=== PATIENT | male | born 1960 | race Caucasian/White ===

== ENCOUNTER → 2017-04-19 | Outpatient (CLI) | payer MEDICARE, MEDICAID ==
[~2017-04-19] MED LIST: CATHETER FLUSH 10 ML SYR IV PRN; HYDR-3062 PO; IOHEXOL 350 MG/ML 150 ML (OMNIPAQUE 350) VIAL IV ONE; LEVO500T78 PO; MTF500T PO; NIAC750T PO; NS 100 ML (IVPB) BAG IV ONE; arthritis med PO
[2017-04-19 10:54] LABS: ABG BASE EXCESS -1.2 MMOL/L (-2.5-2.5); ABG OXYGEN SATURATION 97 % (94-100); ABG PCO2 40 MMHG (35-45); ABG PH 7.38 (7.37-7.43); ABG PO2 75 MMHG (79-93); ABG TCO2 24.5 MMOL/L (21.0-31.0)
[2017-04-19 10:54] LABS: BASOPHILS % (AUTO) 0 % (0-10); EOSINOPHILS # (AUTO) 0.1 10^3/uL (0.0-0.3); EOSINOPHILS % (AUTO) 1 % (0-10); HEMATOCRIT 32 % (40-54); HEMOGLOBIN 12.3 G/DL (13.3-17.7); LYMPHOCYTES # (AUTO) 2.6 X 10^3 (1.0-4.0); LYMPHOCYTES % (AUTO) 30 % (12-44); MEAN CORPUSCULAR HEMOGLOBIN 30 PG (25-34); MEAN CORPUSCULAR HGB CONC 38 G/DL (32-36); MEAN CORPUSCULAR VOLUME 79 FL (80-99); MEAN PLATELET VOLUME 7.6 FL (7.4-10.4); MONOCYTES # (AUTO) 0.8 X 10^3 (0.0-1.0); MONOCYTES % (AUTO) 10 % (0-12); NEUTROPHILS % (AUTO) 59 % (42-75); PLATELET COUNT 233 10^3/uL (130-400); RED BLOOD COUNT 4.08 10^6/uL (4.35-5.85); RED CELL DISTRIBUTION WIDTH 14.6 % (10.0-14.5); WHITE BLOOD COUNT 8.6 10^3/uL (4.3-11.0)
[2017-04-19 10:57] LABS: ALLENS TEST YES-POS; INSPIRED O2 RA; PATIENT TEMP 97.7; VENTILATOR NO
[2017-04-19 11:15] LABS: BUN/CREATININE RATIO 17; CREATININE SERUM 0.66 MG/DL (0.60-1.30); GFR ESTIMATED > 60
[2017-04-19 11:29] LABS: ANISOCYTOSIS SLIGHT; BAND NEUTROPHILS 1 %; BASOPHILS % (MANUAL) 0 %; ELLIPT/OVALOCYTES SLIGHT; EOSINOPHILS % (MANUAL) 2 %; LYMPHOCYTES % (MANUAL) 27 %; MONOCYTES % (MANUAL) 6 %; MYELOCYTES % 2 %; NEUTROPHILS % (MANUAL) 62 %
--- NOTE | 2017-04-19 12:07 | Diagnostic Imaging Report ---
PROCEDURE: CT angiography of the chest with contrast. TECHNIQUE: Multiple contiguous axial images were obtained through the chest after uneventful bolus administration of intravenous contrast. Reconstructed CTA MIP acquisitions were also performed. DATE: April 19, 2017. COMPARISON: None. INDICATION: 56-year-old male, shortness of breath with mild exertion for 6 months. FINDINGS: There is no identified pulmonary nodule or mass. There is no focal airspace consolidation. There is no pneumothorax. There is no pleural effusion. The central airways are patent. There is no identified pulmonary embolus. The main pulmonary artery is normal in caliber. The heart is not enlarged. There is no pericardial effusion. There is a right paratracheal lymph node on axial image 25 which measures 6 mm in diameter. There are subcentimeter short axis paraesophageal lymph nodes such as on axial image 96 measuring up to 6 mm in short axis as the largest b2b outside sales representative lymph node. There is no identified abnormally enlarged hilar or axillary lymph node. There is no CT apparent abnormal wall thickening of the esophagus. There is an exophytic low-attenuation left renal lesion on axial image 162 measuring 2.0 cm in size with internal attenuation of one Hounsfield unit consistent with a benign cyst. There is a stone in the left renal pelvis on axial image 181 which measures 9.9 mm in size. There is no left hydronephrosis. The liver appears diffusely decreased in attenuation suggesting diffuse fatty infiltration of the liver. There is no identified acute bony abnormality. IMPRESSION: CT CHEST. 1. No identified acute cardiopulmonary abnormality. 2. Diffuse fatty infiltration of the liver. 3. 9.9 mm nonobstructing stone in the left renal pelvis. 4. Exophytic benign left renal cyst. Dictated by: Dictated on workstation # [id number]
== END ==
LOC: RAD 10:25
PROVIDERS: ATTEND Nurse Practitioner Family
DX: R06.00 Dyspnea, unspecified (principal); K76.0 Fatty (change of) liver, not elsewhere classified; N20.0 Calculus of kidney; R60.9 Edema, unspecified; G47.30 Sleep apnea, unspecified; B19.20 Unspecified viral hepatitis C without hepatic coma
CPT/HCPCS: 36415; 71275; 82565; 82805; 83880; 84520; 85007; 85027

== ENCOUNTER → 2017-05-02 | Outpatient (CLI) | payer MEDICARE, MEDICAID ==
[~2017-05-02] MED LIST changes: -CATHETER FLUSH 10 ML SYR IV PRN; -IOHEXOL 350 MG/ML 150 ML (OMNIPAQUE 350) VIAL IV ONE; -NS 100 ML (IVPB) BAG IV ONE
== END ==
LOC: CARD 10:33
PROVIDERS: ATTEND Nurse Practitioner Family
DX: R06.00 Dyspnea, unspecified (principal); R53.83 Other fatigue; B19.20 Unspecified viral hepatitis C without hepatic coma
CPT/HCPCS: 93306

== ENCOUNTER → 2017-05-02 | Outpatient (CLI) | payer MEDICARE, MEDICAID | LOC: RT 08:28 | PROVIDERS: ATTEND Nurse Practitioner Family | DX: R06.00 Dyspnea, unspecified (principal); R53.83 Other fatigue; B19.20 Unspecified viral hepatitis C without hepatic coma ==

== ENCOUNTER 2018-04-29 15:02 | Outpatient (CLI) | payer MEDICARE, MEDICAID ==
[~2018-04-29] VITALS: Ht 175.3 cm; Wt 128.6 kg
[~2018-04-29 15:02] MED LIST changes: -ESOM40CA52 PO; -EZET10TA27 PO; -GABA-488 PO; -HYDR-3870 PO; -METF-399 PO; -METO10TA3 PO; -METO50TA15 PO; -NABU750T PO; -NIAC10002 PO; -NITR-65 PO; -SIMV80TA5 PO; -TAMS0.4C98 PO; -TRAM50TA2 PO
[2018-04-29] MEDS ORDERED: METO50TA15 PO (15:28)
[2018-04-29] MEDS ORDERED: GABA-488 PO (15:28)
[2018-04-29] MEDS ORDERED: NABU750T PO (15:28)
[2018-04-29] MEDS ORDERED: TRAM50TA2 PO (15:28)
[2018-04-29] MEDS ORDERED: METF-399 PO (15:28)
[2018-04-29] MEDS ORDERED: SIMV80TA5 PO (15:28)
[2018-04-29] MEDS ORDERED: ESOM40CA52 PO (15:28)
[2018-04-29] MEDS ORDERED: EZET10TA27 PO (15:28)
[2018-04-29] MEDS ORDERED: NIAC10002 PO (15:28)
[2018-04-29] MEDS ORDERED: METO10TA3 PO (15:28)
[2018-04-30] MEDS ORDERED: NITR-65 PO (08:49)
[2018-04-30] MEDS ORDERED: HYDR-3870 PO (08:49)
[2018-04-30] MEDS ORDERED: TAMS0.4C98 PO (08:49)
== END 2018-04-29 16:11 | disposition home or self-care (01) ==
LOC: PREOP 15:02
PROVIDERS: ATTEND Urology
DX: Z01.818 Encounter for other preprocedural examination (principal)
CPT/HCPCS: 87081

== ENCOUNTER → 2018-04-29 | Outpatient (CLI) | payer MEDICARE, MEDICAID ==
[~2018-04-29] MED LIST changes: +ESOM40CA52 PO; +EZET10TA27 PO; +GABA-488 PO; +HYDR-3870 PO; +METF-399 PO; +METO10TA3 PO; +METO50TA15 PO; +NABU750T PO; +NIAC10002 PO; +NITR-65 PO; +SIMV80TA5 PO; +TAMS0.4C98 PO; +TRAM50TA2 PO
--- NOTE | 2018-04-29 15:56 | Diagnostic Imaging Report ---
INDICATION: Left-sided flank pain. Left ureteral stone. Time of exam 1:58 p.m. COMPARISON: Correlation is made with prior study from 03/24/2014. FINDINGS: There is a vague calcific density projected between the left transverse processes of L3 and L4. This may represent a ureteral calculus. Rounded calcific densities in the pelvis likely represent phleboliths. No definite renal calculi are seen. The bowel gas pattern is unremarkable. IMPRESSION: Calcific density between the left third and fourth transverse processes suspicious for a ureteral calculus. CT urinary tract study could be performed for further evaluation, if clinically indicated. Dictated by: Dictated on workstation # [id number]
== END ==
LOC: RAD 13:21
PROVIDERS: ATTEND Urology
DX: N20.1 Calculus of ureter (principal)
CPT/HCPCS: 74018

== ENCOUNTER 2018-04-30 06:20 | Day surgery (SDC) | payer MEDICARE, MEDICAID ==
[~2018-04-30] VITALS: Ht 175.3 cm; Wt 123.9 kg
[~2018-04-30 06:20] MED LIST changes: +ESOM40CA52 PO; +EZET10TA27 PO; +GABA-488 PO; +METF-399 PO; +METO10TA3 PO; +METO50TA15 PO; +NABU750T PO; +NIAC10002 PO; +SIMV80TA5 PO; +TRAM50TA2 PO
[2018-04-30] MEDS ORDERED: cefTRIAXone FOR IV USE 1,000 MG in NS (IVPB) 50 ML IV ONE (06:30)
[2018-04-30 06:35] VITALS: BP 137/89
[2018-04-30] MEDS ORDERED: MIDAZOLAM 2 MG/2 ML (VERSED) VIAL ONE (06:47)
[2018-04-30] MEDS ORDERED: SEVOFLURANE (ULTANE) 15 ML INHAL SOLN ONE ×2 (06:47→07:58)
[2018-04-30] MEDS ORDERED: fentaNYL INJECTION 100 MCG/2 ML AMP ONE (06:47)
[2018-04-30] MEDS ORDERED: ONDANSETRON 4 MG/2 ML (SDV) Z0FRAN ONE (06:47)
[2018-04-30] MEDS ORDERED: LIDOCAINE PF 2% 5 ML (XYLOCAINE) VIAL ONE (06:47)
[2018-04-30] MEDS ORDERED: proPOfol 200 MG/20 ML (DIPRIVAN) VIAL IV ONE (06:47)
--- NOTE | 2018-04-30 06:56 | Progress Note-Pre Operative ---
Pre-Operative Progress Note H&P Reviewed The H&P was reviewed, patient examined and no changes noted. Date Seen by Provider: Apr 30, 2018 Time Seen by Provider: 06:56 Date H&P Reviewed: Apr 30, 2018 Time H&P Reviewed: 06:56 Pre-Operative Diagnosis: LT PROXIMAL URETERAL STONE JONATHAN CONLEY MD Apr 30, 2018 06:56
[2018-04-30] MEDS ORDERED: LACTATED RINGERS 1,000 ML IV PRN (07:01)
[2018-04-30] MEDS ORDERED: FAMOTIDINE 20MG/2ML IV (PEPCID) IV ONE (07:15)
[2018-04-30] MEDS ORDERED: FUROSEMIDE 40 MG/4 ML INJ (LASIX) ONE (07:25)
[2018-04-30] MEDS ORDERED: KETOROLAC 30 MG/ML VIAL ONE (07:25)
--- NOTE | 2018-04-30 07:35 | Discharge Inst-Urology ---
Discharge Inst-Urology Discharge Medications New, Converted, or Re-newed RX: RX on Chart Patient Instructions/Follow Up Plan Please make appointment to been seen in office Saturday 05/13, [place] prior to it. KUB on way home Post ESWL instructions Increase oral fluids for 48 hours and then as needed. Diet and Activity as tolerated. If questions or concerns contact your physician Or seek help at emergency department. JONATHAN CONLEY MD Apr 30, 2018 07:35
--- NOTE | 2018-04-30 07:37 | Progress Note-Post Operative ---
Post-Operative Progess Note Surgeon (s)/Adult Basic Education Teacher (s) Surgeon JONATHAN CONLEY MD Adult Basic Education Teacher: NONE Pre-Operative Diagnosis LT PROXIMAL URETERAL STONE Post-Operative Diagnosis SAME Procedure & Operative Findings Date of Procedure 04/30/18 Procedure Performed/Findings LT ESWL Anesthesia Type GENERAL Estimated Blood Loss Estimated blood loss (mL): NONE Specimens/Packing Specimens Removed NONE Packing: NONE JONATHAN CONLEY MD Apr 30, 2018 07:37
--- OUTSIDE RECORDS SUMMARY | 2018-04-30 08:00 | XMS REPORT | Continuity of Care Document ---
Author Author [facility] Organization [facility] Address Unknown Phone Unavailable Allergies Active Description Code Type Severity Reaction Onset Reported/Identified Relationship to Patient Clinical Status Yes No Known Drug Allergies [id number] Drug Allergy Unknown N/A 04/29/2018 Medications There is no data. Problems Date Dx Coded Attending Type Code Diagnosis Diagnosed By 03/10/2014 YAEL BOB, JONATHAN [place] Ot 592.1 CALCULUS OF URETER 03/10/2014 YAEL BOB, JONATHAN [place] Ot V58.69 OT MED,LT,CURRENT USE 04/06/2014 JONATHAN CONLEY MD Ot 592.9 04/15/2014 Ot 592.1 06/10/2014 JONATHAN CONLEY MD Ot 592.9 06/10/2014 Ot 592.1 06/10/2014 YAEL BOB, JONATHAN [place] Ot 592.9 06/10/2014 YAEL BOB, JONATHAN [place] Ot 592.9 11/04/2014 Ot 592.1 04/19/2017 YAEL BOB, JONATHAN [place] Ot 592.9 URINARY CALCULUS NOS 04/19/2017 Ot 592.1 CALCULUS OF URETER 04/19/2017 RAYMUNDO PELLETIER MEAT LUGGER Ot R06.00 DYSPNEA, UNSPECIFIED 05/03/2017 RAYMUNDO PELLETIER MEAT LUGGER Ot B19.20 UNSPECIFIED VIRAL HEPATITIS C WITHOUT HE 05/03/2017 RAYMUNDO PELLETIER MEAT LUGGER Ot R06.00 DYSPNEA, UNSPECIFIED 05/03/2017 RAYMUNDO PELLETIER MEAT LUGGER Ot R53.83 OTHER FATIGUE 05/18/2017 RAYMUNDO PELLETIER MEAT LUGGER Ot B19.20 UNSPECIFIED VIRAL HEPATITIS C WITHOUT HE 05/18/2017 RAYMUNDO PELLETIER ME[employer] LUGGER Ot G47.30 SLEEP APNEA, UNSPECIFIED 05/18/2017 RAYMUNDO PELLETIER MEAT LUGGER Ot K76.0 FATTY (CHANGE OF) LIVER, NOT ELSEWHERE C 05/18/2017 GEOVANY PELLETIERINE [place] MEAT LUGGER Ot N20.0 CALCULUS OF KIDNEY 05/18/2017 PRABHU, RAYMUNDO E MEAT LUGGER Ot R06.00 DYSPNEA, UNSPECIFIED 05/18/2017 PRABHU, RAYMUNDO E MEAT LUGGER Ot R60.9 EDEMA, UNSPECIFIED 05/23/2017 PRABHU, RAYMUNDO E MEAT LUGGER Ot B19.20 UNSPECIFIED VIRAL HEPATITIS C WITHOUT HE 05/23/2017 PRABHU, RAYMUNDO E MEAT LUGGER Ot G47.30 SLEEP APNEA, UNSPECIFIED 05/23/2017 PRABHU, RAYMUNDO E MEAT LUGGER Ot K76.0 FATTY (CHANGE OF) LIVER, NOT ELSEWHERE C 05/23/2017 PRABHU, RAYMUNDO E MEAT LUGGER Ot N20.0 CALCULUS OF KIDNEY 05/23/2017 PRABHU, RAYMUNDO E MEAT LUGGER Ot R06.00 DYSPNEA, UNSPECIFIED 05/23/2017 PRABHU, RAYMUNDO E MEAT LUGGER Ot R60.9 EDEMA, UNSPECIFIED 05/28/2017 PRABHU, RAYMUNDO E MEAT LUGGER Ot B19.20 UNSPECIFIED VIRAL HEPATITIS C WITHOUT HE 05/28/2017 PRABHU, RAYMUNDO E MEAT LUGGER Ot R06.00 DYSPNEA, UNSPECIFIED 05/28/2017 PRABHU RAYMUNDO E MEAT LUGGER Ot R53.83 OTHER FATIGUE 04/29/2018 YAEL BOB, JONATHAN A Ot 592.9 URINARY CALCULUS NOS 04/29/2018 Ot 592.1 CALCULUS OF URETER 04/29/2018 GEOVANY PELLETIERINE E MEAT LUGGER Ot B19.20 UNSPECIFIED VIRAL HEPATITIS C WITHOUT HE 04/29/2018 GEOVANY PELLETIERINE E MEAT LUGGER Ot G47.30 SLEEP APNEA, UNSPECIFIED 04/29/2018 PRABHU RAYMUNDO E MEAT LUGGER Ot K76.0 FATTY (CHANGE OF) LIVER, NOT ELSEWHERE C 04/29/2018 PRABHU, RAYMUNDO E MEAT LUGGER Ot N20.0 CALCULUS OF KIDNEY 04/29/2018 PRABHU RAYMUNDO E MEAT LUGGER Ot R06.00 DYSPNEA, UNSPECIFIED 04/29/2018 PRABHU RAYMUNDO E MEAT LUGGER Ot R60.9 EDEMA, UNSPECIFIED 04/29/2018 PRABHU, RAYMUNDO E MEAT LUGGER Ot B19.20 UNSPECIFIED VIRAL HEPATITIS C WITHOUT HE 04/29/2018 PRABHU, RAYMUNDO E MEAT LUGGER Ot R06.00 DYSPNEA, UNSPECIFIED 04/29/2018 PRABHUGEOVANY CONRADINE E MEAT LUGGER Ot R53.83 OTHER FATIGUE 04/29/2018 PRABHU, RAYMUNDO E MEAT LUGGER Ot B19.20 UNSPECIFIED VIRAL HEPATITIS C WITHOUT HE 04/29/2018 PRABHUGEOVANY CONRADINE E MEAT LUGGER Ot R06.00 DYSPNEA, UNSPECIFIED 04/29/2018 PRABHU, RAYMUNDO E MEAT LUGGER Ot R53.83 OTHER FATIGUE 04/29/2018 YAEL BOB, JONATHAN [place] Ot 592.9 URINARY CALCULUS NOS 04/29/2018 Ot 592.1 CALCULUS OF URETER 04/29/2018 GEOVANY PELLETIERINE E MEAT LUGGER Ot B19.20 UNSPECIFIED VIRAL HEPATITIS C WITHOUT HE 04/29/2018 PRABHU RAYMUNDO E MEAT LUGGER Ot G47.30 SLEEP APNEA, UNSPECIFIED 04/29/2018 GEOVANY PELLETIERINE E MEAT LUGGER Ot K76.0 FATTY (CHANGE OF) LIVER, NOT ELSEWHERE C 04/29/2018 GEOVANY PELLETIERINE E MEAT LUGGER Ot N20.0 CALCULUS OF KIDNEY 04/29/2018 PRABHU RAYMUNDO E MEAT LUGGER Ot R06.00 DYSPNEA, UNSPECIFIED 04/29/2018 PRABHU, RAYMUNDO E MEAT LUGGER Ot R60.9 EDEMA, UNSPECIFIED 04/29/2018 PRABHU, RAYMUNDO E MEAT LUGGER Ot B19.20 UNSPECIFIED VIRAL HEPATITIS C WITHOUT HE 04/29/2018 PRABHUGEOVANY CONRADINE E MEAT LUGGER Ot R06.00 DYSPNEA, UNSPECIFIED 04/29/2018 PRABHU RAYMUNDO E MEAT LUGGER Ot R53.83 OTHER FATIGUE 04/29/2018 PRABHU RAYMUNDO E MEAT LUGGER Ot B19.20 UNSPECIFIED VIRAL HEPATITIS C WITHOUT HE 04/29/2018 GEOVANY PELLETIERINE E MEAT LUGGER Ot R06.00 DYSPNEA, UNSPECIFIED 04/29/2018 PRABHU RAYMUNDO E MEAT LUGGER Ot R53.83 OTHER FATIGUE Procedures There is no data. Results Test Result Range Capillary blood glucose measurement by glucometer (mass/volume) - 04/30/18 07: 08 Capillary blood glucose measurement by glucometer (mass/volume) 123 mg/dL 70-110 Encounters ACCT No. Visit Date/Time Discharge Status Pt. Type Provider Facility Loc./Unit Complaint [id number] 04/29/2018 15:02:00 04/29/2018 16:11:00 DIS Outpatient JONATHAN CONLEY MD [facility] PREOP URETAL STONE [id number] 05/02/2017 10:33:00 05/02/2017 23:59:59 CLS Outpatient RAYMUNDO PELLETIER MEAT LUGGER [facility] CARD DYSPNEA [id number] 05/02/2017 08:28:00 05/02/2017 23:59:59 CLS Outpatient RAYMUNDO PELLETIER E MEAT LUGGER [facility] RT DYSPNEA [id number] 04/19/2017 10:25:00 04/19/2017 23:59:59 CLS Outpatient RAYMUNDO PELLETIER MEAT [employer]GGER [facility] RAD R53.83 R06.00 Z74.09 R60.9 [id number] 03/10/2014 07:22:00 03/10/2014 11:05:00 DIS Outpatient JONATHAN CONLEY MD [facility] RIGHT URETERAL STONE [id number] 03/09/2014 14:52:00 03/09/2014 23:59:59 CLS Outpatient JONATHAN CONLEY MD [facility] RAD STONE [id number] 04/30/2018 06:20:00 ACT Outpatient JONATHAN CONLEY MD [facility] LEFT URETERAL STONE [id number] 04/29/2018 13:21:00 ACT Outpatient JONATHAN CONLEY MD [facility] RAD LT NRETERAL STONE [id number] 03/24/2014 13:33:00 Document Registration [email or web address] 03/24/2014 13:34:34 ACT Document Registration
--- NOTE | 2018-04-30 08:14 | Anesthesia-General Post-Op ---
General Patient Condition Mental Status/LOC: Same as Preop Cardiovascular: Satisfactory Nausea/Vomiting: Absent Respiratory: Satisfactory Pain: Controlled Complications: Absent Post Op Complications Complications None Follow Up Care/Instructions Patient Instructions None needed. Anesthesia/Patient Condition Patient Condition Patient is doing well, no complaints, stable vital signs, no apparent adverse anesthesia problems. No complications reported per nursing. ROSA FOOTE CRNA Apr 30, 2018 08:14
[2018-04-30] MEDS ORDERED: morphine INJ 10 MG/ML 1ML (SYR OR VIAL) IVP ONE (08:15)
[2018-04-30] MEDS ORDERED: ONDANSETRON 4 MG/2 ML (SDV) Z0FRAN IVP PRN (08:15)
[2018-04-30 08:40] VITALS: BP 135/64
[2018-04-30] MEDS ORDERED: HYDR-3870 PO (08:49)
[2018-04-30] MEDS ORDERED: NITR-65 PO (08:49)
[2018-04-30] MEDS ORDERED: TAMS0.4C98 PO (08:49)
[2018-04-30 09:07] VITALS: BP 123/60
[2018-04-30 09:40] VITALS: BP 126/81
--- NOTE | 2018-04-30 09:45 | Diagnostic Imaging Report ---
PATIENT HISTORY: LEFT URETERAL STONE. TECHNIQUE: Frontal views of the abdomen. COMPARISON: 04/29/2018. FINDINGS: There is a persistent approximately 1 cm calcific density in the region of the proximal left ureter at the L4 vertebral level. Phleboliths are noted at the pelvis. No acute osseous abnormality seen. Bowel loops are nondistended, without evidence of obstruction. No large collection of free air is seen. IMPRESSION: Calcification again seen in the region of the proximal left ureter at the L4 vertebral level. Dictated by: Dictated on workstation # [id number]
[2018-04-30 09:47] VITALS: BP 126/81
--- NOTE | 2018-04-30 10:04 | OPERATIVE REPORT ---
DATE OF SERVICE: 04/30/2018 PREOPERATIVE DIAGNOSIS: Left proximal ureteral stone. POSTOPERATIVE DIAGNOSIS: Left proximal ureteral stone. OPERATION PERFORMED: Left ESWL. SURGEON: Favio Conley MD. ANESTHESIA: General. COMPLICATIONS: None. DESCRIPTION OF PROCEDURE: Under satisfactory general anesthesia, the patient in supine position on the ESWL table, the left proximal ureteral stone was localized with some difficulty because of not being very radiopaque and because of the size of the patient, shocks were delivered at kV of 5. A total of 3000 shocks were delivered until we could not visualize the stone at all. The patient received 40 mg of Lasix and 30 mg of Toradol IV at the end of the procedure. He tolerated the procedure and anesthesia well and was sent to the recovery room in stable condition. Job ID: [id number] DocumentID: [id number] Dictated Date: 04/30/2018 07:53:40 Helicopter Utility Aircrewman Date: 04/30/2018 10:03:33 Dictated By: FAVIO CONLEY MD
--- NOTE | 2018-04-30 13:15 | Diagnostic Imaging Report ---
EXAMINATION: Supine abdomen at 9:55 a.m. INDICATION: Post ESWL. FINDINGS: The exam performed earlier today at 7:11 a.m. noted a 1 cm calcific density overlying the left transverse process of L4. That finding is again evident on this study and does not seem to have changed significantly in appearance or position. No other abnormality is identified. In the interval since the previous exam, a moderate amount of gas has developed in the small bowel. This finding is nonspecific. IMPRESSION: The calcific density overlying the left ureter seen previously is again evident and does not appear to have changed significantly in position or appearance. Dictated by: Dictated on workstation # [id number]
== END 2018-04-30 09:47 | disposition home or self-care (01) ==
LOC: SDC 06:20
PROVIDERS: ATTEND Urology
DX: N20.1 Calculus of ureter (principal); E11.9 Type 2 diabetes mellitus without complications; I10 Essential (primary) hypertension; G47.33 Obstructive sleep apnea (adult) (pediatric); K21.9 Gastro-esophageal reflux disease without esophagitis; E66.01 Morbid (severe) obesity due to excess calories; Z68.41 Body mass index [BMI] 40.0-44.9, adult; Z79.84 Long term (current) use of oral hypoglycemic drugs; Z79.899 Other long term (current) drug therapy; Z87.891 Personal history of nicotine dependence
CPT/HCPCS: 74018; 82962

== ENCOUNTER → 2018-05-13 | Outpatient (CLI) | payer MEDICARE, MEDICAID ==
[~2018-05-13] MED LIST changes: +HYDR-3870 PO; +NITR-65 PO; +SIMV80TA21 PO; -SIMV80TA5 PO; +TAMS0.4C98 PO
--- NOTE | 2018-05-13 15:05 | Diagnostic Imaging Report ---
INDICATION: Status post ESWL. Follow up ureteral calculus. COMPARISON: 04/30/2018. FINDINGS: Single supine radiographic view of the abdomen was obtained and again demonstrates extraosseous calcification projecting over the left psoas muscle at approximately the L3-L4 intervertebral disc space. This has not significantly changed when compared to 04/30/2018. Included small bowel loops are nondistended. No new unexpected extraosseous calcifications or radiopaque foreign bodies are seen. IMPRESSION: 1. Extraosseous calcification projecting over the left psoas muscle is stable in position. Dictated by: Dictated on workstation # [id number]
== END ==
LOC: RAD 14:26
PROVIDERS: ATTEND Urology
DX: N20.1 Calculus of ureter (principal); M61.9 Calcification and ossification of muscle, unspecified
CPT/HCPCS: 74018

== ENCOUNTER → 2018-05-27 | Outpatient (CLI) | payer MEDICARE, MEDICAID ==
--- NOTE | 2018-05-27 13:07 | Diagnostic Imaging Report ---
INDICATION: Left ureteral stone, status post lithotripsy. TIME OF EXAMINATION: 12:27 PM. COMPARISON: 05/13/2018. FINDINGS: The calcific density previously noted is again seen projected between the left L3 and L4 transverse processes. Pelvic calcifications appear stable, likely phleboliths. The right abdomen is unremarkable. IMPRESSION: Vague calcific density in the left paramidline abdomen is again noted and similar to the examination from 05/13/2018. Dictated by: Dictated on workstation # [id number]
== END ==
LOC: RAD 12:14
PROVIDERS: ATTEND Urology
DX: N20.1 Calculus of ureter (principal); R19.8 Other specified symptoms and signs involving the digestive system and abdomen
CPT/HCPCS: 74018

== ENCOUNTER 2018-05-28 06:42 | Day surgery (SDC) | payer MEDICARE, MEDICAID ==
[~2018-05-28] VITALS: Ht 175.3 cm; Wt 126.6 kg
--- OUTSIDE RECORDS SUMMARY | 2018-05-28 06:46 | XMS REPORT | Continuity of Care Document ---
Author Author [facility] Organization [facility] Address Unknown Phone Unavailable Allergies Active Description Code Type Severity Reaction Onset Reported/Identified Relationship to Patient Clinical Status Yes No Known Drug Allergies [id number] Drug Allergy Unknown N/A 04/29/2018 Medications There is no data. Problems Date Dx Coded Attending Type Code Diagnosis Diagnosed By 03/10/2014 YAEL BOB, JONATHAN Prescott Ot 592.1 CALCULUS OF URETER 03/10/2014 YAEL BOB, JONATHAN Prescott Ot V58.69 OT MED,LT,CURRENT USE 04/06/2014 JONATHAN CONLEY MD Ot 592.9 04/15/2014 Ot 592.1 06/10/2014 JONATHAN CONLEY MD Ot 592.9 06/10/2014 Ot 592.1 06/10/2014 YAEL BOB, JONATHAN Prescott Ot 592.9 06/10/2014 YALE BOB, JONATHAN Prescott Ot 592.9 11/04/2014 Ot 592.1 04/19/2017 YAEL BOB, JONATHAN Prescott Ot 592.9 URINARY CALCULUS NOS 04/19/2017 Ot 592.1 CALCULUS OF URETER 04/19/2017 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 Ot R06.00 DYSPNEA, UNSPECIFIED 05/03/2017 RAYMUNDO PELLTEIER WIRE STRAIGHTENING MACHINE OPERATOR Ot B19.20 UNSPECIFIED VIRAL HEPATITIS C WITHOUT HE 05/03/2017 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 Ot R06.00 DYSPNEA, UNSPECIFIED 05/03/2017 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 Ot R53.83 OTHER FATIGUE 05/18/2017 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 Ot B19.20 UNSPECIFIED VIRAL HEPATITIS C WITHOUT HE 05/18/2017 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 Ot G47.30 SLEEP APNEA, UNSPECIFIED 05/18/2017 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 Ot K76.0 FATTY (CHANGE OF) LIVER, NOT ELSEWHERE C 05/18/2017 GEOVANY PELLETIERINE [place] WIRE STRAIGHTENING MACHINE OPERATOR Ot N20.0 CALCULUS OF KIDNEY 05/18/2017 PRABHU, RAYMUNDO E WIRE STRAIGHTENING MACHINE OPERATOR Ot R06.00 DYSPNEA, UNSPECIFIED 05/18/2017 PRABHU, RAYMUNDO E WIRE STRAIGHTENING MACHINE OPERATOR Ot R60.9 EDEMA, UNSPECIFIED 05/23/2017 PRABHU, RAYMUNDO E WIRE STRAIGHTENING MACHINE OPERATOR Ot B19.20 UNSPECIFIED VIRAL HEPATITIS C WITHOUT HE 05/23/2017 PRABHU, RAYMUDNO E WIRE STRAIGHTENING MACHINE OPERATOR Ot G47.30 SLEEP APNEA, UNSPECIFIED 05/23/2017 PRABHU, RAYMUNDO E WIRE STRAIGHTENING MACHINE OPERATOR Ot K76.0 FATTY (CHANGE OF) LIVER, NOT ELSEWHERE C 05/23/2017 PRABHU, RAYMUNDO E WIRE STRAIGHTENING MACHINE OPERATOR Ot N20.0 CALCULUS OF KIDNEY 05/23/2017 PRABHU, RAYMUNDO E WIRE STRAIGHTENING MACHINE OPERATOR Ot R06.00 DYSPNEA, UNSPECIFIED 05/23/2017 PRABHU, RAYMUNDO E WIRE STRAIGHTENING MACHINE OPERATOR Ot R60.9 EDEMA, UNSPECIFIED 05/28/2017 PRABHU, RAYMUNDO E WIRE STRAIGHTENING MACHINE OPERATOR Ot B19.20 UNSPECIFIED VIRAL HEPATITIS C WITHOUT HE 05/28/2017 PRABHU, RAYMUNDO E WIRE STRAIGHTENING MACHINE OPERATOR Ot R06.00 DYSPNEA, UNSPECIFIED 05/28/2017 PRABHU RAYMUNDO E WIRE STRAIGHTENING MACHINE OPERATOR Ot R53.83 OTHER FATIGUE 04/29/2018 YAEL BOB, JONATHAN A Ot 592.9 URINARY CALCULUS NOS 04/29/2018 Ot 592.1 CALCULUS OF URETER 04/29/2018 GEOVANY PELLETIERINE E WIRE STRAIGHTENING MACHINE OPERATOR Ot B19.20 UNSPECIFIED VIRAL HEPATITIS C WITHOUT HE 04/29/2018 GEOVANY PELLETIERINE E WIRE STRAIGHTENING MACHINE OPERATOR Ot G47.30 SLEEP APNEA, UNSPECIFIED 04/29/2018 PRABHU RAYMUNDO E WIRE STRAIGHTENING MACHINE OPERATOR Ot K76.0 FATTY (CHANGE OF) LIVER, NOT ELSEWHERE C 04/29/2018 PRABHU, RAYMUNDO E WIRE STRAIGHTENING MACHINE OPERATOR Ot N20.0 CALCULUS OF KIDNEY 04/29/2018 PRABHU RAYMUNDO E WIRE STRAIGHTENING MACHINE OPERATOR Ot R06.00 DYSPNEA, UNSPECIFIED 04/29/2018 PRABHU RAYMUNDO E WIRE STRAIGHTENING MACHINE OPERATOR Ot R60.9 EDEMA, UNSPECIFIED 04/29/2018 PRABHU, RAYMUNDO E WIRE STRAIGHTENING MACHINE OPERATOR Ot B19.20 UNSPECIFIED VIRAL HEPATITIS C WITHOUT HE 04/29/2018 PRABHU, RAYMUNDO E WIRE STRAIGHTENING MACHINE OPERATOR Ot R06.00 DYSPNEA, UNSPECIFIED 04/29/2018 PRABHUGEOVANY CONRADINE E WIRE STRAIGHTENING MACHINE OPERATOR Ot R53.83 OTHER FATIGUE 04/29/2018 PRABHU RAYMUNDO E WIRE STRAIGHTENING MACHINE OPERATOR Ot B19.20 UNSPECIFIED VIRAL HEPATITIS C WITHOUT HE 04/29/2018 GEOVANY PELLETIERINE E WIRE STRAIGHTENING MACHINE OPERATOR Ot R06.00 DYSPNEA, UNSPECIFIED 04/29/2018 GEOVANY PELLETIERINE E WIRE STRAIGHTENING MACHINE OPERATOR Ot R53.83 OTHER FATIGUE 04/29/2018 JONATHAN CONLEY MD Ot 592.9 URINARY CALCULUS NOS 04/29/2018 Ot 592.1 CALCULUS OF URETER 04/29/2018 GEOVANY PELLETIREINE E WIRE STRAIGHTENING MACHINE OPERATOR Ot B19.20 UNSPECIFIED VIRAL HEPATITIS C WITHOUT HE 04/29/2018 GEOVANY PELLETIERINE E WIRE STRAIGHTENING MACHINE OPERATOR Ot G47.30 SLEEP APNEA, UNSPECIFIED 04/29/2018 GEOVANY PELLETIERINE [place] WIRE STRAIGHTENING MACHINE OPERATOR Ot K76.0 FATTY (CHANGE OF) LIVER, NOT ELSEWHERE C 04/29/2018 GEOVANY PELLETIERINE E WIRE STRAIGHTENING MACHINE OPERATOR Ot N20.0 CALCULUS OF KIDNEY 04/29/2018 GEOVANY PELLETIERINE E WIRE STRAIGHTENING MACHINE OPERATOR Ot R06.00 DYSPNEA, UNSPECIFIED 04/29/2018 PRABHU RAYMUNDO E WIRE STRAIGHTENING MACHINE OPERATOR Ot R60.9 EDEMA, UNSPECIFIED 04/29/2018 PRABHU RAYMUNDO E WIRE STRAIGHTENING MACHINE OPERATOR Ot B19.20 UNSPECIFIED VIRAL HEPATITIS C WITHOUT HE 04/29/2018 GEOVANY PELLETIERINE [place] WIRE STRAIGHTENING MACHINE OPERATOR Ot R06.00 DYSPNEA, UNSPECIFIED 04/29/2018 PRABHU RAYUMNDO E WIRE STRAIGHTENING MACHINE OPERATOR Ot R53.83 OTHER FATIGUE 04/29/2018 GEOVANY PELLETIERINE [place] WIRE STRAIGHTENING MACHINE OPERATOR Ot B19.20 UNSPECIFIED VIRAL HEPATITIS C WITHOUT HE 04/29/2018 GEOVANY PELLETIERINE [place] WIRE STRAIGHTENING MACHINE OPERATOR Ot R06.00 DYSPNEA, UNSPECIFIED 04/29/2018 GEOVANY PELLETIERINE [place] WIRE STRAIGHTENING MACHINE OPERATOR Ot R53.83 OTHER FATIGUE 04/30/2018 JONATHAN CONLEY MD Ot E11.9 TYPE 2 DIABETES MELLITUS WITHOUT COMPLIC 04/30/2018 JONATHAN CONLEY MD Ot E66.01 MORBID (SEVERE) OBESITY DUE TO EXCESS CA 04/30/2018 JONATHAN CONLEY MD Ot G47.33 OBSTRUCTIVE SLEEP APNEA (ADULT) (PEDIATR 04/30/2018 JONATHAN CONLEY MD Ot I10 ESSENTIAL (PRIMARY) HYPERTENSION 04/30/2018 JONATHAN CONLEY MD, Ot K21.9 GASTRO-ESOPHAGEAL REFLUX DISEASE WITHOUT 04/30/2018 JONATHAN CONLEY MD, Ot N20.1 CALCULUS OF URETER 04/30/2018 JONATHAN CONLEY MD, Ot Z68.41 BODY MASS INDEX (BMI) 40.0-44.9, ADULT 04/30/2018 JONATHAN CONLEY MD, Ot Z79.84 LABEL TACKER (CURRENT) USE OF ORAL HYPOGLYC 04/30/2018 JONATHAN CONLEY MD, Ot Z79.899 OTHER LABEL TACKER (CURRENT) DRUG THERAPY 04/30/2018 JONATHAN CONLEY MD, Ot Z87.891 PERSONAL HISTORY OF NICOTINE DEPENDENCE 05/02/2018 JONATHAN CONLEY MD, Ot E11.9 TYPE 2 DIABETES MELLITUS WITHOUT COMPLIC 05/02/2018 JONATHAN CONLEY MD, Ot E66.01 MORBID (SEVERE) OBESITY DUE TO EXCESS CA 05/02/2018 JONATHAN CONLEY MD, Ot G47.33 OBSTRUCTIVE SLEEP APNEA (ADULT) (PEDIATR 05/02/2018 JONATHAN CONLEY MD, Ot I10 ESSENTIAL (PRIMARY) HYPERTENSION 05/02/2018 JONATHAN CONLEY MD, Ot K21.9 GASTRO-ESOPHAGEAL REFLUX DISEASE WITHOUT 05/02/2018 JONATHAN CONLEY MD, Ot N20.1 CALCULUS OF URETER 05/02/2018 JONATHAN CONLEY MD, Ot Z68.41 BODY MASS INDEX (BMI) 40.0-44.9, ADULT 05/02/2018 JONATHAN CONLEY MD, Ot Z79.84 FPC (CURRENT) USE OF ORAL HYPOGLYC 05/02/2018 JONATHAN CONLEY MD, Ot Z79.899 OTHER LABEL TACKER (CURRENT) DRUG THERAPY 05/02/2018 JONATHAN CONLEY MD, Ot Z87.891 PERSONAL HISTORY OF NICOTINE DEPENDENCE 05/14/2018 JONATHAN CNOLEY MD, Ot M61.9 CALCIFICATION AND OSSIFICATION OF MUSCLE 05/14/2018 JONATHAN CONLEY MD, Ot N20.1 CALCULUS OF URETER 05/21/2018 JONATHAN CONLEY MD, Ot N20.1 CALCULUS OF URETER Procedures There is no data. Results Test Result Range Methicillin resistant Staphylococcus aureus (MRSA) screening culture - 15:40 Methicillin resistant Staphylococcus aureus (MRSA) screening culture NEG NRG Capillary blood glucose measurement by glucometer (mass/volume) - 04/30/18 07: 08 Capillary blood glucose measurement by glucometer (mass/volume) 123 mg/dL 70-110 Encounters ACCT No. Visit Date/Time Discharge Status Pt. Type Provider Facility Loc./Unit Complaint [id number] 2018 14:26:00 2018 23:59:59 CLS Outpatient JONATHAN CONLEY MD [facility] RAD L RENAL STONE [id number] 04/30/2018 06:20:00 04/30/2018 09:47:00 DIS Outpatient JONATHAN CONLEY MD [facility] SDC LEFT URETERAL STONE [id number] 04/29/2018 13:21:00 04/29/2018 23:59:59 CLS Outpatient JONATHAN CONLEY MD [facility] RAD LT NRETERAL STONE [id number] 04/29/2018 15:02:00 04/29/2018 16:11:00 DIS Outpatient JONATHAN CONLEY MD [facility] PREOP URETAL STONE [id number] 05/02/2017 10:33:00 05/02/2017 23:59:59 CLS Outpatient RAYMUNDO PELLETIER APRN [facility] CARD DYSPNEA [id number] 05/02/2017 08:28:00 05/02/2017 23:59:59 CLS Outpatient 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 [facility] RT DYSPNEA [id number] 04/19/2017 10:25:00 04/19/2017 23:59:59 CLS Outpatient 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 [facility] RAD R53.83 R06.00 Z74.09 R60.9 [id number] 03/10/2014 07:22:00 03/10/2014 11:05:00 DIS Outpatient JONATHAN CONLEY MD [facility] SDC RIGHT URETERAL STONE [id number] 03/09/2014 14:52:00 03/09/2014 23:59:59 CLS Outpatient JONATHAN CONLEY MD [facility] RAD STONE [id number] 05/28/2018 06:42:00 ACT Outpatient JONATHAN CONLEY MD [facility] LEFT URETERAL STONE [id number] 05/27/2018 12:14:00 ACT Outpatient JONATHAN CONLEY MD [facility] RAD STONE RISK [id number] 03/24/2014 13:33:00 Document Registration [id number] 03/24/2014 13:34:34 ACT Document Registration
--- NOTE | 2018-05-28 07:03 | Progress Note-Pre Operative ---
Pre-Operative Progress Note H&P Reviewed The H&P was reviewed, patient examined and no changes noted. Date Seen by Provider: May 28, 2018 Time Seen by Provider: 07:03 Date H&P Reviewed: May 28, 2018 Time H&P Reviewed: 07:03 Pre-Operative Diagnosis: LT PROXIMAL URETERAL STONE JONATHAN CONLEY MD May 28, 2018 07:03
[2018-05-28 07:10] VITALS: BP 132/78
[2018-05-28] MEDS ORDERED: LIDOCAINE PF 2% 5 ML (XYLOCAINE) VIAL ONE (07:24)
[2018-05-28] MEDS ORDERED: proPOfol 200 MG/20 ML (DIPRIVAN) VIAL IV ONE (07:24)
[2018-05-28] MEDS ORDERED: SEVOFLURANE (ULTANE) 15 ML INHAL SOLN ONE ×3 (07:24→08:37)
[2018-05-28] MEDS ORDERED: FUROSEMIDE 40 MG/4 ML INJ (LASIX) ONE (07:24)
[2018-05-28] MEDS ORDERED: DEXAMETHASONE 10 MG/ML (DECADRON) 1 ML VIAL ONE (07:24)
[2018-05-28] MEDS ORDERED: fentaNYL INJECTION 100 MCG/2 ML AMP ONE (07:24)
[2018-05-28] MEDS ORDERED: KETOROLAC 30 MG/ML VIAL ONE (07:24)
[2018-05-28] MEDS ORDERED: MIDAZOLAM 2 MG/2 ML (VERSED) VIAL ONE (07:24)
[2018-05-28] MEDS ORDERED: ONDANSETRON 4 MG/2 ML (SDV) Z0FRAN ONE (07:24)
[2018-05-28] MEDS ORDERED: CATHETER FLUSH 10 ML SYR IV PRN (07:30)
[2018-05-28] MEDS ORDERED: cefTRIAXone FOR IV USE 1,000 MG in WATER (STERILE) FOR INJECTION 10 ML IV ONE (07:30)
--- NOTE | 2018-05-28 08:20 | Discharge Inst-Urology ---
Discharge Inst-Urology Discharge Medications New, Converted, or Re-newed RX: RX on Chart Patient Instructions/Follow Up Plan Please make appointment to been seen in office in 2 weeks. KUB prior to it KUB on way home Post ESWL instructions Increase oral fluids for 48 hours and then as needed. Diet and Activity as tolerated. If questions or concerns contact your physician Or seek help at emergency department. JONATHAN CONLEY MD May 28, 2018 08:20
--- NOTE | 2018-05-28 08:21 | Progress Note-Post Operative ---
Post-Operative Progess Note Surgeon (s)/Chief Librarian Circulation Department (s) Surgeon JONATHAN CONLEY MD Chief Librarian Circulation Department: NONE Pre-Operative Diagnosis LT PROXIMAL URETERAL STONE Post-Operative Diagnosis SAME Procedure & Operative Findings Date of Procedure 05/28/18 Procedure Performed/Findings LT ESWL Anesthesia Type GENERAL Estimated Blood Loss Estimated blood loss (mL): NONE Specimens/Packing Specimens Removed NONE Packing: NONE JONATHAN CONLEY MD May 28, 2018 08:21
--- NOTE | 2018-05-28 08:49 | Diagnostic Imaging Report ---
INDICATION: Left-sided renal stones. TECHNIQUE: Single supine view of the abdomen at 7:16 AM. CORRELATION STUDY: 05/27/2018. FINDINGS: The previously demonstrated calcification between the left L3 and L4 transverse process appears somewhat less well visualized. This may project over the L4 transverse process. Additional calcifications in the pelvis are present. The overlying bowel gas pattern is unremarkable. IMPRESSION: The previously noted vague calcification over the left paraspinal region is less well visualized but may be projecting over the L4 transverse process at followup. Dictated by: Dictated on workstation # [id number]
[2018-05-28] MEDS ORDERED: MEPERIDINE (DEMEROL) INJ 50 MG/ML IVP ONE (09:00)
[2018-05-28] MEDS ORDERED: morphine INJ 10 MG/ML 1ML (SYR OR VIAL) IVP ONE (09:00)
[2018-05-28] MEDS ORDERED: PROMETHAZINE INJ 25 MG/ML (PHENERGAN) AMP IVP ONE (09:00)
[2018-05-28] MEDS ORDERED: ONDANSETRON 4 MG/2 ML (SDV) Z0FRAN IVP PRN (09:00)
[2018-05-28] MEDS ORDERED: HYDROmorphone 2 MG/ML VIAL (DILAUDID) IV ONE (09:00)
[2018-05-28 09:35] VITALS: BP 119/71
[2018-05-28] MEDS ORDERED: HYDR-3870 PO (09:43)
[2018-05-28] MEDS ORDERED: TAMS0.4C98 PO (09:43)
[2018-05-28] MEDS ORDERED: NITR-65 PO (09:43)
[2018-05-28 10:05] VITALS: BP 119/62
[2018-05-28] MEDS ORDERED: LACTATED RINGERS 1,000 ML IV SCH (10:30)
--- NOTE | 2018-05-28 12:01 | OPERATIVE REPORT ---
DATE OF SERVICE: 05/28/2018 PREOPERATIVE DIAGNOSIS: Left proximal ureteral stones. POSTOPERATIVE DIAGNOSIS: Left proximal ureteral stones. OPERATION PERFORMED: Left ESWL. SURGEON: Favio Conley MD. ANESTHESIA: COMPLICATIONS: None. DESCRIPTION OF PROCEDURE: Under satisfactory general anesthesia, the patient in supine position on the ESWL table, the left proximal renal stones were localized. Shocks were delivered at a kV of 5. Total of 2500 shocks were delivered. We could not see any more fragments or stones. The patient received 30 mg of Toradol and 40 mg of Lasix IV at the end of the procedure. He tolerated the procedure and anesthesia well and was sent to the recovery room in a stable condition. Job ID: [id number] DocumentID: [id number] Dictated Date: 05/28/2018 08:36:43 Latexer Date: 05/28/2018 12:01:04 Dictated By: FAVIO CONLEY MD
--- NOTE | 2018-05-28 12:06 | Anesthesia-General Post-Op ---
General Patient Condition Mental Status/LOC: Same as Preop Cardiovascular: Satisfactory Nausea/Vomiting: Absent Respiratory: Satisfactory Pain: Controlled Complications: Absent Post Op Complications Complications None Follow Up Care/Instructions Patient Instructions None needed. Anesthesia/Patient Condition Patient Condition Patient is doing well, no complaints, stable vital signs, no apparent adverse anesthesia problems. No complications reported per nursing. ROSA FOOTE CRNA May 28, 2018 12:06
--- NOTE | 2018-05-28 14:00 | Diagnostic Imaging Report ---
INDICATION: Post operative extracorporal shock wave lithotripsy. TECHNIQUE: Two supine views of the abdomen at 10:01 AM. CORRELATION STUDY: 03/27/2019. FINDINGS: Large amount of overlying bowel gas is present and does obscure detail. A slightly amorphous density interposed between the L3-L4 transverse process is present. This may correspond to the density superimposed over the L4 transverse process on prior imaging. Calcifications in the pelvis, likely phleboliths, appear unchanged. IMPRESSION: Faint, amorphous calcification interposed between the L3 and L4 transverse processes. Dictated on workstation # [id number]
== END 2018-05-28 10:20 | disposition home or self-care (01) ==
LOC: SDC 06:42
PROVIDERS: ATTEND Urology
DX: N20.1 Calculus of ureter (principal); E11.9 Type 2 diabetes mellitus without complications; I10 Essential (primary) hypertension; K21.9 Gastro-esophageal reflux disease without esophagitis; E66.01 Morbid (severe) obesity due to excess calories; Z68.41 Body mass index [BMI] 40.0-44.9, adult; Z79.84 Long term (current) use of oral hypoglycemic drugs; Z79.899 Other long term (current) drug therapy
CPT/HCPCS: 74018; 82962; 87081

== ENCOUNTER → 2018-06-11 | Outpatient (CLI) | payer MEDICARE, MEDICAID ==
--- NOTE | 2018-06-11 15:33 | Diagnostic Imaging Report ---
INDICATION: Nephrolithiasis. COMPARISON: Comparison is made to prior examination of 05/28/2018. FINDINGS: Bowel gas pattern is nonspecific. There is persistent faint calcification between the left L3 and L4 spinous process. There are some calcified phleboliths in the pelvis. IMPRESSION: Persistent faint calcification between the left L3 and L4 spinous processes, possibly within the left ureter. Dictated by: Dictated on workstation # [id number]
== END ==
LOC: RAD 13:11
PROVIDERS: ATTEND Urology
DX: N20.2 Calculus of kidney with calculus of ureter (principal); M51.86 Other intervertebral disc disorders, lumbar region
CPT/HCPCS: 74018

== ENCOUNTER → 2018-06-14 | Outpatient (CLI) | payer MEDICARE, MEDICAID ==
--- NOTE | 2018-06-14 18:21 | Diagnostic Imaging Report ---
INDICATION: Right-sided scrotal pain. TECHNIQUE: Scrotal sonography performed in the routine fashion, including color Doppler. FINDINGS: The right testicle measured 4.1 x 2.1 x 3.0 cm. The left measured 4.3 x 2.3 x 2.9 cm. Both testicles contain color flow. On the right side, there are two cysts within the testicle; one measuring 9 x 7 mm, the other measuring about 1.1 x 0.5 cm, with some internal echoes. There is also epididymal head cyst measuring 1.7 x 1.2 x 0.9 cm. There is a 9 mm cyst in the epididymal tail on the right side. On the left side, there is a cyst in the epididymal head measuring 1.0 x 0.7 cm, with some internal debris. There is an additional 1.0 x 0.8 x 0.9 cm left epididymal head cyst. There is no significant hydrocele. IMPRESSION: There are two cysts in the right testicle, one of which shows some internal echoes which may represent debris or blood. There is color flow to both testicles. There are epididymal cysts on both sides, as above. Dictated by: Dictated on workstation # [id number]
== END ==
LOC: RAD 11:32
PROVIDERS: ATTEND Urology
DX: N44.2 Benign cyst of testis (principal); N50.3 Cyst of epididymis
CPT/HCPCS: 76870

== ENCOUNTER 2018-08-03 04:40 | Emergency (ER) | payer MEDICARE, MEDICAID ==
[~2018-08-03] VITALS: Ht 175.3 cm; Wt 126.1 kg
--- NOTE | 2018-08-03 05:18 | NUR ---
DOCTOR DHALIWAL IN TO SEE THE PATIENT.
--- NOTE | 2018-08-03 05:38 | NUR ---
BLADDER SCANNED THE PATIENT AFTER VOIDING NO URINE RETAINED.
[2018-08-03 05:42] LABS: CLARITY,URINE CLOUDY; COLOR,URINE RED; GLUCOSE, URINE (UA) NEGATIVE (NEGATIVE); PH,URINE 7.5 (5-9); PROTEIN,URINE 1+ (NEGATIVE)
[2018-08-03 05:43] LABS: KETONES,URINE TRACE (NEGATIVE); NITRITE,URINE NEGATIVE (NEGATIVE)
[2018-08-03] MEDS ORDERED: PHENAZOPYRIDINE 100 MG (PYRIDIUM) TABLET PO ONE (05:45)
--- NOTE | 2018-08-03 05:45 | ED GU-Female ---
General Chief Complaint: - Urinary Stated Complaint: PASSING BLOOD IN URINE AFTER PROCEDURE Nursing Triage Note: PT. REPORTED HE HAD A SCOPE DONE YESTERDAY TO REMOVE A KIDNEY STONE AT [facility] AND REPORTED HE CAME TO THE ER BECAUSE OF BLOOD IN HIS URINE. PT. STATED HE THOUGHT HE WOULD HAVE SOME BLOOD AND EARLIER IT WAS JAIMES RED BUT NOW ITS JUST SLIGHTLY RED AND HE WAS JUST CONCERNED. PT. REPORTED HE WAS GIVEN PAIN MEDICATION AND AN ANTIBIOTIC YESTERDAY. Nursing Sepsis Screen: No Definite Risk Source: patient Exam Limitations: no limitations History of Present Illness Date Seen by Provider: Aug 03, 2018 Time Seen by Provider: 05:00 Initial Comments 58-year-old male who presents with hematuria after undergoing cystoscopy for kidney stone removal yesterday at [facility] who presents with blood-tinged urine. Patient also reports suprapubic pain. Denies decrease in urine output or urinary retention. Denies clots in urine. Patient is unsure whether the kidney stone was retrieved or his stent was placed. But states he was instructed to return to [place] on Sunday for follow-up procedure. No fever chills, nausea vomiting or sweats. Patient was prescribed antibiotics and pain medication. Timing/Duration: yesterday Severity/Quality: moderate, other Location: suprapubic, groin, other (right pelvic) Radiation: none Activities at Onset: none Prior Genitourinary Problems: none Modifying Factors: Improves With Analgesics Associated Symptoms: No dysuria, No fever/chills, No lower back pain, No urinary frequency Allergies and Home Medications Allergies Coded Allergies: No Known Drug Allergies (Unverified , 04/29/18) Home Medications Esomeprazole Magnesium 40 Mg Capsule.dr, 40 MG PO DAILY, (Reported) Ezetimibe 10 Mg Tablet, 10 MG PO DAILY, (Reported) Gabapentin 300 Mg Capsule, 300 MG PO DAILY, (Reported) Hydrocodone/Acetaminophen 1 Each Tablet, 1-2 EACH PO Q6H PRN for PAIN-MODERATE Prescribed by: EBER WOODS on 04/30/18 0849 Hydrocodone/Acetaminophen 1 Each Tablet, 1-2 EACH PO Q6H PRN for PAIN-MODERATE Prescribed by: WILY MARR on 05/28/18 0943 Metformin HCl 1,000 Mg Tablet, 1,000 MG PO BID, (Reported) Metoclopramide HCl 10 Mg Tablet, 10 MG PO QID, (Reported) Metoprolol Tartrate 50 Mg Tablet, 50 MG PO BID, (Reported) Nabumetone 750 Mg Tablet, 750 MG PO BID, (Reported) Niacin 1,000 Mg Tablet.er, 1,000 MG PO DAILY, (Reported) Nitrofurantoin Monohyd/M-Cryst 100 Mg Capsule, 1 TAB PO BID Prescribed by: WILY MARR on 05/28/18942 Phenazopyridine HCl 200 Mg Tablet, 1 TAB PO TID Prescribed by: TESSA DHALIWAL on 08/03/18 0548 Simvastatin 80 Mg Tablet, 80 MG PO BID, (Reported) Tamsulosin HCl 0.4 Mg Cap, 0.4 MG PO DAILY Prescribed by: WILY MARR on 05/28/18942 Tramadol HCl 50 Mg Tablet, 50 MG PO BID, (Reported) Patient Home Medication List Home Medication List Reviewed: Yes Review of Systems Review of Systems Constitutional: see HPI EENTM: see HPI Respiratory: see HPI Cardiovascular: see HPI Gastrointestinal: see HPI Genitourinary: see HPI Musculoskeletal: see HPI Skin: see HPI Past Jcsybzp-Rfuvfw-Ksbnps Hx Past Med/Social Hx: Reviewed Nursing Past Med/Soc Hx Patient Social History Former Smoker, Quit: Apr 29, 1982 2nd Hand Smoke Exposure: No Recent Foreign Travel: No Contact w/Someone Who Travel: No Recent Infectious Disease Expo: No Recent Hopitalizations: No Physical Abuse: No Sexual Abuse: No Mistreated: No Fear: No Seasonal Allergies Seasonal Allergies: Yes Past Medical History Surgeries: Yes (HERNIA, HEMORRHOIDECTOMY, ESWL) Respiratory: Yes Sleep Apnea Currently Using CPAP: Yes Cardiac: No High Cholesterol, Hypertension Neurological: No Reproductive Disorders: No Sexually Transmitted Disease: No HIV/AIDS: No Genitourinary: Yes Kidney Stones Gastrointestinal: Yes Colitis, Gastroesophageal Reflux Musculoskeletal: Yes Arthritis, Chronic Back Pain Endocrine: Yes Diabetes, Non-Insulin dep HEENT: Yes (READING GLASSES) Loss of Vision: Bilateral Hearing Impairment: Denies Cancer: No Psychosocial: Yes Depression Integumentary: No Blood Disorders: No Adverse Reaction/Blood Tranf: No (N/A) Physical Exam Vital Signs Vital Signs - First Documented 08/03/18 04:52 Temp 97.1 Pulse 98 Resp 16 B/P (MAP) 128/79 (95) Pulse Ox 97 O2 Delivery Room Air Capillary Refill : Less Than 3 Seconds Height, Weight, BMI Height: 5'9.00" Weight: 278lbs. 2.0oz. 126.601867go; 41.2 BMI Method:Stated General Appearance: WD/WN, no apparent distress HEENT: normal ENT inspection Neck: supple, normal inspection Cardiovascular: no murmur Respiratory: lungs clear Gastrointestinal: non tender, soft, other (obesity compromising exam) Back: normal inspection, no CVA tenderness Focused Exam Sepsis Stage: Ruled Out Progress/Results/Core Measures Suspected Sepsis Recent Fever Within 48 Hours: No Infection Criteria Present: None New/Unexplained Altered Menta: No Sepsis Screen: No Definite Risk SIRS Temperature:97.1 Pulse: 98 Respiratory Rate: 16 Blood Pressure 128 /79 Mean: 95 Results/Orders Lab Results Laboratory Tests Test 08/03/18 05:04 Range/Units Urine Color RED H Urine Clarity CLOUDY Urine pH 7.5 5-9 Urine Specific [place] 1.020 1.016-1.022 Urine Protein 1+ H NEGATIVE Urine Glucose (UA) NEGATIVE NEGATIVE Urine Ketones TRACE H NEGATIVE Urine Nitrite NEGATIVE NEGATIVE Urine Bilirubin 1+ H NEGATIVE Urine Urobilinogen 1.0 NORMAL MG/DL Urine Leukocyte Esterase TRACE H NEGATIVE Urine RBC (Auto) 3+ H NEGATIVE Urine RBC >100 H /HPF Urine WBC 2-5 /HPF Urine Squamous Epithelial Cells 0-2 /HPF Urine Crystals NONE /LPF Urine Bacteria NEGATIVE /HPF Urine Casts NONE /LPF Urine Mucus NONE /LPF Urine Culture Indicated NO My Orders Orders - TESSA DHALIWAL DO Urinalysis (08/03/18 05:01) Phenazopyridine Tablet (Pyridium Tablet) (08/03/18 05:45) Medications Given in ED Current Medications Medications Dose Ordered Sig/Cathie Route Start Time Stop Time Status Last Admin Dose Admin Phenazopyridine HCl 200 mg ONCE ONCE PO 08/03/18 05:45 08/03/18 05:46 DC 08/03/18 05:41 200 MG Vital Signs/I&O 08/03/18 04:52 Temp 97.1 Pulse 98 Resp 16 B/P (MAP) 128/79 (95) Pulse Ox 97 O2 Delivery Room Air Capillary Refill : Less Than 3 Seconds Blood Pressure Mean: 95 Departure Communication (Admissions) No retention present on postvoid bladder scan. Pyridium given for discomfort for pain. Will obtain urinalysis. Patient will be instructed to continue antibiotics, increase fluids and take pain medication as prescribed. He is to follow-up with his urologist Sean on Sunday contact over the weekend if further concerns. Impression Primary Impression: Hematuria Additional Impression: Ureteral calculus, left Disposition: 01 HOME, SELF-CARE Condition: Improved Departure-Patient Inst. Referrals: MARS PETERS DO (PCP/Family) Primary Care Physician Patient Instructions: Blood in the Urine (Hematuria), Adult (DC) Add. Discharge Instructions: You were evaluated in the emergency department for blood in urine. This is most likely caused from your recent bladder procedure and/or retained kidney stone. Please increase fluids, take antibiotics and pain medication as directed follow- up with urologist on Sunday. You may take pyridium needed for additional relief. If you develop fever, uncontrolled pain or unable to past urine, return to the emergency department. All discharge instructions reviewed with patient and/or family. Voiced understanding. Scripts Phenazopyridine HCl (Pyridium) 200 Mg Tablet 1 TAB PO TID, #6 TAB Prov: TESSA DHALIWAL DO 08/03/18 TESSA DHALIWAL DO Aug 03, 2018 05:45
[2018-08-03] MEDS ORDERED: PHEN-640 PO (05:48)
[2018-08-03 05:51] LABS: BACTERIA,URINE NEGATIVE /HPF; BILIRUBIN,URINE 1+ (NEGATIVE); LEUKOCYTE ESTERASE ,URINE TRACE (NEGATIVE); RBC,URINE >100 /HPF; SQUAMOUS EPITHELIAL CELL,UR 0-2 /HPF
[2018-08-03 05:54] VITALS: BP 128/79
== END 2018-08-03 05:56 | disposition home or self-care (01) ==
LOC: EDUNIT# 04:40 → ER FS 04:42
DX: N20.1 Calculus of ureter (principal); G47.30 Sleep apnea, unspecified; E78.00 Pure hypercholesterolemia, unspecified; I10 Essential (primary) hypertension; K21.9 Gastro-esophageal reflux disease without esophagitis; E11.9 Type 2 diabetes mellitus without complications; F32.9 Major depressive disorder, single episode, unspecified; Z87.19 Personal history of other diseases of the digestive system; Z87.442 Personal history of urinary calculi; Z79.84 Long term (current) use of oral hypoglycemic drugs; Z87.891 Personal history of nicotine dependence; Z90.89 Acquired absence of other organs
CPT/HCPCS: 81000; 99283

== ENCOUNTER 2018-08-08 22:03 | Emergency (ER) | payer MEDICARE, MEDICAID ==
[~2018-08-08] VITALS: Ht 175.3 cm; Wt 121.6 kg
[~2018-08-08 22:03] MED LIST changes: +PHEN-640 PO
--- OUTSIDE RECORDS SUMMARY | 2018-08-08 22:15 | XMS REPORT | Continuity of Care Document ---
Author Organization Unknown Address Unknown Allergies Active Description Code Type Severity Reaction Onset Reported/Identified Relationship to Patient Clinical Status Yes No Known Drug Allergies [id number] Drug Allergy Unknown N/A 08/03/2018 Medications There is no data. Problems Date Dx Coded Attending Type Code Diagnosis Diagnosed By 03/10/2014 JONATHAN CONLEY MD Ot 592.1 CALCULUS OF URETER 03/10/2014 JONATHAN CONLEY MD Ot V58.69 OTH MED,LT,CURRENT USE 04/06/2014 JONATHAN CONLEY MD Ot 592.9 04/15/2014 Ot 592.1 06/10/2014 JONATHAN CONLEY MD Ot 592.9 06/10/2014 Ot 592.1 06/10/2014 JONATHAN CONLEY MD Ot 592.9 06/10/2014 YAEL BOB, JONATHAN [place] Ot 592.9 11/04/2014 Ot 592.1 04/19/2017 YAEL BOB, JONATHAN [place] Ot 592.9 URINARY CALCULUS NOS 04/19/2017 Ot 592.1 CALCULUS OF URETER 04/19/2017 RAYMUNDO PELLETIER CHEMICAL LABORATORY TESTER Ot R06.00 DYSPNEA, UNSPECIFIED 05/03/2017 RAYMUNDO PELLETIER CHEMICAL LABORATORY TESTER Ot B19.20 UNSPECIFIED VIRAL HEPATITIS C WITHOUT HE 05/03/2017 RAYMUNDO PELLETIER CHEMICAL LABORATORY TESTER Ot R06.00 DYSPNEA, UNSPECIFIED 05/03/2017 RAYMUNDO PELLETIER CHEMICAL LABORATORY TESTER Ot R53.83 OTHER FATIGUE 05/18/2017 RAYMUNDO PELLETIER CHEMICAL LABORATORY TESTER Ot B19.20 UNSPECIFIED VIRAL HEPATITIS C WITHOUT HE 05/18/2017 RAYMUNDO PELLETIER CHEMICAL LABORATORY TESTER Ot G47.30 SLEEP APNEA, UNSPECIFIED 05/18/2017 RAYMUNDO PELLETIER CHEMICAL LABORATORY TESTER Ot K76.0 FATTY (CHANGE OF) LIVER, NOT ELSEWHERE C 05/18/2017 PRABHU, RAYMUNDO E CHEMICAL LABORATORY TESTER Ot N20.0 CALCULUS OF KIDNEY 05/18/2017 PRABHU, RAYMUNDO E CHEMICAL LABORATORY TESTER Ot R06.00 DYSPNEA, UNSPECIFIED 05/18/2017 PRABHU, RAYMUNDO E CHEMICAL LABORATORY TESTER Ot R60.9 EDEMA, UNSPECIFIED 05/23/2017 PRABHU, RAYMUNDO E CHEMICAL LABORATORY TESTER Ot B19.20 UNSPECIFIED VIRAL HEPATITIS C WITHOUT HE 05/23/2017 PRABHU, RAYMUNDO E CHEMICAL LABORATORY TESTER Ot G47.30 SLEEP APNEA, UNSPECIFIED 05/23/2017 PRABHU, RAYMUNDO E CHEMICAL LABORATORY TESTER Ot K76.0 FATTY (CHANGE OF) LIVER, NOT ELSEWHERE C 05/23/2017 PRABHU, RAYMUNDO E CHEMICAL LABORATORY TESTER Ot N20.0 CALCULUS OF KIDNEY 05/23/2017 PRABHU, RAYMUNDO E CHEMICAL LABORATORY TESTER Ot R06.00 DYSPNEA, UNSPECIFIED 05/23/2017 PRABHU, RAYMUNDO E CHEMICAL LABORATORY TESTER Ot R60.9 EDEMA, UNSPECIFIED 05/28/2017 PRABHU, RAYMUNDO E CHEMICAL LABORATORY TESTER Ot B19.20 UNSPECIFIED VIRAL HEPATITIS C WITHOUT HE 05/28/2017 PRABHU, RAYMUNDO E CHEMICAL LABORATORY TESTER Ot R06.00 DYSPNEA, UNSPECIFIED 05/28/2017 PRABHU, RAYMUNDO E CHEMICAL LABORATORY TESTER Ot R53.83 OTHER FATIGUE 04/29/2018 YAEL BOB, JONATHAN A Ot 592.9 URINARY CALCULUS NOS 04/29/2018 Ot 592.1 CALCULUS OF URETER 04/29/2018 PRABHU, RAYMUNDO E CHEMICAL LABORATORY TESTER Ot B19.20 UNSPECIFIED VIRAL HEPATITIS C WITHOUT HE 04/29/2018 PRABHU, RAYMUNDO E CHEMICAL LABORATORY TESTER Ot G47.30 SLEEP APNEA, UNSPECIFIED 04/29/2018 PRABHU, RAYMUNDO E CHEMICAL LABORATORY TESTER Ot K76.0 FATTY (CHANGE OF) LIVER, NOT ELSEWHERE C 04/29/2018 PRABHU, RAYMUNDO E CHEMICAL LABORATORY TESTER Ot N20.0 CALCULUS OF KIDNEY 04/29/2018 PRABHU, RAYMUNDO E CHEMICAL LABORATORY TESTER Ot R06.00 DYSPNEA, UNSPECIFIED 04/29/2018 PRABHU, RAYMUNDO E CHEMICAL LABORATORY TESTER Ot R60.9 EDEMA, UNSPECIFIED 04/29/2018 PRABHU, RAYMUNDO E CHEMICAL LABORATORY TESTER Ot B19.20 UNSPECIFIED VIRAL HEPATITIS C WITHOUT HE 04/29/2018 PRABHU, RAYMUNDO E CHEMICAL LABORATORY TESTER Ot R06.00 DYSPNEA, UNSPECIFIED 04/29/2018 PRABHU, RAYMUNDO E CHEMICAL LABORATORY TESTER Ot R53.83 OTHER FATIGUE 04/29/2018 RAYMUNDO PELLETIER CHEMICAL LABORATORY TESTER Ot B19.20 UNSPECIFIED VIRAL HEPATITIS C WITHOUT HE 04/29/2018 RAYMUNDO PELLETIER CHEMICAL LABORATORY TESTER Ot R06.00 DYSPNEA, UNSPECIFIED 04/29/2018 GEOVANY PELLETIERINE [place] CHEMICAL LABORATORY TESTER Ot R53.83 OTHER FATIGUE 04/29/2018 JONATHAN CONLEY MD Ot 592.9 URINARY CALCULUS NOS 04/29/2018 Ot 592.1 CALCULUS OF URETER 04/29/2018 RAYMUNDO PELLETIER CHEMICAL LABORATORY TESTER Ot B19.20 UNSPECIFIED VIRAL HEPATITIS C WITHOUT HE 04/29/2018 RAYMUNDO PELLETIER CHEMICAL LABORATORY TESTER Ot G47.30 SLEEP APNEA, UNSPECIFIED 04/29/2018 RAYMUNDO PELLETIER CHEMICAL LABORATORY TESTER Ot K76.0 FATTY (CHANGE OF) LIVER, NOT ELSEWHERE C 04/29/2018 RAYMUNDO PELLETIER CHEMICAL LABORATORY TESTER Ot N20.0 CALCULUS OF KIDNEY 04/29/2018 RAYMUNDO PELLETIER CHEMICAL LABORATORY TESTER Ot R06.00 DYSPNEA, UNSPECIFIED 04/29/2018 RAYMUNDO PELLETIER CHEMICAL LABORATORY TESTER Ot R60.9 EDEMA, UNSPECIFIED 04/29/2018 PRABHU RAYMUNDO E CHEMICAL LABORATORY TESTER Ot B19.20 UNSPECIFIED VIRAL HEPATITIS C WITHOUT HE 04/29/2018 RAYMUNDO PELLETIER CHEMICAL LABORATORY TESTER Ot R06.00 DYSPNEA, UNSPECIFIED 04/29/2018 GEOVANY PELLETIERINE [place] CHEMICAL LABORATORY TESTER Ot R53.83 OTHER FATIGUE 04/29/2018 RAYMUNDO PELLETIER CHEMICAL LABORATORY TESTER Ot B19.20 UNSPECIFIED VIRAL HEPATITIS C WITHOUT HE 04/29/2018 RAYMUNDO PELLETIER CHEMICAL LABORATORY TESTER Ot R06.00 DYSPNEA, UNSPECIFIED 04/29/2018 RAYMUNDO PELLETIER CHEMICAL LABORATORY TESTER Ot R53.83 OTHER FATIGUE 04/30/2018 JONATHAN CONLEY MD Ot E11.9 TYPE 2 DIABETES MELLITUS WITHOUT COMPLIC 04/30/2018 JONATHAN CONLEY MD Ot E66.01 MORBID (SEVERE) OBESITY DUE TO EXCESS CA 04/30/2018 JONATHAN CONLEY MD Ot G47.33 OBSTRUCTIVE SLEEP APNEA (ADULT) (PEDIATR 04/30/2018 JONATHAN CONLEY MD Ot I10 ESSENTIAL (PRIMARY) HYPERTENSION 04/30/2018 JONATHAN CONLEY MD Ot K21.9 GASTRO-ESOPHAGEAL REFLUX DISEASE WITHOUT 04/30/2018 JONATHAN CONLEY MD, Ot N20.1 CALCULUS OF URETER 04/30/2018 JONATHAN CONLEY MD, Ot Z68.41 BODY MASS INDEX (BMI) 40.0-44.9, ADULT 04/30/2018 JONATHAN CONLEY MD, Ot Z79.84 TUBE COREMAKER (CURRENT) USE OF ORAL HYPOGLYC 04/30/2018 JONATHAN CONLEY MD, Ot Z79.899 OTHER TUBE COREMAKER (CURRENT) DRUG THERAPY 04/30/2018 JONATHAN CONLEY MD, [...] ADULT 05/02/2018 JONATHAN CONLEY MD, Ot Z79.84 TUBE COREMAKER (CURRENT) USE OF ORAL HYPOGLYC 05/02/2018 JONATHAN CONLEY MD, Ot Z79.899 OTHER HALF-WAY (CURRENT) DRUG THERAPY 05/02/2018 JONATHAN CONLEY MD, Ot Z87.891 PERSONAL HISTORY OF NICOTINE DEPENDENCE 05/14/2018 JONATHAN CONLEY MD, Ot M61.9 CALCIFICATION AND OSSIFICATION OF MUSCLE 05/14/2018 JONATHAN CONLEY MD, Ot N20.1 CALCULUS OF URETER 05/21/2018 JONATHAN CONLEY MD, Ot N20.1 CALCULUS OF URETER 05/28/2018 JONATHAN CONLEY MD, Ot E11.9 TYPE 2 DIABETES MELLITUS WITHOUT COMPLIC 05/28/2018 JONATHAN CONLEY MD, Ot E66.01 MORBID (SEVERE) OBESITY DUE TO EXCESS CA 05/28/2018 JONATHAN CONLEY MD Ot I10 ESSENTIAL (PRIMARY) HYPERTENSION 05/28/2018 JONATHAN CONLEY MD, Ot K21.9 GASTRO-ESOPHAGEAL REFLUX DISEASE WITHOUT 05/28/2018 JONATHAN CONLEY MD, Ot N20.1 CALCULUS OF URETER 05/28/2018 JONATHAN CONLEY MD, Ot Z68.41 BODY MASS INDEX (BMI) 40.0-44.9, ADULT 05/28/2018 JONATHAN CONLEY MD, Ot Z79.84 HALF-WAY (CURRENT) USE OF ORAL HYPOGLYC 05/28/2018 JONATHAN CONLEY MD, Ot Z79.899 OTHER TUBE COREMAKER (CURRENT) DRUG THERAPY 05/29/2018 JONATHAN CONLEY MD, Ot E11.9 TYPE 2 DIABETES MELLITUS WITHOUT COMPLIC 05/29/2018 JONATHAN CONLEY MD Ot E66.01 MORBID (SEVERE) OBESITY DUE TO EXCESS CA 05/29/2018 JONATHAN CONLEY MD Ot I10 ESSENTIAL (PRIMARY) HYPERTENSION 05/29/2018 JONATHAN CONLEY MD, Ot K21.9 GASTRO-ESOPHAGEAL REFLUX DISEASE WITHOUT 05/29/2018 JONATHAN CONLEY MD, Ot N20.1 CALCULUS OF URETER 05/29/2018 JONATHAN CONLEY MD, Ot Z68.41 BODY MASS INDEX (BMI) 40.0-44.9, ADULT 05/29/2018 JONATHAN CONLEY MD Ot Z79.84 TUBE COREMAKER (CURRENT) USE OF ORAL HYPOGLYC 05/29/2018 JONATHAN CONLEY MD, Ot Z79.899 OTHER TUBE COREMAKER (CURRENT) DRUG THERAPY 05/30/2018 JONATHAN CONLEY MD, Ot N20.1 CALCULUS OF URETER 05/30/2018 JONATHAN CONLEY MD Ot R19.8 OTH SYMPTOMS AND SIGNS INVOLVING THE DGS 05/30/2018 JONATHAN CONLEY MD, Ot Z87.442 PERSONAL HISTORY OF URINARY CALCULI 05/30/2018 JONATHAN CONLEY MD, Ot N20.1 CALCULUS OF URETER 05/30/2018 JONATHAN CONLEY MD, Ot R19.8 OTH SYMPTOMS AND SIGNS INVOLVING THE DGS 05/30/2018 JONATHAN CONLEY MD, Ot Z87.442 PERSONAL HISTORY OF URINARY CALCULI 06/05/2018 JONATHAN CONLEY MD, Ot M61.9 CALCIFICATION AND OSSIFICATION OF MUSCLE 06/05/2018 JONATHAN CONLEY MD, Ot N20.1 CALCULUS OF URETER 06/12/2018 JONATHAN CONLEY MD, Ot M51.86 OTHER INTERVERTEBRAL DISC DISORDERS, LUM 06/12/2018 JONATHAN CONLEY MD, Ot N20.2 CALCULUS OF KIDNEY WITH CALCULUS OF URET 06/17/2018 JONATHAN CONLEY MD, Ot N44.2 BENIGN CYST OF TESTIS 06/17/2018 JONATHAN CONLEY MD, Ot N50.3 CYST OF EPIDIDYMIS 06/18/2018 JONATHAN CONLEY MD, Ot N20.1 CALCULUS OF URETER 06/18/2018 JONATHAN CONLEY MD, Ot R19.8 OTH SYMPTOMS AND SIGNS INVOLVING THE DGS 06/18/2018 JONATHAN CONLEY MD, Ot Z87.442 PERSONAL HISTORY OF URINARY CALCULI 07/05/2018 JONATHAN CONLEY MD, Ot N44.2 BENIGN CYST OF TESTIS 07/05/2018 JONATHAN CONLEY MD, Ot N50.3 CYST OF EPIDIDYMIS 07/08/2018 JONATHAN CONLEY MD, Ot M51.86 OTHER INTERVERTEBRAL DISC DISORDERS, LUM 07/08/2018 JONATHAN CONLEY MD, Ot N20.2 CALCULUS OF KIDNEY WITH CALCULUS OF URET 08/06/2018 TESSA DHALIWAL DO Ot E11.9 TYPE 2 DIABETES MELLITUS WITHOUT COMPLIC 08/06/2018 TESSA DHALIWAL DO Ot E78.00 PURE HYPERCHOLESTEROLEMIA, UNSPECIFIED 08/06/2018 TESSA DHALIWAL DO, Ot F32.9 MAJOR DEPRESSIVE DISORDER, SINGLE EPISOD 08/06/2018 TESSA DHALIWAL DO, Ot G47.30 SLEEP APNEA, UNSPECIFIED 08/06/2018 TESSA DHALIWAL DO, Ot I10 ESSENTIAL (PRIMARY) HYPERTENSION 08/06/2018 TESSA DHALIWAL DO, Ot K21.9 GASTRO-ESOPHAGEAL REFLUX DISEASE WITHOUT 08/06/2018 TESSA DHALIWAL DO Ot N20.1 CALCULUS OF URETER 08/06/2018 TESSA DHALIWAL DO, Ot R31.9 HEMATURIA, UNSPECIFIED 08/06/2018 TESSA DHALIWAL DO, Ot Z79.84 HALF-WAY (CURRENT) USE OF ORAL HYPOGLYC 08/06/2018 TESSA DHALIWAL DO Ot Z87.19 PERSONAL HISTORY OF OTHER DISEASES OF TH 08/06/2018 TESSA DHALIWAL DO, Ot Z87.442 PERSONAL HISTORY OF URINARY CALCULI 08/06/2018 TESSA DHALIWAL DO Ot Z87.891 PERSONAL HISTORY OF NICOTINE DEPENDENCE 08/06/2018 TESSA DHALIWAL DO Ot Z90.89 ACQUIRED ABSENCE OF OTHER ORGANS Procedures There is no data. Results Test Result Range Methicillin resistant Staphylococcus aureus (MRSA) screening culture - 15:40 Methicillin resistant Staphylococcus aureus (MRSA) screening culture NEG NRG Capillary blood glucose measurement by glucometer (mass/volume) - 04/30/18 07: 08 Capillary blood glucose measurement by glucometer (mass/volume) 123 mg/dL 70-110 Methicillin resistant Staphylococcus aureus (MRSA) screening culture - 07:00 Methicillin resistant Staphylococcus aureus (MRSA) screening culture NEG NRG Capillary blood glucose measurement by glucometer (mass/volume) - 05/28/18 07: 51 Capillary blood glucose measurement by glucometer (mass/volume) 110 mg/dL 70-110 Complete urinalysis with reflex to culture - 08/03/18 05:04 Urine color determination RED NRG Urine clarity determination CLOUDY NRG Urine pH measurement by test strip 7.5 5-9 Specific gravity of urine by test strip 1.020 1.016- 1.022 Urine protein assay by test strip, semi-quantitative 1+ NEGATIVE Urine glucose detection by automated test strip NEGATIVE NEGATIVE Erythrocytes detection in urine sediment by light microscopy 3+ NEGATIVE Urine ketones detection by automated test strip TRACE NEGATIVE Urine nitrite detection by test strip NEGATIVE NEGATIVE Urine total bilirubin detection by test strip 1+ NEGATIVE Urine urobilinogen measurement by automated test strip (mass/volume) 1.0 mg/dL NORMAL Urine leukocyte esterase detection by dipstick TRACE NEGATIVE Automated urine sediment erythrocyte count by microscopy (number/high power field) > [HPF] NRG Automated urine sediment leukocyte count by microscopy (number/high power field ) [HPF] NRG Bacteria detection in urine sediment by light microscopy NEGATIVE NRG Squamous epithelial cells detection in urine sediment by light microscopy 0-2 NRG Crystals detection in urine sediment by light microscopy NONE NRG Casts detection in urine sediment by light microscopy NONE NRG Mucus detection in urine sediment by light microscopy NONE NRG Complete urinalysis with reflex to culture NO NRG Encounters ACCT No. Visit Date/Time Discharge Status Pt. Type Provider Facility Loc./Unit Complaint [id number] 08/03/2018 04:42:00 08/03/2018 05:56:00 DIS Outpatient TESSA DHALIWAL DO Via [facility] ER FS PASSING BLOOD IN URINE AFTER PROCEDURE [id number] 06/14/2018 11:32:00 06/14/2018 23:59:59 CLS Outpatient JONATHAN CONLEY MD [facility] RAD RT ORCHIALGIA [id number] 06/11/2018 13:11:00 06/11/2018 23:59:59 CLS Outpatient JONATHAN CONLEY MD [facility] RAD URETERAL STONE [id number] 05/28/2018 06:42:00 05/28/2018 10:20:00 DIS Outpatient JONATHAN CONLEY MD [facility] SDC LEFT URETERAL STONE [id number] 05/27/2018 12:14:00 05/27/2018 23:59:59 CLS Outpatient JONATHAN CONLEY MD [facility] RAD STONE RISK [id number] 2018 14:26:00 2018 23:59:59 CLS Outpatient JONATHAN CONLEY MD [facility] RAD L RENAL STONE [id number] 04/30/2018 06:20:00 04/30/2018 09:47:00 DIS Outpatient JONATHAN CONLEY MD [facility] SDC LEFT URETERAL STONE [id number] 04/29/2018 13:21:00 04/29/2018 23:59:59 CLS Outpatient JONATHAN CONLEY MD [facility] RAD LT NRETERAL STONE [id number] 04/29/2018 15:02:00 04/29/2018 16:11:00 DIS Outpatient JONATHAN CONLEY MD [facility] PREOP URETAL STONE [id number] 05/02/2017 10:33:00 05/02/2017 23:59:59 CLS Outpatient RAYMUNDO PELLETIER APRN [facility] CARD DYSPNEA [id number] 05/02/2017 08:28:00 05/02/2017 23:59:59 CLS Outpatient RAYMUNDO PELLETIER CHEMICAL LABORATORY TESTER [facility] RT DYSPNEA [id number] 04/19/2017 10:25:00 04/19/2017 23:59:59 CLS Outpatient RAYMUNDO PELLETIER CHEMICAL LABORATORY TESTER [facility] RAD R53.83 R06.00 Z74.09 R60.9 [id number] 03/10/2014 07:22:00 03/10/2014 11:05:00 DIS Outpatient JONATHAN CONLEY MD [facility] SDC RIGHT URETERAL STONE [id number] 03/09/2014 14:52:00 03/09/2014 23:59:59 CLS Outpatient JONATHAN CONLEY MD [facility] RAD STONE [id number] 08/08/2018 22:04:00 ACT Emergency RYANN LYN DO [facility] ER FS GI TUBE ISSUES [id number] 03/24/2014 13:33:00 Document Registration
--- NOTE | 2018-08-08 22:48 | ED GU-Male ---
General Chief Complaint: Catheter/Drain/Tube Problems Stated Complaint: GI TUBE ISSUES Source: patient Exam Limitations: no limitations History of Present Illness Date Seen by Provider: Aug 08, 2018 Time Seen by Provider: 10:40 Initial Comments This is a 58 y/o m with complicated urinary history. History of recurrent kidney stones, S/p L nephrostomy placed on Sunday, was hospitalized for a few days 2/2 bloody output and on IV ABX. Reports appropriate output from Left nephrostomy. Feels that catheter tubing/stop cock are not well padded and they are digging into his side when he is trying to sleep. Requesting padding/ dressing adjustment. Also notes that he is suppose to be on an ABX for a few more days but does not have enough at home. Unsure what this ABX is. Denies any allergies. No fever. Some intermittent flank pain that has been unchanged since prior to nephrostomy placement. Taking home Tramadol and hydrocodone with relief. C/o "muscle pain" from the stopcock poking him. No fever, no nausea, no vomiting. Allergies and Home Medications Allergies Coded Allergies: No Known Drug Allergies (Unverified , 08/03/18) Home Medications Esomeprazole Magnesium 40 Mg Capsule.dr, 40 MG PO DAILY, (Reported) Ezetimibe 10 Mg Tablet, 10 MG PO DAILY, (Reported) Gabapentin 300 Mg Capsule, 300 MG PO DAILY, (Reported) Hydrocodone/Acetaminophen 1 Each Tablet, 1-2 EACH PO Q6H PRN for PAIN-MODERATE Prescribed by: EBER WOODS on 04/30/18 0849 Hydrocodone/Acetaminophen 1 Each Tablet, 1-2 EACH PO Q6H PRN for PAIN-MODERATE Prescribed by: WILY MARR on 05/28/18 0943 Metformin HCl 1,000 Mg Tablet, 1,000 MG PO BID, (Reported) Metoclopramide HCl 10 Mg Tablet, 10 MG PO QID, (Reported) Metoprolol Tartrate 50 Mg Tablet, 50 MG PO BID, (Reported) Nabumetone 750 Mg Tablet, 750 MG PO BID, (Reported) Niacin 1,000 Mg Tablet.er, 1,000 MG PO DAILY, (Reported) Nitrofurantoin Monohyd/M-Cryst 100 Mg Capsule, 1 TAB PO BID Prescribed by: WILY MARR on 05/28/18 0943 Phenazopyridine HCl 200 Mg Tablet, 1 TAB PO TID Prescribed by: TESSA DHALIWAL on 08/03/18 0548 Simvastatin 80 Mg Tablet, 80 MG PO BID, (Reported) Tamsulosin HCl 0.4 Mg Cap, 0.4 MG PO DAILY Prescribed by: WILY MARR on 05/28/18 0943 Tramadol HCl 50 Mg Tablet, 50 MG PO BID, (Reported) Patient Home Medication List Home Medication List Reviewed: Yes Review of Systems Review of Systems Constitutional: No chills, No diaphoresis, No fever, No weakness Respiratory: No cough, No dyspnea on exertion, No orthopnea, No stridor Cardiovascular: No chest pain, No edema, No palpitations Gastrointestinal: No abdominal pain, No diarrhea, No nausea, No vomiting Genitourinary: burning; denies discharge; frequency, flank pain, pain Musculoskeletal: back pain; No joint pain; muscle pain; No muscle stiffness Skin: No change in color, No pruritus, No rash Psychiatric/Neurological: Denies Headache All Other Systemes Reviewed Negative Unless Noted: Yes (Negative excepted noted.) Past Mdmjmua-Psyafq-Wprsza Hx Patient Social History Alcohol Use: Occasionally Uses Recreational Drug Use: Yes Smoking Status: Former Smoker Former Smoker, Quit: Apr 29, 1982 2nd Hand Smoke Exposure: No Recent Foreign Travel: No Contact w/Someone Who Travel: No Recent Hopitalizations: No Seasonal Allergies Seasonal Allergies: Yes Past Medical History Surgeries: Yes (HERNIA, HEMORRHOIDECTOMY, ESWL) Respiratory: Yes Sleep Apnea Currently Using CPAP: Yes Cardiac: No High Cholesterol, Hypertension Neurological: No Reproductive Disorders: No Sexually Transmitted Disease: No HIV/AIDS: No Genitourinary: Yes Kidney Stones Gastrointestinal: Yes Colitis, Gastroesophageal Reflux Musculoskeletal: Yes Arthritis, Chronic Back Pain Endocrine: Yes Diabetes, Non-Insulin dep HEENT: Yes ([place] GL[place]ES) Loss of Vision: Bilateral Hearing Impairment: Denies Cancer: No Psychosocial: Yes Depression Integumentary: No Blood Disorders: No Adverse Reaction/Blood Tranf: No (N/A) Physical Exam Vital Signs Capillary Refill : Height, Weight, BMI Height: 5'9.00" Weight: 278lbs. 2.0oz. 126.730197rg; 41.2 BMI Method:Stated General Appearance: no apparent distress, obese HEENT: PERRL/EOMI Neck: full range of motion, other (trachea midline. No stridor ) Cardiovascular: regular rate, rhythm, no edema Respiratory: chest non-tender, normal breath sounds, no respiratory distress, no accessory muscle use Gastrointestinal: non tender, soft, no organomegaly, other (Exam limited by body habitus ) Back: no CVA tenderness, other (Nephrostomy tubing/catheter to Left flank, dressing dry/intact, some mild skin irritation from taping. Poor padding under stopcock. Good, midly dark output in nephrostomy bag ) Extremities: normal range of motion, no pedal edema Neurologic/Psychiatric: alert, normal mood/affect, oriented x 3 Skin: normal color, warm/dry; No rash Progress/Results/Core Measures Suspected Sepsis SIRS Temperature: Pulse: Respiratory Rate: Blood Pressure / Mean: Results/Orders My Orders Orders - RYANN LYN DO Ketorolac Injection (Toradol Injection) (08/08/18 22:45) Vital Signs/I&O Capillary Refill : Progress Note : Time: 22:51 Progress Note Pt non-toxic appearing. Well appearing. Here requesting improved dressing of Left nephrostomy tube 2/2 uncomfortable stopcock. RN did this. Will also place on ABX as pt is concerned that he is running out to soon. He is not sure what ABX he is on. Given nephrostomy tube it would not be helpful to check a urine. His nephrostomy output is mildly dark but clear appearing. No fever, no nausea, no vomiting, no increased pain or systemic symptoms consistent with infection. Will give a 5 days course of Cipro. Pt advised to call his Urologist who is in [place] tomorrow. ER return precautions given. Pt verbalized understanding. All questions answered. Pt has appropriate narcotic medication at home. Departure Impression Primary Impression: Acute left flank pain Additional Impressions: Nephrostomy tube displaced Back pain Disposition: HOME, SELF-CARE Condition: Improved Departure-Patient Inst. Decision time for Depature: 22:57 Referrals: MARS PETERS DO (PCP/Family) Primary Care Physician Patient Instructions: Contusion (DC), Villagomez Catheter, Male Add. Discharge Instructions: Take the antibiotics as prescribed after completing your current prescription. Call your Urologist tomorrow for further concerns. All discharge instructions reviewed with patient and/or family. Voiced understanding. Scripts Ciprofloxacin HCl (Ciprofloxacin HCl) 500 Mg Tablet 500 MG PO BID, #10 TAB Prov: RYANN LYN DO 08/08/18 RYANN LYN DO Aug 08, 2018 22:48
[2018-08-08] MEDS: KETOROLAC 30 MG/ML VIAL IM ONE (22:51)
[2018-08-08] MEDS ORDERED: CIPR500T4 PO (22:56)
[2018-08-08 23:17] VITALS: BP 127/75
== END 2018-08-08 23:18 | disposition home or self-care (01) ==
LOC: EDUNIT# 22:03 → ER FS 22:04
DX: T83.022A Displacement of nephrostomy catheter, initial encounter (principal); R10.9 Unspecified abdominal pain; M54.9 Dorsalgia, unspecified; G47.30 Sleep apnea, unspecified; E78.00 Pure hypercholesterolemia, unspecified; I10 Essential (primary) hypertension; K21.9 Gastro-esophageal reflux disease without esophagitis; E11.9 Type 2 diabetes mellitus without complications; F32.9 Major depressive disorder, single episode, unspecified; Z87.19 Personal history of other diseases of the digestive system; Z87.442 Personal history of urinary calculi; Z93.6 Other artificial openings of urinary tract status; Z79.84 Long term (current) use of oral hypoglycemic drugs; Z87.891 Personal history of nicotine dependence; Z98.890 Other specified postprocedural states
CPT/HCPCS: 99284

== ENCOUNTER 2018-08-11 22:24 | Emergency (ER) | payer MEDICARE, MEDICAID ==
[~2018-08-11] VITALS: Ht 175.3 cm; Wt 121.6 kg
[~2018-08-11 22:24] MED LIST changes: +CIPR500T4 PO
--- NOTE | 2018-08-11 22:52 | ED GU-Male ---
General Chief Complaint: Catheter/Drain/Tube Problems Stated Complaint: CATHETER ISSUES Source: patient Exam Limitations: no limitations History of Present Illness Date Seen by Provider: Aug 11, 2018 Time Seen by Provider: 22:50 Initial Comments 58-year-old male who presents to the emergency room with complaints of dried blood around his urostomy drainage site on his left side. He reports that he has an appointment this week with his urologist to attempt to get his kidney stone removed which has caused the urostomy. He reports that the urostomy is draining urine appropriately. He denies pain at the urostomy insertion site. He denies fevers. There is a minimal amount of dried blood around the dressing over his urostomy. It is not currently bleeding on arrival to the emergency room. Allergies and Home Medications Allergies Coded Allergies: No Known Drug Allergies (Unverified , 08/11/18) Home Medications Ciprofloxacin HCl 500 Mg Tablet, 500 MG PO BID Prescribed by: RYANN LYN on 08/08/182255 Esomeprazole Magnesium 40 Mg Capsule.dr, 40 MG PO DAILY, (Reported) Ezetimibe 10 Mg Tablet, 10 MG PO DAILY, (Reported) Gabapentin 300 Mg Capsule, 300 MG PO DAILY, (Reported) Hydrocodone/Acetaminophen 1 Each Tablet, 1-2 EACH PO Q6H PRN for PAIN-MODERATE Prescribed by: EBER WOODS on 04/30/18 0849 Hydrocodone/Acetaminophen 1 Each Tablet, 1-2 EACH PO Q6H PRN for PAIN-MODERATE Prescribed by: WILY MARR on 05/28/18 09 Metformin HCl 1,000 Mg Tablet, 1,000 MG PO BID, (Reported) Metoclopramide HCl 10 Mg Tablet, 10 MG PO QID, (Reported) Metoprolol Tartrate 50 Mg Tablet, 50 MG PO BID, (Reported) Nabumetone 750 Mg Tablet, 750 MG PO BID, (Reported) Niacin 1,000 Mg Tablet.er, 1,000 MG PO DAILY, (Reported) Nitrofurantoin Monohyd/M-Cryst 100 Mg Capsule, 1 TAB PO BID Prescribed by: WILY MARR on 05/28/18 0943 Phenazopyridine HCl 200 Mg Tablet, 1 TAB PO TID Prescribed by: TESSA DHALIWAL on 08/03/18 0548 Simvastatin 80 Mg Tablet, 80 MG PO BID, (Reported) Tamsulosin HCl 0.4 Mg Cap, 0.4 MG PO DAILY Prescribed by: WILY MARR on 05/28/18 0943 Tramadol HCl 50 Mg Tablet, 50 MG PO BID, (Reported) Past Rxsuawj-Umwvjb-Wpthxk Hx Patient Social History Former Smoker, Quit: Apr 29, 1982 2nd Hand Smoke Exposure: No Recent Foreign Travel: No Contact w/Someone Who Travel: No Recent Hopitalizations: No Seasonal Allergies Seasonal Allergies: Yes Past Medical History Surgeries: Yes (HERNIA, HEMORRHOIDECTOMY, ESWL) Respiratory: Yes Sleep Apnea Currently Using CPAP: Yes Cardiac: No High Cholesterol, Hypertension Neurological: No Reproductive Disorders: No Sexually Transmitted Disease: No HIV/AIDS: No Genitourinary: Yes (UROSTOMY PLACED July,) Kidney Stones Gastrointestinal: Yes Colitis, Gastroesophageal Reflux Musculoskeletal: Yes Arthritis, Chronic Back Pain Endocrine: Yes Diabetes, Non-Insulin dep HEENT: Yes (READING GLASSES) Loss of Vision: Bilateral Hearing Impairment: Denies Cancer: No Psychosocial: Yes Depression Integumentary: No Blood Disorders: No Adverse Reaction/Blood Tranf: No (N/A) Physical Exam Vital Signs Capillary Refill : Height, Weight, BMI Height: 5'9.00" Weight: 268lbs. 2.0oz. 121.147368ys; 41.2 BMI Method:Stated Progress/Results/Core Measures Suspected Sepsis SIRS Temperature: Pulse: Respiratory Rate: Blood Pressure / Mean: Results/Orders Vital Signs/I&O Capillary Refill : Departure Impression Primary Impression: resolved bleeding of urostomy site Disposition: 01 HOME, SELF-CARE Condition: Stable/Unchanged Departure-Patient Inst. Decision time for Depature: 22:51 Referrals: MARS PETERS DO (PCP/Family) Primary Care Physician Patient Instructions: How to Care for Your Urostomy or Continent Diversion Add. Discharge Instructions: Keep your appointment as scheduled with urologist. Follow-up with your primary care provider within 1 week for recheck. Return back to the emergency room for worsening symptoms or concerns as needed. All discharge instructions reviewed with patient and/or family. Voiced understanding. ZINA HENAO Aug 11, 2018 22:52
[2018-08-11 23:12] VITALS: BP 122/57
== END 2018-08-11 23:12 | disposition home or self-care (01) ==
LOC: EDUNIT# 22:24 → ER 22:25
DX: K94.01 Colostomy hemorrhage (principal); G47.30 Sleep apnea, unspecified; E78.00 Pure hypercholesterolemia, unspecified; I10 Essential (primary) hypertension; K21.9 Gastro-esophageal reflux disease without esophagitis; E11.9 Type 2 diabetes mellitus without complications; F32.9 Major depressive disorder, single episode, unspecified; Z87.19 Personal history of other diseases of the digestive system; Z87.442 Personal history of urinary calculi; Z79.84 Long term (current) use of oral hypoglycemic drugs; Z87.891 Personal history of nicotine dependence; Z98.890 Other specified postprocedural states; Z90.89 Acquired absence of other organs
CPT/HCPCS: 99281

== ENCOUNTER 2018-08-16 17:01 | Emergency (ER) | payer MEDICARE, MEDICAID ==
[~2018-08-16] VITALS: Ht 175.3 cm; Wt 122.5 kg
--- NOTE | 2018-08-16 17:36 | ED GU-Male ---
General Chief Complaint: - Urinary Stated Complaint: PAIN History of Present Illness Date Seen by Provider: August 16, 2018 Time Seen by Provider: 17:15 Initial Comments 58-year-old male presents because he is having "spasms in his left flank. Patient was seen 2 weeks ago and had a nephrostomy tube placed at [facility]. He comes in today because he has been having some "spasm-type pain in his flank. He wants to have it evaluated to make sure it is not out of place. Patient had placed for sounds like a hydronephrosis from a kidney stone. Does not have any nausea, vomiting, fevers or chills. Patient told staff taking and that his pain medicine is not working and he wanted something else. However he did not mention anything to me. Allergies and Home Medications Allergies Coded Allergies: No Known Drug Allergies (Unverified , 08/11/18) Home Medications Ciprofloxacin HCl 500 Mg Tablet, 500 MG PO BID Prescribed by: RYANN LYN on 08/08/18 9489 Esomeprazole Magnesium 40 Mg Capsule.dr, 40 MG PO DAILY, (Reported) Ezetimibe 10 Mg Tablet, 10 MG PO DAILY, (Reported) Gabapentin 300 Mg Capsule, 300 MG PO DAILY, (Reported) Hydrocodone/Acetaminophen 1 Each Tablet, 1-2 EACH PO Q6H PRN for PAIN-MODERATE Prescribed by: EBER WOODS on 04/30/18 0849 Hydrocodone/Acetaminophen 1 Each Tablet, 1-2 EACH PO Q6H PRN for PAIN-MODERATE Prescribed by: WILY MARR on 05/28/18 0943 Metformin HCl 1,000 Mg Tablet, 1,000 MG PO BID, (Reported) Metoclopramide HCl 10 Mg Tablet, 10 MG PO QID, (Reported) Metoprolol Tartrate 50 Mg Tablet, 50 MG PO BID, (Reported) Nabumetone 750 Mg Tablet, 750 MG PO BID, (Reported) Niacin 1,000 Mg Tablet.er, 1,000 MG PO DAILY, (Reported) Nitrofurantoin Monohyd/M-Cryst 100 Mg Capsule, 1 TAB PO BID Prescribed by: WILY MARR on 05/28/18 0943 Phenazopyridine HCl 200 Mg Tablet, 1 TAB PO TID Prescribed by: TESSA DHALIWAL on 08/03/18 0548 Simvastatin 80 Mg Tablet, 80 MG PO BID, (Reported) Tamsulosin HCl 0.4 Mg Cap, 0.4 MG PO DAILY Prescribed by: WILY MARR on 05/28/18 0943 Tramadol HCl 50 Mg Tablet, 50 MG PO BID, (Reported) Patient Home Medication List Home Medication List Reviewed: Yes Review of Systems Review of Systems Constitutional: No chills, No diaphoresis, No dizziness, No fever Respiratory: no symptoms reported Cardiovascular: no symptoms reported Gastrointestinal: No abdominal pain Genitourinary: see HPI Musculoskeletal: see HPI Skin: no symptoms reported Psychiatric/Neurological: No Symptoms Reported Past Kurykva-Zynufi-Vvvrxt Hx Past Med/Social Hx: Reviewed Nursing Past Med/Soc Hx Patient Social History Alcohol Use: Denies Use Recreational Drug Use: No Smoking Status: Never a Smoker Former Smoker, Quit: Apr 29, 1982 2nd Hand Smoke Exposure: No Recent Foreign Travel: No Contact w/Someone Who Travel: No Recent Infectious Disease Expo: No Recent Hopitalizations: No Physical Abuse: No Sexual Abuse: No Mistreated: No Fear: No Seasonal Allergies Seasonal Allergies: Yes Past Medical History Surgeries: Yes (HERNIA, HEMORRHOIDECTOMY, ESWL) Respiratory: Yes Sleep Apnea Currently Using CPAP: Yes Cardiac: No High Cholesterol, Hypertension Neurological: No Reproductive Disorders: No Sexually Transmitted Disease: No HIV/AIDS: No Genitourinary: Yes (UROSTOMY PLACED July,) Kidney Stones Gastrointestinal: Yes Colitis, Gastroesophageal Reflux Musculoskeletal: Yes Arthritis, Chronic Back Pain Endocrine: Yes Diabetes, Non-Insulin dep HEENT: Yes (READING GLASSES) Loss of Vision: Bilateral Hearing Impairment: Denies Cancer: No Psychosocial: Yes Depression Integumentary: No Blood Disorders: No Adverse Reaction/Blood Tranf: No (N/A) Physical Exam Vital Signs Vital Signs - First Documented 08/16/18 17:18 Temp 98.9 Pulse 100 Resp 22 B/P (MAP) 172/68 (102) O2 Delivery Room Air Capillary Refill : Less Than 3 Seconds Height, Weight, BMI Height: 5'9.00" Weight: 270lbs. 2.0oz. 122.454703td; 41.2 BMI Method:Stated General Appearance: WD/WN, no apparent distress HEENT: PERRL/EOMI Neck: supple Cardiovascular: normal peripheral pulses, regular rate, rhythm Respiratory: chest non-tender, lungs clear, normal breath sounds Gastrointestinal: non tender, soft Back: other (left sided nephrostomy tube, looks well placed. ) Extremities: normal range of motion Neurologic/Psychiatric: alert, normal mood/affect, oriented x 3 Progress/Results/Core Measures Suspected Sepsis Recent Fever Within 48 Hours: No Infection Criteria Present: None New/Unexplained Altered Menta: No Sepsis Screen: No Definite Risk SIRS Temperature:98.9 Pulse: 100 Respiratory Rate: 22 Laboratory Tests 08/16/18 17:35: White Blood Count 9.0 Blood Pressure 172 /68 Mean: 102 Laboratory Tests 08/16/18 17:35: Creatinine 0.81, Platelet Count 257, Total Bilirubin 0.3 Results/Orders Lab Results Laboratory Tests Test 08/16/18 17:35 Range/Units White Blood Count 9.0 4.3-11.0 10^3/uL Red Blood Count 3.64 L 4.35-5.85 10^6/uL Hemoglobin 10.8 L 13.3-17.7 G/DL Hematocrit 33 L 40-54 % Mean Corpuscular Volume 91 80-99 FL Mean Corpuscular Hemoglobin 30 25-34 PG Mean Corpuscular Hemoglobin Concent 33 32-36 G/DL Red Cell Distribution Width 13.9 10.0-14.5 % Platelet Count 257 130-400 10^3/uL Mean Platelet Volume 8.6 7.4-10.4 FL Neutrophils (%) (Auto) 75 42-75 % Lymphocytes (%) (Auto) 14 12-44 % Monocytes (%) (Auto) 10 0-12 % Eosinophils (%) (Auto) 1 0-10 % Basophils (%) (Auto) 0 0-10 % Neutrophils # (Auto) 6.7 1.8-7.8 X 10^3 Lymphocytes # (Auto) 1.2 1.0-4.0 X 10^3 Monocytes # (Auto) 0.9 0.0-1.0 X 10^3 Eosinophils # (Auto) 0.1 0.0-0.3 10^3/uL Basophils # (Auto) 0.0 0.0-0.1 10^3/uL Urine Color YELLOW Urine Clarity CLOUDY Urine pH 6.0 5-9 Urine Specific [place] 1.025 H 1.016-1.022 Urine Protein 2+ H NEGATIVE Urine Glucose (UA) NEGATIVE NEGATIVE Urine Ketones TRACE H NEGATIVE Urine Nitrite POSITIVE H NEGATIVE Urine Bilirubin NEGATIVE NEGATIVE Urine Urobilinogen 0.2 NORMAL MG/DL Urine Leukocyte Esterase 2+ H NEGATIVE Urine RBC (Auto) 2+ H NEGATIVE Urine RBC 2-5 H /HPF Urine WBC 50-100 H /HPF Urine Squamous Epithelial Cells 0-2 /HPF Urine Crystals NONE /LPF Urine Bacteria MODERATE H /HPF Urine Casts NONE /LPF Urine Mucus NONE /LPF Urine Culture Indicated YES Sodium Level 137 135-145 MMOL/L Potassium Level 4.0 3.6-5.0 MMOL/L Chloride Level 98 98-107 MMOL/L Carbon Dioxide Level 25 21-32 MMOL/L Anion Gap 14 5-14 MMOL/L Blood Urea Nitrogen 13 7-18 MG/DL Creatinine 0.81 0.60-1.30 MG/DL Estimat Glomerular Filtration Rate > 60 BUN/Creatinine Ratio 16 Glucose Level 118 H 70-105 MG/DL Calcium Level 9.3 8.5-10.1 MG/DL Corrected Calcium 9.5 8.5-10.1 MG/DL Total Bilirubin 0.3 0.1-1.0 MG/DL Aspartate Amino Transf (AST/SGOT) 19 5-34 U/L Alanine Aminotransferase (ALT/SGPT) 21 0-55 U/L Alkaline Phosphatase 97 40-136 U/L Total Protein 7.6 6.4-8.2 GM/DL Albumin 3.7 3.2-4.5 GM/DL My Orders Orders - PALM,ANTHONY L DO Cbc With Automated Diff (08/16/18 17:19) Comprehensive Metabolic Panel (08/16/18 17:19) Ua Culture If Indicated (08/16/18 17:19) Ct Abdomen/Pelvis W (08/16/18 17:19) Iohexol Injection (Omnipaque 350 Mg/Ml 1 (08/16/18 17:45) Received Contrast (Hold Metformin- Contr (08/16/18 17:45) Sodium Chloride Flush (Catheter Flush Sy (08/16/18 17:45) Ns (Ivpb) (Sodium Chloride 0.9% Ivpb Bag (08/16/18 17:45) Urine Culture (08/16/18 17:35) Medications Given in ED Current Medications Medications Dose Ordered Sig/Cathie Route Start Time Stop Time Status Last Admin Dose Admin Iohexol 150 ml ONCE ONCE IV 08/16/18 17:45 08/16/18 17:46 DC 08/16/18 18:26 125 ML Sodium Chloride 10 ml NEEDED PRN IV 08/16/18 17:45 08/16/18 18:26 10 ML Sodium Chloride 100 ml ONCE ONCE IV 08/16/18 17:45 08/16/18 17:46 DC 08/16/18 18:26 100 ML Vital Signs/I&O 08/16/18 17:18 Temp 98.9 Pulse 100 Resp 22 B/P (MAP) 172/68 (102) O2 Delivery Room Air Capillary Refill : Less Than 3 Seconds Blood Pressure Mean: 102 Progress Note : Progress Note I reviewed labs and imaging with patient. Patient has a by prescription that he hasn't filled them [facility]. I discussed with him the need to fill at to treat his urinary tract infection. Patient has an appointment on Sunday at [facility] to work with his nephrostomy tube. Discussed he needs to keep that appointment for further management since he has a very large kidney stone. Patient will be discharged home in stable condition. Departure Impression Primary Impression: Calculus of proximal left ureter Additional Impression: Nephrostomy status Disposition: HOME, SELF-CARE Condition: Stable Departure-Patient Inst. Referrals: MARS PETERS DO (PCP/Family) Primary Care Physician Patient Instructions: Renal Colic (DC) Add. Discharge Instructions: Keep appointment with Zara Estrada urology on Sunday. You may add 600-800 mg ibuprofen every 8 hours as needed to pain. Take already prescribed pain medication. All discharge instructions reviewed with patient and/or family. Voiced understanding. ANTHONY PALM DO August 16, 2018 17:36
[2018-08-16 17:43] LABS: BASOPHILS % (AUTO) 0 % (0-10); EOSINOPHILS # (AUTO) 0.1 10^3/uL (0.0-0.3); EOSINOPHILS % (AUTO) 1 % (0-10); HEMATOCRIT 33 % (40-54); HEMOGLOBIN 10.8 G/DL (13.3-17.7); LYMPHOCYTES # (AUTO) 1.2 X 10^3 (1.0-4.0); LYMPHOCYTES % (AUTO) 14 % (12-44); MEAN CORPUSCULAR HEMOGLOBIN 30 PG (25-34); MEAN CORPUSCULAR HGB CONC 33 G/DL (32-36); MEAN CORPUSCULAR VOLUME 91 FL (80-99); MEAN PLATELET VOLUME 8.6 FL (7.4-10.4); MONOCYTES # (AUTO) 0.9 X 10^3 (0.0-1.0); MONOCYTES % (AUTO) 10 % (0-12); NEUTROPHILS # (AUTO) 6.7 X 10^3 (1.8-7.8); NEUTROPHILS % (AUTO) 75 % (42-75); PLATELET COUNT 257 10^3/uL (130-400); RED CELL DISTRIBUTION WIDTH 13.9 % (10.0-14.5)
[2018-08-16] MEDS ORDERED: CATHETER FLUSH 10 ML SYR IV PRN (17:45)
[2018-08-16] MEDS ORDERED: HOLD METFORMIN - RECEIVED CONTRAST 20 ML VIAL IV SCH (17:45)
[2018-08-16] MEDS ORDERED: IOHEXOL 350 MG/ML 150 ML (OMNIPAQUE 350) VIAL IV ONE (17:45)
[2018-08-16] MEDS ORDERED: NS 100 ML (IVPB) BAG IV ONE (17:45)
[2018-08-16 18:08] LABS: SODIUM 137 MMOL/L (135-145)
[2018-08-16 18:09] LABS: ALANINE AMINOTRANSFERASE 21 U/L (0-55); ALBUMIN 3.7 GM/DL (3.2-4.5); ALKALINE PHOSPHATASE 97 U/L (40-136); BILIRUBIN,TOTAL 0.3 MG/DL (0.1-1.0); BUN/CREATININE RATIO 16; CALCIUM 9.3 MG/DL (8.5-10.1); CARBON DIOXIDE 25 MMOL/L (21-32); CHLORIDE 98 MMOL/L (98-107); CREATININE SERUM 0.81 MG/DL (0.60-1.30); GFR ESTIMATED > 60; GLUCOSE 118 MG/DL (70-105); TOTAL PROTEIN 7.6 GM/DL (6.4-8.2)
[2018-08-16 18:13] LABS: CLARITY,URINE CLOUDY; COLOR,URINE YELLOW
[2018-08-16 18:14] LABS: BILIRUBIN,URINE NEGATIVE (NEGATIVE); GLUCOSE, URINE (UA) NEGATIVE (NEGATIVE); KETONES,URINE TRACE (NEGATIVE); LEUKOCYTE ESTERASE ,URINE 2+ (NEGATIVE); NITRITE,URINE POSITIVE (NEGATIVE); PROTEIN,URINE 2+ (NEGATIVE); UROBILINOGEN,URINE 0.2 MG/DL (NORMAL)
[2018-08-16 18:15] LABS: BACTERIA,URINE MODERATE /HPF; SQUAMOUS EPITHELIAL CELL,UR 0-2 /HPF; WBC,URINE 50-100 /HPF
--- NOTE | 2018-08-16 18:51 | Diagnostic Imaging Report ---
PROCEDURE: CT abdomen and pelvis with contrast. TECHNIQUE: Multiple contiguous axial images were obtained through the abdomen and pelvis after administration of intravenous contrast. Auto Exposure Controls were utilized during the CT exam to meet ALARA standards for radiation dose reduction. INDICATION: Left lower quadrant abdominal pain, history of kidney stones COMPARISON: None FINDINGS: The lung bases are clear. There is slight fatty infiltration throughout the liver. The gallbladder, spleen, pancreas, adrenal glands, and right kidney are unremarkable. There is a well-positioned nephrostomy catheter in the left kidney. There is a nonobstructive stone in the proximal left ureter measuring approximately 9 mm. Otherwise, bilateral course and caliber of both ureters is normal. The urinary bladder is decompressed. There is slight prostate enlargement. The course and caliber of the aorta and IVC is unremarkable. There is no free air or free fluid. There are few diverticuli of the sigmoid colon without diverticulitis. The appendix is normal. The small bowel normal. There is no hernia. Osseous structures are age-appropriate. IMPRESSION: 1. A 9 mm proximal left ureteral stone. There is a nephrostomy catheter in the left kidney. No hydronephrosis or hydroureter is present. 2. Fatty infiltration of the liver. 3. Diverticulosis of the sigmoid colon without diverticulitis. 4. Slight prostate enlargement. Dictated by: Dictated on workstation # [id number]
[2018-08-16 19:07] VITALS: BP 146/62
== END 2018-08-16 19:16 | disposition home or self-care (01) ==
LOC: EDUNIT# 17:01 → ER FS 17:02
DX: N20.1 Calculus of ureter (principal); E78.00 Pure hypercholesterolemia, unspecified; I10 Essential (primary) hypertension; E11.9 Type 2 diabetes mellitus without complications; F32.9 Major depressive disorder, single episode, unspecified; K21.9 Gastro-esophageal reflux disease without esophagitis; Z93.6 Other artificial openings of urinary tract status; Z87.19 Personal history of other diseases of the digestive system; Z79.84 Long term (current) use of oral hypoglycemic drugs; Z87.891 Personal history of nicotine dependence; Z98.890 Other specified postprocedural states; Z90.89 Acquired absence of other organs
CPT/HCPCS: 36415; 74177; 80053; 81000; 85025; 87077; 87088; 87186

== ENCOUNTER 2018-08-21 20:40 | Inpatient (IN) | payer MEDICARE, MEDICAID ==
[~2018-08-21] VITALS: Ht 175.3 cm; Wt 135.4 kg
--- NOTE | 2018-08-21 20:58 | ED General ---
General Source of Information: Patient, EMS History of Present Illness Date Seen by Provider: August 21, 2018 Time Seen by Provider: 20:40 Initial Comments 58-year-old male presenting with complaints of heart racing and shortness of breath. He had just gotten home from having stent placement and kidney stone broken up down in [place]. He states that he was getting to feeling worse this evening. He called EMS and they arrived and felt that he was in SVT and had given him adenosine 6 mg followed by 12 mg. This it slowed his heart rate down and he was just sinus tachycardia when he arrived in the emergency department. He also had hypotension. He states he was having some leg cramps. He was having diffuse abdominal pain. He denied having any fever or chills. He is complaining of general malaise. He felt weak overall. Allergies and Home Medications Allergies Coded Allergies: No Known Drug Allergies (Unverified , 08/21/18) Home Medications Ciprofloxacin HCl 500 Mg Tablet, 500 MG PO BID Prescribed by: RYANN LYN on 08/08/18 9493 Esomeprazole Magnesium 40 Mg Capsule.dr, 40 MG PO DAILY, (Reported) Ezetimibe 10 Mg Tablet, 10 MG PO DAILY, (Reported) Gabapentin 300 Mg Capsule, 300 MG PO DAILY, (Reported) Hydrocodone/Acetaminophen 1 Each Tablet, 1-2 EACH PO Q6H PRN for PAIN-MODERATE Prescribed by: EBER WOODS on 04/30/18 0849 Hydrocodone/Acetaminophen 1 Each Tablet, 1-2 EACH PO Q6H PRN for PAIN-MODERATE Prescribed by: WILY MARR on 05/28/18 0943 Metformin HCl 1,000 Mg Tablet, 1,000 MG PO BID, (Reported) Metoclopramide HCl 10 Mg Tablet, 10 MG PO QID, (Reported) Metoprolol Tartrate 50 Mg Tablet, 50 MG PO BID, (Reported) Nabumetone 750 Mg Tablet, 750 MG PO BID, (Reported) Niacin 1,000 Mg Tablet.er, 1,000 MG PO DAILY, (Reported) Nitrofurantoin Monohyd/M-Cryst 100 Mg Capsule, 1 TAB PO BID Prescribed by: WILY MARR on 05/28/18 0943 Phenazopyridine HCl 200 Mg Tablet, 1 TAB PO TID Prescribed by: TESSA DHALIWAL on 08/03/18 0548 Simvastatin 80 Mg Tablet, 80 MG PO BID, (Reported) Tamsulosin HCl 0.4 Mg Cap, 0.4 MG PO DAILY Prescribed by: WILY MARR on 05/28/18 0943 Tramadol HCl 50 Mg Tablet, 50 MG PO BID, (Reported) Patient Home Medication List Home Medication List Reviewed: Yes Review of Systems Review of Systems Constitutional: No chills, No fever; malaise, weakness (generalized) EENTM: no symptoms reported Respiratory: No cough; dyspnea on exertion; No hemoptysis; short of breath; No stridor Cardiovascular: edema, palpitations Gastrointestinal: abdominal pain (diffuse); No nausea, No vomiting Genitourinary: see HPI, dysuria, hematuria Musculoskeletal: muscle cramps (in legs and feet) Skin: no symptoms reported Psychiatric/Neurological: Anxiety Past Tlrnhhl-Pqogzb-Wafuxo Hx Past Med/Social Hx: Reviewed Nursing Past Med/Soc Hx Patient Social History Former Smoker, Quit: Apr 29, 1982 2nd Hand Smoke Exposure: No Recent Foreign Travel: No Contact w/Someone Who Travel: No Recent Hopitalizations: No Seasonal Allergies Seasonal Allergies: Yes Past Medical History Surgeries: Yes (HERNIA, HEMORRHOIDECTOMY, ESWL) Respiratory: Yes Sleep Apnea Currently Using CPAP: Yes Cardiac: No High Cholesterol, Hypertension Neurological: No Reproductive Disorders: No Sexually Transmitted Disease: No HIV/AIDS: No Genitourinary: Yes (UROSTOMY PLACED July,) Kidney Stones Gastrointestinal: Yes Colitis, Gastroesophageal Reflux Musculoskeletal: Yes Arthritis, Chronic Back Pain Endocrine: Yes Diabetes, Non-Insulin dep HEENT: Yes (READING GLASSES) Loss of Vision: Bilateral Hearing Impairment: Denies Cancer: No Psychosocial: Yes Depression Integumentary: No Blood Disorders: No Adverse Reaction/Blood Tranf: No (N/A) Physical Exam Vital Signs Vital Signs - First Documented 08/21/18 20:40 Temp 98.1 Pulse 140 Resp 52 B/P (MAP) 77/46 (56) Pulse Ox 94 O2 Delivery Nasal Cannula O2 Flow Rate 4.00 FiO2 90 Capillary Refill : Height, Weight, BMI Height: 5'9.00" Weight: 270lbs. 2.0oz. 122.265264gt; 41.2 BMI Method:Stated General Appearance: WD/WN, Moderate Distress, Obese HEENT: PERRL/EOMI, Pharynx Normal Neck: Normal Inspection, Supple Respiratory: Chest Non Tender, Accessory Muscle Use, Decreased Breath Sounds Cardiovascular: No JVD, No Murmur, Normal Peripheral Pulses, Tachycardia ( distant heart sounds) Gastrointestinal: No Pulsatile Mass, Soft, Abnormal Bowel Sounds (decreased), Distended; No Guarding, No Rebound; Tenderness (diffuse tenderness) Rectal: Deferred Extremity: Normal Range of Motion, No Calf Tenderness Neurologic/Psychiatric: Alert, Oriented x3, No Motor/Sensory 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, 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 Norm as Tested Skin: Warm/Dry, Pallor Focused Exam Sepsis Stage: Septic Shock Possible Source: Other (genitourinary with recent stent placement or pulmonary with shortness of breath and cough) Lactate Level 08/21/18 23:16: Lactic Acid Level 5.33*H Time of Focused Exam: 22:30 Respiratory: Chest Non Tender, Accessory Muscle Use, Decreased Breath Sounds, Rales, Rhonci Cardiovascular: Normal Peripheral Pulses, Tachycardia Capillary Refill: Less Than 3 Seconds Peripheral Pulses: 2+ Carotid (R), 2+ Carotid (L), 2+ Femoral (R), 2+ Femoral ( L), 2+ Radial Pulses (R), 2+ Radial Pulses (L) Skin: normal color, warm/dry Lactic Acid Level Within 3hrs of presentation: Admin fluids, Admin 30ml/kg IBW due to BMI>30, Admin ABX, Blood cultures prior to ABX's, Focus exam, Lactate level, Other ( started Levophed and continued with IVF resuscitation) Progress/Results/Core Measures Suspected Sepsis Recent Fever Within 48 Hours: No Infection Criteria Present: Suspected New Infection New/Unexplained Altered Menta: No Within 3hrs of presentation: Admin fluids, Admin 30ml/kg IBW due to BMI>30, Admin ABX, Blood cultures prior to ABX's, Lactate level Sepsis Diagnosis: (1) Bilateral pneumonia Qualifiers: Qualified Codes: J18.1 - Lobar pneumonia, unspecified organism (2) Sepsis Qualifiers: Qualified Codes: A41.9 - Sepsis, unspecified organism (3) Retained ureteral stent (4) Urinary tract infection Qualifiers: Qualified Codes: N30.01 - Acute cystitis with hematuria SIRS Temperature: Pulse: Respiratory Rate: Laboratory Tests 08/21/18 20:42: White Blood Count 15.0H Blood Pressure / Mean: 08/21/18 23:16: Lactic Acid Level 5.33*H Laboratory Tests 08/21/18 20:42: Creatinine 1.72H, INR Comment 1.3, Platelet Count 218, Total Bilirubin 1.4H Results/Orders Lab Results Laboratory Tests Test 08/21/18 20:42 08/21/18 23:16 08/21/18 23:58 Range/Units White Blood Count 15.0 H 4.3-11.0 10^3/uL Red Blood Count 3.58 L 4.35-5.85 10^6/uL Hemoglobin 10.6 L 13.3-17.7 G/DL Hematocrit 33 L 40-54 % Mean Corpuscular Volume 93 80-99 FL Mean Corpuscular Hemoglobin 30 25-34 PG Mean Corpuscular Hemoglobin Concent 32 32-36 G/DL Red Cell Distribution Width 14.5 10.0-14.5 % Platelet Count 218 130-400 10^3/uL Mean Platelet Volume 9.0 7.4-10.4 FL Neutrophils (%) (Auto) 96 H 42-75 % Lymphocytes (%) (Auto) 3 L 12-44 % Monocytes (%) (Auto) 1 0-12 % Eosinophils (%) (Auto) 0 0-10 % Basophils (%) (Auto) 0 0-10 % Neutrophils # (Auto) 14.2 H 1.8-7.8 X 10^3 Lymphocytes # (Auto) 0.4 L 1.0-4.0 X 10^3 Monocytes # (Auto) 0.1 0.0-1.0 X 10^3 Eosinophils # (Auto) 0.0 0.0-0.3 10^3/uL Basophils # (Auto) 0.0 0.0-0.1 10^3/uL Neutrophils % (Manual) 49 % Lymphocytes % (Manual) 3 % Monocytes % (Manual) 0 % Eosinophils % (Manual) 0 % Basophils % (Manual) 0 % Metamyelocytes % 5 % Myelocytes % 2 % Band Neutrophils 41 % Nucleated Red Blood Cells 1 Prothrombin Time 16.3 H 12.2-14.7 SEC INR Comment 1.3 0.8-1.4 Activated Partial Thromboplast Time 32 24-35 SEC Sodium Level 143 135-145 MMOL/L Potassium Level 3.4 L 3.6-5.0 MMOL/L Chloride Level 105 98-107 MMOL/L Carbon Dioxide Level 11 L 21-32 MMOL/L Anion Gap 27 H 5-14 MMOL/L Blood Urea Nitrogen 22 H 7-18 MG/DL Creatinine 1.72 H 0.60-1.30 MG/DL Estimat Glomerular Filtration Rate 41 BUN/Creatinine Ratio 13 Glucose Level 144 H 70-105 MG/DL Calcium Level 8.5 8.5-10.1 MG/DL Corrected Calcium 9.1 8.5-10.1 MG/DL Magnesium Level 1.5 L 1.8-2.4 MG/DL Total Bilirubin 1.4 H 0.1-1.0 MG/DL Aspartate Amino Transf (AST/SGOT) 173 H 5-34 U/L Alanine Aminotransferase (ALT/SGPT) 76 H 0-55 U/L Alkaline Phosphatase 258 H 40-136 U/L Troponin T 67 H <=15 NG/L Pro-B-Type Natriuretic Peptide 867.0 H <75.0 PG/ML Total Protein 6.3 L 6.4-8.2 GM/DL Albumin 3.2 3.2-4.5 GM/DL Lactic Acid Level 5.33 *H 0.50-2.00 MMOL/L Urine Color RED H Urine Clarity CLOUDY Urine pH 6.5 5-9 Urine Specific [place] 1.015 L 1.016-1.022 Urine Protein 3+ H NEGATIVE Urine Glucose (UA) NEGATIVE NEGATIVE Urine Ketones TRACE H NEGATIVE Urine Nitrite POSITIVE H NEGATIVE Urine Bilirubin NEGATIVE NEGATIVE Urine Urobilinogen 2.0 NORMAL MG/DL Urine Leukocyte Esterase 2+ H NEGATIVE Urine RBC (Auto) 3+ H NEGATIVE Urine RBC TNTC H /HPF Urine WBC NONE /HPF Urine Crystals NONE /LPF Urine Bacteria NEGATIVE /HPF Urine Casts NONE /LPF Urine Mucus NEGATIVE /LPF Urine Culture Indicated YES My Orders Orders - MITESH BATISTA MD Cbc With Automated Diff (08/21/18 20:51) Magnesium (08/21/18 20:51) Chest 1 View Ap/Pa Only (08/21/18 20:51) Ekg Tracing (08/21/18 20:51) Comprehensive Metabolic Panel (08/21/18 20:51) Protime With Inr (08/21/18 20:51) Partial Thromboplastin Time (08/21/18 20:51) O2 (08/21/18 20:51) Monitor-Rhythm Ecg Trace Only (08/21/18 20:51) Ed Iv/Invasive Line Start (08/21/18 20:51) Troponin T (08/21/18 20:51) Probnp Fs (08/21/18 20:51) Ns Iv 1000 Ml (Sodium Chloride 0.9%) (08/21/18 21:00) Ct Chest/Abdomen/Pelvis W (08/21/18 20:59) Norepinephrine (Levophed) (08/21/18 21:15) Iohexol Injection (Omnipaque 350 Mg/Ml 1 (08/21/18 21:15) Received Contrast (Hold Metformin- Contr (08/21/18 21:15) Ns (Ivpb) (Sodium Chloride 0.9% Ivpb Bag (08/21/18 21:15) Ns Iv 1000 Ml (Sodium Chloride 0.9%) (08/21/18 21:13) Norepinephrine (Levophed) (08/21/18 21:13) Ns (Ivpb) (Sodium Chloride 0.9%) (08/21/18 21:14) Norepinephrine (Levophed) (08/21/18 21:18) D5w Iv Solution ([place]) (Dextrose 5% Agata (08/21/18 21:19) Manual Differential (08/21/18 20:42) Blood Culture (08/21/18 22:41) Lactic Acid Analyzer (08/21/18 22:41) Ns Iv 1000 Ml (Sodium Chloride 0.9%) (08/22/18 00:15) Cefepime Injection (Maxipime Injection) (08/22/18 00:15) Ua Culture If Indicated (08/22/18 01:00) Urine Culture (08/21/18 23:58) Medications Given in ED Current Medications Medications Dose Ordered Sig/Cathie Route Start Time Stop Time Status Last Admin Dose Admin Iohexol 100 ml ONCE ONCE IV 08/21/18 21:15 08/21/18 21:16 DC 08/21/18 21:19 100 ML Sodium Chloride 100 ml ONCE ONCE IV 08/21/18 21:15 08/21/18 21:16 DC 08/21/18 21:19 100 ML Sodium Chloride 250 ml @ ud STK-MED ONCE .ROUTE 08/21/18 21:14 08/21/18 21:18 DC 08/21/18 21:30 46.66 MLS/HR Vital Signs/I&O 08/21/18 08/21/18 08/21/18 08/22/18 20:40 20:40 20:40 00:41 Temp 98.1 99.1 Pulse 140 130 Resp 52 50 B/P (MAP) 77/46 (56) 84/39 (54) Pulse Ox 94 90 96 O2 Delivery Nasal Cannula Nasal Cannula Nasal Cannula Nasal Cannula O2 Flow Rate 4.00 4.00 4.00 4.00 FiO2 90 08/22/18 08/22/18 08/22/18 08/22/18 02:10 02:15 02:30 02:45 Temp 100.6 Pulse 129 130 133 134 Resp 41 52 43 B/P (MAP) 95/58 (70) 99/58 (72) 97/60 (72) Pulse Ox 91 O2 Delivery Nasal Cannula Nasal Cannula Nasal Cannula O2 Flow Rate 6.00 6.00 6.00 08/22/18 08/22/18 08/22/18 03:00 03:00 03:12 Pulse 130 134 Resp 40 32 B/P (MAP) 102/57 (72) Pulse Ox 93 O2 Delivery Nasal Cannula NIV Bilevel O2 Flow Rate 40.00 6.00 50.00 08/22/18 00:00 Intake Total 2600 ml Balance 2600 ml Capillary Refill : Progress Note #1: Time: 20:45 Progress Note Obtain initial low his electrocardiogram as well as give IV fluid bolus. With him having tender abdomen and hypertension tachycardia will resuscitated with IV fluids but concern for possible acute surgical abdomen with his recent stenting and procedure for lithotripsy. We'll obtain a stat CT scan of his chest abdomen pelvis to evaluate for potential sources of his hypotension with tachycardia as well as evaluate his abdomen with the lithotripsy and stenting. This would save him from getting multiple doses of IV contrast and evaluate both his chest and abdomen/pelvis. Progress Note #2: Time: 21:15 Progress Note His blood pressure was still continuing to run hypotensive despite IV fluids. Will and on norepinephrine to help with this pressure while continuing IV fluid resuscitation. Awaiting lab work and CT scan results. Progress Note #3: Time: 22:00 Progress Note Patient reports that he is feeling better and his blood pressure was improving. His heart rate was starting to come down. Labs are showing elevated white blood cell count 15,000. His chemistry was coming back showing elevated BNP and troponin T. Progress Note #4: Time: 22:30 Progress Note Repeat evaluation of the patient demonstrates that his lung exam still has decreased breath sounds and rhonchi and rales. He has improved circulation of blood pressure. His labs did demonstrate elevated liver enzymes and renal function. His CT scan is showing that he has bilateral lower lung pneumonia. He has enlarged bladder. Stent is in place on the left side in the ureter. Progress Note #5: Time: 23:11 Progress Note Discussed with Dr. Dimas from the hospitalist service at [facility] and he accepted the patient for the ICU. We will treat the patient for sepsis presuming that that's was causing his hypertension and tachycardia. We will continue with IV fluid resuscitation as well as the norepinephrine for pressure support. Will start broad-spectrum IV antibiotics to help cover him for healthcare acquired pneumonia as well as possible urinary source of infection since he had recent stenting and urologic procedure for the kidney stone. Progress Note #6: Time: 00:00 Progress Note Lab called and stated that his lactic acid is 5.33. We will continue with antibiotics, fluids, pressure support as he has been getting. Patient is going to ICU at [facility] ECG Initial ECG Impression Date: August 21, 2018 Initial ECG Impression Time: 20:47 Initial ECG Rate: 143 Initial ECG Rhythm: S.Tach Initial ECG Comparisson: No Previous ECG Available Comment Sinus tachycardia with a heart rate of 143 bpm. PA interval 123 ms. Low voltage tracing. His QT interval is 320 ms with a QT corrected interval 494 ms. He has no ST elevation. There is no prior tracing immediately available for comparison. Diagnostic Imaging Diagonstic Imaging: CT Plain Films/CT/US/NM/MRI: chest, abdomen, pelvis Comments Bilateral lung base pneumonia, cannot exclude aspiration. Left ureteral stent in place with distal end in the bladder. Here in the left kidney which is likely related to the stent placement. There is moderate left perinephric stranding. Report was read at 05/06/11 and initial results transmitted at 3337. Radiologist was Dr Erick Flores MD Reviewed: Reviewed by Me Critical Care Note Critical Care Total Time (minutes) 100 Progress 100 minutes of critical care time was spent in direct care of the patient. This times excluding separately billable procedures. Time was spent in obtaining history from the patient as well as his medical chart, reviewing the electronic medical record, ordering tests and reviewing results, ordering interventions and reviewing response, counseling patient on results, discussion with consultants, documentation in the chart. Departure Communication (Admissions) Time/Spoke to Admitting Phy: 23:[address] Dimas and will obtain cultures and lactic acid before starting antibiotics to cover for pneumonia as well as urinary source since he had urinary stent placement today at [facility]. Impression Primary Impression: Bilateral pneumonia Qualified Codes: J18.1 - Lobar pneumonia, unspecified organism Additional Impressions: Urinary tract infection Qualified Codes: N30.01 - Acute cystitis with hematuria Retained ureteral stent Hypotension Qualified Codes: I95.9 - Hypotension, unspecified Dehydration Disposition: ADMITTED INPATIENT Condition: Critical Admissions Decision to Admit Reason: Admit from ER (General) Decision to Admit/Date: August 21, 2018 Time/Decision to Admit Time: 23:11 Departure-Patient Inst. Referrals: MARS PETERS DO (PCP/Family) Primary Care Physician MITESH BATISTA MD August 21, 2018 20:58
[2018-08-21] MEDS ORDERED: NS IV 1000 ML 1,000 ML IV STA (21:13)
[2018-08-21] MEDS ORDERED: NOREPINEPHRINE 4 MG/4 ML (LEVOPHED) AMP IV ONE ×2 (21:13→21:18)
[2018-08-21] MEDS ORDERED: NS (IVPB) 250 ML ONE (21:14)
[2018-08-21] MEDS ORDERED: HOLD METFORMIN - RECEIVED CONTRAST 20 ML VIAL IV SCH (21:15)
[2018-08-21] MEDS ORDERED: IOHEXOL 350 MG/ML 100 ML (OMNIPAQUE 350) VIAL IV ONE (21:15)
[2018-08-21] MEDS ORDERED: NS 100 ML (IVPB) BAG IV ONE (21:15)
[2018-08-21] MEDS ORDERED: D5W IV SOLUTION (EXCEL) 250 ML IV ONE (21:19)
[2018-08-21 21:25] LABS: INR 1.3 (0.8-1.4); PROTHROMBIN TIME PATIENT 16.3 SEC (12.2-14.7)
[2018-08-21 21:26] LABS: POTASSIUM 3.4 MMOL/L (3.6-5.0)
[2018-08-21] MEDS: NS IV 1000 ML 1,000 ML IV SCH ×2 (21:28→21:59)
[2018-08-21 21:29] LABS: CREATININE SERUM 1.72 MG/DL (0.60-1.30)
[2018-08-21] MEDS: NOREPINEPHRINE 4 MG in NS (IVPB) 250 ML IV SCH (21:29)
[2018-08-21 21:30] LABS: ALBUMIN 3.2 GM/DL (3.2-4.5); BILIRUBIN,TOTAL 1.4 MG/DL (0.1-1.0); CALCIUM 8.5 MG/DL (8.5-10.1); MAGNESIUM 1.5 MG/DL (1.8-2.4); TOTAL PROTEIN 6.3 GM/DL (6.4-8.2)
[2018-08-21 21:42] LABS: BASOPHILS % (AUTO) 0 % (0-10); EOSINOPHILS % (AUTO) 0 % (0-10); HEMATOCRIT 33 % (40-54); HEMOGLOBIN 10.6 G/DL (13.3-17.7); LYMPHOCYTES % (AUTO) 3 % (12-44); MEAN CORPUSCULAR HEMOGLOBIN 30 PG (25-34); MEAN CORPUSCULAR HGB CONC 32 G/DL (32-36); MEAN CORPUSCULAR VOLUME 93 FL (80-99); MONOCYTES % (AUTO) 1 % (0-12); PLATELET COUNT 218 10^3/uL (130-400); RED CELL DISTRIBUTION WIDTH 14.5 % (10.0-14.5)
[2018-08-21 21:43] LABS: LYMPHOCYTES # (AUTO) 0.4 X 10^3 (1.0-4.0); MONOCYTES # (AUTO) 0.1 X 10^3 (0.0-1.0); NEUTROPHILS # (AUTO) 14.2 X 10^3 (1.8-7.8); NEUTROPHILS % (AUTO) 96 % (42-75)
[2018-08-21 21:44] LABS: BAND NEUTROPHILS 41 %; BASOPHILS % (MANUAL) 0 %; EOSINOPHILS % (MANUAL) 0 %; LYMPHOCYTES % (MANUAL) 3 %; METAMYELOCYTES % 5 %; MONOCYTES % (MANUAL) 0 %; MYELOCYTES % 2 %; NEUTROPHILS % (MANUAL) 49 %; NUCLEATED RED BLOOD CELLS 1
--- NOTE | 2018-08-21 22:10 | Diagnostic Imaging Report ---
INDICATION: Dyspnea and weakness There is mild cardiomegaly and pulmonary venous congestion. There is also mild airspace disease throughout the lungs with a lower lobe predominance. No pneumothorax is seen. There is no evidence of significant pleural fluid. IMPRESSION: Cardiac enlargement and pulmonary venous congestion likely reflect congestive heart failure with mild bilateral edema. Followup PA and lateral views of the chest would be useful. Dictated by: Dictated on workstation # [id number]
[2018-08-22] VITALS (42 sets, daily range): BP systolic 85–116; BP diastolic 47–81
[2018-08-22] MEDS ORDERED: CEFEPIME INJECTION 1,000 MG in WATER (STERILE) FOR INJECTION 10 ML IV ONE (00:15)
[2018-08-22] MEDS ORDERED: WATER (STERILE) FOR INJECTION 10 ML ONE (00:29)
[2018-08-22] MEDS ORDERED: CEFEPIME 1 GM (MAXIPIME) VIAL ONE (00:29)
[2018-08-22] MEDS: NS IV 1000 ML 1,000 ML IV SCH ×7 (00:38→20:30)
[2018-08-22 01:17] LABS: CLARITY,URINE CLOUDY; COLOR,URINE RED; PH,URINE 6.5 (5-9)
[2018-08-22 01:18] LABS: BILIRUBIN,URINE NEGATIVE (NEGATIVE); GLUCOSE, URINE (UA) NEGATIVE (NEGATIVE); KETONES,URINE TRACE (NEGATIVE); PROTEIN,URINE 3+ (NEGATIVE); RBC,URINE TNTC /HPF
[2018-08-22 01:19] LABS: BACTERIA,URINE NEGATIVE /HPF
[2018-08-22 01:22] LABS: LEUKOCYTE ESTERASE ,URINE 2+ (NEGATIVE)
[2018-08-22 01:24] LABS: NITRITE,URINE POSITIVE (NEGATIVE)
[2018-08-22] MEDS: NOREPINEPHRINE 4 MG in NS (IVPB) 250 ML IV SCH ×4 (02:42→13:12)
[2018-08-22] MEDS ORDERED: SODIUM BICARB 8.4% 50 MEQ/50 ML VIAL ONE (03:06)
[2018-08-22] MEDS ORDERED: SODIUM BICARB 8.4% 50 MEQ/50 ML (ABBOTT) SYR IV ONE ×2 (03:30→04:30)
[2018-08-22] MEDS ORDERED: TOBRAMYCIN IV ONE (04:15)
[2018-08-22] MEDS ORDERED: NS IV 1000 ML 1,000 ML IV SCH (04:15)
[2018-08-22] MEDS ORDERED: NS IV ONE ×2 (04:15)
[2018-08-22 04:19] LABS: BASOPHILS % (AUTO) 0 % (0-10); EOSINOPHILS # (AUTO) 0.1 10^3/uL (0.0-0.3); EOSINOPHILS % (AUTO) 1 % (0-10); HEMATOCRIT 29 % (40-54); HEMOGLOBIN 9.1 G/DL (13.3-17.7); LYMPHOCYTES # (AUTO) 0.4 X 10^3 (1.0-4.0); LYMPHOCYTES % (AUTO) 2 % (12-44); MEAN CORPUSCULAR HEMOGLOBIN 29 PG (25-34); MEAN CORPUSCULAR HGB CONC 32 G/DL (32-36); MEAN CORPUSCULAR VOLUME 92 FL (80-99); MEAN PLATELET VOLUME 8.9 FL (7.4-10.4); MONOCYTES # (AUTO) 0.6 X 10^3 (0.0-1.0); MONOCYTES % (AUTO) 3 % (0-12); NEUTROPHILS # (AUTO) 20.7 X 10^3 (1.8-7.8); NEUTROPHILS % (AUTO) 95 % (42-75); PLATELET COUNT 191 10^3/uL (130-400); WHITE BLOOD COUNT 21.8 10^3/uL (4.3-11.0)
[2018-08-22 04:47] LABS: ALBUMIN 2.8 GM/DL (3.2-4.5); CALCIUM 7.3 MG/DL (8.5-10.1); CREATININE SERUM 1.53 MG/DL (0.60-1.30); MAGNESIUM 1.4 MG/DL (1.8-2.4); PHOSPHORUS 1.7 MG/DL (2.3-4.7); POTASSIUM 3.4 MMOL/L (3.6-5.0); TOTAL PROTEIN 5.2 GM/DL (6.4-8.2)
[2018-08-22 05:25] LABS: ABG BASE EXCESS -3.3 MMOL/L (-2.5-2.5); ABG OXYGEN SATURATION 97 % (94-100); ABG PCO2 33 MMHG (35-45); ABG PH 7.42 (7.37-7.43); ABG PO2 104 MMHG (79-93); ABG TCO2 21.1 MMOL/L (21.0-31.0)
[2018-08-22 05:26] LABS: ALLENS TEST YES-POS; INSPIRED O2 40% BIPAP; VENTILATOR NO
--- NOTE | 2018-08-22 06:10 | Pulmonary Consultation ---
History of Present Illness History of Present Illness Date of Consultation 08/22/18 06:05 Time Seen by Provider: 06:05 Date of Admission History of Present Illness 58yo presented to [facility] ED secondary to worsening SOB and palpitations. He was found to be in SVT and was given Adenosine 6mg followed by 12mg. Pt is now hypotension. Allergies and Home Medications Allergies Coded Allergies: No Known Drug Allergies (Unverified , 08/21/18) Home Medications Ciprofloxacin HCl 500 Mg Tablet, 500 MG PO BID Prescribed by: RYANN LYN on 08/08/18 2256 Esomeprazole Magnesium 40 Mg Capsule.dr, 40 MG PO DAILY, (Reported) Ezetimibe 10 Mg Tablet, 10 MG PO DAILY, (Reported) Gabapentin 300 Mg Capsule, 300 MG PO DAILY, (Reported) Hydrocodone/Acetaminophen 1 Each Tablet, 1-2 EACH PO Q6H PRN for PAIN-MODERATE Prescribed by: EBER WOODS on 04/30/18 0849 Hydrocodone/Acetaminophen 1 Each Tablet, 1-2 EACH PO Q6H PRN for PAIN-MODERATE Prescribed by: WILY MARR on 05/28/18 0943 Metformin HCl 1,000 Mg Tablet, 1,000 MG PO BID, (Reported) Metoclopramide HCl 10 Mg Tablet, 10 MG PO QID, (Reported) Metoprolol Tartrate 50 Mg Tablet, 50 MG PO BID, (Reported) Nabumetone 750 Mg Tablet, 750 MG PO BID, (Reported) Niacin 1,000 Mg Tablet.er, 1,000 MG PO DAILY, (Reported) Nitrofurantoin Monohyd/M-Cryst 100 Mg Capsule, 1 TAB PO BID Prescribed by: WILY MARR on 05/28/18 0943 Phenazopyridine HCl 200 Mg Tablet, 1 TAB PO TID Prescribed by: TESSA DHALIWAL on 08/03/18 0548 Simvastatin 80 Mg Tablet, 80 MG PO BID, (Reported) Tamsulosin HCl 0.4 Mg Cap, 0.4 MG PO DAILY Prescribed by: WILY MARR on 05/28/18 0943 Tramadol HCl 50 Mg Tablet, 50 MG PO BID, (Reported) Past Vmjjvts-Woeskh-Basoxf Hx Past Med/Social Hx: Reviewed Nursing Past Med/Soc Hx Patient Social History Former Smoker, Quit: Apr 29, 1982 2nd Hand Smoke Exposure: No Recent Foreign Travel: No Contact w/Someone Who Travel: No Recent Infectious Disease Expo: No Recent Hopitalizations: No Physical Abuse: No Sexual Abuse: No Mistreated: No Fear: No Seasonal Allergies Seasonal Allergies: Yes Past Medical History Surgeries: Yes (HERNIA, HEMORRHOIDECTOMY, ESWL) Respiratory: Yes Sleep Apnea Currently Using CPAP: Yes Cardiac: No High Cholesterol, Hypertension Neurological: No Reproductive Disorders: No Sexually Transmitted Disease: No HIV/AIDS: No Genitourinary: Yes (UROSTOMY PLACED July,) Kidney Stones Gastrointestinal: Yes Colitis, Gastroesophageal Reflux Musculoskeletal: Yes Arthritis, Chronic Back Pain Endocrine: Yes Diabetes, Non-Insulin dep HEENT: Yes (READING GLASSES) Loss of Vision: Bilateral Hearing Impairment: Denies Cancer: No Psychosocial: Yes Depression Integumentary: No Blood Disorders: No Adverse Reaction/Blood Tranf: No (N/A) Sepsis Event Evaluation Height, Weight, BMI Height: 5'9.00" Weight: 271lbs. 1.0oz. 122.904457sr; 40.0 BMI Method:Actual Exam Exam Vital Signs Date Time Temp Pulse Resp B/P (MAP) Pulse Ox O2 Delivery O2 Flow Rate FiO2 08/22/18 05:00 131 14 100/50 (67) 98 NIV Bilevel 40.00 08/22/18 04:45 133 45 96/56 (69) 99 NIV Bilevel 40.00 08/22/18 04:30 134 45 99/47 (64) 97 NIV Bilevel 40.00 08/22/18 04:15 133 36 99/63 (75) 98 NIV Bilevel 40.00 08/22/18 04:00 130 34 116/52 (73) 99 NIV Bilevel 40.00 08/22/18 03:45 131 40 116/52 (73) 99 NIV Bilevel 40.00 08/22/18 03:30 131 29 100/48 (65) 100 NIV Bilevel 40.00 08/22/18 03:15 130 44 88/54 (65) 98 NIV Bilevel 40.00 08/22/18 03:12 NIV Bilevel 40.00 08/22/18 03:00 134 32 102/57 (72) Nasal Cannula 6.00 08/22/18 03:00 130 40 93 40.00 08/22/18 02:45 134 43 97/60 (72) Nasal Cannula 6.00 08/22/18 02:30 133 52 99/58 (72) Nasal Cannula 6.00 08/22/18 02:15 100.6 130 41 95/58 (70) 91 Nasal Cannula 6.00 08/22/18 02:10 129 08/22/18 00:41 99.1 130 50 84/39 (54) 96 Nasal Cannula 4.00 08/21/18 20:40 98.1 140 52 77/46 (56) 90 Nasal Cannula 4.00 08/21/18 20:40 94 Nasal Cannula 4.00 90 08/21/18 20:40 Nasal Cannula 4.00 I & O 08/22/18 07:00 Intake Total 2610 ml Balance 2610 ml Height & Weight Height: 5'9.00" Weight: 271lbs. 1.0oz. 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 Pt will probably need intubation. He is currently a full code -Check ABG SVT s/p adenosine Sinus tach secondary to sepsis Hypotension -Levophed Nephrolithiasis with recent stent placement - Hematuria UTI -Continue Cefepime and Vanco Hypomag, hypophos, hypokalemia -replace Acute renal failure -IVF Metabolic lactic acidosis -IVF Elevated liver enzymes secondary to sepsis -Monitor Prognosis is guarded at this time JP LEWIS DO August 22, 2018 06:10
[2018-08-22] MEDS: CEFEPIME INJECTION 1,000 MG in WATER (STERILE) FOR INJECTION 10 ML IV SCH ×3 (06:14→16:40)
[2018-08-22] MEDS: MAGNESIUM 1 GM/100 ML IVPB 100 ML IV SCH ×3 (06:15→07:05)
[2018-08-22] MEDS: POTASSIUM CL 10MEQ/50ML IVPB 50 ML IV SCH ×3 (06:15→07:05)
[2018-08-22] MEDS: KCL 20 MEQ TAB (K-DUR) PO SCH (06:17)
[2018-08-22] MEDS ORDERED: POTASSIUM PHOSPHATE INJ 30 MM in NS (IVPB) 250 ML IV ONE (06:30)
[2018-08-22] MEDS ORDERED: PROPOFOL DRIP (ICU) 100 ML IV ONE ×2 (07:07→10:14)
--- NOTE | 2018-08-22 07:08 | Diagnostic Imaging Report ---
PROCEDURE: CT chest, abdomen, and pelvis with contrast. TECHNIQUE: Multiple contiguous axial images were obtained through the chest, abdomen, and pelvis after the administration of intravenous contrast. Auto Exposure Controls were utilized during the CT exam to meet ALARA standards for radiation dose reduction. INDICATION: Left-sided stent placed today. History of stones. Shortness of breath and weakness. CT chest, abdomen and pelvis with contrast 08/21/[address] abdomen and pelvis from 08/16/2018. FINDINGS: CHEST: There is bilateral dependent airspace opacities possibly due to pneumonia more consolidated in the superior segment of the right lower lobe and in the posterior right upper lobe. There is no significant pleural effusion. No pericardial effusions. No adenopathy seen in the chest. Osseous structures within normal limits. ABDOMEN PELVIS: Liver demonstrates diffuse fatty infiltration. No masses appreciated. The spleen unremarkable. The gallbladder normal. Adrenal glands normal. Pancreas is diffusely atrophied. Hypodensities are seen about the left kidney likely some fluid given the recent findings and postoperative changes. A stent is noted in the left ureter. Proximal aspect coiled in the renal pelvis. Distal aspect is noted within the urinary bladder. There is a small amount of air in the renal collecting system. Likely due to recent stent placement, an infectious etiology less likely although not excluded and followup as clinically indicated would be recommended. There is a cystic lesion exophytic in nature on the left fairly simple in appearance. Mild hydronephrosis is noted. The right kidney unremarkable for acute abnormalities. No significant ascites is seen. No obstructive process noted. Diverticulosis is seen without evidence for decubitus. IMPRESSION: 1. Left ureteral stent in place with mild hydronephrosis noted. Left perinephric fat stranding is likely due to the recent procedure. Air in the renal collecting system most likely due to recent procedure as well however please see above discussion and recommendations. Other incidental findings throughout the abdomen, pelvis and chest as noted above. Mild pneumonia not excluded especially within the right lung as discussed above. Pertinent findings agree with the preliminary report. Dictated by: Dictated on workstation # [id number]
--- NOTE | 2018-08-22 07:10 | NUR ---
Dr. Montoya at bedside at this time to perform central line placement and possible intubation. RT and RNs: Flor, Ida and Kimmy also at bedside at this time to assist in intubation and line placement. Pt verbalizes understanding at this time of intubation procedure and line placement procedure. 0715 Pt given 2mg Versed IV push at this time to begin preparations for intubation. 0720 Once prepared pt was given 2mg Versed, 50mcg Fentantyl, Propofol gtt initiated and Succinylcholine given. 0737 Patient intubated at this time by Dr. Montoya. VSS. 0754 Pt given 4mg Versed and 50mcg Fentantyl given at this time while propofol gtt continues to infuse to sedate pt further for central line placement. 0811 Right triple lumen central line successfully inserted into right internal jugular at this time. VSS. Pt continues with sedation at this time. Will continue to closely monitor and prepare for Bronchoscopy at a later time this shift.
[2018-08-22] MEDS ORDERED: NS (IVPB) 250 ML ONE (07:42)
[2018-08-22] MEDS ORDERED: NOREPINEPHRINE 4 MG/4 ML (LEVOPHED) AMP IV ONE (07:43)
[2018-08-22 08:38] LABS: BASOPHILS % (AUTO) 0 % (0-10); EOSINOPHILS # (AUTO) 0.1 10^3/uL (0.0-0.3); EOSINOPHILS % (AUTO) 1 % (0-10); HEMATOCRIT 27 % (40-54); HEMOGLOBIN 8.4 G/DL (13.3-17.7); LYMPHOCYTES # (AUTO) 0.6 X 10^3 (1.0-4.0); LYMPHOCYTES % (AUTO) 2 % (12-44); MEAN CORPUSCULAR HGB CONC 32 G/DL (32-36); MEAN CORPUSCULAR VOLUME 93 FL (80-99); MEAN PLATELET VOLUME 8.2 FL (7.4-10.4); MONOCYTES % (AUTO) 4 % (0-12); NEUTROPHILS # (AUTO) 22.8 X 10^3 (1.8-7.8); NEUTROPHILS % (AUTO) 93 % (42-75); PLATELET COUNT 177 10^3/uL (130-400); RED CELL DISTRIBUTION WIDTH 15.2 % (10.0-14.5); WHITE BLOOD COUNT 24.5 10^3/uL (4.3-11.0)
[2018-08-22 08:46] LABS: MEAN CORPUSCULAR HEMOGLOBIN 29 PG (25-34)
[2018-08-22] MEDS: VANCOMYCIN INJECTION 2,000 MG in NS IV 500 ML 500 ML IV SCH ×2 (08:48→16:42)
--- NOTE | 2018-08-22 08:54 | Diagnostic Imaging Report ---
INDICATION: Endotracheal tube placement. Time of exam: 8:36 AM Correlation is made with prior study one day earlier. An endotracheal tube has been placed, has the tip in good position above the hunter. Right IJ line has tip overlying the SVC. There is mild central congestion but no overt failure. There is subsegmental atelectasis noted right base. There is no effusion or pneumothorax. IMPRESSION: Satisfactory endotracheal tube placement. Dictated by: Dictated on workstation # [id number]
[2018-08-22 08:58] LABS: ALBUMIN 2.6 GM/DL (3.2-4.5); BILIRUBIN,TOTAL 1.1 MG/DL (0.1-1.0); CALCIUM 6.8 MG/DL (8.5-10.1); CREATININE SERUM 1.42 MG/DL (0.60-1.30); POTASSIUM 3.5 MMOL/L (3.6-5.0); TOTAL PROTEIN 4.8 GM/DL (6.4-8.2)
[2018-08-22 09:11] LABS: ANISOCYTOSIS SLIGHT; BAND NEUTROPHILS 29 %; EOSINOPHILS % (MANUAL) 0 %; LYMPHOCYTES % (MANUAL) 2 %; METAMYELOCYTES % 2 %; MONOCYTES % (MANUAL) 0 %; MYELOCYTES % 2 %; NEUTROPHILS % (MANUAL) 65 %
[2018-08-22] MEDS: fentaNYL INJECTION 1,250 MCG in NS (IVPB) 250 ML IV SCH ×2 (09:13→23:14)
--- NOTE | 2018-08-22 09:18 | Pulmonary Procedures ---
Pulmonary Procedures Date of Procedure Date of Service: August 22, 2018 Lumen: triple (US guided) Central Line Procedure: betadine prep, sterile drapes applied, sterile dressing applied Position: internal jugular (R) Anesthesia: Lidocaine Volume Anesthetic (ccs): 5 Complications: none Post Position: sutured, good blood return, position confirmed w/ CXR JP LEWIS DO August 22, 2018 09:18
[2018-08-22] MEDS: HYDROCORTISONE 100 MG/2 ML (Solu-CORTEF) VIAL IV SCH ×2 (09:19→12:34)
--- NOTE | 2018-08-22 09:19 | Pulmonary Procedures ---
Pulmonary Procedures Date of Procedure Date of Service: August 22, 2018 Reason for Intubation: Acute respiratory distress Time of Intubation: 09:19 Intubation Method: orotracheal Tube Size: 8 Medications: Fentanyl, Propofol, Succinylcholine, Versed Positive End Tide CO2: Yes Breath Sounds after Intubation: bilateral-equal Intubation Complications: no complications Post Intubation Xray: Yes JP LEWIS DO August 22, 2018 09:19
[2018-08-22 09:29] LABS: ABG BASE EXCESS -5.4 MMOL/L (-2.5-2.5); ABG OXYGEN SATURATION 83 % (94-100); ABG PCO2 42 MMHG (35-45); ABG PO2 60 MMHG (79-93); ABG TCO2 20.7 MMOL/L (21.0-31.0)
[2018-08-22 09:33] LABS: ALLENS TEST POSITIVE; INSPIRED O2 60%; PATIENT TEMP 102.3; VENTILATOR YES
--- NOTE | 2018-08-22 09:58 | Consultation-Cardiology ---
HPI-Cardiology Cardiology Consultation: Date of Consultation 08/22/18 Date of Admission Attending Physician Dejon Dimas MD Admitting Physician Nikolas Blanc DO Consulting Physician Emely SALDIVAR MD HPI: Time Seen by a Provider: 09:00 Chief Complaint: Respiratory distress, SVT, sepsis This is a 58-year-old gentleman who was transferred to ICU from [facility] for severe septic shock due to likely bilateral pneumonia, however urinary source cannot be ruled out. Patient was already intubated/ventilated when I saw him this morning therefore history is based on record review and discussion with the nurses. The patient had surgery for kidney stone and ureter stent yesterday at [facility] in [place]. He presented to [place] [facility] with palpitations, shortness of breath and abdominal discomfort. CT chest showed bilateral pneumonia, patent stent, left hydronephrosis. No comment on pulmonary embolism. Significant leukocytosis, lactic acidosis, suggesting severe sepsis with hypotension, septic shock. Started on non-epinephrine, IV fluids, broad-spectrum antibiotics. Was transferred to our hospital. This morning was intubated/ventilated by Dr. Montoya due to severe respiratory distress. Also significant bleeding from the Villagomez catheter is noted. Echocardiogram at the bedside. Review of Systems-Cardiology Review of Systems Constitutional: As described under HPI; No As described under HPI, No no symptoms reported, No chills, No fever, No lightheadedness Eyes: As described under HPI; No no symptoms reported, No blindness, No blurred vision, No contact lenses, No drainage, No decreased acuity, No foreign body sensation, No pain, No vision change Ears/Nose/Throat: No As described under HPI, No no symptoms reported, No chronic hearing loss, No epistaxis, No ear discharge, No ear pain, No loose teeth, No mouth pain, No mouth swelling, No nasal drainage, No nose pain, No recent hearing loss, No throat pain, No throat swelling, No ulcerations, No other Respiratory: No no symptoms reported; As described under HPI; No As described under HPI, No cough; orthopnea; No shortness of breath, No SOB with excertion Cardiovascular: No no symptoms reported; As described under HPI; No As described under HPI, No chest pain, No edema, No irregular heart rate, No lightheadedness; palpitations Gastrointestinal: No no symptoms reported, No As described under HPI, No abdomen distended; abdominal pain; No blood streaked bowels, No constipation, No diarrhea, No nausea, No vomiting, No stool coloration changes Genitourinary: No As described under HPI, No burning, No dysuria, No discharge , No frequency, No flank pain, No hematuria, No urgency Skin: No rash, No skin related problems, No ulcerations Psychiatric/Neurological: No anxiety, No depression, No seizure, No focal weakness, No syncope Hematologic: No bleeding abnormalities [id number] Hx Patient Social History 2nd Hand Smoke Exposure: No Recent Foreign Travel: No Recent Infectious Disease Expo: No Hospitalization with Isolation: Denies Past Medical History PMH As described under Assessment. Allergies and Home Medications Allergies Coded Allergies: No Known Drug Allergies (Unverified , 08/21/18) Home Medications Ciprofloxacin HCl 500 Mg Tablet, 500 MG PO BID Prescribed by: RYANN LYN on 08/08/18 2256 Esomeprazole Magnesium 40 Mg Capsule.dr, 40 MG PO DAILY, (Reported) Ezetimibe 10 Mg Tablet, 10 MG PO DAILY, (Reported) Gabapentin 300 Mg Capsule, 300 MG PO DAILY, (Reported) Hydrocodone/Acetaminophen 1 Each Tablet, 1-2 EACH PO Q6H PRN for PAIN-MODERATE Prescribed by: EBER WOODS on 04/30/18 0849 Hydrocodone/Acetaminophen 1 Each Tablet, 1-2 EACH PO Q6H PRN for PAIN-MODERATE Prescribed by: WILY MARR on 05/28/18 0943 Metformin HCl 1,000 Mg Tablet, 1,000 MG PO BID, (Reported) Metoclopramide HCl 10 Mg Tablet, 10 MG PO QID, (Reported) Metoprolol Tartrate 50 Mg Tablet, 50 MG PO BID, (Reported) Nabumetone 750 Mg Tablet, 750 MG PO BID, (Reported) Niacin 1,000 Mg Tablet.er, 1,000 MG PO DAILY, (Reported) Nitrofurantoin Monohyd/M-Cryst 100 Mg Capsule, 1 TAB PO BID Prescribed by: WILY MARR on 05/28/18 0943 Phenazopyridine HCl 200 Mg Tablet, 1 TAB PO TID Prescribed by: TESSA DHALIWAL on 08/03/18 0548 Simvastatin 80 Mg Tablet, 80 MG PO BID, (Reported) Tamsulosin HCl 0.4 Mg Cap, 0.4 MG PO DAILY Prescribed by: WILY MARR on 05/28/18 0943 Tramadol HCl 50 Mg Tablet, 50 MG PO BID, (Reported) Patient Home Medication List Home Medication List Reviewed: Yes Physical Exam-Cardiology Physical Exam Vital Signs/I&O 08/22/18 08/22/18 08/22/18 08/22/18 00:41 02:00 02:10 02:15 Temp 99.1 100.6 Pulse 130 129 130 Resp 50 41 B/P (MAP) 84/39 (54) 95/58 (70) Pulse Ox 96 92 91 O2 Delivery Nasal Cannula NIV Bilevel Nasal Cannula O2 Flow Rate 4.00 40.00 6.00 FiO2 90 08/22/18 08/22/18 08/22/18 08/22/18 02:30 02:45 03:00 03:00 Pulse 133 134 130 134 Resp 52 43 40 32 B/P (MAP) 99/58 (72) 97/60 (72) 102/57 (72) Pulse Ox 93 O2 Delivery Nasal Cannula Nasal Cannula Nasal Cannula O2 Flow Rate 6.00 6.00 40.00 6.00 08/22/18 08/22/18 08/22/18 08/22/18 03:12 03:15 03:30 03:45 Pulse 130 131 131 Resp 44 29 40 B/P (MAP) 88/54 (65) 100/48 (65) 116/52 (73) Pulse Ox 98 100 99 O2 Delivery NIV Bilevel NIV Bilevel NIV Bilevel NIV Bilevel O2 Flow Rate 40.00 40.00 40.00 40.00 08/22/18 08/22/18 08/22/18 08/22/18 04:00 04:00 04:00 04:15 Temp 101.0 Pulse 130 133 Resp 34 36 B/P (MAP) 116/52 (73) 99/63 (75) Pulse Ox 99 98 O2 Delivery NIV Bilevel NIV Bilevel NIV Bilevel O2 Flow Rate 40.00 40.00 FiO2 40 08/22/18 08/22/18 08/22/18 08/22/18 04:30 04:45 05:00 05:15 Pulse 134 133 131 134 Resp 45 45 14 12 B/P (MAP) 99/47 (64) 96/56 (69) 100/50 (67) 100/70 (80) Pulse Ox 97 99 98 97 O2 Delivery NIV Bilevel NIV Bilevel NIV Bilevel NIV Bilevel O2 Flow Rate 40.00 40.00 40.00 40.00 08/22/18 08/22/18 08/22/18 08/22/18 05:30 05:45 06:00 06:15 Pulse 131 131 130 128 Resp 46 48 43 51 B/P (MAP) 96/55 (69) 95/59 (71) 92/52 (65) 85/58 (67) Pulse Ox 98 98 98 99 O2 Delivery NIV Bilevel NIV Bilevel NIV Bilevel NIV Bilevel O2 Flow Rate 40.00 40.00 40.00 40.00 08/22/18 08/22/18 08/22/18 08/22/18 06:30 06:45 07:00 07:00 Pulse 131 134 129 129 Resp 50 60 50 B/P (MAP) 94/61 (72) 99/58 (72) 94/53 (67) Pulse Ox 98 92 93 O2 Delivery NIV Bilevel NIV Bilevel NIV Bilevel O2 Flow Rate 40.00 40.00 40.00 08/22/18 08/22/18 08/22/18 08/22/18 07:53 08:00 08:49 09:00 Pulse 124 125 Resp 32 31 51 B/P (MAP) 85/52 (63) 86/59 99/65 (76) Pulse Ox 98 98 97 O2 Delivery Mechanical Ventilator Mechanical Ventilator O2 Flow Rate 60.00 60.00 FiO2 100 08/22/18 00:00 Intake Total 2600 ml Balance 2600 ml Capillary Refill : Less Than 3 Seconds Constitutional: appears stated age; No apparent distress; well-developed, well- nourished, other (Intubated/ventilated) HEENT: PERRL; No normal ENT inspection, No TMs normal, No pharynx normal, No scleral icterus (R), No scleral icterus (L), No pale conjunctivae (R), No pale conjunctivae (L), No photophobia, No TM abnormal (R), No TM abnormal (L), No pharyngeal erythema, No tonsillar exudate, No other, No discharge, No EOMI, No hearing is well preserved, No hard of hearing, No oral hygience is good, No ulceration, No xanthelasmas are seen Neck: No carotid bruit; carotid pulses are 2 + bilaterally Respiratory: No accessory muscle use, No respiratory distress, No chest tender , No chest expansion is symmetric; chest is bilaterally symmetric; No lungs clear to percussion; lungs clear to auscultation; No crackles, No rhonchi, No rales, No stridor, No wheezing, No pleural rub; other (And intubated/ventilated) Cardiovascular: regular rate-rhythm, tachycardia, S1 and S2 Gastrointestinal: No tender, No soft, No round; distended; No pulsatile mass, No organomegaly, No guarding, No rebound, No tenderness, No hernia, No mass, No audible bowel sounds, No abnormal bowel sounds, No abdominal bruits, No spleenomegaly, No other Rectal: deferred Extremities: No normal range of motion, No non-tender, No normal inspection, No pedal edema, No calf tenderness, No normal capillary refill, No pelvis stable , No calf tenderness, No inflammation, No pedal edema, No slow capillary refill , No swelling, No other, No abrasion, No clubbing, No cyanosis, No ecchymosis, No laceration, No no lower extremity edema bilateral, No significant edema, No tenderness, No wound Neurologic/Psychiatric: other ( intubated/ventilated) Skin: cool Data Review Labs Laboratory Tests 08/21/18 20:42: White Blood Count 15.0H, Red Blood Count 3.58L, Hemoglobin 10.6L, Hematocrit 33L , Mean Corpuscular Volume 93, Mean Corpuscular Hemoglobin 30, Mean Corpuscular Hemoglobin Concent 32, Red Cell Distribution Width 14.5, Platelet Count 218, Mean Platelet Volume 9.0, Neutrophils (%) (Auto) 96H, Lymphocytes (%) (Auto) 3L , Monocytes (%) (Auto) 1, Eosinophils (%) (Auto) 0, Basophils (%) (Auto) 0, Neutrophils # (Auto) 14.2H, Lymphocytes # (Auto) 0.4L, Monocytes # (Auto) 0.1, Eosinophils # (Auto) 0.0, Basophils # (Auto) 0.0, Neutrophils % (Manual) 49, Lymphocytes % (Manual) 3, Monocytes % (Manual) 0, Eosinophils % (Manual) 0, Basophils % (Manual) 0, Metamyelocytes % 5, Myelocytes % 2, Band Neutrophils 41 , Nucleated Red Blood Cells 1, Prothrombin Time 16.3H, INR Comment 1.3, Activated Partial Thromboplast Time 32, Sodium Level 143, Potassium Level 3.4L, Chloride Level 105, Carbon Dioxide Level 11L, Anion Gap 27H, Blood Urea Nitrogen 22H, Creatinine 1.72H, Estimat Glomerular Filtration Rate 41, BUN/ Creatinine Ratio 13, Glucose Level 144H, Calcium Level 8.5, Corrected Calcium 9.1, Magnesium Level 1.5L, Total Bilirubin 1.4H, Aspartate Amino Transf (AST/ SGOT) 173H, Alanine Aminotransferase (ALT/SGPT) 76H, Alkaline Phosphatase 258H, Troponin T 67H, Pro-B-Type Natriuretic Peptide 867.0H, Total Protein 6.3L, Albumin 3.2 08/21/18 23:16: Lactic Acid Level 5.33*H 08/21/18 23:58: Urine Color REDH, Urine Clarity CLOUDY, Urine pH 6.5, Urine Specific Derwood 1.015L, Urine Protein 3+H, Urine Glucose (UA) NEGATIVE, Urine Ketones TRACEH, Urine Nitrite POSITIVEH, Urine Bilirubin NEGATIVE, Urine Urobilinogen 2.0, Urine Leukocyte Esterase 2+H, Urine RBC (Auto) 3+H, Urine RBC TNTCH, Urine WBC NONE, Urine Crystals NONE, Urine Bacteria NEGATIVE, Urine Casts NONE, Urine Mucus NEGATIVE, Urine Culture Indicated YES 08/22/18 03:50: White Blood Count 21.8H, Red Blood Count 3.09L, Hemoglobin 9.1L, Hematocrit 29L , Mean Corpuscular Volume 92, Mean Corpuscular Hemoglobin 29, Mean Corpuscular Hemoglobin Concent 32, Red Cell Distribution Width 15.0H, Platelet Count 191, Mean Platelet Volume 8.9, Neutrophils (%) (Auto) 95H, Lymphocytes (%) (Auto) 2L , Monocytes (%) (Auto) 3, Eosinophils (%) (Auto) 1, Basophils (%) (Auto) 0, Neutrophils # (Auto) 20.7H, Lymphocytes # (Auto) 0.4L, Monocytes # (Auto) 0.6, Eosinophils # (Auto) 0.1, Basophils # (Auto) 0.0, Sodium Level 144, Potassium Level 3.4L, Chloride Level 112H, Carbon Dioxide Level 19L, Anion Gap 13, Blood Urea Nitrogen 22H, Creatinine 1.53H, Estimat Glomerular Filtration Rate 47, BUN/ Creatinine Ratio 14, Glucose Level 109H, Calcium Level 7.3L, Corrected Calcium 8.3L, Magnesium Level 1.4L, Total Bilirubin 1.0, Aspartate Amino Transf (AST/ SGOT) 129H, Alanine Aminotransferase (ALT/SGPT) 64H, Alkaline Phosphatase 151H, Total Protein 5.2L, Albumin 2.8L, Phosphorus Level 1.7L, Troponin I 0.176H 08/22/18 05:15: Blood Gas Puncture Site R RAD, Blood Gas Patient Temperature 101.0, Arterial Blood pH 7.42, Arterial Blood Partial Pressure CO2 33L, Arterial Blood Partial Pressure O2 104H, Arterial Blood HCO3 20L, Arterial Blood Total CO2 21.1, Arterial Blood Oxygen Saturation 97, Arterial Blood Base Excess -3.3L, Tony Test YES-POS, Blood Gas Ventilator Setting NO, Blood Gas Inspired Oxygen 40% BIPAP, Lactic Acid Level 2.36*H 08/22/18 08:29: Lactic Acid Level 1.86, White Blood Count 24.5H, Red Blood Count 2.85L, Hemoglobin 8.4L, Hematocrit 27L, Mean Corpuscular Volume 93, Mean Corpuscular Hemoglobin 29, Mean Corpuscular Hemoglobin Concent 32, Red Cell Distribution Width 15.2H, Platelet Count 177, Mean Platelet Volume 8.2, Neutrophils (%) (Auto ) 93H, Lymphocytes (%) (Auto) 2L, Monocytes (%) (Auto) 4, Eosinophils (%) (Auto ) 1, Basophils (%) (Auto) 0, Neutrophils # (Auto) 22.8H, Lymphocytes # (Auto) 0.6L, Monocytes # (Auto) 1.0, Eosinophils # (Auto) 0.1, Basophils # (Auto) 0.0, Neutrophils % (Manual) 65, Lymphocytes % (Manual) 2, Monocytes % (Manual) 0, Eosinophils % (Manual) 0, Metamyelocytes % 2, Myelocytes % 2, Band Neutrophils 29, Anisocytosis SLIGHT, Sodium Level 142, Potassium Level 3.5L, Chloride Level 116H, Carbon Dioxide Level 20L, Anion Gap 6, Blood Urea Nitrogen 25H, Creatinine 1.42H, Estimat Glomerular Filtration Rate 52, BUN/Creatinine Ratio 18 , Glucose Level 143H, Calcium Level 6.8L, Corrected Calcium 7.9L, Total Bilirubin 1.1H, Aspartate Amino Transf (AST/SGOT) 111H, Alanine Aminotransferase (ALT/SGPT) 60H, Alkaline Phosphatase 133, Total Protein 4.8L, Albumin 2.6L 08/22/18 09:15: Blood Gas Puncture Site RIGHT RADIAL, Blood Gas Patient Temperature 102.3, Arterial Blood pH 7.30*L, Arterial Blood Partial Pressure CO2 42, Arterial Blood Partial Pressure O2 60L, Arterial Blood HCO3 20L, Arterial Blood Total CO2 20.7L, Arterial Blood Oxygen Saturation 83L, Arterial Blood Base Excess - 5.4L, Tony Test POSITIVE, Blood Gas Ventilator Setting YES, Blood Gas Inspired Oxygen 60% ECG Impression ECG Initial ECG Rhythm: S.Tach A/P-Cardiology Assessment/Admission Diagnosis Severe septic shock, likely due to bilateral pneumonia, UTI, Urinary bleeding, Recent kidney stone, left ureter stent, Possible SVT, no strips available, Elevated proBNP, Elevated troponin, Acute kidney injury, Lactic acidosis, Diabetes, Plan Severe septic shock, likely due to bilateral pneumonia, on non-epinephrine, IV fluids, broad-spectrum antibiotics. Systolic blood pressure 88 mmHg on noninvasive measurement. UTI, on broad spectrum antibiotics. UTI is not confirmed. Urinary bleeding, status post treatment for kidney stone and left ureter stent yesterday at [facility] in [place]. Recent kidney stone, left ureter stent, Possible SVT, no strips available, there is a mention in the record that the patient was in SVT and adenosine was given which converted to sinus tachycardia. Unfortunately no strips are available for review, therefore I cannot comment on what was seen by the EMS. All available EKGs show sinus tachycardia. Which is very likely due to severe systemic illness. Elevated proBNP, likely due to bilateral pneumonia and severe sepsis. Bedside echocardiogram, preliminary review by myself shows likely preserved LV function however due to patient is intubated/ventilated, we do not have good pictures. Contrast echocardiogram is recommended. However I did notice D-shaped septum suggesting pressure/volume overload of the RV. Elevated troponin, borderline elevated. Could be secondary to systemic illness. No clear wall motion abnormality noted on echocardiogram. Official review pending. Acute kidney injury, IV fluids being given. Lactic acidosis, likely due to severe sepsis. Diabetes, Critically ill patient, prognosis is guarded. Over 30 minutes were spent taking care of the patient and reviewing all the records etc. Thank you for your consultation. Please call me if you have any questions. Jordana Saldivar MD, FACP, FACC, FSCAI, FHRS, CCDS Interventional Cardiology Cardiac Electrophysiology Vascular Medicine and Endovascular Interventions Clinical Quality Measures DVT/VTE Risk/Contraindication: Risk Factor Score Per Nursin RFS Level Per Nursing on Admit: 4+=Very High Emely SALDIVAR MD August 22, 2018 09:58
[2018-08-22] MEDS ORDERED: fentaNYL INJECTION 100 MCG/2 ML AMP INJ ONE (10:49)
[2018-08-22] MEDS ORDERED: MIDAZOLAM 5 MG/5 ML (VERSED) VIAL IJ ONE (10:49)
[2018-08-22] MEDS ORDERED: SUCCINYLCHOLINE INJ 100 MG/5 ML SYR INJ ONE (10:49)
[2018-08-22] MEDS ORDERED: RANI150T11 PO (11:03)
[2018-08-22] MEDS ORDERED: HYDR-3820 PO (11:03)
[2018-08-22] MEDS ORDERED: METO-370 PO (11:03)
[2018-08-22] MEDS ORDERED: GABA-490 PO (11:03)
[2018-08-22] MEDS ORDERED: HYOS-20 PO (11:03)
[2018-08-22] MEDS ORDERED: TOPI50TA13 PO (11:03)
[2018-08-22] MEDS ORDERED: NIAC100045 PO (11:03)
[2018-08-22] MEDS ORDERED: DICY10CA12 PO (11:15)
[2018-08-22] MEDS ORDERED: MULT1TAB69 PO (11:15)
[2018-08-22] MEDS ORDERED: OMG1KC PO (11:15)
--- NOTE | 2018-08-22 11:21 | NUR ---
UNABLE TO SPEAK WITH THE PATIENT AT THIS TIME. HAD A LIST FAXED OVER FROM DR. PETERS'S OFFICE. I WENT OVER THAT LIST WELL THE EXT MED HX AND UPDATED THE MED REC WITH WHAT HAS BEEN FILLED RECENTLY. IN ADDITION TO THE LIST FROM DR. PETERS'S OFFICE THE PATIENT HAS RECENTLY FILLED NIACIN AND ZETIA, I ADDED THEM TO THE MED REC AT THIS TIME. LISTED ON THE LIST WAS AXIRON TRANSDERM SOLUTION HOWEVER I DO NOT SEE WHERE THAT HAS BEEN FILLED RECENTLY AND IT WAS LAST DOCUMENTED ON THAT LIS IN [facility]. I DID NOT INCLUDE IT ON THE MED REC AT THIS TIME. ALSO LISTED WAS FLOMAX 0.4MG BID HOWEVER IT WAS LAST FILLED #30 FOR 30 DAYS 07-08-18.
[2018-08-22] MEDS ORDERED: FERR-84 PO (11:30)
[2018-08-22] MEDS ORDERED: TAMS0.4C98 PO (11:30)
[2018-08-22] MEDS ORDERED: HALOPERIDOL 5 MG/ML (HALDOL) AMP IV PRN (11:45)
[2018-08-22] MEDS ORDERED: PROPOFOL DRIP (ICU) 100 ML IV SCH ×2 (11:45)
[2018-08-22] MEDS ORDERED: DEXMEDETOMIDINE INJECTION 1,000 MCG in NS (IVPB) 250 ML IV PRN (11:45)
[2018-08-22] MEDS: PANTOPRAZOLE 40 MG (PROTONIX) VIAL IV SCH (12:34)
[2018-08-22] MEDS: PROPOFOL DRIP (ICU) 100 ML IV SCH ×3 (12:35→21:22)
--- NOTE | 2018-08-22 13:50 | History & Physical-Hospitalist ---
History of Present Illness HPI/Chief Complaint The patient was transferred last evening from the the [facility] emergency room after he presented with complaints of malaise and generalized weakness. He had been to [place] earlier in the day for lithotripsy of a large ( 11 mm) ureteral stone and subsequent placement of a ureteral stent. He told the staff at [facility] that he began to feel ill on his way from [place] to [place]. He apparently went into his home and rested for a bit and felt no better and ultimately called the ambulance and was brought to the emergency room. He indeed appeared to be acutely ill. Workup showed a temperature at max of 103.6. Troponin was 0.433. Creatinine 1.42. Lactic acid was 1.86. The white blood count was initially 15,000 and subsequently ellen to 21,800 and then 24,500. Chest x-ray was consistent with Congestive heart failure. UA showed significant hematuria. The emergency room physician from [place] called me with these findings. He was particularly interested in the possibility of pneumonia. However given his urinary tract manipulation I believe that the number 1 thought would be sepsis secondary to urinary tract. The patient was admitted to the ICU for broad-spectrum antibiotics. He was seen early this morning by Dr. Montoya and he thought him to be in impending respiratory failure and intubated him and placed him on the ventilator. He is unable to give any useful history. Date Seen 08/22/18 Attending Physician Fela Barnett MD PCP Nikolas Blanc DO Referring Physician Date of Admission August 22, 2018 at 00:05 Home Medications & Allergies Home Medications Reviewed patient Home Medication Reconciliation performed by pharmacy medication reconciliations senior pharmacy technician and/or nursing. Patients Allergies have been reviewed. Allergies Allergies Coded Allergies No Known Drug Allergies (Unverified08/21/18) Past Sppnqit-Axnhov-Btuhbp Hx Past Med/Social Hx: Reviewed Nursing Past Med/Soc Hx Patient Social History Former Smoker, Quit: Apr 29, 1982 2nd Hand Smoke Exposure: No Recent Foreign Travel: No Contact w/other who traveled: No Recent Hopitalizations: No Recent Infectious Disease Expo: No Seasonal Allergies Seasonal Allergies: Yes Past Medical History Currently Using CPAP: Yes Cardiac: High Cholesterol, Hypertension Reproductive: No Sexually Transmitted Disease: No HIV/AIDS: No Genitourinary: Kidney Stones Gastrointestinal: Colitis, Gastroesophageal Reflux Musculoskeletal: Arthritis, Chronic Back Pain Endocrine: Diabetes, Non-Insulin dep Loss of Vision: Bilateral Hearing Impairment: Denies Psychosocial: Depression History of Blood Disorders: No Adverse Reaction to Blood Magana: No (N/A) Review of Systems ROS-Unable to Obtain: intubated and sedated. Constitutional: see HPI Physical Exam Physical Exam Vital Signs Vital Signs - First Documented 08/21/18 20:40 Temp 98.1 Pulse 140 Resp 52 B/P (MAP) 77/46 (56) Pulse Ox 94 O2 Delivery Nasal Cannula O2 Flow Rate 4.00 FiO2 90 Capillary Refill : Less Than 3 Seconds Height, Weight, BMI Height: 5'9.00" Weight: 273lbs. 0.0oz. 123.985373ys; 40.0 BMI Method:Actual General Appearance: Other Eyes: Bilateral Eye Normal Inspection HEENT: Normal ENT Inspection Neck: Normal Inspection Respiratory: Other (crackles are noted in the bases. The patient is quite obese and is barrel chested.) Cardiovascular: Regular Rate, Rhythm Gastrointestinal: Other Results Results/Procedures Labs Laboratory Tests 08/21/18 20:42 08/22/18 03:50 08/22/18 08:29 Patient resulted labs reviewed. Assessment/Plan Admission Diagnosis Sepsis. 2.most likely source urinary tract. 3.recent large ureteral stone post lithotripsy and placement of stent. 4.morbid obesity. 5.apparent congestive heart failure. Reason for Inpatient Admission: Sepsis and multiple comorbidities Clinical Quality Measures DVT/VTE Risk/Contraindication: Risk Factor Score Per Nursin RFS Level Per Nursing on Admit: 4+=Very High FELA BARNETT MD August 22, 2018 13:50
[2018-08-22 15:59] LABS: ABG OXYGEN SATURATION 97 % (94-100); ABG PCO2 37 MMHG (35-45); ABG PO2 102 MMHG (79-93); ABG TCO2 19.6 MMOL/L (21.0-31.0)
[2018-08-22 16:04] LABS: ABG PH 7.33 (7.37-7.43); ALLENS TEST POSITIVE
[2018-08-22 16:05] LABS: INSPIRED O2 30%; PATIENT TEMP 101.1; VENTILATOR YES
--- NOTE | 2018-08-22 16:40 | Diagnostic Imaging Report ---
PROCEDURE: US Venous Lower Ext Sebastian. INDICATION: Pneumonia. TECHNIQUE: Grayscale with color-flow and Doppler waveform evaluation of the bilateral lower extremity deep venous systems. CORRELATION STUDY: None FINDINGS: Color and grayscale sonographic images demonstrate no intraluminal defect within the visualized portion of the common femoral, superficial femoral and/or popliteal veins to suggest thrombus formation. These vessels demonstrate normal response to compression and augmentation. No soft tissue fluid collection. IMPRESSION: 1. Negative for deep venous thrombosis of either leg. Dictated by: Dictated on workstation # [id number]
--- NOTE | 2018-08-22 18:35 | NUR ---
Dr. Nichols notified at this time of pt's continuing elevation of troponin. Discussed with Dr. Nichols possibility of NSTEMI, however, pt is currently not stable enough for antiplatelet or antithrombotic therapy due to uretal stent and current hematuria. Hgb continue to trend down at this time. Will continue to closely monitor pt at this time. Dr. Montoya also notified of pt's condition and elevated troponin. No new orders given at this time.
--- NOTE | 2018-08-22 19:08 | CONSULTATION REPORT ---
DATE OF SERVICE: 08/22/2018 ATTENDING PHYSICIAN: Dr. Montoya. SUMMARY: After reviewing the patient's record at the office in the hospital, this is a 58-year-old man known to me with previous history of left proximal ureteral stone who failed 2 ESWL. He was referred to [facility] urologist. Apparently, according to the family, they were unable to break up the stone somehow, so they put a stent in him to bring him back for repeat flexible ureteral lithotripsy. He is being admitted by Dr. Montoya with sepsis a combination of pneumonia and UTI as well as dehydration. He was intubated and most information was obtained by the nursing staff and the chart at the office. He had a CT scan that revealed the stent to be in good place. It was nothing mentioned about the stones or fragments, I could not see them either. IMPRESSION: 1. Sepsis combination of pneumonia and urinary tract infection. 2. Left proximal ureteral stone post-ESWL and ureteral lithotripsy and stenting. RECOMMENDATIONS: Since the stent is in good position and there is only minimal hydro and no major obstruction at this point, no urological intervention. I proceed with treatment of sepsis and pneumonia and then later on reschedule him to see the urologist in [place]. Thank you for letting me to participate in the care of this patient. We will follow with you. Job ID: [id number] DocumentID: [id number] Dictated Date: 08/22/2018 10:57:39 Industrial Roofer Date: 08/22/2018 19:08:23 Dictated By: JONATHAN CONLEY MD
--- NOTE | 2018-08-22 20:35 | NUR ---
This RN notified EICU of patient's temperature of 102.5. Orders received for 650mg acetaminophen liquid og as needed for fever.
[2018-08-22] MEDS: APAP 325 MG/10.15 ML LIQ (TYLENOL) UDC GT PRN (21:52)
[2018-08-23] VITALS (34 sets, daily range): BP systolic 64–126; BP diastolic 57–86
[2018-08-23] MEDS: PROPOFOL DRIP (ICU) 100 ML IV SCH ×8 (00:40→22:55)
--- NOTE | 2018-08-23 00:55 | NUR ---
Patient's temperature continues to increase after tylenol use, ice packs to groin and neck as well as decreasing temperature in the room and turning a fan on. EICU notified and orders received.
[2018-08-23] MEDS: APAP 325 MG/10.15 ML LIQ (TYLENOL) UDC GT PRN (01:05)
[2018-08-23] MEDS: NOREPINEPHRINE 4 MG in NS (IVPB) 250 ML IV SCH ×6 (01:10→22:17)
[2018-08-23] MEDS: CEFEPIME INJECTION 1,000 MG in WATER (STERILE) FOR INJECTION 10 ML IV SCH ×5 (01:10→23:12)
[2018-08-23] MEDS: NS IV 1000 ML 1,000 ML IV SCH ×3 (02:30→19:51)
[2018-08-23 03:33] LABS: ABG BASE EXCESS -6.4 MMOL/L (-2.5-2.5); ABG OXYGEN SATURATION 62 % (94-100); ABG PCO2 46 MMHG (35-45); ABG PO2 43 MMHG (79-93); ABG TCO2 20.8 MMOL/L (21.0-31.0); ALLENS TEST POSITIVE; BASOPHILS % (AUTO) 0 % (0-10); HEMATOCRIT 28 % (40-54); LYMPHOCYTES # (AUTO) 1.2 X 10^3 (1.0-4.0); LYMPHOCYTES % (AUTO) 4 % (12-44); MEAN CORPUSCULAR HEMOGLOBIN 30 PG (25-34); MEAN CORPUSCULAR HGB CONC 32 G/DL (32-36); MEAN CORPUSCULAR VOLUME 95 FL (80-99); MEAN PLATELET VOLUME 8.9 FL (7.4-10.4); MONOCYTES # (AUTO) 0.9 X 10^3 (0.0-1.0); MONOCYTES % (AUTO) 3 % (0-12); PATIENT TEMP 100.1; PLATELET COUNT 156 10^3/uL (130-400); RED CELL DISTRIBUTION WIDTH 15.9 % (10.0-14.5); VENTILATOR YES; WHITE BLOOD COUNT 29.7 10^3/uL (4.3-11.0)
[2018-08-23 03:34] LABS: ABG PH 7.25 (7.37-7.43)
[2018-08-23 03:35] LABS: EOSINOPHILS % (AUTO) 1 % (0-10); NEUTROPHILS % (AUTO) 93 % (42-75)
[2018-08-23 03:36] LABS: EOSINOPHILS # (AUTO) 0.2 10^3/uL (0.0-0.3); NEUTROPHILS # (AUTO) 27.5 X 10^3 (1.8-7.8)
[2018-08-23 03:51] LABS: CALCIUM 7.1 MG/DL (8.5-10.1); CREATININE SERUM 1.3 MG/DL (0.60-1.30); PHOSPHORUS 4.3 MG/DL (2.3-4.7)
[2018-08-23 04:03] LABS: INSPIRED O2 30%
[2018-08-23] MEDS: POTASSIUM CL 10MEQ/50ML IVPB 50 ML IV SCH (04:03)
[2018-08-23] MEDS: MAGNESIUM 1 GM/100 ML IVPB 100 ML IV SCH (04:04)
[2018-08-23] MEDS: KCL 20 MEQ TAB (K-DUR) PO SCH (04:04)
[2018-08-23] MEDS ORDERED: SODIUM BICARB 8.4% 50 MEQ/50 ML VIAL ONE (04:10)
[2018-08-23] MEDS: VANCOMYCIN INJECTION 2,000 MG in NS IV 500 ML 500 ML IV SCH ×2 (04:23→17:48)
[2018-08-23] MEDS ORDERED: SODIUM BICARB 8.4% 50 MEQ/50 ML (ABBOTT) SYR IV ONE (05:00)
[2018-08-23] MEDS ORDERED: MIDAZOLAM 5 MG/5 ML (VERSED) VIAL ONE (05:33)
[2018-08-23] MEDS ORDERED: fentaNYL INJECTION 100 MCG/2 ML AMP ONE (05:33)
[2018-08-23] MEDS ORDERED: fentaNYL INJECTION 100 MCG/2 ML AMP IVP PRN (06:30)
[2018-08-23] MEDS ORDERED: MIDAZOLAM 5 MG/5 ML (VERSED) VIAL IVP ONE (06:30)
[2018-08-23] MEDS: HYDROCORTISONE 100 MG/2 ML (Solu-CORTEF) VIAL IV SCH ×4 (06:40→22:17)
--- NOTE | 2018-08-23 07:10 | Pulmonary Progress Note ---
Subjective Time Seen by a Provider: 07:16 Subjective/Events-last exam Sedated on vent Sepsis Event Evaluation Height, Weight, BMI Height: 5'9.00" Weight: 282lbs. 0.0oz. 127.080870uk; 40.0 BMI Method:Actual Focused Exam Lactate Level 08/21/18 23:16: Lactic Acid Level 5.33*H 08/22/18 05:15: Lactic Acid Level 2.36*H 08/22/18 08:29: Lactic Acid Level 1.86 Time of Focused Exam: 22:30 Exam Exam Vital Signs Date Time Temp Pulse Resp B/P (MAP) Pulse Ox O2 Delivery O2 Flow Rate FiO2 08/23/18 06:34 105 24 95 30 08/23/18 06:00 107 21 91/57 (68) 92 Mechanical Ventilator 30.00 08/23/18 05:38 24 08/23/18 05:00 106 24 97/63 (74) 96 Mechanical Ventilator 30.00 08/23/18 04:46 98 Mechanical Ventilator 30 08/23/18 04:04 112 24 97 60 08/23/18 04:00 Mechanical Ventilator 60 08/23/18 04:00 73 21 109/70 (83) 99 Mechanical Ventilator 30.00 08/23/18 03:55 106/70 08/23/18 03:00 111 23 106/68 (81) 98 Mechanical Ventilator 30.00 08/23/18 02:51 112 20 96 60 08/23/18 02:00 115 22 95/66 (76) 95 Mechanical Ventilator 30.00 08/23/18 01:35 101.2 08/23/18 01:30 101.2 08/23/18 01:05 103.1 08/23/18 01:00 121 23 99/63 (75) 97 Mechanical Ventilator 30.00 08/23/18 00:51 121 08/23/18 00:45 103.1 08/23/18 00:40 Mechanical Ventilator 60.00 08/23/18 00:17 121 24 96 60 08/23/18 00:00 102.9 08/23/18 00:00 121 23 101/62 (75) 97 Mechanical Ventilator 30.00 08/23/18 00:00 Mechanical Ventilator 60 08/22/18 23:00 123 24 104/64 (77) 94 Mechanical Ventilator 30.00 08/22/18 22:53 122 23 95 60 08/22/18 22:00 123 24 94/63 (73) 95 Mechanical Ventilator 30.00 08/22/18 22:00 102.4 08/22/18 21:52 102.4 08/22/18 21:22 99/60 08/22/18 21:00 124 25 95/63 (74) 95 Mechanical Ventilator 30.00 08/22/18 20:55 124 25 96 60 08/22/18 20:27 102.6 08/22/18 20:00 Mechanical Ventilator 60 08/22/18 20:00 101.4 123 24 87/61 (70) 96 Mechanical Ventilator 30.00 08/22/18 19:00 122 24 95/59 (71) 94 Mechanical Ventilator 30.00 08/22/18 19:00 122 08/22/18 18:40 118 26 96 60 08/22/18 18:00 120 24 89/60 (70) 96 Mechanical Ventilator 60.00 08/22/18 17:00 118 25 85/55 (65) 95 Mechanical Ventilator 60.00 08/22/18 16:43 93/49 08/22/18 16:04 100.2 08/22/18 16:00 Mechanical Ventilator 30 08/22/18 16:00 120 26 90/55 (67) 95 Mechanical Ventilator 60.00 08/22/18 15:00 116 27 94/60 (71) 99 Mechanical Ventilator 60.00 08/22/18 14:26 115 28 99 60 08/22/18 14:00 120 24 90/65 (73) 99 Mechanical Ventilator 60.00 08/22/18 13:00 120 31 92/57 (69) 99 Mechanical Ventilator 60.00 08/22/18 12:48 120 08/22/18 12:35 92/62 08/22/18 12:00 120 30 91/59 (70) 99 Mechanical Ventilator 60.00 08/22/18 12:00 Mechanical Ventilator 60 08/22/18 11:39 121 30 99 60 08/22/18 11:35 101.9 08/22/18 11:00 122 31 93/53 (66) 99 Mechanical Ventilator 60.00 08/22/18 10:21 103.6 08/22/18 10:00 124 37 100/52 (68) 99 Mechanical Ventilator 60.00 08/22/18 09:00 51 99/65 (76) 97 Mechanical Ventilator 60.00 08/22/18 08:49 86/59 08/22/18 08:00 103.6 08/22/18 08:00 125 31 85/52 (63) 98 Mechanical Ventilator 60.00 08/22/18 08:00 Mechanical Ventilator 60 08/22/18 07:53 124 32 98 100 I & O 08/23/18 06:59 Intake Total 6950 ml Output Total 2850 ml Balance 4100 ml Height & Weight Height: 5'9.00" Weight: 282lbs. 0.0oz. 127.007321lu; 40.0 BMI Method:Actual General Appearance: Other HEENT: Normal ENT Inspection Neck: Normal Inspection Respiratory: Other (crackles are noted in the bases. The patient is quite obese and is barrel chested.) Cardiovascular: Regular Rate, Rhythm Capillary Refill: Less Than 3 Seconds Peripheral Pulses: 2+ Carotid (R), 2+ Carotid (L), 2+ Femoral (R), 2+ Femoral ( L), 2+ Radial Pulses (R), 2+ Radial Pulses (L) Extremity: Normal Range of Motion, No Calf Tenderness Neurologic/Psychiatric: Alert, Oriented x3, No Motor/Sensory Deficits, smt technician II- XII Norm as Tested Skin: Warm/Dry, Pallor Results Lab Laboratory Tests 08/21/18 20:42 08/22/18 03:50 08/22/18 08:29 08/23/18 03:26 Assessment/Plan Assessment/Plan Severe sepsis with septic shock and Bilateral pneumonia -Severe sepsis protocol -Echo this AM -- last echo 05/03 shows EF of 60-65% -Check troponins -Continue Cefepime and Vanco -Check MRSA swab -Check influenza swab Acute respiratory failure -bronchoscopy secondary to thick bloody sputum at intubation. -Pt sedated on vent -Check ABG SVT s/p adenosine Sinus tach secondary to sepsis Hypotension -Levophed Nephrolithiasis with recent stent placement - Hematuria UTI -Continue Cefepime and Vanco Hypomag, hypophos, hypokalemia -replace Acute renal failure -IVF Metabolic lactic acidosis -IVF Elevated liver enzymes secondary to sepsis -Monitor JP LEWIS DO August 23, 2018 07:10
--- NOTE | 2018-08-23 07:12 | Pulmonary Procedures ---
Pulmonary Procedures Date of Procedure Date of Service: August 23, 2018 Bronch Bronchoscopy with RML bronchoalveolar lavage (BAL), bilateral bronchial washes.. Preop DX acute respiratory failure with thick bloody sputum Postop DX: No signs of active bleeding (no endobronchial mass) Complications: none After informed consent obtained and formal time out pt was sedated using propofol, Fentanyl and Versed. Bronchoscope was advanced through the ET tube . 1% lidocaine was used to anesthetize epiglottis, hunter, and left/right main stem bronchus. An anatomical tour was undertaken down to the segmental bronchi bilaterally. No endobronchial lesions noted. From the RML bronchoalveolar lavage (BAL), bilateral bronchial washes were obtained. Pt tolerated procedure well. No complications noted. Stat CXR is pending. JP LEWIS DO August 23, 2018 07:12
[2018-08-23 07:20] LABS: ABG OXYGEN SATURATION 97 % (94-100); ABG PCO2 35 MMHG (35-45); ABG PH 7.36 (7.37-7.43); ABG PO2 94 MMHG (79-93); ABG TCO2 20.6 MMOL/L (21.0-31.0)
[2018-08-23 07:23] LABS: ALLENS TEST YES-POS; INSPIRED O2 30%; PATIENT TEMP 98.1; VENTILATOR YES
--- NOTE | 2018-08-23 07:49 | Diagnostic Imaging Report ---
EXAM: CHEST 1 VIEW, AP/PA ONLY INDICATION: Dyspnea. Bilateral pneumonia. COMPARISON: Chest radiograph 08/22/2018. FINDINGS: ETT tip at the level of clavicles. NG tip below the [id number]. Right IJ CVC tip near the confluence. Cardiomegaly. Low lung volumes. Bibasilar atelectasis or infiltrate. Probable small left pleural effusion. No pneumothorax. IMPRESSION: 1. Cardiomegaly. This is accentuated by low lung volumes. 2. Bibasilar atelectasis or infiltrate, greatest on the left. 3. Probable small left pleural effusion. Dictated by: Dictated on workstation # [id number]
[2018-08-23] MEDS ORDERED: LIDOCAINE PF 2% 5 ML (XYLOCAINE) VIAL INJ ONE ×2 (07:52→07:54)
[2018-08-23] MEDS ORDERED: LIDOCAINE PF 1% 2 ML AMP IJ ONE ×2 (07:52→07:54)
[2018-08-23] MEDS ORDERED: EPINEPHrine INJECTION 1 MG/ML AMP IJ ONE (07:54)
[2018-08-23] MEDS ORDERED: LIDOCAINE JELLY 2% 6 ML SYRINGE MM ONE (07:54)
[2018-08-23] MEDS: PANTOPRAZOLE 40 MG (PROTONIX) VIAL IV SCH (07:57)
--- NOTE | 2018-08-23 08:11 | Cardiology Progress Note ---
Cardiology SOAP Progress Note Subjective: Still intubated/ventilated. Objective: I&O/Vital Signs 08/22/18 08/22/18 08/22/18 08/22/18 20:55 21:00 21:22 21:52 Temp 102.4 Pulse 124 124 Resp 25 25 B/P (MAP) 95/63 (74) 99/60 Pulse Ox 96 95 O2 Delivery Mechanical Ventilator O2 Flow Rate 30.00 FiO2 60 08/22/18 08/22/18 08/22/18 08/22/18 22:00 22:00 22:53 23:00 Temp 102.4 Pulse 123 122 123 Resp 24 23 24 B/P (MAP) 94/63 (73) 104/64 (77) Pulse Ox 95 95 94 O2 Delivery Mechanical Ventilator Mechanical Ventilator O2 Flow Rate 30.00 30.00 FiO2 60 08/23/18 08/23/18 08/23/18 08/23/18 00:00 00:00 00:00 00:17 Temp 102.9 Pulse 121 121 Resp 23 24 B/P (MAP) 101/62 (75) Pulse Ox 97 96 O2 Delivery Mechanical Ventilator Mechanical Ventilator O2 Flow Rate 30.00 FiO2 60 60 08/23/18 08/23/18 08/23/18 08/23/18 00:40 00:45 00:51 01:00 Temp 103.1 Pulse 121 121 Resp 23 B/P (MAP) 99/63 (75) Pulse Ox 97 O2 Delivery Mechanical Ventilator Mechanical Ventilator O2 Flow Rate 60.00 30.00 08/23/18 08/23/18 08/23/18 08/23/18 01:05 01:30 01:35 02:00 Temp 103.1 101.2 101.2 Pulse 115 Resp 22 B/P (MAP) 95/66 (76) Pulse Ox 95 O2 Delivery Mechanical Ventilator O2 Flow Rate 30.00 08/23/18 08/23/18 08/23/18 08/23/18 02:51 03:00 03:55 04:00 Pulse 112 111 73 Resp 20 23 21 B/P (MAP) 106/68 (81) 106/70 109/70 (83) Pulse Ox 96 98 99 O2 Delivery Mechanical Ventilator Mechanical Ventilator O2 Flow Rate 30.00 30.00 FiO2 60 08/23/18 08/23/18 08/23/18 08/23/18 04:00 04:04 04:46 05:00 Pulse 112 106 Resp 24 24 B/P (MAP) 97/63 (74) Pulse Ox 97 98 96 O2 Delivery Mechanical Ventilator Mechanical Ventilator Mechanical Ventilator O2 Flow Rate 30.00 FiO2 60 60 30 08/23/18 08/23/18 08/23/18 08/23/18 05:38 06:00 06:34 07:00 Pulse 107 105 103 Resp 24 21 24 23 B/P (MAP) 91/57 (68) Pulse Ox 92 95 95 O2 Delivery Mechanical Ventilator Mechanical Ventilator O2 Flow Rate 30.00 30.00 FiO2 30 08/23/18 08/23/18 08/23/18 07:00 07:57 08:00 Pulse 104 102 Resp 24 B/P (MAP) 97/60 95/62 (73) Pulse Ox 97 O2 Delivery Mechanical Ventilator O2 Flow Rate 30.00 08/23/18 00:00 Intake Total 5550 ml Output Total 1350 ml Balance 4200 ml Weight (Pounds): 282 Weight (Ounces): 0.0 Weight (Calculated Kilograms): 127.800187 Constitutional: appears stated age; No apparent distress; well-developed, well- nourished, other (Intubated/ventilated) Respiratory: No accessory muscle use, No respiratory distress, No chest tender , No chest expansion is symmetric; chest is bilaterally symmetric; No lungs clear to percussion; lungs clear to auscultation; No crackles, No rhonchi, No rales, No stridor, No wheezing, No pleural rub; other (And intubated/ventilated) Cardiovascular: regular rate-rhythm, tachycardia, S1 and S2 Gastrointestional: No tender, No soft, No round; distended; No pulsatile mass, No organomegaly, No guarding, No rebound, No tenderness, No hernia, No mass, No audible bowel sounds, No abnormal bowel sounds, No abdominal bruits, No spleenomegaly, No other Extremities: No normal range of motion, No non-tender, No normal inspection, No pedal edema, No calf tenderness, No normal capillary refill, No pelvis stable , No calf tenderness, No inflammation, No pedal edema, No slow capillary refill , No swelling, No other, No abrasion, No clubbing, No cyanosis, No ecchymosis, No laceration, No no lower extremity edema bilateral, No significant edema, No tenderness, No wound Neurologic/Psychiatric: other ( intubated/ventilated) Skin: cool Results/Procedures: Labs Laboratory Tests 08/22/18 09:15: Blood Gas Puncture Site RIGHT RADIAL, Blood Gas Patient Temperature 102.3, Arterial Blood pH 7.30*L, Arterial Blood Partial Pressure CO2 42, Arterial Blood Partial Pressure O2 60L, Arterial Blood HCO3 20L, Arterial Blood Total CO2 20.7L, Arterial Blood Oxygen Saturation 83L, Arterial Blood Base Excess - 5.4L, Tony Test POSITIVE, Blood Gas Ventilator Setting YES, Blood Gas Inspired Oxygen 60% 08/22/18 10:07: D-Dimer >= 20.00H 08/22/18 10:11: Glucometer 119H 08/22/18 15:51: Blood Gas Puncture Site RIGHT RADIAL, Blood Gas Patient Temperature 101.1, Arterial Blood pH 7.33*L, Arterial Blood Partial Pressure CO2 37, Arterial Blood Partial Pressure O2 102H, Arterial Blood HCO3 19L, Arterial Blood Total CO2 19.6L, Arterial Blood Oxygen Saturation 97, Arterial Blood Base Excess -6.0L , Tony Test POSITIVE, Blood Gas Ventilator Setting YES, Blood Gas Inspired Oxygen 30% 08/22/18 18:00: Troponin I 0.952*H 08/23/18 00:48: Glucometer 105 08/23/18 03:26: White Blood Count 29.7H, Red Blood Count 2.99L, Hemoglobin 9.0L, Hematocrit 28L , Mean Corpuscular Volume 95, Mean Corpuscular Hemoglobin 30, Mean Corpuscular Hemoglobin Concent 32, Red Cell Distribution Width 15.9H, Platelet Count 156, Mean Platelet Volume 8.9, Neutrophils (%) (Auto) 93H, Lymphocytes (%) (Auto) 4L , Monocytes (%) (Auto) 3, Eosinophils (%) (Auto) 1, Basophils (%) (Auto) 0, Neutrophils # (Auto) 27.5H, Lymphocytes # (Auto) 1.2, Monocytes # (Auto) 0.9, Eosinophils # (Auto) 0.2, Basophils # (Auto) 0.0, Blood Gas Puncture Site RIGHT RADIAL, Blood Gas Patient Temperature 100.1, Arterial Blood pH 7.25*L, Arterial Blood Partial Pressure CO2 46H, Arterial Blood Partial Pressure O2 43L, Arterial Blood HCO3 19L, Arterial Blood Total CO2 20.8L, Arterial Blood Oxygen Saturation 62L, Arterial Blood Base Excess -6.4L, Tony Test POSITIVE, Blood Gas Ventilator Setting YES, Blood Gas Inspired Oxygen 30%, Sodium Level 148H, Potassium Level 4.0, Chloride Level 120H, Carbon Dioxide Level 16L, Anion Gap 12 , Blood Urea Nitrogen 28H, Creatinine 1.30, Estimat Glomerular Filtration Rate 57, BUN/Creatinine Ratio 22, Glucose Level 139H, Calcium Level 7.1L, Phosphorus Level 4.3, Magnesium Level 2.0, Triglycerides Level 373H 08/23/18 07:12: Blood Gas Puncture Site RT RAD, Blood Gas Patient Temperature 98.1, Arterial Blood pH 7.36L, Arterial Blood Partial Pressure CO2 35, Arterial Blood Partial Pressure O2 94H, Arterial Blood HCO3 20L, Arterial Blood Total CO2 20.6L, Arterial Blood Oxygen Saturation 97, Arterial Blood Base Excess -5.0L, Tony Test YES-POS, Blood Gas Ventilator Setting YES, Blood Gas Inspired Oxygen 30% Microbiology 08/21/18 Blood Culture - Preliminary, Resulted Gram Negative Miguel A/P: Assessment/Dx: Severe septic shock, likely due to bilateral pneumonia, UTI, Urinary bleeding, Recent kidney stone, left ureter stent, Possible SVT, no strips available, Elevated proBNP, Elevated troponin, Acute kidney injury, Lactic acidosis, Diabetes, Plan: Severe septic shock, likely due to bilateral pneumonia, off levophed, BP better , IV fluids, broad-spectrum antibiotics. UTI, on broad spectrum antibiotics. UTI is not confirmed. Urinary bleeding, status post treatment for kidney stone and left ureter stent yesterday at [facility] in [place]. Recent kidney stone, left ureter stent, Possible SVT, no strips available, there is a mention in the record that the patient was in SVT and adenosine was given which converted to sinus tachycardia. Unfortunately no strips are available for review, therefore I cannot comment on what was seen by the EMS. All available EKGs show sinus tachycardia. Which is very likely due to severe systemic illness. Elevated proBNP, likely due to bilateral pneumonia and severe sepsis. Bedside echocardiogram, preliminary review by myself shows likely preserved LV function however due to patient is intubated/ventilated, we do not have good pictures. Contrast echocardiogram is recommended. However I did notice D-shaped septum suggesting pressure/volume overload of the RV. Elevated troponin, NSTEMI. Could be secondary to systemic illness (type II myocardial infarction) ; however NSTEMI due to plaque rupture cannot be ruled out, however we cannot give antiplatelet and antithrombin agents due to significant urological bleeding and dropping Hb from 10 -> 9.1 -> 8.4. No clear wall motion abnormality noted on echocardiogram. Normal LV function on Echo done 08/23/2018. Acute kidney injury, IV fluids being given. Lactic acidosis, likely due to severe sepsis. Diabetes, Critically ill patient, prognosis is guarded. Thank you for your consultation. Please call me if you have any questions. Jordana Nichols MD, FACP, FACC, FSCAI, FHRS, CCDS Interventional Cardiology Cardiac Electrophysiology Vascular Medicine and Endovascular Interventions Focused Exam Lactate Level 08/21/18 23:16: Lactic Acid Level 5.33*H 08/22/18 05:15: Lactic Acid Level 2.36*H 08/22/18 08:29: Lactic Acid Level 1.86 Time of Focused Exam: 22:30 Emely NICHOLS MD August 23, 2018 08:11
[2018-08-23] MEDS: fentaNYL INJECTION 1,250 MCG in NS (IVPB) 250 ML IV SCH ×2 (10:20→22:58)
--- NOTE | 2018-08-23 13:03 | Progress Note-Hospitalist ---
Progress Note Progress Notes/Assess & Plan Date Seen 08/23/18 Time Seen by Provider: 12:59 Assessment & Plan The patient remains sedated and on the ventilator. He had a procedure for therapeutic bronchoscopy by Dr. Montoya. His laboratory is improving. The pH is now 7.35, PCO2 35, PO2 94. He is growing a gram-negative tanisha from the blood most likely Escherichia coli. Sensitivities are not yet available but Escherichia coli is normally sensitive to Rocephin in this institution. His white blood count began at 15 on admission ellen to 21.8 yesterday and at 24.5 today. The patient is deeply sedated. Lungs show scattered rhonchi. CV is regular. Blood pressure is low but with a mean arterial pressure in the low 80s. The abdomen is obese and nontender. Extremities show no pedal edema. Impression: Severe sepsis. Most likely of urinary tract origin as the patient was instrumented hours before his onset of symptoms. Plan: Continue present measures. Focused Exam Lactate Level 08/21/18 23:16: Lactic Acid Level 5.33*H 08/22/18 05:15: Lactic Acid Level 2.36*H 08/22/18 08:29: Lactic Acid Level 1.86 Time of Focused Exam: 22:30 FELA BARNETT MD August 23, 2018 13:03
[2018-08-23] MEDS ORDERED: TROUGH ORDER-PHARMACY XX NR (15:30)
[2018-08-23] MEDS: ENOXAPARIN 40 MG/0.4 ML (LOVENOX) SYR SC SCH (17:48)
[2018-08-24] VITALS (29 sets, daily range): BP systolic 91–135; BP diastolic 51–88
[2018-08-24] MEDS: PROPOFOL DRIP (ICU) 100 ML IV SCH ×2 (01:45→04:44)
[2018-08-24] MEDS: NS IV 1000 ML 1,000 ML IV SCH (01:45)
[2018-08-24] MEDS: VANCOMYCIN INJECTION 2,000 MG in NS IV 500 ML 500 ML IV SCH (03:07)
[2018-08-24 03:15] LABS: BASOPHILS % (AUTO) 0 % (0-10); EOSINOPHILS % (AUTO) 0 % (0-10); HEMATOCRIT 25 % (40-54); HEMOGLOBIN 7.8 G/DL (13.3-17.7); LYMPHOCYTES # (AUTO) 1.3 X 10^3 (1.0-4.0); LYMPHOCYTES % (AUTO) 5 % (12-44); MEAN CORPUSCULAR HEMOGLOBIN 29 PG (25-34); MEAN CORPUSCULAR HGB CONC 31 G/DL (32-36); MEAN CORPUSCULAR VOLUME 95 FL (80-99); MEAN PLATELET VOLUME 9.2 FL (7.4-10.4); MONOCYTES # (AUTO) 0.8 X 10^3 (0.0-1.0); MONOCYTES % (AUTO) 3 % (0-12); NEUTROPHILS % (AUTO) 93 % (42-75); PLATELET COUNT 123 10^3/uL (130-400); RED CELL DISTRIBUTION WIDTH 16.2 % (10.0-14.5); WHITE BLOOD COUNT 29.1 10^3/uL (4.3-11.0)
[2018-08-24 03:30] LABS: ABG BASE EXCESS -4.6 MMOL/L (-2.5-2.5); ABG OXYGEN SATURATION 98 % (94-100); ABG PCO2 34 MMHG (35-45); ABG PH 7.38 (7.37-7.43); ABG PO2 96 MMHG (79-93); ABG TCO2 20.5 MMOL/L (21.0-31.0)
[2018-08-24 03:31] LABS: ALLENS TEST POSITIVE; INSPIRED O2 30% VENT; PATIENT TEMP 99.4; VENTILATOR YES
[2018-08-24 03:33] LABS: BUN/CREATININE RATIO 30; CALCIUM 7.1 MG/DL (8.5-10.1); CARBON DIOXIDE 18 MMOL/L (21-32); CHLORIDE 123 MMOL/L (98-107); CREATININE SERUM 1.01 MG/DL (0.60-1.30); GFR ESTIMATED > 60; GLUCOSE 150 MG/DL (70-105); MAGNESIUM 2.2 MG/DL (1.8-2.4); PHOSPHORUS 2.4 MG/DL (2.3-4.7); POTASSIUM 4.1 MMOL/L (3.6-5.0); SODIUM 150 MMOL/L (135-145)
[2018-08-24] MEDS: NOREPINEPHRINE 4 MG in NS (IVPB) 250 ML IV SCH (04:42)
[2018-08-24] MEDS: KCL 20 MEQ TAB (K-DUR) PO SCH (04:43)
[2018-08-24] MEDS: MAGNESIUM 1 GM/100 ML IVPB 100 ML IV SCH (04:43)
[2018-08-24] MEDS: POTASSIUM CL 10MEQ/50ML IVPB 50 ML IV SCH (04:43)
[2018-08-24] MEDS: HYDROCORTISONE 100 MG/2 ML (Solu-CORTEF) VIAL IV SCH ×3 (05:29→19:51)
[2018-08-24] MEDS: CEFEPIME INJECTION 1,000 MG in WATER (STERILE) FOR INJECTION 10 ML IV SCH (05:29)
[2018-08-24] MEDS: ENOXAPARIN 40 MG/0.4 ML (LOVENOX) SYR SC SCH (06:06)
--- NOTE | 2018-08-24 06:56 | Pulmonary Progress Note ---
Subjective Time Seen by a Provider: 07:04 Subjective/Events-last exam Pt is sedated on vent. Sepsis Event Evaluation Height, Weight, BMI Height: 5'9.00" Weight: 289lbs. 9.0oz. 131.289113qi; 40.0 BMI Method:Actual Focused Exam Lactate Level 08/21/18 23:16: Lactic Acid Level 5.33*H 08/22/18 05:15: Lactic Acid Level 2.36*H 08/22/18 08:29: Lactic Acid Level 1.86 Time of Focused Exam: 22:30 Exam Exam Vital Signs Date Time Temp Pulse Resp B/P (MAP) Pulse Ox O2 Delivery O2 Flow Rate FiO2 08/24/18 06:00 100 23 101/79 (86) 96 Mechanical Ventilator 25.00 08/24/18 05:00 92 24 91/55 (67) 95 Mechanical Ventilator 25.00 08/24/18 04:44 92 24 95 Mechanical Ventilator 25.00 08/24/18 04:00 94 23 95/53 (67) 95 Mechanical Ventilator 25.00 08/24/18 04:00 94 24 95 25 08/24/18 03:50 Mechanical Ventilator 25.00 08/24/18 03:10 96 Mechanical Ventilator 30 08/24/18 03:08 99.4 Mechanical Ventilator 30.00 08/24/18 03:00 93 24 101/60 (74) 96 Mechanical Ventilator 30.00 08/24/18 02:35 93 24 96 30 08/24/18 02:00 98 23 103/61 (75) 96 Mechanical Ventilator 30.00 08/24/18 01:45 Mechanical Ventilator 30.00 08/24/18 01:26 Mechanical Ventilator 30.00 08/24/18 01:00 100 24 104/59 (74) 93 Mechanical Ventilator 21.00 08/24/18 01:00 101 08/24/18 00:10 101 24 98 21 08/24/18 00:00 100 23 103/62 (76) 98 Mechanical Ventilator 21.00 08/23/18 23:10 98.6 Mechanical Ventilator 21.00 08/23/18 23:10 92 Mechanical Ventilator 21 08/23/18 22:55 24 93 Mechanical Ventilator 21.00 08/23/18 22:36 101 24 94 21 08/23/18 22:00 100 24 102/57 (72) 94 Mechanical Ventilator 21.00 08/23/18 21:00 100 24 100/60 (73) 93 Mechanical Ventilator 21.00 08/23/18 20:35 Mechanical Ventilator 21.00 08/23/18 20:32 98 24 94 21 08/23/18 20:00 100 19 126/72 (90) 100 Mechanical Ventilator 21.00 08/23/18 19:45 99.0 100 24 106/61 (76) 95 Mechanical Ventilator 21.00 08/23/18 19:45 93 Mechanical Ventilator 21 08/23/18 19:16 99 24 95 21 08/23/18 19:00 98 08/23/18 19:00 98 23 98/58 (71) 94 Mechanical Ventilator 30.00 08/23/18 18:00 104 19 113/86 (95) 92 Mechanical Ventilator 30.00 08/23/18 17:48 102 08/23/18 17:00 101 24 102/66 (78) 93 Mechanical Ventilator 30.00 08/23/18 16:00 Mechanical Ventilator 30 08/23/18 16:00 100.2 08/23/18 16:00 105 17 82/58 (66) 95 Mechanical Ventilator 30.00 08/23/18 15:45 101 24 95 21 08/23/18 15:00 102 24 111/69 (83) 95 Mechanical Ventilator 30.00 08/23/18 14:00 105 22 120/72 (88) 94 Mechanical Ventilator 30.00 08/23/18 14:00 99.0 08/23/18 13:50 105 26 94 21 08/23/18 13:14 101 08/23/18 13:00 101 23 96/68 (77) 94 Mechanical Ventilator 30.00 08/23/18 12:00 101 24 84/70 (75) 94 Mechanical Ventilator 30.00 08/23/18 12:00 Mechanical Ventilator 30 08/23/18 11:50 99.6 08/23/18 11:00 101 24 97/69 (78) 93 Mechanical Ventilator 30.00 08/23/18 10:37 102/71 08/23/18 10:30 101 24 93 21 08/23/18 10:00 100 23 97/65 (76) 93 Mechanical Ventilator 30.00 08/23/18 09:06 98 24 97 30 08/23/18 09:00 98 23 94/68 (77) 97 Mechanical Ventilator 30.00 08/23/18 08:00 Mechanical Ventilator 30 08/23/18 08:00 99.0 08/23/18 08:00 102 24 95/62 (73) 97 Mechanical Ventilator 30.00 08/23/18 07:57 97/60 08/23/18 07:00 104 08/23/18 07:00 103 23 95 Mechanical Ventilator 30.00 I & O 08/24/18 07:00 Intake Total 3305 ml Output Total 2400 ml Balance 905 ml Height & Weight Height: 5'9.00" Weight: 289lbs. 9.0oz. 131.226407hm; 40.0 BMI Method:Actual General Appearance: Other (pt is sedated on vent. ) HEENT: Normal ENT Inspection Neck: Normal Inspection Respiratory: Other (crackles are noted in the bases. 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 -Add precedex and hold Diprivan Severe sepsis with septic shock and Bilateral pneumonia and UTI - Blood culture shows GNR -Change Cefepime to Zosyn continue Vanco -Severe sepsis protocol -Echo this AM -- last echo 05/03 shows EF of 60-65% -MRSA swab - - influenza swab -Neg Anemia - secondary to hematuria and probable GIB -Check occult stool -D/C Lovenox ppx -protonix increase to BID -Repeat H&H in 4 hours Hypernatremia -Change to LR at 50cc/hr -Give 250cc of free water per NG Q6 -Continue to monitor Sinus tach secondary to sepsis Hypotension- improved -Levophed - is off -Decrease solucortef to Q12 Nephrolithiasis with recent stent placement - Hematuria -Dr. Bonner evaluated pt and no further recommendations UTI Hypomag, hypophos, hypokalemia -replace Acute renal failure -IVF Metabolic lactic acidosis -IVF Elevated liver enzymes secondary to sepsis -Monitor JP LEWIS DO August 24, 2018 06:56
[2018-08-24] MEDS ORDERED: DEXMEDETOMIDINE INJECTION 200 MCG in NS (IVPB) 50 ML IV SCH ×2 (07:00→17:00)
[2018-08-24] MEDS ORDERED: PIPERACILLIN/TAZOBACTAM (BULK) 4.5 GM in NS (IVPB) 100 ML IV NR (07:19)
[2018-08-24] MEDS: LACTATED RINGERS 1,000 ML IV SCH (07:31)
--- NOTE | 2018-08-24 07:54 | Diagnostic Imaging Report ---
EXAM: Portable erect AP chest at 3:46. INDICATION: Dyspnea FINDINGS: The cardiomegaly and the bibasilar atelectasis/infiltrate seen on the prior study of 08/23/2018 are again evident and no different. The upper lungs remain clear. The mediastinum is somewhat prominent but no different than on the prior study. The osseous structures are intact. The supportive tubes and lines seem unchanged in position. IMPRESSION: Stable chest. There has been no adverse change since the prior study. Dictated by: Dictated on workstation # [id number]
[2018-08-24] MEDS: PANTOPRAZOLE 40 MG (PROTONIX) VIAL IV SCH ×2 (08:26→19:51)
[2018-08-24 10:52] LABS: ABG BASE EXCESS -3.8 MMOL/L (-2.5-2.5); ABG OXYGEN SATURATION 97 % (94-100); ABG PCO2 29 MMHG (35-45); ABG PH 7.44 (7.37-7.43); ABG PO2 80 MMHG (79-93); ABG TCO2 20.7 MMOL/L (21.0-31.0)
[2018-08-24 11:01] LABS: ALLENS TEST YES-POS; INSPIRED O2 25%; VENTILATOR YES
--- NOTE | 2018-08-24 11:41 | NUR ---
pt extubated and placed on 10lpm hi flow cannula tolerating well
--- NOTE | 2018-08-24 12:13 | Progress Note-Hospitalist ---
Subjective HPI/CC On Admission Date Seen by Provider: August 24, 2018 Time Seen by Provider: 08:15 The patient was transferred last evening from the the [facility] emergency room after he presented with complaints of malaise and generalized weakness. He had been to [facility] earlier in the day for lithotripsy of a large ( 11 mm) ureteral stone and subsequent placement of a ureteral stent. He told the staff at [facility] that he began to feel ill on his way from [facility] to [facility]. He apparently went into his home and rested for a bit and felt no better and ultimately called the ambulance and was brought to the emergency room. He indeed appeared to be acutely ill. Workup showed a temperature at max of 103.6. Troponin was 0.433. Creatinine 1.42. Lactic acid was 1.86. The white blood count was initially 15,000 and subsequently ellen to 21,800 and then 24,500. Chest x-ray was consistent with Congestive heart failure. UA showed significant hematuria. The emergency room physician from [facility] called me with these findings. He was particularly interested in the possibility of pneumonia. However given his urinary tract manipulation I believe that the number 1 thought would be sepsis secondary to urinary tract. The patient was admitted to the ICU for broad-spectrum antibiotics. He was seen early this morning by Dr. Montoya and he thought him to be in impending respiratory failure and intubated him and placed him on the ventilator. He is unable to give any useful history. Subjective/Events-last exam Patient's eyes were open and he appeared to be doing well on a pressure support trial this morning. He was attempting to communicate by writing but there was only illegible scribbling and noted. He did not appear to be in acute distress and did oriented to verbal cueing. Focused Exam Lactate Level 08/21/18 23:16: Lactic Acid Level 5.33*H 08/22/18 05:15: Lactic Acid Level 2.36*H 08/22/18 08:29: Lactic Acid Level 1.86 Time of Focused Exam: 22:30 Objective Exam Vital Signs Vital Signs Date Time Temp Pulse Resp B/P (MAP) Pulse Ox O2 Delivery O2 Flow Rate FiO2 08/24/18 12:00 87 21 112/68 (83) 99 Mechanical Ventilator 25.00 08/24/18 11:20 98.4 08/24/18 08:53 25 Capillary Refill : Less Than 3 SecondsLess Than 3 Seconds General Appearance: No Apparent Distress, Obese, Other Neck: Normal Inspection Respiratory: No Respiratory Distress, Other (Chest is clear anteriorly a few scattered rhonchi are noted posteriorly with some diminished breath sounds in the bases no wheezing noted) Cardiovascular: Regular Rate, Rhythm, No Murmur Gastrointestinal: Normal Bowel Sounds, Non Tender, Soft, Other Rectal: Deferred Extremity: Normal Range of Motion, No Calf Tenderness Neurologic/Psychiatric: Alert, No Motor/Sensory Deficits Skin: Warm/Dry, Pallor Results/Procedures Lab Laboratory Tests 08/24/18 03:05 Patient resulted labs reviewed. Assessment/Plan Assessment and Plan Assess & Plan/Chief Complaint A/P 1. Escherichia coli septicemia most likely as a result of urinary tract manipulation with recent ureteral stone removal. Patient clinically is responding and doing well on pressure support trial that management per Dr. Montoya. Possible extubation later today or tomorrow. 2. Respiratory failure secondary to number 1 continue Zosyn for now. 3. Mild acute kidney injury secondary to number 1 with dehydration. Free water is been increased continue to monitor.. Considering this and low likelihood for MRSA with Escherichia coli growing from the blood stream will discontinue vancomycin as wrist especially aggravating acute kidney injury are greater than its potential benefit. Critical Care Critically Ill Patient Clinical Quality Measures DVT/VTE Risk/Contraindication: Risk Factor Score Per Nursin RFS Level Per Nursing on Admit: 4+=Very High DANIELE OLSEN MD August 24, 2018 12:13
--- NOTE | 2018-08-24 13:17 | Cardiology Progress Note ---
Cardiology SOAP Progress Note Subjective: Extubated today. Not complaining of any chest pain. Objective: I&O/Vital Signs 08/24/18 08/24/18 08/24/18 08/24/18 01:26 01:45 02:00 02:35 Pulse 98 93 Resp 23 24 B/P (MAP) 103/61 (75) Pulse Ox 96 96 O2 Delivery Mechanical Ventilator Mechanical Ventilator Mechanical Ventilator O2 Flow Rate 30.00 30.00 30.00 FiO2 30 08/24/18 08/24/18 08/24/18 08/24/18 03:00 03:08 03:10 03:50 Temp 99.4 Pulse 93 Resp 24 B/P (MAP) 101/60 (74) Pulse Ox 96 96 O2 Delivery Mechanical Ventilator Mechanical Ventilator Mechanical Ventilator Mechanical Ventilator O2 Flow Rate 30.00 30.00 25.00 FiO2 30 08/24/18 08/24/18 08/24/18 08/24/18 04:00 04:00 04:44 05:00 Pulse 94 94 92 92 Resp 24 23 24 24 B/P (MAP) 95/53 (67) 91/55 (67) Pulse Ox 95 95 95 95 O2 Delivery Mechanical Ventilator Mechanical Ventilator Mechanical Ventilator O2 Flow Rate 25.00 25.00 25.00 FiO2 25 08/24/18 08/24/18 08/24/18 08/24/18 06:00 06:50 07:00 07:00 Pulse 100 96 93 96 Resp 23 24 21 B/P (MAP) 101/79 (86) 104/66 (79) Pulse Ox 96 93 96 O2 Delivery Mechanical Ventilator Mechanical Ventilator O2 Flow Rate 25.00 25.00 FiO2 25 08/24/18 08/24/18 08/24/18 08/24/18 08:00 08:00 08:53 09:00 Temp 97.7 Pulse 94 89 Resp 26 21 B/P (MAP) 97/66 (76) Pulse Ox 95 95 95 O2 Delivery Mechanical Ventilator Mechanical Ventilator Mechanical Ventilator O2 Flow Rate 25.00 25.00 25.00 FiO2 90 25 08/24/18 08/24/18 08/24/18 08/24/18 09:00 10:00 11:00 11:20 Temp 98.4 Pulse 91 87 84 Resp 25 29 25 B/P (MAP) 104/61 (75) 101/65 (77) 109/67 (81) Pulse Ox 95 95 96 O2 Delivery Mechanical Ventilator Mechanical Ventilator Mechanical Ventilator O2 Flow Rate 25.00 25.00 25.00 08/24/18 08/24/18 08/24/18 12:00 12:00 13:00 Pulse 87 89 Resp 21 B/P (MAP) 112/68 (83) Pulse Ox 99 95 O2 Delivery Mechanical Ventilator Nasal Cannula O2 Flow Rate 25.00 08/24/18 00:00 Intake Total 2035 ml Output Total 1050 ml Balance 985 ml Weight (Pounds): 289 Weight (Ounces): 9.0 Weight (Calculated Kilograms): 131.297288 Constitutional: appears stated age, AAO x 3; No apparent distress; well- developed, well-nourished Respiratory: No accessory muscle use, No respiratory distress, No chest tender , No chest expansion is symmetric; chest is bilaterally symmetric; No lungs clear to percussion; lungs clear to auscultation; No crackles, No rhonchi, No rales, No stridor, No wheezing, No pleural rub Cardiovascular: regular rate-rhythm, tachycardia, S1 and S2 Gastrointestional: No tender, No soft, No round; distended; No pulsatile mass, No organomegaly, No guarding, No rebound, No tenderness, No hernia, No mass, No audible bowel sounds, No abnormal bowel sounds, No abdominal bruits, No spleenomegaly, No other Extremities: No normal range of motion, No non-tender, No normal inspection, No pedal edema, No calf tenderness, No normal capillary refill, No pelvis stable , No calf tenderness, No inflammation, No pedal edema, No slow capillary refill , No swelling, No other, No abrasion, No clubbing, No cyanosis, No ecchymosis, No laceration, No no lower extremity edema bilateral, No significant edema, No tenderness, No wound Neurologic/Psychiatric: other ( intubated/ventilated) Skin: cool Results/Procedures: Labs Laboratory Tests 08/23/18 15:51: Vancomycin Level Trough 16.6 08/24/18 03:05: White Blood Count 29.1H, Red Blood Count 2.65L, Hemoglobin 7.8L, Hematocrit 25L , Mean Corpuscular Volume 95, Mean Corpuscular Hemoglobin 29, Mean Corpuscular Hemoglobin Concent 31L, Red Cell Distribution Width 16.2H, Platelet Count 123L, Mean Platelet Volume 9.2, Neutrophils (%) (Auto) 93H, Lymphocytes (%) (Auto) 5L , Monocytes (%) (Auto) 3, Eosinophils (%) (Auto) 0, Basophils (%) (Auto) 0, Neutrophils # (Auto) 27.0H, Lymphocytes # (Auto) 1.3, Monocytes # (Auto) 0.8, Eosinophils # (Auto) 0.0, Basophils # (Auto) 0.0, Sodium Level 150H, Potassium Level 4.1, Chloride Level 123H, Carbon Dioxide Level 18L, Anion Gap 9, Blood Urea Nitrogen 30H, Creatinine 1.01, Estimat Glomerular Filtration Rate > 60, BUN /Creatinine Ratio 30, Glucose Level 150H, Calcium Level 7.1L, Phosphorus Level 2.4, Magnesium Level 2.2, Troponin I 0.394*H 08/24/18 03:25: Blood Gas Puncture Site LEFT RADIAL, Blood Gas Patient Temperature 99.4, Arterial Blood pH 7.38, Arterial Blood Partial Pressure CO2 34L, Arterial Blood Partial Pressure O2 96H, Arterial Blood HCO3 20L, Arterial Blood Total CO2 20.5L , Arterial Blood Oxygen Saturation 98, Arterial Blood Base Excess -4.6L, Tony Test POSITIVE, Blood Gas Ventilator Setting YES, Blood Gas Inspired Oxygen 30% VENT 08/24/18 10:45: Blood Gas Puncture Site RR, Blood Gas Patient Temperature 98.0, Arterial Blood pH 7.44H, Arterial Blood Partial Pressure CO2 29L, Arterial Blood Partial Pressure O2 80, Arterial Blood HCO3 20L, Arterial Blood Total CO2 20.7L, Arterial Blood Oxygen Saturation 97, Arterial Blood Base Excess -3.8L, Tony Test YES-POS, Blood Gas Ventilator Setting YES, Blood Gas Inspired Oxygen 25% Microbiology 08/21/18 Blood Culture - Preliminary, Resulted No growth 08/23/18 Gram Stain - Final, Resulted 08/23/18 Bronchial Culture, Resulted Pending 08/23/18 Fungal Culture 1, Resulted Pending 08/21/18 Urine Culture - Final, Complete NO GROWTH A/P: Assessment/Dx: Severe septic shock, likely due to bilateral pneumonia, UTI, Urinary bleeding, Recent kidney stone, left ureter stent, Possible SVT, no strips available, Elevated proBNP, Elevated troponin, Acute kidney injury, Lactic acidosis, Diabetes, Plan: Severe septic shock, likely due to bilateral pneumonia, off levophed, BP better , IV fluids, broad-spectrum antibiotics. UTI, on broad spectrum antibiotics. UTI is not confirmed. Urinary bleeding, status post treatment for kidney stone and left ureter stent yesterday at [facility] in [place]. Recent kidney stone, left ureter stent, Possible SVT, no strips available, there is a mention in the record that the patient was in SVT and adenosine was given which converted to sinus tachycardia. Unfortunately no strips are available for review, therefore I cannot comment on what was seen by the EMS. All available EKGs show sinus tachycardia. Which is very likely due to severe systemic illness. Elevated proBNP, likely due to bilateral pneumonia and severe sepsis. Bedside echocardiogram, preliminary review by myself shows likely preserved LV function however due to patient is intubated/ventilated, we do not have good pictures. Contrast echocardiogram is recommended. However I did notice D-shaped septum suggesting pressure/volume overload of the RV. Elevated troponin, NSTEMI. Could be secondary to systemic illness (type II myocardial infarction) ; however NSTEMI due to plaque rupture cannot be ruled out, however we cannot give antiplatelet and antithrombin agents due to significant urological bleeding and dropping Hb from 10 -> 9.1 -> 8.4. No clear wall motion abnormality noted on echocardiogram. Normal LV function on Echo done 08/23/2018. Acute kidney injury, IV fluids being given. Lactic acidosis, likely due to severe sepsis. Diabetes, Thank you for your consultation. Please call me if you have any questions. Jordana Nichols MD, FACP, FACC, FSCAI, FHRS, CCDS Interventional Cardiology Cardiac Electrophysiology Vascular Medicine and Endovascular Interventions Focused Exam Lactate Level 08/21/18 23:16: Lactic Acid Level 5.33*H 08/22/18 05:15: Lactic Acid Level 2.36*H 08/22/18 08:29: Lactic Acid Level 1.86 Time of Focused Exam: 22:30 Emely NICHOLS MD August 24, 2018 13:17
[2018-08-24] MEDS: PIPERACILLIN/TAZOBACTAM (BULK) 4.5 GM in NS (IVPB) 100 ML IV SCH ×2 (13:53→22:29)
[2018-08-24] MEDS ORDERED: DEXMEDETOMIDINE INJECTION 1,000 MCG in NS (IVPB) 250 ML IV SCH (17:00)
[2018-08-24] MEDS: ACETAMINOPHEN 325 MG TABLET PO PRN (18:00)
[2018-08-25] VITALS (12 sets, daily range): BP systolic 96–126; BP diastolic 52–84
[2018-08-25] MEDS: fentaNYL INJECTION 1,250 MCG in NS (IVPB) 250 ML IV SCH (02:40)
[2018-08-25] MEDS: LACTATED RINGERS 1,000 ML IV SCH (03:00)
[2018-08-25 03:20] LABS: BASOPHILS % (AUTO) 0 % (0-10); EOSINOPHILS % (AUTO) 0 % (0-10); HEMATOCRIT 25 % (40-54); HEMOGLOBIN 7.9 G/DL (13.3-17.7); LYMPHOCYTES # (AUTO) 1.7 X 10^3 (1.0-4.0); LYMPHOCYTES % (AUTO) 7 % (12-44); MEAN CORPUSCULAR HEMOGLOBIN 30 PG (25-34); MEAN CORPUSCULAR HGB CONC 31 G/DL (32-36); MEAN CORPUSCULAR VOLUME 94 FL (80-99); MEAN PLATELET VOLUME 9.6 FL (7.4-10.4); MONOCYTES # (AUTO) 0.5 X 10^3 (0.0-1.0); MONOCYTES % (AUTO) 2 % (0-12); NEUTROPHILS # (AUTO) 22.9 X 10^3 (1.8-7.8); NEUTROPHILS % (AUTO) 91 % (42-75); PLATELET COUNT 104 10^3/uL (130-400); RED CELL DISTRIBUTION WIDTH 15.8 % (10.0-14.5); WHITE BLOOD COUNT 25.2 10^3/uL (4.3-11.0)
[2018-08-25 03:39] LABS: BUN/CREATININE RATIO 31; CALCIUM 7.8 MG/DL (8.5-10.1); CARBON DIOXIDE 20 MMOL/L (21-32); CHLORIDE 124 MMOL/L (98-107); CREATININE SERUM 0.97 MG/DL (0.60-1.30); GFR ESTIMATED > 60; GLUCOSE 183 MG/DL (70-105); MAGNESIUM 2.5 MG/DL (1.8-2.4); PHOSPHORUS 2.1 MG/DL (2.3-4.7); POTASSIUM 3.6 MMOL/L (3.6-5.0); SODIUM 155 MMOL/L (135-145); TRIGLYCERIDES 175 MG/DL (<150)
[2018-08-25] MEDS ORDERED: 1/2 NS IV SOLUTION 1,000 ML IV SCH (05:00)
--- NOTE | 2018-08-25 05:07 | Pulmonary Progress Note ---
Subjective Time Seen by a Provider: 05:07 Subjective/Events-last exam Pt appears to be doing better. Sepsis Event Evaluation Height, Weight, BMI Height: 5'9.00" Weight: 289lbs. 9.0oz. 131.301305as; 40.0 BMI Method:Actual Focused Exam Lactate Level 08/22/18 05:15: Lactic Acid Level 2.36*H 08/22/18 08:29: Lactic Acid Level 1.86 Time of Focused Exam: 22:30 Exam Exam Vital Signs Date Time Temp Pulse Resp B/P (MAP) Pulse Ox O2 Delivery O2 Flow Rate FiO2 08/25/18 04:00 75 21 101/64 (76) 93 NIV CPAP 21.00 08/25/18 03:00 81 26 122/84 (97) 97 NIV CPAP 21.00 08/25/18 02:00 78 22 104/63 (77) 92 NIV CPAP 21.00 08/25/18 01:00 78 08/25/18 01:00 78 20 106/73 (84) 95 NIV CPAP 21.00 08/25/18 00:00 99.1 08/25/18 00:00 93 Room Air 08/25/18 00:00 81 25 107/62 (77) 93 NIV CPAP 21.00 08/24/18 23:00 76 28 108/68 (81) 92 NIV CPAP 21.00 08/24/18 22:55 NIV CPAP 21.00 08/24/18 22:00 79 20 118/64 (82) 90 NIV Bilevel 21.00 08/24/18 21:00 91 20 117/73 (88) 93 NIV Bilevel 21.00 08/24/18 20:03 NIV Bilevel 21.00 08/24/18 20:00 93 Room Air 08/24/18 20:00 88 19 135/88 (104) 91 Room Air 08/24/18 20:00 99.9 08/24/18 19:48 91 28 95 21.00 08/24/18 19:13 94 Room Air 08/24/18 19:00 92 19 133/70 (91) 90 Room Air 08/24/18 19:00 92 08/24/18 18:30 97.6 08/24/18 18:00 98.4 08/24/18 18:00 92 23 115/65 (82) 95 Room Air 08/24/18 17:00 92 25 125/58 (80) 92 Room Air 08/24/18 16:00 94 Nasal Cannula 08/24/18 16:00 89 14 135/72 (93) 94 Room Air 08/24/18 15:00 88 37 115/73 (87) 91 Room Air 08/24/18 14:00 85 26 107/64 (78) 98 Room Air 08/24/18 13:00 89 08/24/18 13:00 89 24 111/78 (89) 94 Mechanical Ventilator 25.00 08/24/18 12:00 95 Nasal Cannula 08/24/18 12:00 87 21 112/68 (83) 99 Mechanical Ventilator 25.00 08/24/18 11:20 98.4 08/24/18 11:00 84 25 109/67 (81) 96 Mechanical Ventilator 25.00 08/24/18 10:00 87 29 101/65 (77) 95 Mechanical Ventilator 25.00 08/24/18 09:00 91 25 104/61 (75) 95 Mechanical Ventilator 25.00 08/24/18 09:00 97.7 Mechanical Ventilator 25.00 08/24/18 08:53 89 21 95 25 08/24/18 08:00 95 Mechanical Ventilator 25.00 90 08/24/18 08:00 94 26 97/66 (76) 95 Mechanical Ventilator 25.00 08/24/18 07:00 96 08/24/18 07:00 93 21 104/66 (79) 96 Mechanical Ventilator 25.00 08/24/18 06:50 96 24 93 25 08/24/18 06:00 100 23 101/79 (86) 96 Mechanical Ventilator 25.00 I & O 08/25/18 07:00 Intake Total 380 ml Output Total 1750 ml Balance -1370 ml Height & Weight Height: 5'9.00" Weight: 289lbs. 9.0oz. 131.412345sw; 40.0 BMI Method:Actual General Appearance: No Apparent Distress, Obese HEENT: PERRL/EOMI, Pharynx Normal Neck: Normal Inspection Respiratory: No Respiratory Distress, Other (Chest is clear anteriorly a few scattered rhonchi are noted posteriorly with some diminished breath sounds in the bases no wheezing noted) Cardiovascular: Regular Rate, Rhythm, No Murmur Capillary Refill: Less Than 3 Seconds Peripheral Pulses: 2+ Carotid (R), 2+ Carotid (L), 2+ Femoral (R), 2+ Femoral ( L), 2+ Radial Pulses (R), 2+ Radial Pulses (L) Extremity: Normal Range of Motion, No Calf Tenderness Neurologic/Psychiatric: Alert, No Motor/Sensory Deficits Skin: Warm/Dry, Pallor Results Lab Laboratory Tests 08/24/18 03:05 08/25/18 03:15 Assessment/Plan Assessment/Plan Acute respiratory failure -BiPAP PRN and QHS Severe sepsis with septic shock and Bilateral pneumonia and UTI - Blood culture shows GNR -Severe sepsis protocol -Echo this AM -- last echo 05/03 shows EF of 60-65% -MRSA swab - - influenza swab -Neg Anemia - secondary to hematuria and probable GIB -Check occult stool -D/C Lovenox ppx -protonix increase to BID Hypernatremia -Change LR to 1/2 NS -Continue to monitor Sinus tach secondary to sepsis Hypotension- improved -D/C solucortef Nephrolithiasis with recent stent placement - Hematuria -Dr. Bonner evaluated pt and no further recommendations UTI Hypomag, hypophos, hypokalemia -replace Acute renal failure -IVF Metabolic lactic acidosis -IVF Elevated liver enzymes secondary to sepsis -Monitor JP LEWIS DO August 25, 2018 05:07
[2018-08-25] MEDS: PIPERACILLIN/TAZOBACTAM (BULK) 4.5 GM in NS (IVPB) 100 ML IV SCH ×3 (05:13→21:39)
[2018-08-25] MEDS ORDERED: morphine INJ 4 MG/ML 1 ML (VIAL/SYRINGE) IVP PRN (05:15)
[2018-08-25] MEDS: inSUlin ASPART (NovoLOG) 1 UNIT/0.01 ML (CHARGE PER UNIT) SC SCH ×4 (07:57→21:29)
--- NOTE | 2018-08-25 08:10 | NUR ---
PT ARRIVED TO ROOM 413. REPORT RECEIVED FROM EMILIE AT THIS TIME.
--- NOTE | 2018-08-25 08:23 | Diagnostic Imaging Report ---
Indication: Dyspnea. Comparison: 08/24/2018. Discussion: Single portable upright view of the chest was obtained. Interval extubation. Interval removal of the enteric tube. Right IJ line is stable. Stable cardiomegaly. Nonspecific infiltrates have slightly decreased. Elevated right hemidiaphragm is again noted. No pleural fluid or pneumothorax. Impression: 1. Interval extubation. 2. Stable cardiomegaly with decreasing infiltrates. Dictated by: Dictated on workstation # [id number]
[2018-08-25] MEDS: PANTOPRAZOLE 40 MG (PROTONIX) VIAL IV SCH ×2 (08:54→21:39)
--- NOTE | 2018-08-25 12:12 | Progress Note-Hospitalist ---
Subjective HPI/CC On Admission Date Seen by Provider: August 25, 2018 Time Seen by Provider: 12:06 The patient was transferred last evening from the the [facility] emergency room after he presented with complaints of malaise and generalized weakness. He had been to [place] earlier in the day for lithotripsy of a large ( 11 mm) ureteral stone and subsequent placement of a ureteral stent. He told the staff at [place] that he began to feel ill on his way from [place] to [place]. He apparently went into his home and rested for a bit and felt no better and ultimately called the ambulance and was brought to the emergency room. He indeed appeared to be acutely ill. Workup showed a temperature at max of 103.6. Troponin was 0.433. Creatinine 1.42. Lactic acid was 1.86. The white blood count was initially 15,000 and subsequently ellen to 21,800 and then 24,500. Chest x-ray was consistent with Congestive heart failure. UA showed significant hematuria. The emergency room physician from [place] called me with these findings. He was particularly interested in the possibility of pneumonia. However given his urinary tract manipulation I believe that the number 1 thought would be sepsis secondary to urinary tract. The patient was admitted to the ICU for broad-spectrum antibiotics. He was seen early this morning by Dr. Montoya and he thought him to be in impending respiratory failure and intubated him and placed him on the ventilator. He is unable to give any useful history. Subjective/Events-last exam Patient awake and alert reporting buttock discomfort better when the patient is on's side. He's been pulling on this catheter pleading to have it removed. He' s asking for juice reporting that water makes him belch. Nurse reported a small amount of emesis without evidence for blood. The patient was able to drink about 8 ounces of water for me without difficulty and without associated pain or emesis. There was no coughing or choking noted. Focused Exam Time of Focused Exam: 22:30 Objective Exam Vital Signs Vital Signs Date Time Temp Pulse Resp B/P (MAP) Pulse Ox O2 Delivery O2 Flow Rate FiO2 08/25/18 09:00 Room Air 08/25/18 08:00 97.2 78 20 114/66 (82) 94 08/25/18 07:38 2.00 08/24/18 08:53 25 Capillary Refill : Less Than 3 SecondsLess Than 3 Seconds General Appearance: No Apparent Distress, Obese HEENT: PERRL/EOMI, Pharynx Normal Neck: Normal Inspection Respiratory: No Respiratory Distress, Other (Chest is clear anteriorly a few scattered rhonchi are noted posteriorly with some diminished breath sounds in the bases no wheezing noted) Cardiovascular: Regular Rate, Rhythm, No Murmur Gastrointestinal: Normal Bowel Sounds, Non Tender, Soft, Other Rectal: Deferred Extremity: Normal Range of Motion, No Calf Tenderness Neurologic/Psychiatric: Alert, No Motor/Sensory Deficits, Other (Oriented 2) Skin: Warm/Dry, Pallor Results/Procedures Lab Laboratory Tests 08/25/18 03:15 Patient resulted labs reviewed. Assessment/Plan Assessment and Plan Assess & Plan/Chief Complaint A/P 1. Escherichia coli septicemia most likely as a result of urinary tract manipulation with recent ureteral stone removal. Patient clinically is responding and doing well on pressure support trial that management per Dr. Montoya. Possible extubation later today or tomorrow. 2. Respiratory failure secondary to number 1 continue Zosyn for now. 3. Mild acute kidney injury secondary to number 1 with dehydration. Patient's sodium levels up to 155 despite some by mouth fluid intake and half normal saline at 100/hr. Will switch to quarter normal saline at 250 an hour for 3 L then decreased to 150 an hour. Patient was encouraged to increase water intake and was advised to avoid juice. Baseline diabetes with blood sugar elevation precludes the use of D5W. 4. Patient vehemently complaining about Villagomez catheter with risk of self trauma will DC considering that it was only placed as the patient had recent stent placement for left ureteral stone. Per Dr. Bonner's note there is no evidence for hydronephrosis or obstruction. The patient was warned that he is unable to void with bladder distention catheter would have to be reinserted. Critical Care Critically Ill Patient Clinical Quality Measures DVT/VTE Risk/Contraindication: Risk Factor Score Per Nursin RFS Level Per Nursing on Admit: 4+=Very High DANIELE OLSEN MD August 25, 2018 12:12
[2018-08-25] MEDS: ACETAMINOPHEN 325 MG TABLET PO PRN ×2 (12:37→18:42)
[2018-08-25] MEDS: STERILE IV SCH ×3 (12:58→21:38)
[2018-08-25] MEDS: WATER FOR INJECTION IV SCH ×3 (12:58→21:38)
[2018-08-25] MEDS: SODIUM CHLORIDE IV SCH ×3 (12:58→21:38)
--- NOTE | 2018-08-25 17:18 | NUR ---
DR. OLSEN NOTIFIED RE DECREASE IN BP. NO OTHER CHANGES NOTED. NO NEW ORDERS.
--- NOTE | 2018-08-25 18:10 | Cardiology Progress Note ---
Cardiology SOAP Progress Note Subjective: No cardiac complaints. Objective: I&O/Vital Signs 08/25/18 08/25/18 08/25/18 08/25/18 07:00 07:38 08:00 09:00 Temp 97.2 Pulse 60 78 Resp 20 B/P (MAP) 114/66 (82) Pulse Ox 95 94 O2 Delivery Nasal Cannula Room Air Room Air O2 Flow Rate 2.00 08/25/18 08/25/18 08/25/18 12:00 15:40 17:00 Temp 97.4 97.2 Pulse 80 84 68 Resp 20 24 B/P (MAP) 126/69 (88) 96/56 (69) 97/52 (67) Pulse Ox 97 95 O2 Delivery Room Air NIV CPAP 08/25/18 00:00 Intake Total 380 ml Output Total 1200 ml Balance -820 ml Weight (Pounds): 291 Weight (Ounces): 5.0 Weight (Calculated Kilograms): 132.834124 Constitutional: appears stated age, AAO x 3; No apparent distress; well- developed, well-nourished Respiratory: No accessory muscle use, No respiratory distress, No chest tender , No chest expansion is symmetric; chest is bilaterally symmetric; No lungs clear to percussion; lungs clear to auscultation; No crackles, No rhonchi, No rales, No stridor, No wheezing, No pleural rub Cardiovascular: regular rate-rhythm, tachycardia, S1 and S2 Gastrointestional: No tender, No soft, No round; distended; No pulsatile mass, No organomegaly, No guarding, No rebound, No tenderness, No hernia, No mass, No audible bowel sounds, No abnormal bowel sounds, No abdominal bruits, No spleenomegaly, No other Extremities: No normal range of motion, No non-tender, No normal inspection, No pedal edema, No calf tenderness, No normal capillary refill, No pelvis stable , No calf tenderness, No inflammation, No pedal edema, No slow capillary refill , No swelling, No other, No abrasion, No clubbing, No cyanosis, No ecchymosis, No laceration, No no lower extremity edema bilateral, No significant edema, No tenderness, No wound Neurologic/Psychiatric: other ( intubated/ventilated) Skin: cool Results/Procedures: Labs Laboratory Tests 08/24/18 23:29: Glucometer 165H 08/25/18 03:15: White Blood Count 25.2H, Red Blood Count 2.67L, Hemoglobin 7.9L, Hematocrit 25L , Mean Corpuscular Volume 94, Mean Corpuscular Hemoglobin 30, Mean Corpuscular Hemoglobin Concent 31L, Red Cell Distribution Width 15.8H, Platelet Count 104L, Mean Platelet Volume 9.6, Neutrophils (%) (Auto) 91H, Lymphocytes (%) (Auto) 7L , Monocytes (%) (Auto) 2, Eosinophils (%) (Auto) 0, Basophils (%) (Auto) 0, Neutrophils # (Auto) 22.9H, Lymphocytes # (Auto) 1.7, Monocytes # (Auto) 0.5, Eosinophils # (Auto) 0.0, Basophils # (Auto) 0.0, Sodium Level 155H, Potassium Level 3.6, Chloride Level 124H, Carbon Dioxide Level 20L, Anion Gap 11, Blood Urea Nitrogen 30H, Creatinine 0.97, Estimat Glomerular Filtration Rate > 60, BUN /Creatinine Ratio 31, Glucose Level 183H, Calcium Level 7.8L, Phosphorus Level 2.1L, Magnesium Level 2.5H, Triglycerides Level 175H 08/25/18 10:30: Glucometer 161H 08/25/18 15:45: Glucometer 110 Microbiology 08/21/18 Blood Culture - Preliminary, Resulted No growth 08/23/18 Mycobacterial Culture - Preliminary, Resulted See Comments 08/21/18 Urine Culture - Final, Complete NO GROWTH A/P: Assessment/Dx: Severe septic shock, likely due to bilateral pneumonia, UTI, Urinary bleeding, Recent kidney stone, left ureter stent, Possible SVT, no strips available, Elevated proBNP, Elevated troponin, Acute kidney injury, Lactic acidosis, Diabetes, Plan: Severe septic shock, likely due to bilateral pneumonia, resolved. UTI, on broad spectrum antibiotics. UTI is not confirmed. Urinary bleeding, status post treatment for kidney stone and left ureter stent yesterday at [facility] in [place]. Significant resolution. Recent kidney stone, left ureter stent, Possible SVT, no strips available, there is a mention in the record that the patient was in SVT and adenosine was given which converted to sinus tachycardia. Unfortunately no strips are available for review, therefore I cannot comment on what was seen by the EMS. All available EKGs show sinus tachycardia. Which is very likely due to severe systemic illness. Elevated proBNP, likely due to bilateral pneumonia and severe sepsis. Bedside echocardiogram revealed normal LV function on 08/23/2018. Elevated troponin, NSTEMI. Could be secondary to systemic illness (type II myocardial infarction) ; however NSTEMI due to plaque rupture cannot be ruled out, however we cannot give antiplatelet and antithrombin agents due to significant urological bleeding and dropping Hb from 10 -> 9.1 -> 8.4. No clear wall motion abnormality noted on echocardiogram. Normal LV function on Echo done 08/23/2018. Might require noninvasive nuclear stress testing versus coronary angiography for coronary evaluation. Acute kidney injury, IV fluids being given. Lactic acidosis, likely due to severe sepsis. Resolved. Diabetes, Thank you for your consultation. Please call me if you have any questions. Jordana Nichols MD, FACP, FACC, FSCAI, FHRS, CCDS Interventional Cardiology Cardiac Electrophysiology Vascular Medicine and Endovascular Interventions Focused Exam Time of Focused Exam: 22:30 Emely NICHOLS MD August 25, 2018 18:10
[2018-08-25] MEDS: ONDANSETRON 4 MG/2 ML (SDV) Z0FRAN IV PRN (18:42)
--- NOTE | 2018-08-25 22:46 | NUR ---
Pt has voided <100 mL urine since brenner catheter removed around 1700. Pt not complaining of discomfort or the urge to urinate. Pt bladder scanned; [address] Lutz notified. Orders received to reinsert brenner catheter at this time.
[2018-08-26] VITALS (7 sets, daily range): BP systolic 91–138; BP diastolic 48–80
[2018-08-26] MEDS: ACETAMINOPHEN 325 MG TABLET PO PRN ×2 (01:37→20:38)
[2018-08-26] MEDS: SODIUM CHLORIDE IV SCH ×3 (01:44→16:56)
[2018-08-26] MEDS: WATER FOR INJECTION IV SCH ×3 (01:44→16:56)
[2018-08-26] MEDS: STERILE IV SCH ×3 (01:44→16:56)
[2018-08-26 03:52] LABS: BASOPHILS % (AUTO) 0 % (0-10); EOSINOPHILS % (AUTO) 0 % (0-10); HEMATOCRIT 23 % (40-54); HEMOGLOBIN 7.2 G/DL (13.3-17.7); LYMPHOCYTES # (AUTO) 1.6 X 10^3 (1.0-4.0); LYMPHOCYTES % (AUTO) 14 % (12-44); MEAN CORPUSCULAR HEMOGLOBIN 30 PG (25-34); MEAN CORPUSCULAR HGB CONC 32 G/DL (32-36); MEAN CORPUSCULAR VOLUME 93 FL (80-99); MEAN PLATELET VOLUME 9.7 FL (7.4-10.4); MONOCYTES # (AUTO) 0.6 X 10^3 (0.0-1.0); MONOCYTES % (AUTO) 6 % (0-12); NEUTROPHILS # (AUTO) 9.3 X 10^3 (1.8-7.8); NEUTROPHILS % (AUTO) 81 % (42-75); PLATELET COUNT 109 10^3/uL (130-400); RED CELL DISTRIBUTION WIDTH 15.5 % (10.0-14.5); WHITE BLOOD COUNT 11.6 10^3/uL (4.3-11.0)
[2018-08-26 04:07] LABS: BUN/CREATININE RATIO 31; CALCIUM 7.6 MG/DL (8.5-10.1); CARBON DIOXIDE 18 MMOL/L (21-32); CHLORIDE 115 MMOL/L (98-107); CREATININE SERUM 0.78 MG/DL (0.60-1.30); GFR ESTIMATED > 60; GLUCOSE 101 MG/DL (70-105); MAGNESIUM 1.9 MG/DL (1.8-2.4); POTASSIUM 3.5 MMOL/L (3.6-5.0); SODIUM 144 MMOL/L (135-145)
[2018-08-26] MEDS: inSUlin ASPART (NovoLOG) 1 UNIT/0.01 ML (CHARGE PER UNIT) SC SCH ×4 (05:22→20:39)
[2018-08-26] MEDS: PIPERACILLIN/TAZOBACTAM (BULK) 4.5 GM in NS (IVPB) 100 ML IV SCH (05:33)
--- NOTE | 2018-08-26 08:13 | Diagnostic Imaging Report ---
Indication: Pneumonia. Compared: 08/25. Enlargement of the heart and vascular congestion appeared unchanged. No focal alveolar consolidation. Right IJ stable, no pneumothorax. Impression: Unchanged cardiomegaly and vascular congestion. Dictated by: Dictated on workstation # [id number]
[2018-08-26] MEDS: PANTOPRAZOLE 40 MG (PROTONIX) VIAL IV SCH ×2 (08:49→20:32)
--- NOTE | 2018-08-26 11:14 | Physical Therapy Evaluation ---
PT Evaluation-General Medical Diagnosis Admission Date August 22, 2018 at 00:05 Medical Diagnosis: sepsis/pneumonia Onset Date: August 26, 2018 Therapy Diagnosis Therapy Diagnosis: weakness; abn gait Height/Weight Height (Feet): 5 Height (Inches): 9.00 Weight (Pounds): 307 Weight (Ounces): 4.6 Precautions Precautions/Isolations: Fall Prevention, Standard Precautions Referral Physician: Wing Reason for Referral: Evaluation/Treatment Medical History Pertinent Medical History: Arthritis, DM, GERD, HTN Additional Medical History high cholesterol, depression; recent large uretal stone post lithotripsy Current History Admitted with B pneumonia and sepsis. UTI Reviewed History: Yes Social History Home: Single Level Current Living Status: Alone Prior/Core FIM Prior Level of Function Therapy Code Descriptions/Definitions Functional [place] Measure: 0=Not Assessed/NA 4=Minimal Assistance 1=Total Assistance 5=Supervision or Setup 2=Maximal Assistance 6=Modified [place] 3=Moderate Assistance 7=Complete [place] Therapy Quality Codes: 6 Independent with activity with or without an assistive device 5 Patient requires set up or clean up by helper. Patient completes activity by themselves 4 Supervision or touching assist (CGA). [place] provide cues , steadying assist 3 The helper provides less than half the effort to complete the activity 2 The helper provides more than half the effort to complete the activity 1 Dependent. The helper does all the effort to complete an activity 7 Patient refused to complete or attempt activity 9 The patient did not perform the activity before the current illness or injury 88 Not attempted due to Medical conditions or safety concerns Functional Abilities and Goals: Independent: Patient completed the activities by him/herself, with or without an assistive device, with no assistance from a helper. Needed Some Help: Patient needed partial assistance from another person to complete activities. Dependent: A helper completed the activities for the patient. Unknown: Not Applicable: Bed Mobility: 7 Transfers (B,C,W/C) (FIM): 7 Gait: 7 Indoor Mobility (Ambulation): Independent Stairs: Independent Pt still drives; lives alone; able to care for himself PT Evaluation-Current Subjective Pt requesting to get on the commode. Objective Patient Orientation: Person, Place, Time, Situation Problem Solving: Fair (sligthly impulsive) Attachments: Oxygen, Villagomez Catheter, IV ROM/Strength ROM Lower Extremities WFL Strength Lower Extremities grossly 4/5 Integumentary/Posture Integumentary refer to nursing notes. Bowel Incontinence: No Bladder Incontinence: Villagomez Cath Posture slightly rounded shoulders and forward head. Neuromuscular (Tone, Coordination, Reflexes) WFL Sensory Vision: Functional Hearing: Functional Hand Dominance: Right Sensation Right Lower Extremit: Intact Sensation Left Lower Extremity: Intact Transfers Therapy Code Descriptions/Definitions Functional [place] Measure: 0=Not Assessed/NA 4=Minimal Assistance 1=Total Assistance 5=Supervision or Setup 2=Maximal Assistance 6=Modified [place] 3=Moderate Assistance 7=Complete [place] Transfers (B, C, W/C) (FIM): 2 Supine to/from Sit: 2 Sit to/from Stand: 4 bed t/f WC(FIM only if WC use): 4 Sit to stand with CGA with skilled cues for hand placement and safety awareness ; SPT bed to chair with FWW with close CGA. Pt on commode post treatment. Balance Sitting Static: Good Sitting Dynamic: Good Standing Static: Fair Standing Dynamic: Fair Assessment/Needs Post recent dx of pneumonia requiring intubation. Pt presents with gross functional weakness that impairs bed mobility and transfers; gait not assessed this visit. HE will benefit from skilled PT to address functional strength to progress transfers and gait to allow him to return home as before. Rehab Potential: Good PT Fpc Goals Fpc Goals PT Fpc Goals Time Frame: September 02, 2018 Transfers (B,C,W/C) (FIM): 7 Gait (FIM): 6 Gait distance (FIM): 3=150 ft Gait Assistive Device: FWW PT Plan Problem List Problem List: Activity Tolerance, Functional Strength, Safety, Balance, Gait, Transfer, Bed Mobility Treatment/Plan Treatment Plan: Continue Plan of Care Treatment Plan: Bed Mobility, Education, Functional Activity Jane, Functional Strength, Gait, Safety, Therapeutic Exercise, Transfers Treatment Duration: September 02, 2018 Frequency: 6 times per week Estimated Hrs Per Day: .5 hour per day Patient and/or Family Agrees t: Yes Safety Risks/Education Patient Education: Transfer Techniques, Safety Issues Teaching Recipient: Patient Teaching Methods: Discussion Response to Teaching: Reinforcement Needed Time/GCodes Time In: 1055 Time Out: 1110 Total Billed Treatment Time: 15 Total Billed Treatment visit EVM LAURA BRIGGS PT August 26, 2018 11:14
--- NOTE | 2018-08-26 12:45 | Occupational Therapy Eval ---
OT Evaluation-General/PLF Medical Diagnosis Admission Date August 22, 2018 at 00:05 Medical Diagnosis: sepsis/pneumonia Onset Date: August 26, 2018 Therapy Diagnosis Therapy Diagnosis: impaired ADLS and mobility Height/Weight Height (Feet): 5 Height (Inches): 9.00 Weight (Pounds): 307 Weight (Ounces): 4.6 Precautions Precautions/Isolations: Fall Prevention, Standard Precautions Safety Interventions: Bed Exit Alarm Referral Physician: Wing Referral Reason: Activity Tolerance, Self Care, Evaluation/Treatment, Strengthening/ROM Medical History Pertinent Medical History: Arthritis, DM, GERD, HTN Current History per h&P: 08/22/18: "The patient was transferred last evening from the the [facility] emergency room after he presented with complaints of malaise and generalized weakness. He had been to [place] earlier in the day for lithotripsy of a large (11 mm) ureteral stone and subsequent placement of a ureteral stent. He told the staff at [place] that he began to feel ill on his way from [place] to [place]. He apparently went into his home and rested for a bit and felt no better and ultimately called the ambulance and was brought to the emergency room. He indeed appeared to be acutely ill. Workup showed a temperature at max of 103.6. Troponin was 0.433. Creatinine 1.42. Lactic acid was 1.86. The white blood count was initially 15,000 and subsequently ellen to 21,800 and then 24,500. Chest x-ray was consistent with Congestive heart failure. UA showed significant hematuria. The emergency room physician from [place] called me with these findings. He was particularly interested in the possibility of pneumonia. However given his urinary tract manipulation I believe that the number 1 thought would be sepsis secondary to urinary tract. The patient was admitted to the ICU for broad-spectrum antibiotics. He was seen early this morning by Dr. Montoya and he thought him to be in impending respiratory failure and intubated him and placed him on the ventilator. He is unable to give any useful history." Reviewed History: Yes Social History Home: Single Level Current Living Status: Alone ADL-Prior Level of Function Therapy Code Descriptions/Definitions Functional [place] Measure: 0=Not Assessed/NA 4=Minimal Assistance 1=Total Assistance 5=Supervision or Setup 2=Maximal Assistance 6=Modified [place] 3=Moderate Assistance 7=Complete [place] Therapy Quality Codes: 6 Independent with activity with or without an assistive device 5 Patient requires set up or clean up by helper. Patient completes activity by themselves 4 Supervision or touching assist (CGA). [place] provide cues , steadying assist 3 The helper provides less than half the effort to complete the activity 2 The helper provides more than half the effort to complete the activity 1 Dependent. The helper does all the effort to complete an activity 7 Patient refused to complete or attempt activity 9 The patient did not perform the activity before the current illness or injury 88 Not attempted due to Medical conditions or safety concerns Functional Abilities and Goals: Independent: Patient completed the activities by him/herself, with or without an assistive device, with no assistance from a helper. Needed Some Help: Patient needed partial assistance from another person to complete activities. Dependent: A helper completed the activities for the patient. Unknown: Not Applicable: Self Care: Independent Functional Cognition: Independent DME/Equipment: Tub/Shower Drive Self: Yes OT Current Status Subjective pt laying in bed upon OT arrival in no apparent distress. pt complains of no pain. pt agreed to OT evaluation session. Mental Status/Objective Patient Orientation: Normal For Age Attachments: Villagomez Catheter, IV, Oxygen Current Glasses/Contacts: Yes Hearing Aids: No Dentures/Partials: No Hand Dominance: Right Upper Extremity ROM WFL Upper Extremity Coordination WFL Upper Extremity Sensation WFL Upper Extremity Strength WFL ADL-Treatment Therapy Code Descriptions/Definitions Functional [place] Measure: 0=Not Assessed/NA 4=Minimal Assistance 1=Total Assistance 5=Supervision or Setup 2=Maximal Assistance 6=Modified [place] 3=Moderate Assistance 7=Complete [place] Therapy Quality Codes: 6 Independent with activity with or without an assistive device 5 Patient requires set up or clean up by helper. Patient completes activity by themselves 4 Supervision or touching assist (CGA). [place] provide cues , steadying assist 3 The helper provides less than half the effort to complete the activity 2 The helper provides more than half the effort to complete the activity 1 Dependent. The helper does all the effort to complete an activity 7 Patient refused to complete or attempt activity 9 The patient did not perform the activity before the current illness or injury 88 Not attempted due to Medical conditions or safety concerns pt currently dependent for UB/ LB dressing, and toileting. pt required MAX A X2 person to perform supine to sit. pt unable to perform sit to stand even with assist from 2 person. Education OT Patient Education: Energy conservation, Transfer techniques Teaching Recipient: Patient Teaching Methods: Demonstration, Discussion Response to Teaching: Verbalize Understanding, Reinforcement Needed OT Short Term Goals Short Term Goals Grooming(FIM): 4 Bathing(FIM): 3 Upper Body Dressing(FIM): 4 Lower Body Dressing(FIM): 4 Toileting(FIM): 4 Transfers (B,C,W/C) (FIM): 3 Toilet/Commode Transfer(FIM): 3 1=Demonstrate adherence to instructed precautions during ADL tasks. 2=Patient will verbalize/demonstrate understanding of assistive devices/ modifications for ADL. 3=Patient will improve strength/tolerance for activity to enable patient to perform ADL's. OT Fancy Needleworker Goals Fancy Needleworker Goals Grooming(FIM): 6 Bathing(FIM): 6 Lower Body Dressing(FIM): 6 Toileting(FIM): 6 Transfers (B,C,W/C) (FIM): 6 Toilet/Commode Transfer(FIM): 6 1=Demonstrate adherence to instructed precautions during ADL tasks. 2=Patient will verbalize/demonstrate understanding of assistive devices/ modifications for ADL. 3=Patient will improve strength/tolerance for activity to enable patient to perform ADL's. OT Education/Plan Problem List/Assessment Assessment: Decreased Activ Tolerance, Decreased Safety Aware, Decreased UE Strength, Dependent Transfers, Impaired Bed Mobility, Impaired Cognition, Impaired Coordination, Impaired Funct Balance, Impaired I ADL's, Impaired Self- Care Skills pt present with functional limitations affecting areas of ADLs and functional transfers. pt would benefit from OT services to increase independence with ADL/ functional transfers. pt is NOT safe to return home at this time. OT will follow for d/c planning. recommend SNF at this time with potential to progress to inpt rehab. Discharge Recommendations Plan/Recommendations: Continue POC Therapy D/C Recommendations: 24 hr Supervision, Halfway (TCU/NH) Patient/Family Goals "to do more for myself" Treatment Plan/Plan of Care Treatment,Training & Education: Yes Patient would benefit from OT for education, treatment and training to promote independence in ADL's, mobility, safety and/or upper extremity function for ADL' s. Plan of Care: ADL Retraining, Caregiver Training, Functional Mobility, Group Exercise/Act as Ind, UE Funct Exercise/Act Treatment Duration: September 09, 2018 Frequency: 4 times per week (-5) Estimated Hrs Per Day: .25 hour per day (-0.5) Agreement: Yes Rehab Potential: Fair Time/GCodes Start Time: 11:40 Stop Time: 12:00 Billed Treatment Time EVM 20 minutes SERVANDO THOMAS OT August 26, 2018 12:45
[2018-08-26] MEDS ORDERED: cefTRIAXone FOR IV USE 1,000 MG in WATER (STERILE) FOR INJECTION 10 ML IV SCH (13:00)
--- NOTE | 2018-08-26 13:12 | Progress Note-Hospitalist ---
Progress Note Progress Notes/Assess & Plan Date Seen 08/26/18 Time Seen by Provider: 13:02 Assessment & Plan The patient reports he feels very weak. He still requires CPAP. He inquires as to why he feels so weak and was assured that the severity of his illness and the relapse phase certainly explain this. Accordingly we will have him evaluated by PT and OT. Physical exam: He is alert and oriented. He speaks in partial sentences. Lungs are clear to auscultation. CV is regular. Impression: Large ureteral stone (11 mm). 2.hydroureter and hydronephrosis secondary to number 1. 3.Escherichia coli septicemia post second intervention and instrumentation. 4.generalized weakness Plan: Switch antibiotics from Zosyn to Rocephin. 2.PT and OT eval. 3.consider rehabilitation. Focused Exam Time of Focused Exam: 22:30 FELA BARNETT MD August 26, 2018 13:12
[2018-08-26] MEDS: ONDANSETRON 4 MG/2 ML (SDV) Z0FRAN IV PRN (14:54)
--- NOTE | 2018-08-26 15:01 | Pulmonary Progress Note ---
Subjective Time Seen by a Provider: 06:00 (late note for 08/25 today is 08/26) Subjective/Events-last exam PT is doing better. Sepsis Event Evaluation Height, Weight, BMI Height: 5'9.00" Weight: 307lbs. 4.6oz. 139.864295gb; 40.0 BMI Method:Actual Focused Exam Time of Focused Exam: 22:30 Exam Exam Vital Signs Date Time Temp Pulse Resp B/P (MAP) Pulse Ox O2 Delivery O2 Flow Rate FiO2 08/26/18 12:00 98.2 68 22 138/80 (99) 95 NIV CPAP 08/26/18 09:00 Room Air 08/26/18 08:23 97.3 68 24 130/63 (85) 94 Room Air 08/26/18 04:56 99.0 66 24 107/53 (71) 96 NIV CPAP 08/26/18 00:15 112/54 (73) 08/26/18 00:00 98.6 72 24 91/48 (62) 95 NIV CPAP 08/25/18 21:00 Room Air 08/25/18 20:49 NIV CPAP 08/25/18 20:00 96.5 81 24 119/59 (79) 95 NIV CPAP 08/25/18 17:00 68 97/52 (67) 08/25/18 15:40 97.2 84 24 96/56 (69) 95 NIV CPAP I & O 08/26/18 07:00 Intake Total 3825.4 ml Output Total 2150 ml Balance 1675.4 ml Height & Weight Height: 5'9.00" Weight: 307lbs. 4.6oz. 139.906520dr; 40.0 BMI Method:Actual General Appearance: No Apparent Distress, Obese HEENT: PERRL/EOMI, Pharynx Normal Neck: Normal Inspection Respiratory: No Respiratory Distress, Other (Chest is clear anteriorly a few scattered rhonchi are noted posteriorly with some diminished breath sounds in the bases no wheezing noted) Cardiovascular: Regular Rate, Rhythm, No Murmur Capillary Refill: Less Than 3 Seconds Peripheral Pulses: 2+ Carotid (R), 2+ Carotid (L), 2+ Femoral (R), 2+ Femoral ( L), 2+ Radial Pulses (R), 2+ Radial Pulses (L) Extremity: Normal Range of Motion, No Calf Tenderness Neurologic/Psychiatric: Alert, No Motor/Sensory Deficits Skin: Warm/Dry, Pallor Results Lab Laboratory Tests 08/25/18 03:15 08/26/18 03:40 Assessment/Plan Assessment/Plan Acute respiratory failure -BiPAP PRN and QHS Severe sepsis with septic shock and Bilateral pneumonia and UTI - Blood culture shows GNR -Currently on Rocephin -Severe sepsis protocol -Echo this AM -- last echo 05/03 shows EF of 60-65% - influenza swab -Neg Nephrolithiasis with recent stent placement - Hematuria -Dr. Bnoner evaluated pt and no further recommendations UTI Acute renal failure -IVF Metabolic lactic acidosis -IVF Elevated liver enzymes secondary to sepsis -Monitor JP LEWIS DO August 26, 2018 15:01
--- NOTE | 2018-08-26 15:10 | Pulmonary Progress Note ---
Subjective Time Seen by a Provider: 15:09 Subjective/Events-last exam Complains of weakness and SOB. Sepsis Event Evaluation Height, Weight, BMI Height: 5'9.00" Weight: 307lbs. 4.6oz. 139.415176vn; 40.0 BMI Method:Actual Focused Exam Time of Focused Exam: 22:30 Exam Exam Vital Signs Date Time Temp Pulse Resp B/P (MAP) Pulse Ox O2 Delivery O2 Flow Rate FiO2 08/26/18 12:00 98.2 68 22 138/80 (99) 95 NIV CPAP 08/26/18 09:00 Room Air 08/26/18 08:23 97.3 68 24 130/63 (85) 94 Room Air 08/26/18 04:56 99.0 66 24 107/53 (71) 96 NIV CPAP 08/26/18 00:15 112/54 (73) 08/26/18 00:00 98.6 72 24 91/48 (62) 95 NIV CPAP 08/25/18 21:00 Room Air 08/25/18 20:49 NIV CPAP 08/25/18 20:00 96.5 81 24 119/59 (79) 95 NIV CPAP 08/25/18 17:00 68 97/52 (67) 08/25/18 15:40 97.2 84 24 96/56 (69) 95 NIV CPAP I & O 08/26/18 07:00 Intake Total 3825.4 ml Output Total 2150 ml Balance 1675.4 ml Height & Weight Height: 5'9.00" Weight: 307lbs. 4.6oz. 139.568844re; 40.0 BMI Method:Actual General Appearance: No Apparent Distress, Obese HEENT: PERRL/EOMI, Pharynx Normal Neck: Normal Inspection Respiratory: No Respiratory Distress, Other (Chest is clear anteriorly a few scattered rhonchi are noted posteriorly with some diminished breath sounds in the bases no wheezing noted) Cardiovascular: Regular Rate, Rhythm, No Murmur Capillary Refill: Less Than 3 Seconds Peripheral Pulses: 2+ Carotid (R), 2+ Carotid (L), 2+ Femoral (R), 2+ Femoral ( L), 2+ Radial Pulses (R), 2+ Radial Pulses (L) Extremity: Normal Range of Motion, No Calf Tenderness Neurologic/Psychiatric: Alert, No Motor/Sensory Deficits Skin: Warm/Dry, Pallor Results Lab Laboratory Tests 5/12/19 03:15 08/26/18 03:40 Assessment/Plan Assessment/Plan Acute respiratory failure -BiPAP PRN and QHS Severe sepsis with septic shock and Bilateral pneumonia and UTI - Blood culture shows GNR -Currently on Rocephin -Severe sepsis protocol -Echo this AM -- last echo 05/03 shows EF of 60-65% - influenza swab -Neg Nephrolithiasis with recent stent placement - Hematuria -Dr. Bonner evaluated pt and no further recommendations UTI Acute renal failure -IVF Metabolic lactic acidosis -IVF Elevated liver enzymes secondary to sepsis -Monitor JP LEWIS DO August 26, 2018 15:10
[2018-08-26] MEDS ORDERED: KCL 20 MEQ TAB (K-DUR) PO NR (15:15)
[2018-08-26] MEDS ORDERED: FUROSEMIDE 40 MG/4 ML INJ (LASIX) IVP NR (15:15)
--- NOTE | 2018-08-26 17:07 | Cardiology Progress Note ---
Cardiology SOAP Progress Note Subjective: Mild chest pain. Improved shortness of breath. Objective: I&O/Vital Signs 08/26/18 08/26/18 08/26/18 08/26/18 08:23 09:00 12:00 16:00 Temp 97.3 98.2 98.3 Pulse 68 68 71 Resp 24 22 22 B/P (MAP) 130/63 (85) 138/80 (99) 112/53 (72) Pulse Ox 94 95 97 O2 Delivery Room Air Room Air NIV CPAP Room Air 08/26/18 00:00 Intake Total 3775.4 ml Output Total 1100 ml Balance 2675.4 ml Weight (Pounds): 307 Weight (Ounces): 4.6 Weight (Calculated Kilograms): 139.812935 Constitutional: appears stated age, AAO x 3; No apparent distress; well- developed, well-nourished Respiratory: No accessory muscle use, No respiratory distress, No chest tender , No chest expansion is symmetric; chest is bilaterally symmetric; No lungs clear to percussion; lungs clear to auscultation; No crackles, No rhonchi, No rales, No stridor, No wheezing, No pleural rub Cardiovascular: regular rate-rhythm, tachycardia, S1 and S2 Gastrointestional: No tender, No soft, No round; distended; No pulsatile mass, No organomegaly, No guarding, No rebound, No tenderness, No hernia, No mass, No audible bowel sounds, No abnormal bowel sounds, No abdominal bruits, No spleenomegaly, No other Extremities: No normal range of motion, No non-tender, No normal inspection, No pedal edema, No calf tenderness, No normal capillary refill, No pelvis stable , No calf tenderness, No inflammation, No pedal edema, No slow capillary refill , No swelling, No other, No abrasion, No clubbing, No cyanosis, No ecchymosis, No laceration, No no lower extremity edema bilateral, No significant edema, No tenderness, No wound Neurologic/Psychiatric: other ( intubated/ventilated) Skin: cool Results/Procedures: Labs Laboratory Tests 08/25/18 20:54: Glucometer 100 08/26/18 03:40: White Blood Count 11.6H, Red Blood Count 2.42L, Hemoglobin 7.2L, Hematocrit 23L , Mean Corpuscular Volume 93, Mean Corpuscular Hemoglobin 30, Mean Corpuscular Hemoglobin Concent 32, Red Cell Distribution Width 15.5H, Platelet Count 109L, Mean Platelet Volume 9.7, Neutrophils (%) (Auto) 81H, Lymphocytes (%) (Auto) 14 , Monocytes (%) (Auto) 6, Eosinophils (%) (Auto) 0, Basophils (%) (Auto) 0, Neutrophils # (Auto) 9.3H, Lymphocytes # (Auto) 1.6, Monocytes # (Auto) 0.6, Eosinophils # (Auto) 0.0, Basophils # (Auto) 0.0, Sodium Level 144, Potassium Level 3.5L, Chloride Level 115H, Carbon Dioxide Level 18L, Anion Gap 11, Blood Urea Nitrogen 24H, Creatinine 0.78, Estimat Glomerular Filtration Rate > 60, BUN /Creatinine Ratio 31, Glucose Level 101, Calcium Level 7.6L, Phosphorus Level 3.0, Magnesium Level 1.9, B-Type Natriuretic Peptide 370.6H 08/26/18 05:21: Glucometer 107 08/26/18 12:12: Glucometer 170H 08/26/18 15:22: Glucometer 92 Microbiology 08/21/18 Blood Culture - Preliminary, Resulted No growth 08/23/18 Mycobacterial Culture - Preliminary, Resulted See Comments 08/21/18 Urine Culture - Final, Complete NO GROWTH A/P: Assessment/Dx: Severe septic shock, likely due to bilateral pneumonia, UTI, Urinary bleeding, Recent kidney stone, left ureter stent, Possible SVT, no strips available, Elevated proBNP, Elevated troponin, Acute kidney injury, Lactic acidosis, Diabetes, Plan: Severe septic shock, likely due to bilateral pneumonia, resolved. UTI, on broad spectrum antibiotics. UTI is not confirmed. Urinary bleeding, status post treatment for kidney stone and left ureter stent yesterday at [facility] in [place]. Significant resolution. Recent kidney stone, left ureter stent, Possible SVT, no strips available, there is a mention in the record that the patient was in SVT and adenosine was given which converted to sinus tachycardia. Unfortunately no strips are available for review, therefore I cannot comment on what was seen by the EMS. All available EKGs show sinus tachycardia. Which is very likely due to severe systemic illness. Elevated proBNP, likely due to bilateral pneumonia and severe sepsis. Bedside echocardiogram revealed normal LV function on 08/23/2018. Elevated troponin, NSTEMI. Could be secondary to systemic illness (type II myocardial infarction) ; however NSTEMI due to plaque rupture cannot be ruled out, however we cannot give antiplatelet and antithrombin agents due to significant urological bleeding and dropping Hb from 10 -> 9.1 -> 8.4. No clear wall motion abnormality noted on echocardiogram. Normal LV function on Echo done 08/23/2018. I discussed with Dr. Montoya and then with the patient and recommended likely coronary angiography on 08/29/2018. Acute kidney injury, IV fluids being given. Lactic acidosis, likely due to severe sepsis. Resolved. Diabetes, Thank you for your consultation. Please call me if you have any questions. Jordana Nichols MD, FACP, FACC, FSCAI, FHRS, CCDS Interventional Cardiology Cardiac Electrophysiology Vascular Medicine and Endovascular Interventions Focused Exam Time of Focused Exam: 22:30 Emely NICHOLS MD August 26, 2018 5:07 pm
--- NOTE | 2018-08-26 19:04 | Progress Note-Urology ---
Progress Note-Urology Progress Notes/Assess & Plan Progress/Assessment & Plan DOING MUCH BETTER THAN LAST TIME I SAW HIM. MY OFFICE TO GET REPORTS FROM UROLOGIST IN [place] Final Diagnosis SEPSIS AND UROLITHIASES JONATHAN CONLEY MD August 26, 2018 19:04
--- NOTE | 2018-08-26 19:15 | Wound Care Assessment ---
Wound Care Assessment Date Seen by Provider: August 26, 2018 Time Seen by Provider: 18:00 Chief Complaint Bilateral buttock ulcers. HPI The patient is a 58 year old male admitted 4 days previously with sepsis related to urinary tract infection, who was noted to have bilateral superficial buttock ulcers. He relates an episode, prior to his admission here, of collapsing at home getting out of his car, and sliding down on the frame of his car. The wounds have the appearance of a shear injury, with a stuttering kind of pattern consistent with the above injury history. The pattern and lack of concentric severity of the injury make it unlikely that these are primarily pressure in their etiology. They are being treated with bordered foam dressing and off-loading. This is continued. Hypertension, obesity. Review of Systems Pulmonary: No Dyspnea Cardiovascular: No: Chest Pain Exam Vital Signs Date Time Temp Pulse Resp B/P (MAP) Pulse Ox O2 Delivery O2 Flow Rate FiO2 08/26/18 16:00 98.3 71 22 112/53 (72) 97 Room Air 08/25/18 07:38 2.00 08/24/18 08:53 25 Capillary Refill : Less Than 3 SecondsLess Than 3 Seconds General Appearance: no apparent distress HEENT: normal ENT inspection Neck: other (Central line R neck.) Skin: other (R buttock -- 7.7 x 7.2 x 0.2 cm, base denuded epidermis; L buttock -- 7.8 x 6.0 x 0.2 cm, base denuded epidermis. Surrounding purpura.) Results Laboratory Tests 08/25/18 20:54: Glucometer 100 08/26/18 03:40: White Blood Count 11.6H, Red Blood Count 2.42L, Hemoglobin 7.2L, Hematocrit 23L , Mean Corpuscular Volume 93, Mean Corpuscular Hemoglobin 30, Mean Corpuscular Hemoglobin Concent 32, Red Cell Distribution Width 15.5H, Platelet Count 109L, Mean Platelet Volume 9.7, Neutrophils (%) (Auto) 81H, Lymphocytes (%) (Auto) 14 , Monocytes (%) (Auto) 6, Eosinophils (%) (Auto) 0, Basophils (%) (Auto) 0, Neutrophils # (Auto) 9.3H, Lymphocytes # (Auto) 1.6, Monocytes # (Auto) 0.6, Eosinophils # (Auto) 0.0, Basophils # (Auto) 0.0, Sodium Level 144, Potassium Level 3.5L, Chloride Level 115H, Carbon Dioxide Level 18L, Anion Gap 11, Blood Urea Nitrogen 24H, Creatinine 0.78, Estimat Glomerular Filtration Rate > 60, BUN /Creatinine Ratio 31, Glucose Level 101, Calcium Level 7.6L, Phosphorus Level 3.0, Magnesium Level 1.9, B-Type Natriuretic Peptide 370.6H 08/26/18 05:21: Glucometer 107 08/26/18 12:12: Glucometer 170H 08/26/18 15:22: Glucometer 92 Microbiology 08/21/18 Blood Culture - Preliminary, Resulted No growth 08/23/18 Mycobacterial Culture - Preliminary, Resulted See Comments 08/21/18 Urine Culture - Final, Complete NO GROWTH Assessment/Plan/Dx 1. Bilateral superficial buttock ulcer, traumatic, due to shear injury prior to admission. 2. Morbid obesity, debility. Plan: Continue bordered foam dressing. BENIGNO COONEY MD August 26, 2018 19:15
[2018-08-27] VITALS: BP 109/58
[2018-08-27 04:09] VITALS: BP 119/57
[2018-08-27] MEDS: inSUlin ASPART (NovoLOG) 1 UNIT/0.01 ML (CHARGE PER UNIT) SC SCH (05:35)
--- NOTE | 2018-08-27 06:14 | Pulmonary Progress Note ---
Sepsis Event Evaluation Height, Weight, BMI Height: 5'9.00" Weight: 307lbs. 4.6oz. 139.171048ae; 40.0 BMI Method:Actual Focused Exam Time of Focused Exam: 22:30 Exam Exam Vital Signs Date Time Temp Pulse Resp B/P (MAP) Pulse Ox O2 Delivery O2 Flow Rate FiO2 08/27/18 04:09 97.8 72 20 119/57 (77) 92 Room Air 08/27/18 00:00 97.6 66 20 109/58 (75) 93 Room Air 08/26/18 21:25 Room Air 08/26/18 19:57 98.5 67 22 121/65 (83) 95 Room Air 08/26/18 16:00 98.3 71 22 112/53 (72) 97 Room Air 08/26/18 12:00 98.2 68 22 138/80 (99) 95 NIV CPAP 08/26/18 09:00 Room Air 08/26/18 08:23 97.3 68 24 130/63 (85) 94 Room Air I & O 08/27/18 07:00 Intake Total 1518 ml Output Total 6750 ml Balance -5232 ml Height & Weight Height: 5'9.00" Weight: 307lbs. 4.6oz. 139.014214be; 40.0 BMI Method:Actual General Appearance: No Apparent Distress, Obese HEENT: PERRL/EOMI, Pharynx Normal Neck: Normal Inspection Respiratory: No Respiratory Distress, Other (Chest is clear anteriorly a few scattered rhonchi are noted posteriorly with some diminished breath sounds in the bases no wheezing noted) Cardiovascular: Regular Rate, Rhythm, No Murmur Capillary Refill: Less Than 3 Seconds Peripheral Pulses: 2+ Carotid (R), 2+ Carotid (L), 2+ Femoral (R), 2+ Femoral ( L), 2+ Radial Pulses (R), 2+ Radial Pulses (L) Extremity: Normal Range of Motion, No Calf Tenderness Neurologic/Psychiatric: Alert, No Motor/Sensory Deficits Skin: Warm/Dry, Pallor Results Lab Laboratory Tests 08/26/18 03:40 Assessment/Plan Assessment/Plan Acute respiratory failure -BiPAP PRN and QHS Severe sepsis with septic shock and Bilateral pneumonia and UTI - Blood culture shows GNR -Currently on Rocephin -Echo this AM -- last echo 05/03 shows EF of 60-65% - influenza swab -Neg Anemia -recheck labs Nephrolithiasis with recent stent placement - Hematuria -Dr. Bonner evaluated pt and no further recommendations UTI Acute renal failure -IVF Metabolic lactic acidosis -IVF Elevated liver enzymes secondary to sepsis -Monitor JP LEWIS DO August 27, 2018 06:14
[2018-08-27 07:08] LABS: HEMOGLOBIN 7.5 G/DL (13.3-17.7); MEAN PLATELET VOLUME 10.3 FL (7.4-10.4); WHITE BLOOD COUNT 8.1 10^3/uL (4.3-11.0)
[2018-08-27 07:18] LABS: BUN/CREATININE RATIO 24; CARBON DIOXIDE 22 MMOL/L (21-32); CHLORIDE 111 MMOL/L (98-107); CREATININE SERUM 0.71 MG/DL (0.60-1.30); GFR ESTIMATED > 60; GLUCOSE 105 MG/DL (70-105); MAGNESIUM 1.6 MG/DL (1.8-2.4); PHOSPHORUS 3.4 MG/DL (2.3-4.7); POTASSIUM 3.6 MMOL/L (3.6-5.0); SODIUM 142 MMOL/L (135-145)
[2018-08-27 08:00] VITALS: BP 151/85
[2018-08-27] MEDS: PANTOPRAZOLE 40 MG (PROTONIX) VIAL IV SCH (08:06)
[2018-08-27] MEDS ORDERED: CEFDINIR 300 MG (OMNICEF) CAP PO SCH (09:50)
--- NOTE | 2018-08-27 10:18 | Progress Note-Hospitalist ---
Progress Note Progress Notes/Assess & Plan Date Seen 08/27/18 Time Seen by Provider: 10:12 Assessment & Plan The patient has continued to improve. He has been accepted for transfer to inpatient rehabilitation facility. It is planned that today his IV antibiotics will be stopped and he will finish his course with cefdinir. He also, at least partly as a function of his pressors and fluid resuscitation, got a fair bit of peripheral edema as noted in his feet. His intake to output was -5700 yesterday. Electrolytes remain satisfactory. Physical exam: He is alert and oriented. Lungs are clear to auscultation. CV is regular without murmur. There remains about 2+ pedal edema. Impression: Severe sepsis with Escherichia coli from blood in urine. 2.hypertension secondary to number 1. 3.large ureteral stone with ESWL and stenting. 4.diabetes who me Plan: Transfer to F Focused Exam Time of Focused Exam: 22:30 FELA BARNETT MD August 27, 2018 10:18
[2018-08-27] MEDS ORDERED: FUROSEMIDE 40 MG/4 ML INJ (LASIX) IVP NR (10:25)
--- NOTE | 2018-08-27 10:27 | Physical Therapy Daily Note ---
PT Daily Note-Current Subjective Pt agreeable to PT session after some encouragement. Reports he is having a lot of pain Pain Numeric Pain Scale: 8 Comment: nsg aware, in B feet, neuropathy pain Appearance Upon arrival, pt sitting up in recliner awake and alert. Wound care team and nursing present during part of treatment session Pt requesting, and assisted, to [facility] for BM At end of session, pt sitting up in recliner with LE's elevated, call light, phone and bedside table within reach Mental Status Patient Orientation: Person, Place, Eyes Open Attachments: Saline Lock, Villagomez Catheter Transfers Therapy Code Descriptions/Definitions Functional [place] Measure: 0=Not Assessed/NA 4=Minimal Assistance 1=Total Assistance 5=Supervision or Setup 2=Maximal Assistance 6=Modified [place] 3=Moderate Assistance 7=Complete [place] Therapy Quality Codes: 6 Independent with activity with or without an assistive device 5 Patient requires set up or clean up by helper. Patient completes activity by themselves 4 Supervision or touching assist (CGA). [place] provide cues , steadying assist 3 The helper provides less than half the effort to complete the activity 2 The helper provides more than half the effort to complete the activity 1 Dependent. The helper does all the effort to complete an activity 7 Patient refused to complete or attempt activity 9 The patient did not perform the activity before the current illness or injury 88 Not attempted due to Medical conditions or safety concerns Transfers (B, C, W/C) (FIM): 4 Sit to/from Stand: 4 CGA, instruction required for safe and proper hand placement, although does not follow instruction every time. Pt can control descent into chair without reach back with hands when pt does not follow instruction Weight Bearing Right Lower Extremity: Right Full Weight Bearing Left Lower Extremity: Left Full Weight Bearing Gait Training Gait (FIM): 1 Distance (FIM): 1=up to 49 ft Distance: 7 x2 Gait Level of Assist: 4 (CGA) Gait Persons Needed: 1 Gait Assistive Device: FWW slow, guarded, shuffling Exercises Seated Therapy Exercises: Ankle pumps, Sit to stand, Long arc quads, Hip flexion, Hip abd/add Seated Reps: 15 (difficulty keeping pt on task) Standing Reps: 3 (5 minute stance each with and occasionally without UE support ) Treatments transfer, gait, activity tolerance, safety, functional mobility, strength, balance Assessment Current Status: Fair Progress (5 minute stance each with) difficulty keeping pt on task PT Short Term Goals Short Term Goals Transfers (B,C,W/C) (FIM): 3 PT Air Traffic Coordinator Goals Air Traffic Coordinator Goals PT Air Traffic Coordinator Goals Time Frame: September 02, 2018 Transfers (B,C,W/C) (FIM): 7 Gait (FIM): 6 Gait distance (FIM): 3=150 ft Gait Assistive Device: FWW PT Plan Treatment/Plan Treatment Plan: Continue Plan of Care Treatment Plan: Bed Mobility, Education, Functional Activity Jane, Functional Strength, Gait, Safety, Therapeutic Exercise, Transfers Treatment Duration: September 02, 2018 Frequency: 6 times per week Estimated Hrs Per Day: .5 hour per day Patient and/or Family Agrees t: Yes Safety Risks/Education Patient Education: Gait Training, Transfer Techniques, Safety Issues Teaching Recipient: Patient Teaching Methods: Demonstration, Discussion Response to Teaching: Verbalize Understanding, Reinforcement Needed Time/GCodes Time In: 838 Time Out: 902 Total Billed Treatment Time: 24 Total Billed Treatment 1 visit, FA x 1 unit, EX x 1 unit TASIA PATEL PTA August 27, 2018 10:27
--- NOTE | 2018-08-27 10:28 | Discharge Summary-Hospitalist ---
Diagnosis/Chief Complaint Date of Admission August 22, 2018 at 00:05 Date of Discharge Discharge Date: August 27, 2018 Admission Diagnosis Sepsis. 2.most likely source urinary tract. 3.recent large ureteral stone post lithotripsy and placement of stent. 4.morbid obesity. 5.apparent congestive heart failure. Discharge Diagnosis 1.septic shock. 2.11 mm ureteral stone with obstruction. 3.lithotripsy and stenting. 4.Escherichia coli urinary tract infection and septicemia secondary to instrumenting for number 3. 5.congestive heart failure in part secondary to shock and fluid resuscitation. 6.diabetes mellitus (1) Bilateral pneumonia Status: Acute (2) Sepsis (3) Retained ureteral stent Status: Acute (4) Urinary tract infection Status: Acute Discharge Summary Discharge Physical Exam Allergies: Coded Allergies: No Known Drug Allergies (Unverified , 08/21/18) Vitals & I&Os Vital Signs Date Time Temp Pulse Resp B/P (MAP) Pulse Ox O2 Delivery O2 Flow Rate FiO2 08/27/18 08:00 Room Air 08/27/18 08:00 99.0 74 20 151/85 (107) 96 08/25/18 07:38 2.00 08/24/18 08:53 25 General Appearance: No Apparent Distress Hospital Course Was the Problem List Reviewed?: Yes The patient was transferred from the [facility] emergency room on 08/22. Earlier that day he had been at [facility] in [place] for a second phase relative to his previously diagnosed 11 mm proximal ureteral stone. He apparently received a second phase lithotripsy and a replacement of his ureteral stent. As obtained from the [place] ER physician report, he began to feel ill on his way home from [place]. He then apparently went to bed for a few hours and did not feel better. He then came to the emergency room. He had a white blood count of 29,700, an anion gap of 27, a lactic acid of 5.33 and a mean arterial pressure hovering in the 65-70 range with a tachycardia. The ER doctor there thought he might have a bibasilar pneumonia in addition to the high likelihood of urinary tract infection by virtue of his immediate prior instrumenting. He was given the fluid resuscitation which was up modest benefit and then placed on levaphed. He required oxygen to support his SaO2. He was on noninvasive ventilatory support from admission here on 5/8 until the morning of 08/22 when he was intubated and placed on the mechanical ventilator. This was in place until the morning of 08/24 when he was extubated. Radiology's interpretation of the chest x-ray was not compatible with bibasilar pneumonia. The urine and blood grew Escherichia coli. After sensitivities were available he was changed to Rocephin and has continued to improve. At this time he is deemed ready for rehabilitation and has been transferred to the inpatient rehabilitation facility. Labs (last 24 hrs) Laboratory Tests 08/26/18 12:12: Glucometer 170H 08/26/18 15:22: Glucometer 92 08/26/18 20:23: Glucometer 166H 08/27/18 05:08: Glucometer 119H 08/27/18 05:27: White Blood Count 8.1, Red Blood Count 2.60L, Hemoglobin 7.5L, Hematocrit 24L, Mean Corpuscular Volume 93, Mean Corpuscular Hemoglobin 29, Mean Corpuscular Hemoglobin Concent 31L, Red Cell Distribution Width 15.0H, Platelet Count 134, Mean Platelet Volume 10.3, Sodium Level 142, Potassium Level 3.6, Chloride Level 111H, Carbon Dioxide Level 22, Anion Gap 9, Blood Urea Nitrogen 17, Creatinine 0.71, Estimat Glomerular Filtration Rate > 60, BUN/Creatinine Ratio 24, Glucose Level 105, Calcium Level 8.0L, Phosphorus Level 3.4, Magnesium Level 1.6L, Triglycerides Level 214H Microbiology 08/21/18 Blood Culture - Preliminary, Resulted No growth 08/23/18 Mycobacterial Culture - Preliminary, Resulted See Comments 08/21/18 Urine Culture - Final, Complete NO GROWTH Patient resulted labs reviewed. Pending Labs Laboratory Tests 08/27/18 05:08: Glucometer 119 08/27/18 05:27: White Blood Count 8.1, Red Blood Count 2.60, Hemoglobin 7.5, Hematocrit 24, Mean Corpuscular Volume 93, Mean Corpuscular Hemoglobin 29, Mean Corpuscular Hemoglobin Concent 31, Red Cell Distribution Width 15.0, Platelet Count 134, Mean Platelet Volume 10.3, Sodium Level 142, Potassium Level 3.6, Chloride Level 111, Carbon Dioxide Level 22, Anion Gap 9, Blood Urea Nitrogen 17, Creatinine 0.71, Estimat Glomerular Filtration Rate > 60, BUN/Creatinine Ratio 24, Glucose Level 105, Calcium Level 8.0, Phosphorus Level 3.4, Magnesium Level 1.6, Triglycerides Level 214 Discussion & Recommendations Discharge Planning: >30 minutes discharge planning Discharge Home Medications: Active Scripts Active Reported Iron (Ferrous Sulfate) 325 Mg Tablet 325 Mg PO DAILY Flomax (Tamsulosin HCl) 0.4 Mg Cap 0.4 Mg PO 1730 LAST FILLED #30 07-08-18 Dicyclomine HCl 10 Mg Capsule 20 Mg PO BID TAKES 2 (10MG) CAPSULES Fish Oil 1,000 mg Capsule ([place] 3 Polyunsat Fatty Acids) 1,000 Mg Cap 1,000 Mg PO DAILY Multivitamins (Multivitamin) 1 Each Tablet 1 Tab PO DAILY Hydrocodon-Acetaminophn 10-325 (Hydrocodone/Acetaminophen) 1 Each Tablet 1 Tab PO BID Topiramate 50 Mg Tablet 50 Mg PO HS Metoprolol Succinate 50 Mg Tab.er.24h 50 Mg PO BID LAST FILLED #60 07-11-18 Niacin ER (Niacin) 1,000 Mg Tab.er.24h 1,000 Mg PO DAILY Ranitidine HCl 150 Mg Tablet 150 Mg PO BID Gabapentin 400 Mg Capsule 400 Mg PO TID Hyoscyamine Sulfate 0.125 Mg Tablet 0.125 Mg PO Q4H PRN Esomeprazole Magnesium 40 Mg Capsule.dr 40 Mg PO DAILY Ezetimibe 10 Mg Tablet 10 Mg PO DAILY Simvastatin 80 Mg Tablet 80 Mg PO HS Metformin HCl 1,000 Mg Tablet 1,000 Mg PO BID Tramadol HCl 50 Mg Tablet 50 Mg PO BID PRN Nabumetone 750 Mg Tablet 750 Mg PO BID Instructions to patient/family Please see electronic discharge instructions given to patient. Clinical Quality Measures DVT/VTE Risk/Contraindication: Risk Factor Score Per Nursin RFS Level Per Nursing on Admit: 4+=Very High Problem Qualifiers (1) Bilateral pneumonia: Pneumonia type: due to unspecified organism Lung location: lower lobe of lung Qualified Codes: J18.1 - Lobar pneumonia, unspecified organism (2) Sepsis: Sepsis type: sepsis due to unspecified organism Qualified Codes: A41.9 - Sepsis, unspecified organism (3) Urinary tract infection: Urinary tract infection type: acute cystitis Hematuria presence: with hematuria Qualified Codes: N30.01 - Acute cystitis with hematuria FELA BARNETT MD August 27, 2018 10:28
--- NOTE | 2018-08-27 11:08 | Cardiology Progress Note ---
Cardiology SOAP Progress Note Subjective: No chest pain. Objective: I&O/Vital Signs 08/27/18 08/27/18 08/27/18 08/27/18 00:00 04:09 08:00 08:00 Temp 97.6 97.8 99.0 Pulse 66 72 74 Resp 20 20 20 B/P (MAP) 109/58 (75) 119/57 (77) 151/85 (107) Pulse Ox 93 92 96 O2 Delivery Room Air Room Air Room Air Room Air 08/26/18 23:59 Intake Total 1048 ml Output Total 5800 ml Balance -4752 ml Weight (Pounds): 298 Weight (Ounces): 8.0 Weight (Calculated Kilograms): 135.548311 Constitutional: appears stated age, AAO x 3; No apparent distress; well- developed, well-nourished Respiratory: No accessory muscle use, No respiratory distress, No chest tender , No chest expansion is symmetric; chest is bilaterally symmetric; No lungs clear to percussion; lungs clear to auscultation; No crackles, No rhonchi, No rales, No stridor, No wheezing, No pleural rub Cardiovascular: regular rate-rhythm, tachycardia, S1 and S2 Gastrointestional: No tender, No soft, No round; distended; No pulsatile mass, No organomegaly, No guarding, No rebound, No tenderness, No hernia, No mass, No audible bowel sounds, No abnormal bowel sounds, No abdominal bruits, No spleenomegaly, No other Extremities: No normal range of motion, No non-tender, No normal inspection, No pedal edema, No calf tenderness, No normal capillary refill, No pelvis stable , No calf tenderness, No inflammation, No pedal edema, No slow capillary refill , No swelling, No other, No abrasion, No clubbing, No cyanosis, No ecchymosis, No laceration, No no lower extremity edema bilateral, No significant edema, No tenderness, No wound Neurologic/Psychiatric: other ( intubated/ventilated) Skin: cool Results/Procedures: Labs Laboratory Tests 08/26/18 12:12: Glucometer 170H 08/26/18 15:22: Glucometer 92 08/26/18 20:23: Glucometer 166H 08/27/18 05:08: Glucometer 119H 08/27/18 05:27: White Blood Count 8.1, Red Blood Count 2.60L, Hemoglobin 7.5L, Hematocrit 24L, Mean Corpuscular Volume 93, Mean Corpuscular Hemoglobin 29, Mean Corpuscular Hemoglobin Concent 31L, Red Cell Distribution Width 15.0H, Platelet Count 134, Mean Platelet Volume 10.3, Sodium Level 142, Potassium Level 3.6, Chloride Level 111H, Carbon Dioxide Level 22, Anion Gap 9, Blood Urea Nitrogen 17, Creatinine 0.71, Estimat Glomerular Filtration Rate > 60, BUN/Creatinine Ratio 24, Glucose Level 105, Calcium Level 8.0L, Phosphorus Level 3.4, Magnesium Level 1.6L, Triglycerides Level 214H Microbiology 08/21/18 Blood Culture - Preliminary, Resulted No growth 08/23/18 Mycobacterial Culture - Preliminary, Resulted See Comments 08/21/18 Urine Culture - Final, Complete NO GROWTH A/P: Assessment/Dx: Severe septic shock, likely due to bilateral pneumonia, UTI, Urinary bleeding, Recent kidney stone, left ureter stent, Possible SVT, no strips available, Elevated proBNP, Elevated troponin, Acute kidney injury, Lactic acidosis, Diabetes, Plan: Severe septic shock, likely due to bilateral pneumonia, resolved. UTI, on broad spectrum antibiotics. UTI is not confirmed. Urinary bleeding, status post treatment for kidney stone and left ureter stent yesterday at [facility] in [place]. Significant resolution. Recent kidney stone, left ureter stent, Possible SVT, no strips available, there is a mention in the record that the patient was in SVT and adenosine was given which converted to sinus tachycardia. Unfortunately no strips are available for review, therefore I cannot comment on what was seen by the EMS. All available EKGs show sinus tachycardia. Which is very likely due to severe systemic illness. Elevated proBNP, likely due to bilateral pneumonia and severe sepsis. Bedside echocardiogram revealed normal LV function on 08/23/2018. Elevated troponin, NSTEMI. Could be secondary to systemic illness (type II myocardial infarction) ; however NSTEMI due to plaque rupture cannot be ruled out, however we cannot give antiplatelet and antithrombin agents due to significant urological bleeding and dropping Hb from 10 -> 9.1 -> 8.4. No clear wall motion abnormality noted on echocardiogram. Normal LV function on Echo done 08/23/2018. I discussed with Dr. Montoya and then with the patient and recommended likely coronary angiography or nuclear stress test on 2018. Acute kidney injury, IV fluids being given. Lactic acidosis, likely due to severe sepsis. Resolved. Diabetes, Thank you for your consultation. Please call me if you have any questions. Jordana Nichols MD, FACP, FACC, FSCAI, FHRS, CCDS Interventional Cardiology Cardiac Electrophysiology Vascular Medicine and Endovascular Interventions Focused Exam Time of Focused Exam: 22:30 Emely NICHOLS MD August 27, 2018 11:08
[2018-08-27] MEDS ORDERED: REGADENOSON 0.4 MG/5 ML SYR (LEXISCAN) IV ONE ×2 (11:15→13:20)
--- NOTE | 2018-08-27 15:39 | Cardiology Stress Test Report ---
Stress Test Report Type of NM Stress Test: Test Type: LEXISCAN 0.4MG/5ML Date of Procedure/Referring: Date of Procedure: August 27, 2018 PCP Dejon Dimas MD Admitting Physician Nikolas Blanc DO Indications: Acute respiratory failure, positive cardiac enzymes Baseline Heart Rate: 61 Baseline Blood Pressure: Blood Pressure Systolic: 151 Blood Pressure Diastolic: 85 Baseline EKG: Baseline EKG: sinus rhythm Summary & Conclusion: Summary: The patient was brought to the stress lab after informed consent was taken. Stress test was performed according to the Lexiscan protocol. 0.4 mg of IV Lexiscan was given. Low-grade exercise was performed. Baseline EKG showed sinus rhythm at 61 BPM. Initial blood pressure was 139/71 mmHg. Maximum heart rate was 84 bpm and blood pressure 135/70 mmHg. Patient did not have any chest pain, arrhythmias or ST segment changes during the stress test. 10.39 mCi of Myoview were given for rest imaging and 30.6 mCi of Myoview given for stress imaging. Transient ischemic dilatation score 1.21, EF percent. Normal wall motion. Severe apical reversible defect. Conclusion: Pharmacological stress test was negative for ischemia. Normal LV function with no wall motion abnormalities. Likely apical ischemia - coronary angiography is recommended. Emely SALDIVAR MD August 27, 2018 15:39
== END 2018-08-27 11:10 | DRG 698 ==
LOC: EDUNIT# 20:40 → ER FS 20:41 → ICU 08-22 00:05 → 4TH 08-25 07:50
PROVIDERS: ADMIT Internal Medicine; ATTEND Internal Medicine
PROC: 0BH17EZ Insertion of Endotracheal Airway into Trachea, Via Natural or Artificial Opening (ICD-10-PCS; principal; 2018-08-22)
PROC: 5A1945Z Respiratory Ventilation, 24-96 Consecutive Hours (ICD-10-PCS; 2018-08-22)
PROC: 0B9D8ZX Drainage of Right Middle Lung Lobe, Via Natural or Artificial Opening Endoscopic, Diagnostic (ICD-10-PCS; 2018-08-23)
PROC: 0B958ZX Drainage of Right Middle Lobe Bronchus, Via Natural or Artificial Opening Endoscopic, Diagnostic (ICD-10-PCS; 2018-08-23)
DX: T83.592A Infection and inflammatory reaction due to indwelling ureteral stent, initial encounter (principal); A41.51 Sepsis due to Escherichia coli [E. coli]; R65.21 Severe sepsis with septic shock; N30.01 Acute cystitis with hematuria; J18.1 Lobar pneumonia, unspecified organism; J96.00 Acute respiratory failure, unspecified whether with hypoxia or hypercapnia; I47.1 Supraventricular tachycardia; N13.30 Unspecified hydronephrosis; E87.2 Acidosis; N17.9 Acute kidney failure, unspecified; E87.0 Hyperosmolality and hypernatremia; Z68.41 Body mass index [BMI] 40.0-44.9, adult; I50.9 Heart failure, unspecified; E86.0 Dehydration; E66.01 Morbid (severe) obesity due to excess calories; G47.30 Sleep apnea, unspecified; I11.0 Hypertensive heart disease with heart failure; K52.9 Noninfective gastroenteritis and colitis, unspecified; K21.9 Gastro-esophageal reflux disease without esophagitis; E11.9 Type 2 diabetes mellitus without complications; M19.91 Primary osteoarthritis, unspecified site; F32.9 Major depressive disorder, single episode, unspecified; D64.9 Anemia, unspecified; E87.6 Hypokalemia; E83.42 Hypomagnesemia; E83.39 Other disorders of phosphorus metabolism; Z79.84 Long term (current) use of oral hypoglycemic drugs; Z87.442 Personal history of urinary calculi; Y73.2 Prosthetic and other implants, materials and accessory gastroenterology and urology devices associated with adverse incidents; Z87.891 Personal history of nicotine dependence
CPT/HCPCS: 36415; 36600; 51702; 71045; 71260; 74177; 80048; 80053; 80202; 81000; 82805; 82962; 83605; 83735; 83880; 84100; 84478; 84484; 85007; 85025; 85027; 85379; 85610; 85730; 87015; 87040; 87070; 87077; 87081; 87088; 87101; 87106; 87116; 87186; 87205; 87206; 88112; 88305; 88312; 93005; 93041; 93306; 93970; 94002; 94003; 94640; 94660; 94799; 96374; 96375

== ENCOUNTER 2018-08-27 09:53 | Inpatient (IN) | payer MEDICARE, MEDICAID ==
[~2018-08-27] VITALS: Ht 175.3 cm; Wt 139.3 kg
[~2018-08-27 09:53] MED LIST changes: -EZET10TA27 PO; +EZET10TA49 PO; -FURO-125 PO; -HEParin (CATH LAB) 0 ML IV ONE; -HEParin 1000 UNIT/ML (10ML VIAL) FOR BOLUS ONE; -LIDOCAINE 1% INJ 20 ML 20 ML VIAL ONE; -LORA10TA7 PO; -METF-397 PO; -MIDAZOLAM 5 MG/5 ML (VERSED) VIAL ONE; -NITRO DRIP 25000 MCG/D5W 250 ML IV ONE; -NS IV 1000 ML 0 ML ONE; -NS IV 1000 ML 1,000 ML IV SCH; -PATIENT MAY USE OWN MEDS, ALL PO SCH; -POLY17PO31 PO; -POTA10TA6 PO; -REGADENOSON 0.4 MG/5 ML SYR (LEXISCAN) IV ONE; -VERAPAMIL 5 MG/2 ML (CALAN) VIAL IV ONE; -fentaNYL INJECTION 100 MCG/2 ML AMP ONE
[2018-08-27] MEDS ORDERED: MELATONIN 3 MG TABLET PO PRN (10:15)
[2018-08-27] MEDS ORDERED: LOPERAMIDE 2 MG (IMODIUM) CAP PO PRN (10:15)
[2018-08-27] MEDS ORDERED: diphenhydrAMINE 25 MG TAB (BENADRYL) PO PRN (10:15)
[2018-08-27] MEDS ORDERED: ALPRAZolam 0.25 MG (XANAX) TAB PO PRN (10:15)
[2018-08-27] MEDS ORDERED: ACETAMINOPHEN 500 MG TAB (TYLENOL) PO PRN (10:15)
[2018-08-27] MEDS ORDERED: ONDANSETRON 4 MG/2 ML (SDV) Z0FRAN IVP PRN (10:15)
[2018-08-27] MEDS ORDERED: CALCIUM CARBONATE 500 MG (TUMS) TAB.CHEW PO PRN (10:15)
[2018-08-27] MEDS ORDERED: DOCUSATE SODIUM 100 MG (COLACE) CAP PO PRN (10:15)
--- NOTE | 2018-08-27 10:28 | PM&R H&P / Post Admit Assess ---
History of Present Illness HPI/Chief Complaint Chief Complaint: Critical illness myopathy HPI: This is a 61yoWM clinic Pt of Dr. Blanc who presented to the [place] emergency room due to generalized weakness. He had been in [place] early in the day for lithotripsy of a large 11 mm ureteral stone and placement of a stent and he told the staff at [place] that he began feeling ill on his way from [place] to [place]. He was found to have a fever of 103.6, elevated Troponin of 0.433 and acute renal failure creatinine of 1.42, lactic acid of 1.86 and white count at max was 24,500. Chest X-ray was inconsistent, maybe some pulmonary congestion but he underwent intubation for respiratory failure and Dr. Montoya was managing that. He remained intubated for 2.5 days and overall is just having significant weakness and will need intensive therapy to return back home where he lives alone to resume his independent living as he had before. He has had significant edema, Lasix will be given today. He has had significant urinary output and is currently on Rocephin shifting to Omnicef BID due to blood cultures septicemia with E. Coli and will likely discontinue catheter tomorrow. We will also likely remove the right internal jugular central line. Bowels are moving periodically and he doesn't report any significant pain. He is compliant with CPAP machine on a nightly basis. Prior level of function was independent without assistive devices. Source: patient, RN/MD, old records Exam Limitations: no limitations Date Seen 08/27/18 Time Seen by a Provider: 11:00 Attending Physician Miranda Lynn DO PCP Nikolas Blanc DO Referring Physician Date of Admission Home Medications & Allergies Home Medications Reviewed patient Home Medication Reconciliation performed by pharmacy medication reconciliations ground control approach technician and/or nursing. Patients Allergies have been reviewed. 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) Smoking Status: Never a Smoker Former Smoker, Quit: Apr 29, 1982 2nd Hand Smoke Exposure: No Recent Hopitalizations: No Seasonal Allergies Seasonal Allergies: Yes Past Medical History Respiratory: COPD, Sleep Apnea Currently Using CPAP: Yes Cardiac: High Cholesterol, Hypertension Reproductive: No Sexually Transmitted Disease: No HIV/AIDS: No Genitourinary: Bladder Infection, Kidney Stones Gastrointestinal: Colitis, Gastroesophageal Reflux Musculoskeletal: Arthritis, Chronic Back Pain Endocrine: Diabetes, Non-Insulin dep Loss of Vision: Bilateral Hearing Impairment: Denies Psychosocial: Depression History of Blood Disorders: No Adverse Reaction to Blood Magana: No (N/A) Review of Systems Constitutional: see HPI, dizziness, fever, malaise, weakness EENTM: no symptoms reported Respiratory: no symptoms reported Cardiovascular: no symptoms reported Gastrointestinal: no symptoms reported Genitourinary: decreased output, other Musculoskeletal: no symptoms reported Skin: no symptoms reported Psychiatric/Neurological: No Symptoms Reported All Other Systems Reviewed Negative Unless Noted: Yes Physical Exam Exam Vital Signs Vital Signs Date Time Temp Pulse Resp B/P (MAP) Pulse Ox O2 Delivery O2 Flow Rate FiO2 08/27/18 18:00 99.0 60 18 120/66 (84) 96 NIV CPAP Capillary Refill : General Appearance: No Apparent Distress, WD/WN, Chronically ill HEENT: PERRL/EOMI, Normal ENT Inspection, Pharynx Normal, Moist Mucous Membranes Neck: Full Range of Motion, Normal Inspection, Non Tender, Supple Respiratory: Chest Non Tender, Lungs Clear, Normal Breath Sounds, No Accessory Muscle Use, No Respiratory Distress, Decreased Breath Sounds Cardiovascular: Regular Rate, Rhythm, No Gallop, No JVD, No Murmur Gastrointestinal: Normal Bowel Sounds, No Organomegaly, No Pulsatile Mass, Non Tender, Soft Back: Normal Inspection, No CVA Tenderness, No Vertebral Tenderness Extremity: Normal Capillary Refill, Normal Inspection, Normal Range of Motion, Non Tender, No Calf Tenderness, Pedal Edema Neurologic/Psychiatric: Alert, Oriented x3, No Motor/Sensory Deficits ( generalized weakness of legs and arms 4/5), Normal Mood/Affect Skin: Normal Color, Warm/Dry Lymphatic: No Adenopathy Results Results/Procedures Labs Patient resulted labs reviewed. Assessment/Plan Assessment and Plan Assess & Plan/Chief Complaint Assessment: s/p VDRF s/p sepsis UTI Ureteral stent in place s/p lithotripsy Urinary retention Hematuria Elevated troponin Elevated BNP Obesity TAMIA on biPAP Edema Plan: Lasix Dr Nichols appreciated Dr Bonner appreciated DC cath soon Check iron (1) Myopathy (2) TAMIA on CPAP (3) Diabetes mellitus (4) Chronic GERD (5) Anemia (6) Elevated troponin (7) Elevated brain natriuretic peptide (BNP) level (8) Ventilator dependence (9) Sepsis (10) Calculus of proximal left ureter (11) Urinary tract infection (12) Retained ureteral stent (13) Hematuria (14) Back pain Post Admission Physician Asses Date seen by provider: August 27, 2018 Time seen by provider: 11:00 Admisison Dx: (1) Myopathy The preadmission screen agrees with the post admission assessment that the patient is a good candidate for inpatient rehabilitation. The patient will have a comprehensive program of inpatient rehabilitation with a goal of maximizing level of functional independence prior to discharge home. The patient will have PT/OT ninety minutes per day, each discipline, five days a week for gait, strengthening, conditioning, balance, ADLs, any patient/ family/caregiver training as necessary. Speech therapy to do cognitive assessment and treat as indicated. Rehabilitation nursing to assist with bowel, bladder, skin, wound care, medication administration, pain management. Farm Consultant to assist with discharge planning, community reentry. SCD's for DVT prophylaxis. He appears to be well motivated to participate in three hours of therapy a day. He should be able to tolerate three hours of therapy a day from a medical standpoint. He should benefit from the three hours of therapy a day. He has a reasonable discharge plan, reasonable discharge rehabilitation goals and a supportive family. He has various comorbidities that need to be closely monitored with medications and treatments adjusted on a daily basis as needed. These include: Barriers to discharge for this patient who had been independent prior to this are for him to be modified independent to supervision for ADLs and mobility skills prior to discharge home, so as to lessen the burden of the caregivers. Risks for this patient include: 1. Fall 2. Fracture 3. DVT 4. Pulmonary embolism 5. Wound infection 6. Skin breakdown 7. Contractures 8. Poorly controlled pain 9. Urinary retention 10. UTI 11. Respiratory infection 12. Aspiration Estimated Length of Stay: 10 days Prognosis: Rehab prognosis appears good for goal of discharge home modified independent to supervision for ADLs and mobility skills. MIRANDA LYNN DO August 27, 2018 10:28
--- NOTE | 2018-08-27 11:14 | NUR ---
Admitted to room 229, with an admitting diagnosis of debility , on 08-27-18 from 4th floor via , accompanied by therapy.DARSHAN ROY introduced to surroundings, call light, bed controls, phone, TV, temperature control, lights, meal times, smoking policy, visitor policy, side rail policy, bathrooms and showers. Patient Rights given to patient in the handbook.DARSHAN ROY verbalizes understanding that [facility] is not responsible for the loss or damage to any personal effects or valuables that are kept in the patients posession during their hospitalization. The following Patient Care Plans were discussed with the : Discharge Planning, ,, alteration in skin integrity and . DARSHAN ROY verbalizes understanding of Interdisciplinary Patient Education. Patient and/or family were informed about the Rapid Response Team and its purpose. Patient received Patient Rights Booklet, which includes Privacy Act Statement and Data Collection Information Summary.
[2018-08-27 11:20] VITALS: BP 150/85
--- NOTE | 2018-08-27 12:33 | NUR ---
Pt left floor via w/c for stress test.
--- NOTE | 2018-08-27 12:44 | Progress Note-Urology ---
Progress Note-Urology Progress Notes/Assess & Plan Progress/Assessment & Plan MY OFFICE IS IN THE PROCESS OF GETTING RECORDS FROM UROLOGIST AT [facility] Final Diagnosis SEPSIS AND UROLITHIASES JONATHAN CONLEY MD August 27, 2018 12:44
[2018-08-27] MEDS ORDERED: ONDANSETRON 4 MG/2 ML (SDV) Z0FRAN IV PRN (13:15)
[2018-08-27] MEDS ORDERED: REGADENOSON 0.4 MG/5 ML SYR (LEXISCAN) IV ONE (13:15)
[2018-08-27] MEDS ORDERED: APAP 325 MG/10.15 ML LIQ (TYLENOL) UDC GT PRN (13:15)
[2018-08-27] MEDS ORDERED: morphine INJ 4 MG/ML 1 ML (VIAL/SYRINGE) IVP PRN (13:15)
[2018-08-27] MEDS ORDERED: HALOPERIDOL 5 MG/ML (HALDOL) AMP IV PRN (13:15)
[2018-08-27] MEDS ORDERED: ACETAMINOPHEN 325 MG TABLET PO PRN (13:15)
--- NOTE | 2018-08-27 13:15 | Occupational Therapy Eval ---
OT Evaluation-General/PLF Medical Diagnosis Admission Date August 27, 2018 at 11:10 Medical Diagnosis: sepsis/pneumonia Onset Date: August 22, 2018 Therapy Diagnosis Therapy Diagnosis: impaired ADLs and mobiltiy Height/Weight Height (Feet): 5 Height (Inches): 9.00 Weight (Pounds): 307 Weight (Ounces): 0.0 Precautions Precautions/Isolations: Standard Precautions Weight Bear Status Weight Bearing Restriction: Weight Bearing/Tolerated Referral Referral Reason: Activity Tolerance, Self Care, Evaluation/Treatment, Strengthening/ROM Medical History Pertinent Medical History: Arthritis, DM, GERD, HTN Additional Medical History High Cholesterol, Hypertension, Kidney Stones, Colitis, Gastroesophageal Reflux , Arthritis, Chronic Back Pain, Diabetes, Non-Insulin dep, Depression Reviewed History: Yes Social History Home: Single Level Current Living Status: Alone ADL-Prior Level of Function Therapy Code Descriptions/Definitions Functional [place] Measure: 0=Not Assessed/NA 4=Minimal Assistance 1=Total Assistance 5=Supervision or Setup 2=Maximal Assistance 6=Modified [place] 3=Moderate Assistance 7=Complete [place] Therapy Quality Codes: 6 Independent with activity with or without an assistive device 5 Patient requires set up or clean up by helper. Patient completes activity by themselves 4 Supervision or touching assist (CGA). Roe provide cues , steadying assist 3 The helper provides less than half the effort to complete the activity 2 The helper provides more than half the effort to complete the activity 1 Dependent. The helper does all the effort to complete an activity 7 Patient refused to complete or attempt activity 9 The patient did not perform the activity before the current illness or injury 88 Not attempted due to Medical conditions or safety concerns Functional Abilities and Goals: Independent: Patient completed the activities by him/herself, with or without an assistive device, with no assistance from a helper. Needed Some Help: Patient needed partial assistance from another person to complete activities. Dependent: A helper completed the activities for the patient. 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 pt agreed to OT evaluation/ treatment session. pt reports 2/10 abdominal pain. Mental Status/Objective Patient Orientation: Person Current Glasses/Contacts: Yes Hearing Aids: No Dentures/Partials: No Hand Dominance: Right Upper Extremity ROM WFL Upper Extremity Coordination WFL Upper Extremity Sensation WFL Upper Extremity Strength Sebastian shoulders 4/5 Sebastian elbows 4-/5 ADL-Treatment Eating (FIM): 5 Eating (QC): 4 Grooming (FIM): 4 (CGA while standing at sink for safety/ balance) Oral Hygiene (QC): 4 Bathing (FIM): 3 Bathing Location: L Arm, R Arm, Chest, Abdomen, Perineal Area Shower/Bathe Self (QC): 2 Upper Body Dressing (FIM): 4 Upper Body Dressing (QC): 1 (required TA for all steps of LB dressing for sebastian socks, pants, and underpants. ) Lower Body Dressing (FIM): 1 Lower Body Dressing (QC): 1 On/Off Footwear (QC): 1 Toileting (FIM): 1 (required assist to complete 3/3 toileting tasks) Toileting Hygiene (QC): 1 Transfers (B, C, W/C) (FIM): 4 (MIN A. pt education on proper hand placement/ use of GB pt demo understanding ) Toilet/Commode Transfer (FIM): 4 (MIN A. pt education on proper hand placement / use of GB pt demo understanding ) Toilet Transfer (QC): 4 (MIN A. pt education on proper hand placement/ use of GB pt demo understanding ) Shower Transfer (FIM): 0 (unsafe to perform at this time ) pt education on use of GB for safe functional transfers. pt education on use of supervisor special effects to increase independence with LB dressing. more education will need to be provided to increase independence with use of AE. Other Treatments pt education on role of OT, goals, of OT, and purpose of OT. pt verbalized understanding. Education OT Patient Education: Energy conservation, Modified ADL techniques, Progress toward Goal/Update tx plan, Purpose of tx/functional activities, Rehab process, Safety issues, Transfer techniques, Use of adapted equipment Teaching Recipient: Patient Teaching Methods: Demonstration, Discussion Response to Teaching: Verbalize Understanding, Return Demonstration, Reinforcement Needed OT Short Term Goals Short Term Goals Eating(FIM): 6 Grooming(FIM): 6 Bathing(FIM): 5 Bathing Location: L Arm, R Arm, L Upper Leg, R Upper Leg, L Lower Leg ( including foot), R Lower Leg (including foot), Chest, Abdomen, Buttocks, Perineal Area Upper Body Dressing(FIM): 5 Lower Body Dressing(FIM): 5 Toileting(FIM): 5 Transfers (B,C,W/C) (FIM): 5 Toilet/Commode Transfer(FIM): 5 Tub Transfer(FIM): 5 Shower Transfer(FIM): 5 Additional Short Term Goals: 1-Demonstrate ADL Tasks, 2-Verbalize Understanding , 3-ImproveStrength/Jane 1=Demonstrate adherence to instructed precautions during ADL tasks. 2=Patient will verbalize/demonstrate understanding of assistive devices/ modifications for ADL. 3=Patient will improve strength/tolerance for activity to enable patient to perform ADL's. OT Custodial Goals Custodial Goals Eating (FIM): 6 Eating (QC): 6 Groomin Oral Hygiene (QC): 6 Bathing(FIM): 6 Bathing Location: L Arm, R Arm, L Upper Leg, R Upper Leg, L Lower Leg ( including foot), R Lower Leg (including foot), Chest, Abdomen, Buttocks, Perineal Area Shower/Bathe Self (QC): 6 Upper Body Dressing(FIM): 6 Upper Body Dressing (QC): 6 Lower Body Dressing(FIM): 6 Lower Body Dressing (QC): 6 On/Off Footwear (QC): 6 Toileting(FIM): 6 Toileting Hygiene (QC): 6 Transfers (B,C,W/C) (FIM): 6 Toilet/Commode Transfer(FIM): 6 Toilet/Commode Transfer (QC): 6 Tub Transfer(FIM): 6 Shower Transfer(FIM): 6 1=Demonstrate adherence to instructed precautions during ADL tasks. 2=Patient will verbalize/demonstrate understanding of assistive devices/ modifications for ADL. 3=Patient will improve strength/tolerance for activity to enable patient to perform ADL's. OT Education/Plan Problem List/Assessment Assessment: Decreased Activ Tolerance, Decreased Safety Aware, Decreased UE Strength, Impaired Bed Mobility, Impaired Coordination, Impaired Funct Balance, Impaired I ADL's, Impaired Self-Care Skills pt presents with functional limitation affecting areas of ADLS/ functional transfers. pt would benefit from skilled OT services to address above mention deficits, increase independence with ADLs/ functional transfers, and for safe transition to home. Discharge Recommendations Plan/Recommendations: Continue POC Treatment Plan/Plan of Care Treatment,Training & Education: Yes Patient would benefit from OT for education, treatment and training to promote independence in ADL's, mobility, safety and/or upper extremity function for ADL' s. Plan of Care: ADL Retraining, Caregiver Training, Cognitive Retraining, Concurrent Therapy, Functional Mobility, Group Exercise/Act as Ind, Orthotic Fitting/Training, UE Funct Exercise/Act Treatment Duration: Sep 24, 2018 Frequency: At least 5 of 7 days/Wk (IRF) Estimated Hrs Per Day: 1.5 hours per day (60-90 munites per day) Agreement: Yes Rehab Potential: Fair Time/GCodes Start Time: 11:05 Stop Time: 12:35 Billed Treatment Time EVM 15 minutes ADL 75 minutes, 5 units SERVANDO THOMAS OT August 27, 2018 13:15
--- NOTE | 2018-08-27 14:45 | Physical Therapy Progress Note ---
Therapy Progress Note PT evaluation attempted this afternoon but patient left for a cardiac stress test. Will perform eval tomorrow morning. DAVID BERNARDO PT August 27, 2018 14:45
[2018-08-27] MEDS: inSUlin ASPART (NovoLOG) 1 UNIT/0.01 ML (CHARGE PER UNIT) SC SCH ×2 (15:45→21:20)
--- NOTE | 2018-08-27 16:01 | ST Cognitive Linguistic Eval ---
Speech Evaluation-General Medical Diagnosis sepsis/pneumonia Onset Date: August 22, 2018 Therapy Diagnosis Therapy Diagnosis: Cognitive-communication Precautions Precautions/Isolations: Standard Precautions Referral Referring Physician: Dr. Gorman Medical History Pertinent Medical History: Arthritis, DM, GERD, HTN Reviewed History: Yes Social History Current Living Status: Alone Speech PLF-Current Status Prior Level of Function The patient lived alone and was independent for his daily needs. Subjective The patient was attentive and cooperative with the cognitive evaluation. Language Eval: Auditory Comprehends Simple Yes/No Ques: Functional Indent/Objects Multiple [place]: Functional Ident/Pics in Multiple [place]kins: Functional Follows 1-Step Commands: Functional Follows Complex Directions: Mild Follows General Conversations: Mild Language Eval: Verbal Language Completes Spontaneous Greeting: Functional Produces Auto, Serial Info: Functional Imitates Simple Words/Phrases: Functional Word Finding: Functional Requests Basic Needs: Functional States Basic Personal Info: Functional Expresses Complex Ideas: Mild Objective Cognitive Domain Attention: WNL Memory: Mild Problem Solving: Mild Executive Functions: Mild Visuospatial Skills: WNL Composite Severity Rating: Mild Clock Drawing Severity Rating: [facility] Objective Formal/Standardized Tests [facility] Mental Status Results Patient has deficits in memory and problem solving, scoring a 22/30 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 He was given the SLUMS with scores plaing hime in the [place] range. The patient will receive skilled ST services with focus on safety and independence. Communication/Social Cognition Comprehension: 6 Expression: 6 Social Interaction: 6 Problem Solvin Memory: 5 Speech Patient Assess Expression of Ideas/Wants: Exhibits (3) Understanding Verbal Content: Usually Understands (3) Brief Interview-Mental Status: Yes Repetition of Three Words: Three (3) Temporal Orientation: Month: Accurate within 5 days(2) Temporal Orientation: Day: Correct (1) Recall : Wear to say "Sock": Yes, no cue required (2) Recall : Color: Yes, after cueing (1) Recall : Bed: Yes, no cue required (2) Memory/Recall Ability: Current season, Location of own room, That he or she is in a hsp/hsp unit Speech Short Term Goals Short Term Goals Short Term Goals 1) The patient will be able to follow verbal instructions with her daily tasks at 90% or greater with minimal cues. 2) The patient will recall new information provided with 90% or greater with minimal cues. 3) The patient will complete memory exercises with 90% or greater with minimal cues. Speech Shelter Goals Shelter Goals The patient will improve safety and independence in order to return home. Speech-Plan Patient/Family Goals Patient/Family Goals: The patient plans on returning home alone post rehab. Treatment Plan Speech Therapy Treatment Plan: Continue Plan of Care The patient will receive skilled ST services for cognitive-communication. Treatment Duration: September 06, 2018 Frequency: 5 times per week Estimated Hrs Per Day: .5 hour per day Rehab Potential: Fair Barriers to Learning: Patient has memory deficits Pt/Family Agrees to Plan: Yes Safety Risks/Education Teaching Recipient: Patient Teaching Methods: Discussion Response to Teaching: Verbalize Understanding Education Topics Provided: Safety within his room and utilization of the call light. Time Speech Therapy Time In: 15:00 Speech Therapy Time Out: 15:30 Total Billed Time: 30 Billed Treatment Time 1, ROSALBANDHUYEN Heard August 27, 2018 16:01
[2018-08-27 18:00] VITALS: BP 120/66
[2018-08-27] MEDS: CEFDINIR 300 MG (OMNICEF) CAP PO SCH (21:10)
[2018-08-27] MEDS: POLYETHYLENE GLYCOL 17 GM (MIRALAX) PACK PO SCH (21:10)
[2018-08-27] MEDS: HYDROcodone/APAP 5 MG/325 MG (LORTAB) TAB PO PRN (21:18)
[2018-08-28] MEDS: HYDROcodone/APAP 5 MG/325 MG (LORTAB) TAB PO PRN ×2 (00:49→22:29)
[2018-08-28 05:27] LABS: BASOPHILS % (AUTO) 0 % (0-10); EOSINOPHILS # (AUTO) 0.1 10^3/uL (0.0-0.3); EOSINOPHILS % (AUTO) 1 % (0-10); HEMATOCRIT 25 % (40-54); HEMOGLOBIN 7.8 G/DL (13.3-17.7); LYMPHOCYTES # (AUTO) 1.3 X 10^3 (1.0-4.0); LYMPHOCYTES % (AUTO) 18 % (12-44); MEAN CORPUSCULAR HEMOGLOBIN 29 PG (25-34); MEAN CORPUSCULAR HGB CONC 32 G/DL (32-36); MEAN CORPUSCULAR VOLUME 93 FL (80-99); MEAN PLATELET VOLUME 9.2 FL (7.4-10.4); MONOCYTES # (AUTO) 0.7 X 10^3 (0.0-1.0); MONOCYTES % (AUTO) 9 % (0-12); NEUTROPHILS # (AUTO) 5.5 X 10^3 (1.8-7.8); NEUTROPHILS % (AUTO) 73 % (42-75); PLATELET COUNT 176 10^3/uL (130-400); WHITE BLOOD COUNT 7.5 10^3/uL (4.3-11.0)
[2018-08-28 05:51] LABS: ALANINE AMINOTRANSFERASE 94 U/L (0-55); ALBUMIN 2.8 GM/DL (3.2-4.5); ALKALINE PHOSPHATASE 221 U/L (40-136); BILIRUBIN,TOTAL 0.6 MG/DL (0.1-1.0); BUN/CREATININE RATIO 22; CALCIUM 8.3 MG/DL (8.5-10.1); CARBON DIOXIDE 23 MMOL/L (21-32); CHLORIDE 108 MMOL/L (98-107); CREATININE SERUM 0.68 MG/DL (0.60-1.30); GFR ESTIMATED > 60; GLUCOSE 108 MG/DL (70-105); POTASSIUM 3.3 MMOL/L (3.6-5.0); SODIUM 141 MMOL/L (135-145); TOTAL PROTEIN 5.2 GM/DL (6.4-8.2)
[2018-08-28] MEDS: inSUlin ASPART (NovoLOG) 1 UNIT/0.01 ML (CHARGE PER UNIT) SC SCH ×4 (05:59→20:40)
[2018-08-28 06:07] VITALS: BP 117/66
[2018-08-28] MEDS: PANTOPRAZOLE 40 MG (PROTONIX) TAB PO SCH (06:35)
--- NOTE | 2018-08-28 08:21 | PM&R Progress Note ---
Subjective HPI/CC On Admission Date Seen by Provider: August 28, 2018 Time Seen by Provider: 08:15 Chief Complaint: Critical illness myopathy HPI: This is a 61yoWM clinic Pt of Dr. Blanc who presented to the [place] emergency room due to generalized weakness. He had been in [place] early in the day for lithotripsy of a large 11 mm ureteral stone and placement of a stent and he told the staff at [place] that he began feeling ill on his way from [place] to [place]. He was found to have a fever of 103.6, elevated Troponin of 0.433 and acute renal failure creatinine of 1.42, lactic acid of 1.86 and white count at max was 24,500. Chest X-ray was inconsistent, maybe some pulmonary congestion but he underwent intubation for respiratory failure and Dr. Montoya was managing that. He remained intubated for 2.5 days and overall is just having significant weakness and will need intensive therapy to return back home where he lives alone to resume his independent living as he had before. He has had significant edema, Lasix will be given today. He has had significant urinary output and is currently on Rocephin shifting to Omnicef BID due to blood cultures septicemia with E. Coli and will likely discontinue catheter tomorrow. We will also likely remove the right internal jugular central line. Bowels are moving periodically and he doesn't report any significant pain. He is compliant with CPAP machine on a nightly basis. Prior level of function was independent without assistive devices. Subjective/Events-last exam Participating well with therapy Catheter remains Dr Bonner updated me on the plan No fever noted Omnicef tolerated No pain is reported Patient does have some baseline intellectual deficit and I spoke to Dr Nichols and he will try to speak to some family members too EST abnl so will need cardiac catherization with presumed intervention Review of Systems Genitourinary: Dysuria, Retention Objective Exam Vital Signs Vital Signs Date Time Temp Pulse Resp B/P (MAP) Pulse Ox O2 Delivery O2 Flow Rate FiO2 08/28/18 07:27 94 Room Air 08/28/18 06:07 97.5 79 19 117/66 (83) 08/27/18 20:05 21 Capillary Refill : General Appearance: No Apparent Distress, WD/WN, Chronically ill HEENT: PERRL/EOMI, Normal ENT Inspection, Pharynx Normal, Moist Mucous Membranes Neck: Full Range of Motion, Normal Inspection, Non Tender, Supple Respiratory: Chest Non Tender, Lungs Clear, Normal Breath Sounds, No Accessory Muscle Use, No Respiratory Distress, Decreased Breath Sounds Cardiovascular: Regular Rate, Rhythm, No Gallop, No JVD, No Murmur Gastrointestinal: Normal Bowel Sounds, No Organomegaly, No Pulsatile Mass, Non Tender, Soft Back: Normal Inspection, No CVA Tenderness, No Vertebral Tenderness Extremity: Normal Capillary Refill, Normal Inspection, Normal Range of Motion, Non Tender, No Calf Tenderness, Pedal Edema Neurologic/Psychiatric: Alert, Oriented x3, No Motor/Sensory Deficits ( generalized weakness of legs and arms 4/5), Normal Mood/Affect Skin: Normal Color, Warm/Dry Lymphatic: No Adenopathy Results/Procedures Lab Laboratory Tests 08/28/18 05:15 Patient resulted labs reviewed. FIM Transfers Therapy Code Descriptions/Definitions Functional [place] Measure: 0=Not Assessed/NA 4=Minimal Assistance 1=Total Assistance 5=Supervision or Setup 2=Maximal Assistance 6=Modified [place] 3=Moderate Assistance 7=Complete [place] Therapy Quality Codes: 6 Independent with activity with or without an assistive device 5 Patient requires set up or clean up by helper. Patient completes activity by themselves 4 Supervision or touching assist (CGA). Elton provide cues , steadying assist 3 The helper provides less than half the effort to complete the activity 2 The helper provides more than half the effort to complete the activity 1 Dependent. The helper does all the effort to complete an activity 7 Patient refused to complete or attempt activity 9 The patient did not perform the activity before the current illness or injury 88 Not attempted due to Medical conditions or safety concerns Transfers (B, C, W/C) (FIM): 4 (MIN A. pt education on proper hand placement/ use of GB pt demo understanding ) Mental Status/Objective Comprehension: 6 Expression: 6 Social Interaction: 6 Problem Solvin Memory: 5 ADL-Treatment Feedin Eating (QC): 4 Groomin (CGA while standing at sink for safety/ balance) Oral Hygiene (QC): 4 Bathin Bathing Location: L Arm, R Arm, Chest, Abdomen, Perineal Area Shower/Bathe Self (QC): 2 Upper Extremity Dressin Upper Body Dressing (QC): 1 (required TA for all steps of LB dressing for sabrina socks, pants, and underpants. ) Lower Extremity Dressin Lower Body Dressing (QC): 1 On/Off Footwear (QC): 1 Toiletin (required assist to complete 3/3 toileting tasks) Toileting Hygiene (QC): 1 Toilet/Commode Transfer: 4 (MIN A. pt education on proper hand placement/ use of GB pt demo understanding ) Toilet Transfer (QC): 4 (MIN A. pt education on proper hand placement/ use of GB pt demo understanding ) Shower: 0 (unsafe to perform at this time ) Assessment/Plan Assessment and Plan Assess & Plan/Chief Complaint Assessment: s/p VDRF s/p sepsis UTI Ureteral stent in place s/p lithotripsy Urinary retention Hematuria Elevated troponin Elevated BNP Obesity TAMIA on biPAP Edema Hypokalemia Abnormal EST with elevated troponin during ICU stay in need of cardiac cath Plan: Lasix Dr Nichols appreciated Dr Bonner appreciated DC cath soon per Urology Check iron Complete abx Potassium supplement Needs cardiac cath (1) Myopathy (2) Abnormal stress test (3) Intellectual disability (4) Hypokalemia (5) Diabetes mellitus (6) Anemia (7) Sepsis (8) Ventilator dependence (9) Elevated troponin (10) Elevated brain natriuretic peptide (BNP) level (11) TAMIA on CPAP (12) Calculus of proximal left ureter (13) Chronic GERD (14) Urinary tract infection (15) Retained ureteral stent DALY LYNN DO August 28, 2018 08:21
--- NOTE | 2018-08-28 09:01 | Physical Therapy Evaluation ---
PT Evaluation-General Medical Diagnosis Admission Date August 27, 2018 at 11:10 Medical Diagnosis: sepsis/pneumonia Onset Date: August 22, 2018 Therapy Diagnosis Therapy Diagnosis: impaired mobility, strength, endurance Height/Weight Height (Feet): 5 Height (Inches): 9.00 Weight (Pounds): 307 Weight (Ounces): 0.0 Precautions Precautions/Isolations: Fall Prevention, Suicide Weight Bear Status Right Lower Extremity: Right Full Weight Bearing Left Lower Extremity: Left Full Weight Bearing Referral Physician: Miranda Gorman DO Reason for Referral: Evaluation/Treatment Medical History Pertinent Medical History: Arthritis, DM, GERD, HTN Additional Medical History High Cholesterol, Hypertension, Kidney Stones, Colitis, Gastroesophageal Reflux , Arthritis, Chronic Back Pain, Diabetes, Non-Insulin dep, Depression Reviewed History: Yes Social History Home: Single Level Current Living Status: Alone Entry Into Home: Stairs Without Railing PT Steps Into Home: 1 Prior/Core FIM Prior Level of Function Therapy Code Descriptions/Definitions Functional [place] Measure: 0=Not Assessed/NA 4=Minimal Assistance 1=Total Assistance 5=Supervision or Setup 2=Maximal Assistance 6=Modified [place] 3=Moderate Assistance 7=Complete [place] Therapy Quality Codes: 6 Independent with activity with or without an assistive device 5 Patient requires set up or clean up by helper. Patient completes activity by themselves 4 Supervision or touching assist (CGA). [place] provide cues , steadying assist 3 The helper provides less than half the effort to complete the activity 2 The helper provides more than half the effort to complete the activity 1 Dependent. The helper does all the effort to complete an activity 7 Patient refused to complete or attempt activity 9 The patient did not perform the activity before the current illness or injury 88 Not attempted due to Medical conditions or safety concerns Functional Abilities and Goals: Independent: Patient completed the activities by him/herself, with or without an assistive device, with no assistance from a helper. Needed Some Help: Patient needed partial assistance from another person to complete activities. Dependent: A helper completed the activities for the patient. Unknown: Not Applicable: Bed Mobility: 7 Transfers (B,C,W/C) (FIM): 7 Gait: 7 Stairs: 7 Indoor Mobility (Ambulation): Independent Stairs: Independent PT Evaluation-Current Subjective Patient in recliner pre tx, agrees to PT, states he has 2/10 pain on his bottom. Pt/Family Goals to be independent at home Objective Patient Orientation: Person, Place Attachments: Villagomez Catheter ROM/Strength ROM Lower Extremities slightly limited due to obesity and LE edema Strenght Lower Extremities 4/5 gross bilateral lower extremities Integumentary/Posture Bladder Incontinence: Villagomez Cath Neuromuscular (Tone, Coordination, Reflexes) NT Sensory Vision: Functional Hearing: Functional Hand Dominance: Right Sensation Right Lower Extremit: Impaired Sensation Left Lower Extremity: Impaired Sensation Lower Extremities Patient has decreased light touch sensation in both feet. Transfers Therapy Code Descriptions/Definitions Functional [place] Measure: 0=Not Assessed/NA 4=Minimal Assistance 1=Total Assistance 5=Supervision or Setup 2=Maximal Assistance 6=Modified [place] 3=Moderate Assistance 7=Complete [place] Therapy Quality Codes: 6 Independent with activity with or without an assistive device 5 Patient requires set up or clean up by helper. Patient completes activity by themselves 4 Supervision or touching assist (CGA). [place] provide cues , steadying assist 3 The helper provides less than half the effort to complete the activity 2 The helper provides more than half the effort to complete the activity 1 Dependent. The helper does all the effort to complete an activity 7 Patient refused to complete or attempt activity 9 The patient did not perform the activity before the current illness or injury 88 Not attempted due to Medical conditions or safety concerns Transfers (B, C, W/C) (FIM): 4 Scootin Rollin Roll Left to Right (QC): 4 Supine to/from Sit: 4 Sit to/from Stand: 4 Sit to Lying (QC): 4 Lying to Sitting/Side of Bed(Q: 3 Sit to Stand (QC): 4 Chair/Nbv-ps-Gdtfx Xfer(QC): 4 Car Transfer (QC): 4 Patient performs bed mobility with SBA, supine to sit with min assist, sit to supine with SBA, sit <-> stand with CGA, transfers with CGA, car transfer CGA. Patient needs cues for hand placement and safety. Will often sit or stand without placing hands on armrest. Gait Does the Patient Walk?: Yes Mode of Locomotion: Walk Anticipated Mode of Locomotion: Walk Gait (FIM): 2 Walk 10 feet (QC): 4 Walk 50 ft with 2 Turns(QC): 4 Walking 10ft/uneven surface-QC: 4 Distance: 120', 60'x2 Gait Level of Assist: 4 Gait Persons Needed: 1 Gait Assistive Device: FWW Comments/Gait Description Patient can ambulate 120' with a rolling walker with CGA (including 50' with at least 2 turns of 90 degrees and 10' over an uneven surface). He ambulates very slowly and takes very short steps, wide NADIA. Wheelchair Training Does the Pt Use a Wheelchair?: No Stairs Stairs (FIM): 1 #of Steps: 1 Level of Assist: 4 1 Step (curb) (QC): 4 Assistive Device: Walker Patient can go up and down 1 step using a rolling walker with CGA. Cues for foot placement and safety. Balance Sitting Static: Normal Sitting Dynamic: Normal Standing Static: Good Standing Dynamic: Good Treatment Patient also was toileted for a BM but he could not have one. His gown was changed out of a bigger one to better cover him. Assessment/Needs Patient has impaired mobility, strength, endurance. He ambulates with CGA and needs occasional cues for hand placement and safety. Rehab Potential: Fair PT Short Term Goals Short Term Goals Time Frame: September 04, 2018 Transfers (B,C,W/C) (FIM): 5 Gait (FIM): 5 Gait Distance Comment: 150' Gait Level of Assist: 5 Gait Assistive Device: FWW PT Snf Goals Precision Grinder External Goals PT Precision Grinder External Goals Time Frame: Sep 18, 2018 Transfers (B,C,W/C) (FIM): 6 Sit to Lying (QC): 6 Lying-Sitting on Side/Bed(QC): 6 Sit to Stand (QC): 6 Rollin Roll Left to Right (QC): 6 Chair/Ofn-ov-Qviab Xfer(QC): 6 Car Transfer (QC): 6 Gait (FIM): 6 Distance: 200' Walk 10 feet (QC): 6 Walk 10ft-Uneven Surface(QC): 6 Walk 50ft with 2 Turns (QC): 6 Walk 150 ft (QC): 6 Gait Level of Assist: 6 Gait Assistive Device: FWW Stairs (FIM): 2 # of Steps: 4 1 Step (curb) (QC): 4 4 Steps (QC): 4 Stairs Level Of Assist: 5 PT Plan Problem List Problem List: Activity Tolerance, Functional Strength, Safety, Balance, Gait, Transfer, Bed Mobility, ROM Treatment/Plan Treatment Plan: Continue Plan of Care Treatment Plan: Bed Mobility, Education, Functional Activity Jane, Functional Strength, Group Therapy, Gait, Safety, Therapeutic Exercise, Transfers Treatment Duration: Sep 18, 2018 Frequency: At least 5 of 7 days/Wk (IRF) Estimated Hrs Per Day: 1.5 hours per day Patient and/or Family Agrees t: Yes Safety Risks/Education Patient Education: Gait Training, Transfer Techniques, Steps, Correct Positioning, Safety Issues Teaching Recipient: Patient Teaching Methods: Demonstration, Discussion Response to Teaching: Reinforcement Needed Discharge Recommendations Plan Patient will perform bed mobility and transfer training, balance and endurance training, functional strengthening, stair training, gait training, and education , to improve functional mobility and independence at home. Therapy D/C Recommendations: Home w/ Family Support Time/GCodes Time In: 0800 Time Out: 0900 Total Billed Treatment Time: 60 Total Billed Treatment 1 visit EVM 30' FA 15' GT 15' DAVID BERNARDO PT August 28, 2018 09:01
[2018-08-28] MEDS: CEFDINIR 300 MG (OMNICEF) CAP PO SCH ×2 (09:09→20:04)
[2018-08-28] MEDS: POLYETHYLENE GLYCOL 17 GM (MIRALAX) PACK PO SCH ×2 (09:09→20:04)
[2018-08-28] MEDS: KCL 10 MEQ TAB (MICRO K) PO SCH ×2 (09:18→18:14)
[2018-08-28] MEDS ORDERED: FUROSEMIDE 40 MG/4 ML INJ (LASIX) IVP NR (10:25)
--- NOTE | 2018-08-28 10:47 | NUR ---
HUMAN RESOURCES EXECUTIVE ASSISTANT met with patient to complete initial assessment. Patient was alert and oriented and agreeable to assessment. Patient admitted to ARU from internally with sepsis and bilateral pneumonia. Prior to hospitalization, Patient resided alone in [place], [place]. The home is one level with one step at the entrance without a handrail. 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 Other than a CPAP (provided by [employer]), patient has no other DME. Patient identifies sister, Yazmin of [place] at [phone] as primary contact and brother, Nick of [place] at [phone] as secondary contact. Verified PCP as Dr. Nikolas PETERS and urologist as Dr. Bonner. Patient has [facility] and [employer] [facility] for insurance coverage and utilizes [facility] for local pharmacy needs.. HUMAN RESOURCES EXECUTIVE ASSISTANT reviewed typical rehab length of stay and weekly team conferences with patient, he expressed no concerns. HUMAN RESOURCES EXECUTIVE ASSISTANT will follow for appropriate discharge needs.
--- NOTE | 2018-08-28 11:34 | Individualized Plan of Care ---
Individualized Plan of Care Rehab Nursing IPOC Order Admission Date August 27, 2018 at 11:10 Current Orders Orders Admission Order(Inpt,Obs,Sdc) (08/27/18 10:10) Vital Signs: Per Unit Policy ( 08,16,00 (08/27/18 10:10) Medication Coordinator-Inpt Rehab Con (08/27/18 10:10) Rehab Nursing Orders-Ipoc (08/27/18 10:10) Physical Therapy Rehab Orders (08/27/18 10:10) Occupational Therapy Rehab Ord (08/27/18 10:10) Speech Therapy Rehab Orders (08/27/18 10:10) General/Regular (08/27/18 Lunch) Intake & Output ,14, (08/27/18 10:10) Precautions (Aru) (08/27/18 10:10) Rehab-Intensity Of Therapy (08/27/18 10:10) Code/Resuscitation (08/27/18 10:10) Initiate Admission Nursing Pro .admission (08/27/18 10:10) Acetaminophen Tablet (Tylenol Tablet) (08/27/18 10:15) Alprazolam Tablet (Xanax Tablet) (08/27/18 10:15) Calcium Carbonate Chew Tablet (Antacid C (08/27/18 10:15) Diphenhydramine Tablet (Benadryl Tablet) (08/27/18 10:15) Docusate Sodium Capsule (Colace Capsule) (08/27/18 10:15) Hydrocodone/Apap 5/325 Tablet (Lortab 5 (08/27/18 10:15) Loperamide Capsule (Imodium Capsule) (08/27/18 10:15) Melatonin Tablet (Melatonin Tablet) (08/27/18 10:15) Polyethylene Glycol Powder Pkt (Miralax (08/27/18 21:00) Ondansetron Injection (Zofran Injectio (08/27/18 10:15) Catheter(Uri) To Dependent Keerthi (08/27/18 10:14) Sodium Chloride Flush (Catheter Flush Sy (08/27/18 12:45) Code/Resuscitation (08/27/18 13:03) Accucheck Achs ACHS (08/27/18 13:03) Activity As Ordered (08/27/18 13:03) Catheter(Urinary) Discontinue (08/27/18 13:03) Elevate (08/27/18 13:03) Hob Raised: To ____Degrees (08/27/18 13:03) Heel Protectors Bilateral (08/27/18 13:03) Initiate Admission Nursing Pro .admission (08/27/18 13:03) Rt Ventilator Flowsheet 06 (08/27/18 13:03) Sequential Compression Device 08,20 (08/27/18 13:03) Skin Integrity Checks (08/27/18 13:03) Turn And Reposition Q2HR (08/27/18 13:03) Weight Bearing Status (08/27/18 13:03) Automatic Tray (08/27/18 13:03) Cho 60g/M 0snack (16-2000 Juni) (08/27/18 Dinner) Acetaminophen Tablet/Caplet (Tylenol T (08/27/18 13:15) Acetaminophen Oral Solution (Tylenol Ora (08/27/18 13:15) Furosemide Injection (Lasix Injection) (08/28/18 10:25) Haloperidol Injection (Haldol Injectio (08/27/18 13:15) Ondansetron Injection (Zofran Injectio (08/27/18 13:15) Insulin Aspart (Novolog) (Novolog (Charg (08/27/18 16:00) Morphine Injection (Morphine Injection (08/27/18 13:15) Bipap (Bilevel) Set Up (08/27/18 13:03) Consult Cardiology (08/27/18 13:03) Consult Pulmonology (08/27/18 13:03) Consult Wound Care Physician (08/27/18 13:03) Dietary Consult (08/27/18 13:03) Myocardial Spect Multi (08/27/18 13:03) Occupational Therapy Order (08/27/18 13:03) Oxygen Delivery Set Up (08/27/18 13:03) Pt Evaluate/Treat Request (08/27/18 13:03) Physical Therapy Oder (08/27/18 13:03) Rt Request For Service (08/27/18 13:03) Request Ot Evaluate & Treat (08/27/18 13:03) Regadenoson (Lexiscan (For Diagnostic Im (08/27/18 13:15) Cefdinir Capsule (Omnicef Capsule) (08/27/18 21:00) Pantoprazole Tablet (Protonix Tablet) (08/28/18 07:00) Cbc With Automated Diff (08/28/18 06:00) Comprehensive Metabolic Panel (08/28/18 06:00) Patient Visit (08/27/18 ) Speech Sound Lang Comp (08/27/18 ) Consult Physician (08/27/18 19:33) Consult Physician (08/27/18 19:33) Consult Physician (08/27/18 19:33) Iron Test (Fe) (08/28/18 06:00) Potassium Chloride (Tablet) (Klor Con Ta (08/28/18 08:16) Rehab Nursing Orders: Ongoing Assess. of Cognitive Status, Ongoing Assess. of Function Status, Bladder Management, Bladder Scan, Bladder Training, Bowel Management, Bowel Training, Disease Management & Educaiton, DVT Prophylaxis, Fall Prevention, Fluid/Electrolyte/Nutrition Mgmt, Medication Management & Education, Management of Risks & Complications, Pain Management, Patient/Family Support Intensity of Therapy to be met Patient to be seen: Min.3h per day/5 of 7d PT IPOC Problem List: Activity Tolerance, Functional Strength, Safety, Balance, Gait, Transfer, Bed Mobility, ROM Treatment Plan: Continue Plan of Care Bed Mobility, Education, Functional Activity Jane, Functional Strength, Group Therapy, Gait, Safety, Therapeutic Exercise, Transfers Treatment Duration: Sep 18, 2018 Frequency: At least 5 of 7 days/Wk (IRF) Estimated Hrs Per Day: 1.5 hours per day OT IPOC Problems: Decreased Activ Tolerance, Decreased Safety Aware, Decreased UE Strength, Impaired Bed Mobility, Impaired Coordination, Impaired Funct Balance, Impaired I ADL's, Impaired Self-Care Skills OT Treatment, Training and Edu: Yes OT Problems pt presents with functional limitation affecting areas of ADLS/ functional transfers. pt would benefit from skilled OT services to address above mention deficits, increase independence with ADLs/ functional transfers, and for safe transition to home. Plan of Care: ADL Retraining, Caregiver Training, Cognitive Retraining, Concurrent Therapy, Functional Mobility, Group Exercise/Act as Ind, Orthotic Fitting/Training, UE Funct Exercise/Act Treatment Duration: Sep 24, 2018 Frequency: At least 5 of 7 days/Wk (IRF) Estimated Hrs Per Day: 1.5 hours per day (60-90 munites per day) [facility] Speech Therapy Treatment Plan: Continue Plan of Care Treatment Duration: September 06, 2018 Frequency: 5 times per week Estimated Hrs Per Day: .5 hour per day Medication Coordinator/Case Mgmt Medication Coordinator/Case Managemen: Discharge Planning Dietitian/Health And Nutrition Specialist Dietitian/Health And Nutrition Specialist to monitor nutritional status and make changes and/or recommendations as needed and work with speech pathology on dietary upgrades as the occur. Physician IP Medical Issues being managed closely and that require the 24 hour availability of a physician: Urinary retention and acute UTI and recent sepsis and abnl EST needs cath needs close 24/ monitoring Medical Issues: Bowel/Bladder Function, DVT Prophylaxis, Falls Precautions, Fluid/Electrolyte/Nutrition Balance, Infection Protection, Pain Management Brief Synthesis of Preadmission Screen, Post-Admission Evaluation, and Therapy Evaluations: PT will increase ambulation with assistive device OT will focus on increasing independent ADL's Medical Prognosis: Good Anticipated Length of Stay: 10 days DALY LYNN DO August 28, 2018 11:34
--- NOTE | 2018-08-28 12:18 | Cardiology Progress Note ---
Cardiology SOAP Progress Note Subjective: No further chest pain. Objective: I&O/Vital Signs 08/28/18 08/28/18 06:07 07:27 Temp 97.5 Pulse 79 Resp 19 B/P (MAP) 117/66 (83) Pulse Ox 97 94 O2 Delivery Room Air Room Air 08/28/18 00:00 Intake Total 1100 ml Output Total 6350 ml Balance -5250 ml Weight (Pounds): 307 Weight (Ounces): 0.0 Weight (Calculated Kilograms): 139.681737 Constitutional: AAO x 3 Respiratory: No accessory muscle use, No respiratory distress, No chest tender , No chest expansion is symmetric; chest is bilaterally symmetric; No lungs clear to percussion; lungs clear to auscultation; No crackles, No rhonchi, No rales, No stridor, No wheezing, No pleural rub, No other Cardiovascular: regular rate-rhythm; No irregularly irregular, No extra beats, No parasternal heave is noted, No JVD, No edema, No bradycardia, No tachycardia , No point of maximal impulse, No cardiac thrills are palpable; S1 and S2; No gallop/S3, No gallop/S4, No diastolic murmur, No systolic murmur, No friction rub, No click, No other Gastrointestional: No tender, No soft, No round, No distended, No pulsatile mass, No organomegaly, No guarding, No rebound, No tenderness, No hernia, No mass, No audible bowel sounds, No abnormal bowel sounds, No abdominal bruits, No spleenomegaly, No other Extremities: No normal range of motion, No non-tender, No normal inspection, No pedal edema, No calf tenderness, No normal capillary refill, No pelvis stable , No calf tenderness, No inflammation, No pedal edema, No slow capillary refill , No swelling, No other, No abrasion, No clubbing, No cyanosis, No ecchymosis, No laceration, No no lower extremity edema bilateral, No significant edema, No tenderness, No wound Neurologic/Psychiatric: no motor/sensory deficits, alert, normal mood/affect, oriented x 3 Skin: No normal color, No warm/dry, No cyanosis, No cool, No diaphoresis, No damp, No ecchymosis, No jaundice, No mottled, No pallor, No rash, No tattoos/ piercings, No ulcerations, No rash on exposed areas, No ulcerations on exposed areas, No other Results/Procedures: Labs Laboratory Tests 08/27/18 15:41: Glucometer 92 08/27/18 21:19: Glucometer 87 08/28/18 05:15: White Blood Count 7.5, Red Blood Count 2.66L, Hemoglobin 7.8L, Hematocrit 25L, Mean Corpuscular Volume 93, Mean Corpuscular Hemoglobin 29, Mean Corpuscular Hemoglobin Concent 32, Red Cell Distribution Width 15.0H, Platelet Count 176, Mean Platelet Volume 9.2, Neutrophils (%) (Auto) 73, Lymphocytes (%) (Auto) 18, Monocytes (%) (Auto) 9, Eosinophils (%) (Auto) 1, Basophils (%) (Auto) 0, Neutrophils # (Auto) 5.5, Lymphocytes # (Auto) 1.3, Monocytes # (Auto) 0.7, Eosinophils # (Auto) 0.1, Basophils # (Auto) 0.0, Sodium Level 141, Potassium Level 3.3L, Chloride Level 108H, Carbon Dioxide Level 23, Anion Gap 10, Blood Urea Nitrogen 15, Creatinine 0.68, Estimat Glomerular Filtration Rate > 60, BUN/ Creatinine Ratio 22, Glucose Level 108H, Calcium Level 8.3L, Corrected Calcium 9.3, Total Bilirubin 0.6, Aspartate Amino Transf (AST/SGOT) 60H, Alanine Aminotransferase (ALT/SGPT) 94H, Alkaline Phosphatase 221H, Total Protein 5.2L, Albumin 2.8L A/P: Assessment/Dx: Severe septic shock, likely due to bilateral pneumonia, UTI, Urinary bleeding, Recent kidney stone, left ureter stent, Possible SVT, no strips available, Elevated proBNP, Elevated troponin, Acute kidney injury, Lactic acidosis, Diabetes, Plan: Severe septic shock, likely due to bilateral pneumonia, resolved. UTI, on broad spectrum antibiotics. UTI is not confirmed. Urinary bleeding, status post treatment for kidney stone and left ureter stent yesterday at [facility] in [place]. Significant resolution. Recent kidney stone, left ureter stent, Possible SVT, no strips available, there is a mention in the record that the patient was in SVT and adenosine was given which converted to sinus tachycardia. Unfortunately no strips are available for review, therefore I cannot comment on what was seen by the EMS. All available EKGs show sinus tachycardia. Which is very likely due to severe systemic illness. Elevated proBNP, likely due to bilateral pneumonia and severe sepsis. Bedside echocardiogram revealed normal LV function on 08/23/2018. Elevated troponin, NSTEMI. Could be secondary to systemic illness (type II myocardial infarction) ; however NSTEMI due to plaque rupture cannot be ruled out, however we cannot give antiplatelet and antithrombin agents due to significant urological bleeding and dropping Hb from 10 -> 9.1 -> 8.4. No clear wall motion abnormality noted on echocardiogram. Normal LV function on Echo done 08/23/2018. I discussed with Dr. Montoya and then with the patient. Nuclear stress test done on 08/27/2018 showed evidence of reversible apical ischemia. Coronary angiography is recommended which will be performed tomorrow 08/29/2018. Informed consent was taken from the patient. We'll also talk to the patient's sister about the procedure. Acute kidney injury, IV fluids being given. Lactic acidosis, likely due to severe sepsis. Resolved. Diabetes, Thank you for your consultation. Please call me if you have any questions. Jordana Nichols MD, FACP, FACC, FSCAI, FHRS, CCDS Interventional Cardiology Cardiac Electrophysiology Vascular Medicine and Endovascular Interventions Emely NICHOLS MD August 28, 2018 12:18
--- NOTE | 2018-08-28 12:36 | Speech Therapy Daily Note ---
Speech Daily Progress Note Subjective Date Seen by Provider: August 28, 2018 Time Seen by Provider: 00:30 The patient was resting in his recliner when I entered the room. Objective The patient completed memory exercises related to himself with 80% accuracy given min to mod verbal cues and/or redirections. Assessment Assessment Current Status: Fair Progress Treatment Plan Continue Plan of Care Communication Comprehension: 6 Expression: 6 Social Cognition Social Interaction: 6 Problem Solvin Memory: 5 Speech Short Term Goals Short Term Goals Short Term Goals 1) The patient will be able to follow verbal instructions with her daily tasks at 90% or greater with minimal cues. 2) The patient will recall new information provided with 90% or greater with minimal cues. 3) The patient will complete memory exercises with 90% or greater with minimal cues. Speech Chcf Goals Electronic Health Records Specialist Goals The patient will improve safety and independence in order to return home. Speech-Plan Patient/Family Goals Patient/Family Goals: The patient plans to return home alone post rehab, however at this time he has multiple medical issues which will need to be resolved prior to his return home. Treatment Plan Speech Therapy Treatment Plan: Continue Plan of Care The patient was pleasant and cooperative with therapy today. Treatment Duration: September 06, 2018 Frequency: 5 times per week Estimated Hrs Per Day: .5 hour per day Rehab Potential: Fair Barriers to Learning: The patient has decreased memory for self care. Pt/Family Agrees to Plan: Yes Safety Risks/Education Teaching Recipient: Patient Teaching Methods: Discussion Response to Teaching: Verbalize Understanding Education Topics Provided: Safety within his room, communication of his wants/needs Time Speech Therapy Time In: 09:00 Speech Therapy Time Out: 09:30 Total Billed Time: 30 Billed Treatment Time [address] August 28, 2018 12:36
--- NOTE | 2018-08-28 13:24 | Occupational Ther Daily Note ---
OT Current Status-Daily Note Subjective pt sitting in chair upon OT arrival. pt agreed to skilled OT TX session with focus on increasing independence with ADLS/ functional transfers. pt complains of no pain Mental Status/Objective Patient Orientation: Normal For Age Therapy Code Descriptions/Definitions Functional [place] Measure: 0=Not Assessed/NA 4=Minimal Assistance 1=Total Assistance 5=Supervision or Setup 2=Maximal Assistance 6=Modified [place] 3=Moderate Assistance 7=Complete [place] Attachments: Villagomez Catheter ADL-Treatment Therapy Code Descriptions/Definitions Functional [place] Measure: 0=Not Assessed/NA 4=Minimal Assistance 1=Total Assistance 5=Supervision or Setup 2=Maximal Assistance 6=Modified [place] 3=Moderate Assistance 7=Complete [place] Therapy Quality Codes: 6 Independent with activity with or without an assistive device 5 Patient requires set up or clean up by helper. Patient completes activity by themselves 4 Supervision or touching assist (CGA). [place] provide cues , steadying assist 3 The helper provides less than half the effort to complete the activity 2 The helper provides more than half the effort to complete the activity 1 Dependent. The helper does all the effort to complete an activity 7 Patient refused to complete or attempt activity 9 The patient did not perform the activity before the current illness or injury 88 Not attempted due to Medical conditions or safety concerns Eating (FIM): 7 Eating (QC): 6 Grooming (FIM): 4 (CGA while standing at sink for safety/ balance. noted 1 LOB while standing at sink but able to self correct) Oral Hygiene (QC): 4 Bathing (FIM): 4 (intermitted CGA for safety/ balance while standing.) Bathing Location: L Arm, R Arm, L Upper Leg, R Upper Leg, L Lower Leg ( including foot), R Lower Leg (including foot), Chest, Abdomen, Buttocks, Perineal Area Shower/Bathe Self (QC): 4 Upper Body (FIM): 5 (set up) Upper Body Dressing (QC): 4 Lower Body Dressing (FIM): 4 (CGA while standing for safety/ balance while standing ) Lower Body Dressing (QC): 4 (pt education on use of procurement specialist and sock aid. pt required additional timing to perform LB dressing with equipment ) On/Off Footwear (QC): 4 Toileting (FIM): 4 (CGA while standing for balance/ safety. use of RW to maintain balance. ) Toileting Hygiene (QC): 4 Transfers (B, C, W/C) (FIM): 4 (use of RW ) Toilet/Commode Transfer (FIM): 4 Toilet Transfer (QC): 4 Shower Transfer(FIM): 4 (use of RW and GB for safety. balance. noted pt use of shower chair ) pt education on use of energy conservations techniques within ADLs. pt demo and verbalized understanding. Education OT Patient Education: Energy conservation, Modified ADL techniques, Progress toward Goal/Update tx plan, Purpose of tx/functional activities, Rehab process, Safety issues, Transfer techniques, Use of adapted equipment OT Short Term Goals Short Term Goals Eating(FIM): 6 Grooming(FIM): 6 Bathing(FIM): 5 Bathing Location: L Arm, R Arm, L Upper Leg, R Upper Leg, L Lower Leg ( including foot), R Lower Leg (including foot), Chest, Abdomen, Buttocks, Perineal Area Upper Body Dressing(FIM): 5 Lower Body Dressing(FIM): 5 Toileting(FIM): 5 Transfers (B,C,W/C) (FIM): 5 Toilet/Commode Transfer(FIM): 5 Tub Transfer(FIM): 5 Shower Transfer(FIM): 5 Additional Short Term Goals: 1-Demonstrate ADL Tasks, 2-Verbalize Understanding , 3-ImproveStrength/Jane 1=Demonstrate adherence to instructed precautions during ADL tasks. 2=Patient will verbalize/demonstrate understanding of assistive devices/ modifications for ADL. 3=Patient will improve strength/tolerance for activity to enable patient to perform ADL's. OT Recycling Technician Goals Recycling Technician Goals Eating (FIM): 6 Eating (QC): 6 Groomin Oral Hygiene (QC): 6 Bathing(FIM): 6 Bathing Location: L Arm, R Arm, L Upper Leg, R Upper Leg, L Lower Leg ( including foot), R Lower Leg (including foot), Chest, Abdomen, Buttocks, Perineal Area Shower/Bathe Self (QC): 6 Upper Body Dressing(FIM): 6 Upper Body Dressing (QC): 6 Lower Body Dressing(FIM): 6 Lower Body Dressing (QC): 6 On/Off Footwear (QC): 6 Toileting(FIM): 6 Toileting Hygiene (QC): 6 Transfers (B,C,W/C) (FIM): 6 Toilet/Commode Transfer(FIM): 6 Toilet/Commode Transfer (QC): 6 Tub Transfer(FIM): 6 Shower Transfer(FIM): 6 Additional Goals: 1-Demonstrate ADL Tasks, 2-Verbalize Understanding, 3- ImproveStrength/Jane 1=Demonstrate adherence to instructed precautions during ADL tasks. 2=Patient will verbalize/demonstrate understanding of assistive devices/ modifications for ADL. 3=Patient will improve strength/tolerance for activity to enable patient to perform ADL's. OT Education/Plan Problem List/Assessment Assessment: Decreased Activ Tolerance, Decreased Safety Aware, Impaired Funct Balance, Impaired I ADL's, Impaired Self-Care Skills pt presents with functional limitation affecting areas of ADLS/ functional transfers. pt would benefit from skilled OT services to address above mention deficits, increase independence with ADLs/ functional transfers, and for safe transition to home. Discharge Recommendations Plan/Recommendations: Continue POC Treatment Plan/Plan of Care Treatment,Training & Education: Yes Patient would benefit from OT for education, treatment and training to promote independence in ADL's, mobility, safety and/or upper extremity function for ADL' s. Plan of Care: ADL Retraining, Caregiver Training, Cognitive Retraining, Concurrent Therapy, Functional Mobility, Group Exercise/Act as Ind, Orthotic Fitting/Training, UE Funct Exercise/Act Treatment Duration: Sep 24, 2018 Frequency: At least 5 of 7 days/Wk (IRF) Estimated Hrs Per Day: 1.5 hours per day (60-90 munites per day) Agreement: Yes Rehab Potential: Fair Time/GCodes Start Time: 09:30 Stop Time: 11:00 Billed Treatment Time ADL 90 minutes, 6 units SERVANDO THOMAS OT August 28, 2018 13:24
--- NOTE | 2018-08-28 13:25 | Pulmonary Progress Note ---
Subjective Time Seen by a Provider: 13:41 Subjective/Events-last exam No complications noted. Sepsis Event Evaluation Height, Weight, BMI Height: 5'9.00" Weight: 307lbs. 0.0oz. 139.971006pj; 45.3 BMI Method:Actual Exam Exam Vital Signs Date Time Temp Pulse Resp B/P (MAP) Pulse Ox O2 Delivery O2 Flow Rate FiO2 08/28/18 07:27 94 Room Air 08/28/18 06:07 97.5 79 19 117/66 (83) 97 Room Air 08/27/18 21:00 NIV CPAP 08/27/18 20:05 92 Room Air 21 08/27/18 18:00 99.0 60 18 120/66 (84) 96 NIV CPAP 08/27/18 17:42 Room Air I & O 08/28/18 07:00 Intake Total 1450 ml Output Total 7450 ml Balance -6000 ml Height & Weight Height: 5'9.00" Weight: 307lbs. 0.0oz. 139.137578pm; 45.3 BMI Method:Actual General Appearance: No Apparent Distress, WD/WN, Chronically ill HEENT: PERRL/EOMI, Normal ENT Inspection, Pharynx Normal, Moist Mucous Membranes Neck: Full Range of Motion, Normal Inspection, Non Tender, Supple Respiratory: Chest Non Tender, Lungs Clear, Normal Breath Sounds, No Accessory Muscle Use, No Respiratory Distress, Decreased Breath Sounds Cardiovascular: Regular Rate, Rhythm, No Gallop, No JVD, No Murmur Extremity: Normal Capillary Refill, Normal Inspection, Normal Range of Motion, Non Tender, No Calf Tenderness, Pedal Edema Neurologic/Psychiatric: Alert, Oriented x3, No Motor/Sensory Deficits ( generalized weakness of legs and arms 4/5), Normal Mood/Affect Skin: Normal Color, Warm/Dry Lymphatic: No Adenopathy Results Lab Laboratory Tests 08/28/18 05:15 Assessment/Plan Assessment/Plan Acute respiratory failure - resolved -BiPAP PRN and QHS Severe sepsis with septic shock and Bilateral pneumonia and UTI - Blood culture shows GNR -Rocephin -Echo this AM -- last echo 05/03 shows EF of 60-65% - influenza swab -Neg Anemia Nephrolithiasis with recent stent placement - Hematuria -Dr. Bonner evaluated pt and no further recommendations UTI Acute renal failure -IVF Metabolic lactic acidosis -IVF Elevated liver enzymes secondary to sepsis -Monitor JP LEWIS DO August 28, 2018 13:25
--- NOTE | 2018-08-28 14:28 | Physical Therapy Daily Note ---
PT Daily Note-Current Subjective Patient in recliner pre tx, agrees to PT, has no complaints of pain at rest. Patient would like to have a wheelchair so he can propel himself around the rehab and not have to rely on others to be with him for ambulation. Wheelchair was obtained for him. Appearance Patient in recliner post tx with nurse call, phone, tray, all needs met. Mental Status Patient Orientation: Person, Place Transfers Therapy Code Descriptions/Definitions Functional [place] Measure: 0=Not Assessed/NA 4=Minimal Assistance 1=Total Assistance 5=Supervision or Setup 2=Maximal Assistance 6=Modified [place] 3=Moderate Assistance 7=Complete [place] Therapy Quality Codes: 6 Independent with activity with or without an assistive device 5 Patient requires set up or clean up by helper. Patient completes activity by themselves 4 Supervision or touching assist (CGA). [place] provide cues , steadying assist 3 The helper provides less than half the effort to complete the activity 2 The helper provides more than half the effort to complete the activity 1 Dependent. The helper does all the effort to complete an activity 7 Patient refused to complete or attempt activity 9 The patient did not perform the activity before the current illness or injury 88 Not attempted due to Medical conditions or safety concerns Transfers (B, C, W/C) (FIM): 5 Sit to/from Stand: 5 Bed to/from Chair: 5 Occasional cues for hand placement and safety. Weight Bearing Right Lower Extremity: Right Full Weight Bearing Left Lower Extremity: Left Full Weight Bearing Gait Training Gait (FIM): 5 Distance: 150'x2 Gait Level of Assist: 5 Gait Persons Needed: 1 Gait Assistive Device: FWW Patient ambulates very slowly, short steps. Exercises NuStep Minutes: 15 NuStep Workload: 5 Treatments transfers, ambulation, functional strengthening Assessment Current Status: Fair Progress Improving strength and endurance. Patient ambulates extremely slowly. PT Short Term Goals Short Term Goals Time Frame: September 04, 2018 Transfers (B,C,W/C) (FIM): 5 Gait (FIM): 5 Gait Distance Comment: 150' Gait Level of Assist: 5 Gait Assistive Device: FWW PT Detention Goals Burrer Marker Axle Goals PT Burrer Marker Axle Goals Time Frame: Sep 18, 2018 Transfers (B,C,W/C) (FIM): 6 Sit to Lying (QC): 6 Lying-Sitting on Side/Bed(QC): 6 Sit to Stand (QC): 6 Rollin Roll Left to Right (QC): 6 Chair/Ndy-ud-Jblil Xfer(QC): 6 Car Transfer (QC): 6 Gait (FIM): 6 Distance: 200' Walk 10 feet (QC): 6 Walk 10ft-Uneven Surface(QC): 6 Walk 50ft with 2 Turns (QC): 6 Walk 150 ft (QC): 6 Gait Level of Assist: 6 Gait Assistive Device: FWW Stairs (FIM): 2 # of Steps: 4 1 Step (curb) (QC): 4 4 Steps (QC): 4 Stairs Level Of Assist: 5 PT Plan Problem List Problem List: Activity Tolerance, Functional Strength, Safety, Balance, Gait, Transfer, Bed Mobility Treatment/Plan Treatment Plan: Continue Plan of Care Treatment Plan: Bed Mobility, Education, Functional Activity Jane, Functional Strength, Group Therapy, Gait, Safety, Therapeutic Exercise, Transfers Treatment Duration: Sep 18, 2018 Frequency: At least 5 of 7 days/Wk (IRF) Estimated Hrs Per Day: 1.5 hours per day Patient and/or Family Agrees t: Yes Safety Risks/Education Patient Education: Gait Training, Transfer Techniques, Correct Positioning, Safety Issues Teaching Recipient: Patient Teaching Methods: Demonstration, Discussion Response to Teaching: Reinforcement Needed Time/GCodes Time In: 1300 Time Out: 1340 Total Billed Treatment Time: 40 Total Billed Treatment 1 visit EX 15' GT 25' DAVID BERNARDO PT August 28, 2018 14:28
--- NOTE | 2018-08-28 16:03 | Physical Therapy Daily Note ---
PT Daily Note-Current Subjective Patient in recliner pre tx, agrees to PT, has no complaints of pain Appearance Patient in recliner post tx with nurse call, phone, tray, all needs met. Mental Status Patient Orientation: Person, Place Attachments: Villagomez Catheter Transfers Therapy Code Descriptions/Definitions Functional [place] Measure: 0=Not Assessed/NA 4=Minimal Assistance 1=Total Assistance 5=Supervision or Setup 2=Maximal Assistance 6=Modified [place] 3=Moderate Assistance 7=Complete [place] Therapy Quality Codes: 6 Independent with activity with or without an assistive device 5 Patient requires set up or clean up by helper. Patient completes activity by themselves 4 Supervision or touching assist (CGA). [place] provide cues , steadying assist 3 The helper provides less than half the effort to complete the activity 2 The helper provides more than half the effort to complete the activity 1 Dependent. The helper does all the effort to complete an activity 7 Patient refused to complete or attempt activity 9 The patient did not perform the activity before the current illness or injury 88 Not attempted due to Medical conditions or safety concerns Transfers (B, C, W/C) (FIM): 5 Sit to/from Stand: 5 Appropriate use of hands during sit <-> stand this treatment. Weight Bearing Right Lower Extremity: Right Full Weight Bearing Left Lower Extremity: Left Full Weight Bearing Gait Training Gait (FIM): 5 Distance: 150'x2 Gait Level of Assist: 5 Gait Persons Needed: 2 Gait Assistive Device: FWW Extremely slow ambulation, very short steps. Treatments ambulation Assessment Current Status: Fair Progress improving endurance but patient needs to improve his speed of ambulation PT Short Term Goals Short Term Goals Time Frame: September 04, 2018 Transfers (B,C,W/C) (FIM): 5 Gait (FIM): 5 Gait Distance Comment: 150' Gait Level of Assist: 5 Gait Assistive Device: FWW PT Shelter Goals Shelter Goals PT Shelter Goals Time Frame: Sep 18, 2018 Transfers (B,C,W/C) (FIM): 6 Sit to Lying (QC): 6 Lying-Sitting on Side/Bed(QC): 6 Sit to Stand (QC): 6 Rollin Roll Left to Right (QC): 6 Chair/Duu-df-Fntnq Xfer(QC): 6 Car Transfer (QC): 6 Gait (FIM): 6 Distance: 200' Walk 10 feet (QC): 6 Walk 10ft-Uneven Surface(QC): 6 Walk 50ft with 2 Turns (QC): 6 Walk 150 ft (QC): 6 Gait Level of Assist: 6 Gait Assistive Device: FWW Stairs (FIM): 2 # of Steps: 4 1 Step (curb) (QC): 4 4 Steps (QC): 4 Stairs Level Of Assist: 5 PT Plan Problem List Problem List: Activity Tolerance, Functional Strength, Safety, Balance, Gait, Transfer, Bed Mobility Treatment/Plan Treatment Plan: Continue Plan of Care Treatment Plan: Bed Mobility, Education, Functional Activity Jane, Functional Strength, Group Therapy, Gait, Safety, Therapeutic Exercise, Transfers Treatment Duration: Sep 18, 2018 Frequency: At least 5 of 7 days/Wk (IRF) Estimated Hrs Per Day: 1.5 hours per day Patient and/or Family Agrees t: Yes Safety Risks/Education Patient Education: Gait Training, Transfer Techniques, Correct Positioning, Safety Issues Teaching Recipient: Patient Teaching Methods: Demonstration, Discussion Response to Teaching: Reinforcement Needed Time/GCodes Time In: 1540 Time Out: 1600 Total Billed Treatment Time: 20 Total Billed Treatment 1 visit GT 20' DAVID BERNARDO PT August 28, 2018 16:03
[2018-08-28 17:00] VITALS: BP 150/79
--- NOTE | 2018-08-28 18:14 | NUR ---
Spoke with patient's sister, Yazmin Nettles in [facility] who is a nurse and explained that Dr. Nichols wanted to do a Heart cath tomorrow based on the stress test that was completed yesterday. She agreed with that plan and denies any questions at this time.
[2018-08-29 04:15] VITALS: BP 152/79
[2018-08-29] MEDS: PANTOPRAZOLE 40 MG (PROTONIX) TAB PO SCH (05:11)
[2018-08-29] MEDS: KCL 10 MEQ TAB (MICRO K) PO SCH ×2 (05:11→16:45)
[2018-08-29] MEDS: inSUlin ASPART (NovoLOG) 1 UNIT/0.01 ML (CHARGE PER UNIT) SC SCH ×4 (05:11→20:47)
--- NOTE | 2018-08-29 08:00 | NUR ---
DR. LYNN NOTIFIED OF POTASSIUM AND IRON LEVELS AND SUPPLEMENTS ORDERED. PATIENT'S ONLY COMPLAINT OF PAIN IS BOTTOM WHERE SKIN BREAKDOWN IS. IS NPO FOR HEART CATH TODAY.
[2018-08-29] MEDS ORDERED: HEParin (CATH LAB) 0 ML IV ONE (08:20)
[2018-08-29] MEDS ORDERED: LIDOCAINE 1% INJ 20 ML 20 ML VIAL ONE (08:20)
--- NOTE | 2018-08-29 08:27 | PM&R Progress Note ---
Subjective HPI/CC On Admission Date Seen by Provider: August 29, 2018 Time Seen by Provider: 08:30 Chief Complaint: Critical illness myopathy HPI: This is a 61yoWM clinic Pt of Dr. Blanc who presented to the [facility] emergency room due to generalized weakness. He had been in [place] early in the day for lithotripsy of a large 11 mm ureteral stone and placement of a stent and he told the staff at [facility] that he began feeling ill on his way from [place] to [facility]. He was found to have a fever of 103.6, elevated Troponin of 0.433 and acute renal failure creatinine of 1.42, lactic acid of 1.86 and white count at max was 24,500. Chest X-ray was inconsistent, maybe some pulmonary congestion but he underwent intubation for respiratory failure and Dr. Montoya was managing that. He remained intubated for 2.5 days and overall is just having significant weakness and will need intensive therapy to return back home where he lives alone to resume his independent living as he had before. He has had significant edema, Lasix will be given today. He has had significant urinary output and is currently on Rocephin shifting to Omnicef BID due to blood cultures septicemia with E. Coli and will likely discontinue catheter tomorrow. We will also likely remove the right internal jugular central line. Bowels are moving periodically and he doesn't report any significant pain. He is compliant with CPAP machine on a nightly basis. Prior level of function was independent without assistive devices. Subjective/Events-last exam Participating well with therapy Catheter remains and Dr Bonner in charge of that Dr Bonner updated me on the plan and he has f/u at [facility] and he is concerned about it so will confirm the plan to reassure the patient No fever noted Omnicef tolerated No pain is reported Patient does have some baseline intellectual deficit and I spoke to Dr Nichols and he will try to speak to some family members too Cath this morning Review of Systems General: Fatigue Pulmonary: Dyspnea Objective Exam Vital Signs Vital Signs Date Time Temp Pulse Resp B/P (MAP) Pulse Ox O2 Delivery O2 Flow Rate FiO2 08/29/18 06:15 95 Room Air 08/29/18 04:15 99.0 84 18 152/79 (103) 08/27/18 20:05 21 Capillary Refill : General Appearance: No Apparent Distress, WD/WN, Chronically ill HEENT: PERRL/EOMI, Normal ENT Inspection, Pharynx Normal, Moist Mucous Membranes Neck: Full Range of Motion, Normal Inspection, Non Tender, Supple Respiratory: Chest Non Tender, Lungs Clear, Normal Breath Sounds, No Accessory Muscle Use, No Respiratory Distress, Decreased Breath Sounds Cardiovascular: Regular Rate, Rhythm, No Gallop, No JVD, No Murmur Gastrointestinal: Normal Bowel Sounds, No Organomegaly, No Pulsatile Mass, Non Tender, Soft Back: Normal Inspection, No CVA Tenderness, No Vertebral Tenderness Extremity: Normal Capillary Refill, Normal Inspection, Normal Range of Motion, Non Tender, No Calf Tenderness, Pedal Edema Neurologic/Psychiatric: Alert, Oriented x3, No Motor/Sensory Deficits ( generalized weakness of legs and arms 4/5), Normal Mood/Affect Skin: Normal Color, Warm/Dry Lymphatic: No Adenopathy Results/Procedures Lab Patient resulted labs reviewed. FIM Transfers Therapy Code Descriptions/Definitions Functional [place] Measure: 0=Not Assessed/NA 4=Minimal Assistance 1=Total Assistance 5=Supervision or Setup 2=Maximal Assistance 6=Modified [place] 3=Moderate Assistance 7=Complete [place] Therapy Quality Codes: 6 Independent with activity with or without an assistive device 5 Patient requires set up or clean up by helper. Patient completes activity by themselves 4 Supervision or touching assist (CGA). [place] provide cues , steadying assist 3 The helper provides less than half the effort to complete the activity 2 The helper provides more than half the effort to complete the activity 1 Dependent. The helper does all the effort to complete an activity 7 Patient refused to complete or attempt activity 9 The patient did not perform the activity before the current illness or injury 88 Not attempted due to Medical conditions or safety concerns Transfers (B, C, W/C) (FIM): 5 Scootin Rollin Roll Left to Right (QC): 4 Supine to/from Sit: 4 Sit to/from Stand: 5 Sit to Lying (QC): 4 Sit to Stand (QC): 4 Chair/Dou-dh-Aostc Xfer(QC): 4 Bed to/from Chair: 5 Car Transfer (QC): 4 Gait Training Does the Patient Walk?: Yes Gait (FIM): 5 Distance: 150'x2 Walk 10 feet (QC): 4 Walk 50 ft with 2 Turns(QC): 4 Walking 10ft/uneven surface-QC: 4 Gait Level of Assist: 5 Gait Persons Needed: 2 Gait Assistive Device: FWW Wheelchair Training Does the Pt Use a Wheelchair?: No Stair Training Stairs (FIM): 1 #of Steps: 1 1 Step (curb) (QC): 4 Level of Assist: 4 Mental Status/Objective Comprehension: 6 Expression: 6 Social Interaction: 6 Problem Solvin Memory: 5 ADL-Treatment Feedin Eating (QC): 6 Groomin (CGA while standing at sink for safety/ balance. noted 1 LOB while standing at sink but able to self correct) Oral Hygiene (QC): 4 Bathin (intermitted CGA for safety/ balance while standing.) Bathing Location: L Arm, R Arm, L Upper Leg, R Upper Leg, L Lower Leg ( including foot), R Lower Leg (including foot), Chest, Abdomen, Buttocks, Perineal Area Shower/Bathe Self (QC): 4 Upper Extremity Dressin (set up) Upper Body Dressing (QC): 4 Lower Extremity Dressin (CGA while standing for safety/ balance while standing ) Lower Body Dressing (QC): 4 (pt education on use of food sales clerk and sock aid. pt required additional timing to perform LB dressing with equipment ) On/Off Footwear (QC): 4 Toiletin (CGA while standing for balance/ safety. use of RW to maintain balance. ) Toileting Hygiene (QC): 4 Toilet/Commode Transfer: 4 Toilet Transfer (QC): 4 Shower: 4 (use of RW and GB for safety. balance. noted pt use of shower chair ) Assessment/Plan Assessment and Plan Assess & Plan/Chief Complaint Assessment: s/p VDRF s/p sepsis UTI Ureteral stent in place s/p lithotripsy Urinary retention Hematuria Elevated troponin Elevated BNP Obesity TAMIA on biPAP Edema Hypokalemia Abnormal EST with elevated troponin during ICU stay cath today Plan: Elian Nichols appreciated Dr Bonner appreciated DC cath soon per Urology Check iron Complete abx Potassium supplement Needs cardiac cath today (1) Myopathy (2) Abnormal stress test (3) Intellectual disability (4) Hypokalemia (5) Diabetes mellitus (6) Anemia (7) Sepsis (8) Ventilator dependence (9) Elevated troponin (10) Elevated brain natriuretic peptide (BNP) level (11) TAMIA on CPAP (12) Calculus of proximal left ureter (13) Chronic GERD (14) Urinary tract infection (15) Retained ureteral stent DALY LYNN DO August 29, 2018 08:27
[2018-08-29] MEDS ORDERED: KCL 10 MEQ TAB (MICRO K) PO NR (08:35)
[2018-08-29] MEDS: CEFDINIR 300 MG (OMNICEF) CAP PO SCH ×2 (09:04→20:44)
--- NOTE | 2018-08-29 09:15 | NUR ---
TO [facility] PER BED, ACCOMPANIED BY GABRIELLE ALVARES.
[2018-08-29] MEDS ORDERED: HEParin 1000 UNIT/ML (10ML VIAL) FOR BOLUS ONE (09:21)
[2018-08-29] MEDS ORDERED: VERAPAMIL 5 MG/2 ML (CALAN) VIAL IV ONE (09:21)
[2018-08-29] MEDS ORDERED: NS IV 1000 ML 0 ML ONE (09:23)
--- NOTE | 2018-08-29 09:29 | Speech Therapy Progress Note ---
Therapy Progress Note Speech therapy was initiated, however the patient was taken for a heart cath. Therapy will continue on 08/30/2018. HUYEN JANG August 29, 2018 09:29
[2018-08-29] MEDS: POLYETHYLENE GLYCOL 17 GM (MIRALAX) PACK PO SCH ×2 (09:30→20:44)
--- NOTE | 2018-08-29 09:47 | Occ Therapy Progress Note ---
Therapy Progress Note pt taken for an Coronary angiography. pt on hold for therapy this date secondary to procedure. OT will see pt 08/30/18. SERVANDO THOMAS OT August 29, 2018 09:47
--- NOTE | 2018-08-29 10:06 | Cardiology Progress Note ---
Cardiology SOAP Progress Note Subjective: No cardiac complaints. Objective: I&O/Vital Signs 08/29/18 08/29/18 08/29/18 02:04 04:15 06:15 Temp 99.0 Pulse 84 Resp 18 B/P (MAP) 152/79 (103) Pulse Ox 97 95 O2 Delivery Room Air Room Air Room Air 08/29/18 00:00 Intake Total 1520 ml Output Total 3000 ml Balance -1480 ml Weight (Pounds): 307 Weight (Ounces): 0.0 Weight (Calculated Kilograms): [id number] Constitutional: AAO x 3 Respiratory: No accessory muscle use, No respiratory distress, No chest tender , No chest expansion is symmetric; chest is bilaterally symmetric; No lungs clear to percussion; lungs clear to auscultation; No crackles, No rhonchi, No rales, No stridor, No wheezing, No pleural rub, No other Cardiovascular: regular rate-rhythm; No irregularly irregular, No extra beats, No parasternal heave is noted, No JVD, No edema, No bradycardia, No tachycardia , No point of maximal impulse, No cardiac thrills are palpable; S1 and S2; No gallop/S3, No gallop/S4, No diastolic murmur, No systolic murmur, No friction rub, No click, No other Gastrointestional: No tender, No soft, No round, No distended, No pulsatile mass, No organomegaly, No guarding, No rebound, No tenderness, No hernia, No mass, No audible bowel sounds, No abnormal bowel sounds, No abdominal bruits, No spleenomegaly, No other Extremities: No normal range of motion, No non-tender, No normal inspection, No pedal edema, No calf tenderness, No normal capillary refill, No pelvis stable , No calf tenderness, No inflammation, No pedal edema, No slow capillary refill , No swelling, No other, No abrasion, No clubbing, No cyanosis, No ecchymosis, No laceration, No no lower extremity edema bilateral, No significant edema, No tenderness, No wound Neurologic/Psychiatric: no motor/sensory deficits, alert, normal mood/affect, oriented x 3 Skin: No normal color, No warm/dry, No cyanosis, No cool, No diaphoresis, No damp, No ecchymosis, No jaundice, No mottled, No pallor, No rash, No tattoos/ piercings, No ulcerations, No rash on exposed areas, No ulcerations on exposed areas, No other Results/Procedures: Labs Laboratory Tests 08/28/18 16:23: Glucometer 86 08/28/18 20:34: Glucometer 115H 08/29/18 05:09: Glucometer 101 A/P: Assessment/Dx: Severe septic shock, likely due to bilateral pneumonia, UTI, Urinary bleeding, Recent kidney stone, left ureter stent, Possible SVT, no strips available, Elevated proBNP, Elevated troponin, Acute kidney injury, Lactic acidosis, Diabetes, Plan: Severe septic shock, likely due to bilateral pneumonia, resolved. UTI, on broad spectrum antibiotics. UTI is not confirmed. Urinary bleeding, status post treatment for kidney stone and left ureter stent yesterday at [facility] in [place]. Significant resolution. Recent kidney stone, left ureter stent, Possible SVT, no strips available, there is a mention in the record that the patient was in SVT and adenosine was given which converted to sinus tachycardia. Unfortunately no strips are available for review, therefore I cannot comment on what was seen by the EMS. All available EKGs show sinus tachycardia. Which is very likely due to severe systemic illness. Elevated proBNP, likely due to bilateral pneumonia and severe sepsis. Bedside echocardiogram revealed normal LV function on 08/23/2018. Elevated troponin, NSTEMI. Could be secondary to systemic illness (type II myocardial infarction) ; however NSTEMI due to plaque rupture cannot be ruled out, however we cannot give antiplatelet and antithrombin agents due to significant urological bleeding and dropping Hb from 10 -> 9.1 -> 8.4. No clear wall motion abnormality noted on echocardiogram. Normal LV function on Echo done 08/23/2018. I discussed with Dr. Montoya and then with the patient. Nuclear stress test done on 08/27/2018 showed evidence of reversible apical ischemia. Coronary angiography will be performed today. Acute kidney injury, IV fluids being given. Significant improvement. Lactic acidosis, likely due to severe sepsis. Resolved. Diabetes, Thank you for your consultation. Please call me if you have any questions. Jordana Nichols MD, FACP, FACC, FSCAI, FHRS, CCDS Interventional Cardiology Cardiac Electrophysiology Vascular Medicine and Endovascular Interventions Emely NICHOLS MD August 29, 2018 10:06
--- NOTE | 2018-08-29 11:00 | NUR ---
TONGSMAN attempted to visit patient to review Team Conference Summary. Patient is currently off the unit for a heart cath. TONGSMAN will follow up tomorrow.
--- NOTE | 2018-08-29 13:16 | Physical Therapy Daily Note ---
PT Daily Note-Current Subjective Pt agreeable to PT session although states his toes hurt from his neuropathy as well as his bottom hurting from his sores Pain Numeric Pain Scale: 5-Moderate Pain Comment: toes and bottom Appearance Upon arrival, pt in bed, awake and alert. present during part of session At end of session pt sitting in recliner with call light, phone and bedside table within reach Mental Status Patient Orientation: Person, Place, Eyes Open Attachments: Saline Lock, Villagomez Catheter Transfers Therapy Code Descriptions/Definitions Functional [place] Measure: 0=Not Assessed/NA 4=Minimal Assistance 1=Total Assistance 5=Supervision or Setup 2=Maximal Assistance 6=Modified [place] 3=Moderate Assistance 7=Complete [place] Therapy Quality Codes: 6 Independent with activity with or without an assistive device 5 Patient requires set up or clean up by helper. Patient completes activity by themselves 4 Supervision or touching assist (CGA). [place] provide cues , steadying assist 3 The helper provides less than half the effort to complete the activity 2 The helper provides more than half the effort to complete the activity 1 Dependent. The helper does all the effort to complete an activity 7 Patient refused to complete or attempt activity 9 The patient did not perform the activity before the current illness or injury 88 Not attempted due to Medical conditions or safety concerns Transfers (B, C, W/C) (FIM): 5 Scootin Rollin Supine to/from Sit: 5 (HOB elevated, use of bedrail) Sit to/from Stand: 5 pt requiring min instruction throughout tx session for safe and proper technique and hand placement during sit to and from stand transfers Weight Bearing Right Lower Extremity: Right Full Weight Bearing Left Lower Extremity: Left Full Weight Bearing Gait Training Does the Patient Walk?: Yes Gait (FIM): 5 Distance (FIM): 3=150 ft Distance: 150 x2 Gait Level of Assist: 5 Gait Persons Needed: 1 Gait Assistive Device: FWW very slow gait speed, will increase speed slightly with instruction, decreased step height with shuffling on occasion, pushes walker with left hand turned out Exercises Standing: Heel/toe raises, Marching, Mini squats, Sit to Stand (10 (not consecutively)) Standing Reps: 20 (BUE support on FWW) NuStep Minutes: 15 NuStep Workload: 5 (BUE's and BLE's) Treatments 1 visit, gait, transfers, safety, balance, activity tolerance, functional mobility, strength, bed mobility Assessment Current Status: Good Progress PT Short Term Goals Short Term Goals Time Frame: September 04, 2018 Transfers (B,C,W/C) (FIM): 5 Gait (FIM): 5 Gait Distance Comment: 150' Gait Level of Assist: 5 Gait Assistive Device: FWW PT Circular Gang Saw Operator Goals Correction Goals PT Correction Goals Time Frame: Sep 18, 2018 Transfers (B,C,W/C) (FIM): 6 Sit to Lying (QC): 6 Lying-Sitting on Side/Bed(QC): 6 Sit to Stand (QC): 6 Rollin Roll Left to Right (QC): 6 Chair/Kva-tw-Ssekc Xfer(QC): 6 Car Transfer (QC): 6 Gait (FIM): 6 Distance: 200' Walk 10 feet (QC): 6 Walk 10ft-Uneven Surface(QC): 6 Walk 50ft with 2 Turns (QC): 6 Walk 150 ft (QC): 6 Gait Level of Assist: 6 Gait Assistive Device: FWW Stairs (FIM): 2 # of Steps: 4 1 Step (curb) (QC): 4 4 Steps (QC): 4 Stairs Level Of Assist: 5 PT Plan Treatment/Plan Treatment Plan: Continue Plan of Care Treatment Plan: Bed Mobility, Education, Functional Activity Jane, Functional Strength, Group Therapy, Gait, Safety, Therapeutic Exercise, Transfers Treatment Duration: Sep 18, 2018 Frequency: At least 5 of 7 days/Wk (IRF) Estimated Hrs Per Day: 1.5 hours per day Patient and/or Family Agrees t: Yes Safety Risks/Education Patient Education: Gait Training, Transfer Techniques, Safety Issues Teaching Recipient: Patient Teaching Methods: Demonstration, Discussion Response to Teaching: Verbalize Understanding, Return Demonstration, Reinforcement Needed Time/GCodes Time In: 800 Time Out: 900 Total Billed Treatment Time: 60 Total Billed Treatment 1 visit, EX x 1 unit, FA x 1 unit, GT x 1 unit TASIA PATEL PTA August 29, 2018 13:15
[2018-08-29 14:20] VITALS: BP 106/61
--- NOTE | 2018-08-29 14:20 | NUR ---
RETURNED TO ROOM FROM DAY SURGERY POST HEART CATH RECOVERY. RIGHT WRIST DRESSING D/I. DENIES PAIN. ASSISTED UP TO BATHROOM AND THEN UP TO CHAIR. ORDER OBTAINED FROM DR. SALDIVAR TO STOP IV FLUIDS.
[2018-08-29] MEDS: IRON SUCROSE 200 MG/10 ML (VENOFER) VIAL IV SCH (14:23)
--- NOTE | 2018-08-29 14:39 | Physical Therapy Progress Note ---
Therapy Progress Note PT not performed today. Patient had a cardiac cath. Will see if we can resume tomorrow. DAVID BERNARDO PT August 29, 2018 14:39
[2018-08-29 15:20] VITALS: BP 123/63
--- NOTE | 2018-08-29 15:30 | NUR ---
SOME HEMATURIA NOTED IN [facility]IGUE[facility] TUBING. PATIENT STATES HE HAS NOTICED THIS INTERMITTENTLY THE PAST [address] CONLEY NOTIFIED. HE STATES THIS IS NOT UNUSUAL WITH STENT AND TO PUSH PO FLUIDS.
--- NOTE | 2018-08-29 16:30 | NUR ---
HEART CATH RECOVERY VITALS COMPLETED AND STABLE. MEDICATED WITH LORTAB FOR PAIN IN BOTTOM FROM SKIN BREAKDOWN.
[2018-08-29 16:32] VITALS: BP 128/66
[2018-08-29] MEDS: HYDROcodone/APAP 5 MG/325 MG (LORTAB) TAB PO PRN ×2 (16:46→20:44)
--- NOTE | 2018-08-29 19:00 | NUR ---
UP IN CHAIR ALL AFTERNOON. ADMITS TO BOTTOM BEING SORE, BUT TURNS SELF FROM SIDE TO SIDE IN CHAIR SO THAT IS NOT SITTING ON BOTTOM.
--- NOTE | 2018-08-29 19:00 | NUR ---
LEXISCAN REMOVED FROM EMAR. WAS GIVEN FOR STRESS TEST ON 08-27.
[2018-08-30 05:09] LABS: BASOPHILS % (AUTO) 0 % (0-10); EOSINOPHILS % (AUTO) 1 % (0-10); HEMATOCRIT 26 % (40-54); HEMOGLOBIN 8.2 G/DL (13.3-17.7); LYMPHOCYTES # (AUTO) 0.9 X 10^3 (1.0-4.0); LYMPHOCYTES % (AUTO) 17 % (12-44); MEAN CORPUSCULAR HEMOGLOBIN 29 PG (25-34); MEAN CORPUSCULAR HGB CONC 32 G/DL (32-36); MEAN CORPUSCULAR VOLUME 91 FL (80-99); MONOCYTES # (AUTO) 0.8 X 10^3 (0.0-1.0); MONOCYTES % (AUTO) 14 % (0-12); NEUTROPHILS # (AUTO) 3.9 X 10^3 (1.8-7.8); NEUTROPHILS % (AUTO) 69 % (42-75); PLATELET COUNT 247 10^3/uL (130-400); RED CELL DISTRIBUTION WIDTH 15.7 % (10.0-14.5); WHITE BLOOD COUNT 5.7 10^3/uL (4.3-11.0)
[2018-08-30 05:15] VITALS: BP 117/60
[2018-08-30 05:29] LABS: ALANINE AMINOTRANSFERASE 71 U/L (0-55); ALBUMIN 2.9 GM/DL (3.2-4.5); ALKALINE PHOSPHATASE 203 U/L (40-136); BILIRUBIN,TOTAL 0.6 MG/DL (0.1-1.0); BUN/CREATININE RATIO 15; CALCIUM 8.3 MG/DL (8.5-10.1); CARBON DIOXIDE 22 MMOL/L (21-32); CHLORIDE 106 MMOL/L (98-107); CREATININE SERUM 0.65 MG/DL (0.60-1.30); GFR ESTIMATED > 60; GLUCOSE 114 MG/DL (70-105); POTASSIUM 3.5 MMOL/L (3.6-5.0); SODIUM 137 MMOL/L (135-145); TOTAL PROTEIN 5.5 GM/DL (6.4-8.2)
[2018-08-30] MEDS: inSUlin ASPART (NovoLOG) 1 UNIT/0.01 ML (CHARGE PER UNIT) SC SCH ×4 (05:36→21:30)
[2018-08-30] MEDS: PANTOPRAZOLE 40 MG (PROTONIX) TAB PO SCH (06:02)
[2018-08-30] MEDS: KCL 10 MEQ TAB (MICRO K) PO SCH ×2 (06:02→17:02)
[2018-08-30] MEDS ORDERED: KCL 10 MEQ TAB (MICRO K) PO SCH (07:00)
--- NOTE | 2018-08-30 08:34 | PM&R Progress Note ---
Subjective HPI/CC On Admission Date Seen by Provider: August 30, 2018 Time Seen by Provider: 08:30 Chief Complaint: Critical illness myopathy HPI: This is a 61yoWM clinic Pt of Dr. Blanc who presented to the [facility] emergency room due to generalized weakness. He had been in [place] early in the day for lithotripsy of a large 11 mm ureteral stone and placement of a stent and he told the staff at [facility] that he began feeling ill on his way from [place] to [facility]. He was found to have a fever of 103.6, elevated Troponin of 0.433 and acute renal failure creatinine of 1.42, lactic acid of 1.86 and white count at max was 24,500. Chest X-ray was inconsistent, maybe some pulmonary congestion but he underwent intubation for respiratory failure and Dr. Montoya was managing that. He remained intubated for 2.5 days and overall is just having significant weakness and will need intensive therapy to return back home where he lives alone to resume his independent living as he had before. He has had significant edema, Lasix will be given today. He has had significant urinary output and is currently on Rocephin shifting to Omnicef BID due to blood cultures septicemia with E. Coli and will likely discontinue catheter tomorrow. We will also likely remove the right internal jugular central line. Bowels are moving periodically and he doesn't report any significant pain. He is compliant with CPAP machine on a nightly basis. Prior level of function was independent without assistive devices. Subjective/Events-last exam Participating well with therapy Catheter remains and will DC that since Dr Bonner does not require it and he wants it out and Lasix 20mg IV was given this morning for edema Dr Bonner updated me after reviewing the records from [facility] and it appears the stone has been managed and all that must be done is to remove the stent and that will be done by Dr Bonner next week No fever noted Omnicef tolerated and completing in the net 2 days No pain is reported Patient does have some baseline intellectual deficit but seems to function well at home alone Cardiac cath was normal Review of Systems General: Fatigue Genitourinary: Dysuria, Hematuria, Retention Objective Exam Vital Signs Vital Signs Date Time Temp Pulse Resp B/P (MAP) Pulse Ox O2 Delivery O2 Flow Rate FiO2 08/30/18 09:00 Room Air 08/30/18 05:15 98.5 85 20 117/60 (79) 96 08/27/18 20:05 21 Capillary Refill : General Appearance: No Apparent Distress, WD/WN, Chronically ill HEENT: PERRL/EOMI, Normal ENT Inspection, Pharynx Normal, Moist Mucous Membranes Neck: Full Range of Motion, Normal Inspection, Non Tender, Supple Respiratory: Chest Non Tender, Lungs Clear, Normal Breath Sounds, No Accessory Muscle Use, No Respiratory Distress, Decreased Breath Sounds Cardiovascular: Regular Rate, Rhythm, No Gallop, No JVD, No Murmur Gastrointestinal: Normal Bowel Sounds, No Organomegaly, No Pulsatile Mass, Non Tender, Soft Back: Normal Inspection, No CVA Tenderness, No Vertebral Tenderness Extremity: Normal Capillary Refill, Normal Inspection, Normal Range of Motion, Non Tender, No Calf Tenderness, Pedal Edema Neurologic/Psychiatric: Alert, Oriented x3, No Motor/Sensory Deficits (generalized weakness of legs and arms 4/5), Normal Mood/Affect Skin: Normal Color, Warm/Dry Lymphatic: No Adenopathy Results/Procedures Lab Laboratory Tests 08/30/18 04:56 Patient resulted labs reviewed. FIM Transfers Therapy Code Descriptions/Definitions Functional [place] Measure: 0=Not Assessed/NA 4=Minimal Assistance 1=Total Assistance 5=Supervision or Setup 2=Maximal Assistance 6=Modified [place] 3=Moderate Assistance 7=Complete [place] Therapy Quality Codes: 6 Independent with activity with or without an assistive device 5 Patient requires set up or clean up by helper. Patient completes activity by themselves 4 Supervision or touching assist (CGA). [place] provide cues , steadying assist 3 The helper provides less than half the effort to complete the activity 2 The helper provides more than half the effort to complete the activity 1 Dependent. The helper does all the effort to complete an activity 7 Patient refused to complete or attempt activity 9 The patient did not perform the activity before the current illness or injury 88 Not attempted due to Medical conditions or safety concerns Transfers (B, C, W/C) (FIM): 5 Scootin Rollin Roll Left to Right (QC): 4 Supine to/from Sit: 5 (HOB elevated, use of bedrail) Sit to/from Stand: 5 Sit to Lying (QC): 4 Sit to Stand (QC): 4 Chair/Edf-rk-Wjqax Xfer(QC): 4 Bed to/from Chair: 5 Car Transfer (QC): 4 Gait Training Does the Patient Walk?: Yes Gait (FIM): 5 Distance (FIM): 3=150 ft Distance: 150 x2 Walk 10 feet (QC): 4 Walk 50 ft with 2 Turns(QC): 4 Walking 10ft/uneven surface-QC: 4 Gait Level of Assist: 5 Gait Persons Needed: 1 Gait Assistive Device: FWW Wheelchair Training Does the Pt Use a Wheelchair?: No Stair Training Stairs (FIM): 1 #of Steps: 1 1 Step (curb) (QC): 4 Level of Assist: 4 Mental Status/Objective Comprehension: 6 Expression: 6 Social Interaction: 6 Problem Solvin Memory: 5 ADL-Treatment Feedin Eating (QC): 6 Groomin (CGA while standing at sink for safety/ balance. noted 1 LOB while standing at sink but able to self correct) Oral Hygiene (QC): 4 Bathin (intermitted CGA for safety/ balance while standing.) Bathing Location: L Arm, R Arm, L Upper Leg, R Upper Leg, L Lower Leg (including foot), R Lower Leg (including foot), Chest, Abdomen, Buttocks, Perineal Area Shower/Bathe Self (QC): 4 Upper Extremity Dressin (set up) Upper Body Dressing (QC): 4 Lower Extremity Dressin (CGA while standing for safety/ balance while sta nding ) Lower Body Dressing (QC): 4 (pt education on use of hat presser and sock aid. pt required additional timing to perform LB dressing with equipment ) On/Off Footwear (QC): 4 Toiletin (CGA while standing for balance/ safety. use of RW to maintain balance. ) Toileting Hygiene (QC): 4 Toilet/Commode Transfer: 4 Toilet Transfer (QC): 4 Shower: 4 (use of RW and GB for safety. balance. noted pt use of shower chair ) Assessment/Plan Assessment and Plan Assess & Plan/Chief Complaint Assessment: s/p VDRF s/p sepsis UTI Ureteral stent in place will be removed this upcoming week by Dr Bonner s/p lithotripsy Urinary retention Hematuria Elevated troponin Elevated BNP Obesity TAMIA on biPAP Edema Hypokalemia Abnormal EST with elevated troponin during ICU stay but cardiac cath normal Plan: Lasix IV Dr Nichols appreciated Dr Bonner appreciated and stent will be DC today DC cath today Check iron Complete abx Potassium supplement (1) Myopathy (2) Abnormal stress test (3) Intellectual disability (4) Hypokalemia (5) Diabetes mellitus (6) Anemia (7) Sepsis (8) Ventilator dependence (9) Elevated troponin (10) Elevated brain natriuretic peptide (BNP) level (11) TAMIA on CPAP (12) Calculus of proximal left ureter (13) Chronic GERD (14) Urinary tract infection (15) Retained ureteral stent DALY LYNN DO August 30, 2018 08:34
--- NOTE | 2018-08-30 09:00 | NUR ---
LOWER LEG EDEMA AND WILL RECEIVE ONE TIME DOSE LASIX THIS AM. MILD HEMATURIA CONTINUES. PATIENT ENCOURAGED TO DRINK FLUIDS. PATIENT CONTINUES TO BE VERY CONCERNED ABOUT CAT AT HIS HOUSE NOT BEING LOOKED AFTER AND REQUESTS DIETITIAN FOR BIPAP --HAN, FORWARDER OPERATOR NOTIFIED.
--- NOTE | 2018-08-30 09:09 | Occupational Ther Daily Note ---
OT Current Status-Daily Note Subjective Pt sleeping in bed with CPAP. Woke to name. Pt agrees to therapy. No c/o pain. Mental Status/Objective Patient Orientation: Person, Place, Time, Situation Therapy Code Descriptions/Definitions Functional [place] Measure: 0=Not Assessed/NA 4=Minimal Assistance 1=Total Assistance 5=Supervision or Setup 2=Maximal Assistance 6=Modified [place] 3=Moderate Assistance 7=Complete [place] Attachments: Villagomez Catheter, IV ADL-Treatment Pt agrees to shower. After therapy, pt sitting in recliner with call light/ phone. All needs met in room. Therapy Code Descriptions/Definitions Functional [place] Measure: 0=Not Assessed/NA 4=Minimal Assistance 1=Total Assistance 5=Supervision or Setup 2=Maximal Assistance 6=Modified [place] 3=Moderate Assistance 7=Complete [place] Therapy Quality Codes: 6 Independent with activity with or without an assistive device 5 Patient requires set up or clean up by helper. Patient completes activity by themselves 4 Supervision or touching assist (CGA). [place] provide cues , steadying assist 3 The helper provides less than half the effort to complete the activity 2 The helper provides more than half the effort to complete the activity 1 Dependent. The helper does all the effort to complete an activity 7 Patient refused to complete or attempt activity 9 The patient did not perform the activity before the current illness or injury 88 Not attempted due to Medical conditions or safety concerns Eating (FIM): 7 (Pt able to complete own set up and uses regular utensils to eat.) Eating (QC): 6 Grooming (FIM): 5 (SBA for safety using counter for stabilization.) Oral Hygiene (QC): 4 Bathing (FIM): 5 (SBA in standing. Using grabbars, hand held shower and shower bench pt completes own shower.) Bathing Location: L Arm, R Arm, L Upper Leg, R Upper Leg, L Lower Leg ( including foot), R Lower Leg (including foot), Chest, Abdomen, Buttocks, Perineal Area Shower/Bathe Self (QC): 4 Upper Body (FIM): 5 (After set up, pt completes by self.) Upper Body Dressing (QC): 5 Lower Body Dressing (FIM): 4 (Assist to don/doff pants over R foot due to manipulation of Villagomez cather. Pt able to thread other foot through pants leg. Assist to don ERNIE then pt used sock aid to don socks. SBA when standing to hike pants over hips.) Lower Body Dressing (QC): 3 On/Off Footwear (QC): 5 Toileting (FIM): 5 (Using grabbar and FWW, pt able to complete with SBA for safety.) Toileting Hygiene (QC): 4 Transfers (B, C, W/C) (FIM): 5 (Close SBA and using FWW.) Toilet/Commode Transfer (FIM): 5 (Close SBA using FWW and grabbars.) Toilet Transfer (QC): 3 Shower Transfer(FIM): 4 (Min A and verbal cues to complete using FWW, grabbars and shower bench.) OT Short Term Goals Short Term Goals Eating(FIM): 6 Grooming(FIM): 6 Bathing(FIM): 5 Bathing Location: L Arm, R Arm, L Upper Leg, R Upper Leg, L Lower Leg ( including foot), R Lower Leg (including foot), Chest, Abdomen, Buttocks, Perineal Area Upper Body Dressing(FIM): 5 Lower Body Dressing(FIM): 5 Toileting(FIM): 5 Transfers (B,C,W/C) (FIM): 5 Toilet/Commode Transfer(FIM): 5 Tub Transfer(FIM): 5 Shower Transfer(FIM): 5 Additional Short Term Goals: 1-Demonstrate ADL Tasks, 2-Verbalize Understanding , 3-ImproveStrength/Jane 1=Demonstrate adherence to instructed precautions during ADL tasks. 2=Patient will verbalize/demonstrate understanding of assistive devices/ modifications for ADL. 3=Patient will improve strength/tolerance for activity to enable patient to perform ADL's. OT Computer Numerical Control Grinder Goals Skilled Nursing Goals Eating (FIM): 6 Eating (QC): 6 Groomin Oral Hygiene (QC): 6 Bathing(FIM): 6 Bathing Location: L Arm, R Arm, L Upper Leg, R Upper Leg, L Lower Leg ( including foot), R Lower Leg (including foot), Chest, Abdomen, Buttocks, Perineal Area Shower/Bathe Self (QC): 6 Upper Body Dressing(FIM): 6 Upper Body Dressing (QC): 6 Lower Body Dressing(FIM): 6 Lower Body Dressing (QC): 6 On/Off Footwear (QC): 6 Toileting(FIM): 6 Toileting Hygiene (QC): 6 Transfers (B,C,W/C) (FIM): 6 Toilet/Commode Transfer(FIM): 6 Toilet/Commode Transfer (QC): 6 Tub Transfer(FIM): 6 Shower Transfer(FIM): 6 Additional Goals: 1-Demonstrate ADL Tasks, 2-Verbalize Understanding, 3- ImproveStrength/Jane 1=Demonstrate adherence to instructed precautions during ADL tasks. 2=Patient will verbalize/demonstrate understanding of assistive devices/ modifications for ADL. 3=Patient will improve strength/tolerance for activity to enable patient to perform ADL's. OT Education/Plan Problem List/Assessment Assessment: Decreased Safety Aware, Impaired Funct Balance, Impaired Self-Care Skills pt presents with functional limitation affecting areas of ADLS/ functional transfers. pt would benefit from skilled OT services to address above mention deficits, increase independence with ADLs/ functional transfers, and for safe transition to home. Discharge Recommendations Plan/Recommendations: Continue POC Treatment Plan/Plan of Care Patient would benefit from OT for education, treatment and training to promote independence in ADL's, mobility, safety and/or upper extremity function for ADL' s. Plan of Care: ADL Retraining, Caregiver Training, Cognitive Retraining, Concurrent Therapy, Functional Mobility, Group Exercise/Act as Ind, Orthotic Fitting/Training, UE Funct Exercise/Act Treatment Duration: Sep 24, 2018 Frequency: At least 5 of 7 days/Wk (IRF) Estimated Hrs Per Day: 1.5 hours per day (60-90 munites per day) Agreement: Yes Rehab Potential: Fair Time/GCodes Start Time: 07:00 Stop Time: 08:30 Total Time Billed (hr/min): 90 Billed Treatment Time 1 visit-ADL 6 (90 min) LAURA MENDOZA August 30, 2018 09:09
[2018-08-30] MEDS: POLYETHYLENE GLYCOL 17 GM (MIRALAX) PACK PO SCH ×2 (09:43→21:35)
[2018-08-30] MEDS: CEFDINIR 300 MG (OMNICEF) CAP PO SCH ×2 (09:43→21:34)
[2018-08-30] MEDS ORDERED: FUROSEMIDE 40 MG/4 ML INJ (LASIX) IVP NR (09:45)
--- NOTE | 2018-08-30 10:46 | Physical Therapy Daily Note ---
PT Daily Note-Current Subjective Pt sitting in recliner upon arrival. Pt agrees to PT. Pt reports discomfort in toes & heel from Neuropathy and asked to use tennis for tx. Pain Numeric Pain Scale: 5-Moderate Pain Location: Right, Left Location Body Site: Foot Pain Description: Ache Comment: Pt also reports discomfort in bottom and hips. Mental Status Patient Orientation: Person, Place, Situation Attachments: Villagomez Catheter Transfers Therapy Code Descriptions/Definitions Functional [place] Measure: 0=Not Assessed/NA 4=Minimal Assistance 1=Total Assistance 5=Supervision or Setup 2=Maximal Assistance 6=Modified [place] 3=Moderate Assistance 7=Complete [place] Therapy Quality Codes: 6 Independent with activity with or without an assistive device 5 Patient requires set up or clean up by helper. Patient completes activity by themselves 4 Supervision or touching assist (CGA). [place] provide cues , steadying assist 3 The helper provides less than half the effort to complete the activity 2 The helper provides more than half the effort to complete the activity 1 Dependent. The helper does all the effort to complete an activity 7 Patient refused to complete or attempt activity 9 The patient did not perform the activity before the current illness or injury 88 Not attempted due to Medical conditions or safety concerns Scootin Rollin Supine to/from Sit: 4 Sit to/from Stand: 5 Sit to Lying (QC): 4 Sit to Stand (QC): 5 Pt needs VC to remind for safety of maintaining Villagomez line. Weight Bearing Right Lower Extremity: Right Full Weight Bearing Left Lower Extremity: Left Full Weight Bearing Gait Training Does the Patient Walk?: Yes Gait (FIM): 5 Distance (FIM): 3=150 ft Distance: 250' Walk 10 feet (QC): 5 Walk 50 ft with 2 Turns(QC): 5 Walk 150 ft (QC): 5 Gait Level of Assist: 5 Gait Persons Needed: 1 Gait Assistive Device: FWW Exercises Supine Ex: Ankle pumps, Quad Set, Rolling, Heel Slides, Short Arc Quads, Straight leg raise, Hip abd/add Supine Reps: 15 Standing: Marching, Mini squats Standing Reps: 15 NuStep Minutes: 15 NuStep Workload: 5 Treatments Pt transfers from recliner to standing and ambulates in hallway. Pt completes Supine Ex on mat in Therapy Gym. Pt uses NuStep for 15m at WL 5, takes short RB then completes Standing Ex at //bars. Pt again ambulates in hallway before resting in recliner in room. Pt asks CONFERENCE PLANNER to assist pt with lunch order for later. Pt resting at end of tx with all needs met. Assessment Current Status: Good Progress Pt needs RB occasionally and reports increased discomfort in feet when walking and hips with Supine Ex. PT Short Term Goals Short Term Goals Time Frame: September 04, 2018 Transfers (B,C,W/C) (FIM): 5 Gait (FIM): 5 Gait Distance Comment: 150' Gait Level of Assist: 5 Gait Assistive Device: FWW PT Office Messenger Helper Goals Nursing Home Goals PT Nursing Home Goals Time Frame: Sep 18, 2018 Transfers (B,C,W/C) (FIM): 6 Sit to Lying (QC): 6 Lying-Sitting on Side/Bed(QC): 6 Sit to Stand (QC): 6 Rollin Roll Left to Right (QC): 6 Chair/Dsy-vr-Mjwch Xfer(QC): 6 Car Transfer (QC): 6 Gait (FIM): 6 Distance: 200' Walk 10 feet (QC): 6 Walk 10ft-Uneven Surface(QC): 6 Walk 50ft with 2 Turns (QC): 6 Walk 150 ft (QC): 6 Gait Level of Assist: 6 Gait Assistive Device: FWW Stairs (FIM): 2 # of Steps: 4 1 Step (curb) (QC): 4 4 Steps (QC): 4 Stairs Level Of Assist: 5 PT Plan Problem List Problem List: Activity Tolerance, Functional Strength, Safety, Balance, Gait Treatment/Plan Treatment Plan: Continue Plan of Care Treatment Plan: Bed Mobility, Education, Functional Activity Jane, Functional Strength, Group Therapy, Gait, Safety, Therapeutic Exercise, Transfers Treatment Duration: Sep 18, 2018 Frequency: At least 5 of 7 days/Wk (IRF) Estimated Hrs Per Day: 1.5 hours per day Patient and/or Family Agrees t: Yes Safety Risks/Education Patient Education: Gait Training, Transfer Techniques, Correct Positioning, Safety Issues Teaching Recipient: Patient Teaching Methods: Discussion Response to Teaching: Verbalize Understanding Time/GCodes Time In: 930 Time Out: 1045 Total Billed Treatment Time: 75 Total Billed Treatment 1, GT (20m), EX x2 (30m) & FA x2 (25m) G Codes Necessary: No KEN SABA CONFERENCE PLANNER August 30, 2018 10:46
--- NOTE | 2018-08-30 10:50 | NUR ---
Pastoral care visit.
--- NOTE | 2018-08-30 11:14 | Cardiology Progress Note ---
Cardiology SOAP Progress Note Subjective: No cardiac complaints. Objective: I&O/Vital Signs 08/30/18 05:15 Temp 98.5 Pulse 85 Resp 20 B/P (MAP) 117/60 (79) Pulse Ox 96 O2 Delivery Room Air 08/30/18 00:00 Intake Total 800 ml Output Total 2200 ml Balance -1400 ml Weight (Pounds): 307 Weight (Ounces): 0.0 Weight (Calculated Kilograms): 139.483105 Constitutional: AAO x 3 Respiratory: No accessory muscle use, No respiratory distress, No chest tender, No chest expansion is symmetric; chest is bilaterally symmetric; No lungs clear to percussion; lungs clear to auscultation; No crackles, No rhonchi, No rales, No stridor, No wheezing, No pleural rub, No other Cardiovascular: regular rate-rhythm; No irregularly irregular, No extra beats, No parasternal heave is noted, No JVD, No edema, No bradycardia, No tachycardia, No point of maximal impulse, No cardiac thrills are palpable; S1 and S2; No gallop/S3, No gallop/S4, No diastolic murmur, No systolic murmur, No friction rub, No click, No other Gastrointestional: No tender, No soft, No round, No distended, No pulsatile mass, No organomegaly, No guarding, No rebound, No tenderness, No hernia, No mass, No audible bowel sounds, No abnormal bowel sounds, No abdominal bruits, No spleenomegaly, No other Extremities: No normal range of motion, No non-tender, No normal inspection, No pedal edema, No calf tenderness, No normal capillary refill, No pelvis stable, No calf tenderness, No inflammation, No pedal edema, No slow capillary refill, No swelling, No other, No abrasion, No clubbing, No cyanosis, No ecchymosis, No laceration, No no lower extremity edema bilateral, No significant edema, No tenderness, No wound Neurologic/Psychiatric: no motor/sensory deficits, alert, normal mood/affect, oriented x 3 Skin: No normal color, No warm/dry, No cyanosis, No cool, No diaphoresis, No damp, No ecchymosis, No jaundice, No mottled, No pallor, No rash, No tattoos/piercings, No ulcerations, No rash on exposed areas, No ulcerations on e xposed areas, No other Results/Procedures: Labs Laboratory Tests 08/29/18 14:36: Glucometer 134H 08/29/18 16:31: Glucometer 118H 08/29/18 20:27: Glucometer 114H 08/30/18 04:56: White Blood Count 5.7, Red Blood Count 2.81L, Hemoglobin 8.2L, Hematocrit 26L, Mean Corpuscular Volume 91, Mean Corpuscular Hemoglobin 29, Mean Corpuscular Hemoglobin Concent 32, Red Cell Distribution Width 15.7H, Platelet Count 247, Mean Platelet Volume 9.0, Neutrophils (%) (Auto) 69, Lymphocytes (%) (Auto) 17, Monocytes (%) (Auto) 14H, Eosinophils (%) (Auto) 1, Basophils (%) (Auto) 0, Neutrophils # (Auto) 3.9, Lymphocytes # (Auto) 0.9L, Monocytes # (Auto) 0.8, Eosinophils # (Auto) 0.0, Basophils # (Auto) 0.0, Sodium Level 137, Potassium Level 3.5L, Chloride Level 106, Carbon Dioxide Level 22, Anion Gap 9, Blood Urea Nitrogen 10, Creatinine 0.65, Estimat Glomerular Filtration Rate > 60, BUN/Creatinine Ratio 15, Glucose Level 114H, Calcium Level 8.3L, Corrected Calcium 9.2, Total Bilirubin 0.6, Aspartate Amino Transf (AST/SGOT) 38H, Alanine Aminotransferase (ALT/SGPT) 71H, Alkaline Phosphatase 203H, Total Protein 5.5L, Albumin 2.9L A/P: Assessment/Dx: Severe septic shock, likely due to bilateral pneumonia, UTI, Urinary bleeding, Recent kidney stone, left ureter stent, Possible SVT, no strips available, Elevated proBNP, Elevated troponin, Acute kidney injury, Lactic acidosis, Diabetes, Plan: Severe septic shock, likely due to bilateral pneumonia, resolved. UTI, on broad spectrum antibiotics. UTI is not confirmed. Urinary bleeding, status post treatment for kidney stone and left ureter stent yesterday at [facility] in [place]. Significant resolution. Recent kidney stone, left ureter stent, Possible SVT, no strips available, there is a mention in the record that the patient was in SVT and adenosine was given which converted to sinus tachycardia. Unfortunately no strips are available for review, therefore I cannot comment on what was seen by the EMS. All available EKGs show sinus tachycardia. Which is very likely due to severe systemic illness. Elevated proBNP, likely due to bilateral pneumonia and severe sepsis. Bedside echocardiogram revealed normal LV function on 08/23/2018. Elevated troponin, NSTEMI. Coronary angiography will be performed 08/29/2018 showed patent epicardial coronary arteries. secondary to systemic illness (type II myocardial infarction) Acute kidney injury, IV fluids being given. Significant improvement. Lactic acidosis, likely due to severe sepsis. Resolved. Diabetes, Thank you for your consultation. Please call me if you have any questions. Jordana Nichols MD, FACP, FACC, FSCAI, FHRS, CCDS Interventional Cardiology Cardiac Electrophysiology Vascular Medicine and Endovascular Interventions Emely NICHOLS MD August 30, 2018 11:14
[2018-08-30] MEDS: CATHETER FLUSH 10 ML SYR IV PRN (11:24)
[2018-08-30] MEDS: HYDROcodone/APAP 5 MG/325 MG (LORTAB) TAB PO PRN ×2 (11:33→21:34)
--- NOTE | 2018-08-30 11:45 | NUR ---
SUPERVISOR OF GUIDANCE AND TESTING met with patient to review Team Conference Summary. As patient is progressing well with therapy and performing most activities with SBA, Team has recommended that patient's progress be discussed on Sunday, 09/02 to determine a discharge date. Patient inquires about when his brenner cath will be removed and if Dr. Bonner will intend to remove his ureteral stent vs. the need to return to [facility] for removal. RN states she will contact Dr. Bonner regarding the need for a consult. Patient is agreeable to Team discussing progress on Sunday. Patient does express frustration with his brother, Miguel as he has not heard from him for 24hours and Miguel is to be caring for the patient's cat. Patient has attempted to call Miguel. SUPERVISOR OF GUIDANCE AND TESTING contacted Miguel and he was currently at the patient's house tending to the cat, with plans to mow the lawn and collect clothing for David. SUPERVISOR OF GUIDANCE AND TESTING requested Miguel to contact David. SUPERVISOR OF GUIDANCE AND TESTING will continue to follow.
--- NOTE | 2018-08-30 13:16 | Progress Note-Urology ---
Progress Note-Urology Progress Notes/Assess & Plan Progress/Assessment & Plan FINALLY OBTAINED RECORDS FROM [facility] UROLOGIST 08/02 ATTEMPTED LT URETEROSCOPY, ATTEMPTED STENT, FOLLOWED BY PCN TUBE 08/21 LT URETEROSCOPY WITH STONE LITHOTRIPSY, DC PCN TUBE, AND PLACEMENT OF STENT PLAN DC STENT AT BEDSIDE ON PLAN FULLY SHARED AND EXPLAINED TO PATIENT Final Diagnosis SEPSIS AND LT URETERAL STONE (RESOLVED) JONATHAN CONLEY MD August 30, 2018 13:16
[2018-08-30] MEDS: CHLORASEPTIC LOZENGE MM PRN ×2 (14:54→21:34)
--- NOTE | 2018-08-30 15:00 | NUR ---
COMPLAIN SORE THROAT AND ORDER RECEIVED FOR CHLORASEPTIC LOZENGER.
--- NOTE | 2018-08-30 15:40 | Speech Therapy Daily Note ---
Speech Daily Progress Note Subjective Date Seen by Provider: August 30, 2018 Time Seen by Provider: 00:30 The patient was alert and talkative today. Objective The patient completed problem solving activities related to himself and his daily needs at 80% with minimal cues. Assessment Assessment Current Status: Good Progress Treatment Plan Continue Plan of Care Communication Comprehension: 6 Expression: 6 Social Cognition Social Interaction: 6 Problem Solvin Memory: 5 Speech Short Term Goals Short Term Goals Short Term Goals 1) The patient will be able to follow verbal instructions with her daily tasks at 90% or greater with minimal cues. 2) The patient will recall new information provided with 90% or greater with minimal cues. 3) The patient will complete memory exercises with 90% or greater with minimal cues. Speech Longterm Goals Longterm Goals The patient will improve safety and independence in order to return home. Speech-Plan Patient/Family Goals Patient/Family Goals: The patient plans on returning home with family support post rehab. Treatment Plan Speech Therapy Treatment Plan: Continue Plan of Care The patient is progressing as a result of skilled ST services. Treatment Duration: September 06, 2018 Frequency: 5 times per week Estimated Hrs Per Day: .5 hour per day Rehab Potential: Fair Barriers to Learning: Patient has cognitive deficits Pt/Family Agrees to Plan: Yes Safety Risks/Education Teaching Recipient: Patient Teaching Methods: Discussion Response to Teaching: Verbalize Understanding Education Topics Provided: Safety within his room. Time Speech Therapy Time In: 14:00 Speech Therapy Time Out: 14:30 Total Billed Time: 30 Billed Treatment Time [address]MI[address] August 30, 2018 15:40
[2018-08-30 17:00] VITALS: BP 132/73
--- NOTE | 2018-08-30 17:10 | NUR ---
PATIENT REQUESTED RODRIGUEZ CATHETER TO BE REMOVED. DR. CONLEY STATES "NOT A ISSUE" AND UP TO DR. LYNN. DR. LYNN OKAY'D REMOVAL. HAS HAD 4000 CC URINE OUTPUT TODAY, BUT PATIENT INSISTENT HE WANTS IT OUT EVEN WITH RETENTION PROBLEM. RODRIGUEZ CATHETER REMOVED.
--- NOTE | 2018-08-30 18:00 | NUR ---
FIRST VOIDING SINCE RODRIGUEZ CATHETER REMOVED OF 100 CC.
[2018-08-31 05:56] VITALS: BP 116/68
[2018-08-31] MEDS: inSUlin ASPART (NovoLOG) 1 UNIT/0.01 ML (CHARGE PER UNIT) SC SCH ×4 (06:18→20:34)
[2018-08-31] MEDS: PANTOPRAZOLE 40 MG (PROTONIX) TAB PO SCH (06:36)
[2018-08-31] MEDS: KCL 10 MEQ TAB (MICRO K) PO SCH ×2 (06:37→16:16)
[2018-08-31] MEDS: IRON SUCROSE 200 MG/10 ML (VENOFER) VIAL IV SCH (09:26)
[2018-08-31] MEDS: CEFDINIR 300 MG (OMNICEF) CAP PO SCH ×2 (09:26→20:41)
[2018-08-31] MEDS: POLYETHYLENE GLYCOL 17 GM (MIRALAX) PACK PO SCH ×3 (09:27→20:35)
--- NOTE | 2018-08-31 10:11 | Occupational Ther Daily Note ---
OT Current Status-Daily Note Subjective Pt seen in room, agreeable to OT. No pain mentioned except occasional discomfort on his bottom. Declined requesting pain meds. Appearance Alert, cooperative Mental Status/Objective Therapy Code Descriptions/Definitions Functional [place] Measure: 0=Not Assessed/NA 4=Minimal Assistance 1=Total Assistance 5=Supervision or Setup 2=Maximal Assistance 6=Modified [place] 3=Moderate Assistance 7=Complete [place] ADL-Treatment Therapy Code Descriptions/Definitions Functional [place] Measure: 0=Not Assessed/NA 4=Minimal Assistance 1=Total Assistance 5=Supervision or Setup 2=Maximal Assistance 6=Modified [place] 3=Moderate Assistance 7=Complete [place] Therapy Quality Codes: 6 Independent with activity with or without an assistive device 5 Patient requires set up or clean up by helper. Patient completes activity by themselves 4 Supervision or touching assist (CGA). [place] provide cues , steadying assist 3 The helper provides less than half the effort to complete the activity 2 The helper provides more than half the effort to complete the activity 1 Dependent. The helper does all the effort to complete an activity 7 Patient refused to complete or attempt activity 9 The patient did not perform the activity before the current illness or injury 88 Not attempted due to Medical conditions or safety concerns Other Treatment Pt stood in bathroom to urinate, help to empty urinal. Walked with SBA, FWW slowly to gym and able to get up and down from chair with arms with SBA. Pt required recovery period before starting exercise and about every 2.5 minutes during exercise. Completed 10 minutes bilat UE exercise on arm bike set at 15- 20W resistance, requiring three recovery breaks to complete, with breaks of several minutes until he was not breathing hard. To help strengthen arms for ADLs and also increase activity tolerance. Pt walked back to room with SBA, FWW and left up in recliner, all needs met. Education OT Patient Education: Exercise program, Purpose of tx/functional activities Teaching Recipient: Patient Teaching Methods: Demonstration, Discussion Response to Teaching: Verbalize Understanding, Return Demonstration OT Short Term Goals Short Term Goals Eating(FIM): 6 Grooming(FIM): 6 Bathing(FIM): 5 Bathing Location: L Arm, R Arm, L Upper Leg, R Upper Leg, L Lower Leg (including foot), R Lower Leg (including foot), Chest, Abdomen, Buttocks, Perineal Area Upper Body Dressing(FIM): 5 Lower Body Dressing(FIM): 5 Toileting(FIM): 5 Transfers (B,C,W/C) (FIM): 5 Toilet/Commode Transfer(FIM): 5 Tub Transfer(FIM): 5 Shower Transfer(FIM): 5 Additional Short Term Goals: 1-Demonstrate ADL Tasks, 2-Verbalize Understanding, 3-ImproveStrength/Jane 1=Demonstrate adherence to instructed precautions during ADL tasks. 2=Patient will verbalize/demonstrate understanding of assistive devices/modifications for ADL. 3=Patient will improve strength/tolerance for activity to enable patient to perform ADL's. OT Fpc Goals Administrative Technician Goals Eating (FIM): 6 Eating (QC): 6 Groomin Oral Hygiene (QC): 6 Bathing(FIM): 6 Bathing Location: L Arm, R Arm, L Upper Leg, R Upper Leg, L Lower Leg (including foot), R Lower Leg (including foot), Chest, Abdomen, Buttocks, Perineal Area Shower/Bathe Self (QC): 6 Upper Body Dressing(FIM): 6 Upper Body Dressing (QC): 6 Lower Body Dressing(FIM): 6 Lower Body Dressing (QC): 6 On/Off Footwear (QC): 6 Toileting(FIM): 6 Toileting Hygiene (QC): 6 Transfers (B,C,W/C) (FIM): 6 Toilet/Commode Transfer(FIM): 6 Toilet/Commode Transfer (QC): 6 Tub Transfer(FIM): 6 Shower Transfer(FIM): 6 Additional Goals: 1-Demonstrate ADL Tasks, 2-Verbalize Understanding, 3-Impr oveStrength/Jane 1=Demonstrate adherence to instructed precautions during ADL tasks. 2=Patient will verbalize/demonstrate understanding of assistive devices/modifications for ADL. 3=Patient will improve strength/tolerance for activity to enable patient to perform ADL's. OT Education/Plan Problem List/Assessment pt presents with functional limitation affecting areas of ADLS/ functional transfers. pt would benefit from skilled OT services to address above mention deficits, increase independence with ADLs/ functional transfers, and for safe transition to home. Discharge Recommendations Plan/Recommendations: Continue POC Treatment Plan/Plan of Care Patient would benefit from OT for education, treatment and training to promote independence in ADL's, mobility, safety and/or upper extremity function for ADL's. Plan of Care: ADL Retraining, Caregiver Training, Cognitive Retraining, Concurrent Therapy, Functional Mobility, Group Exercise/Act as Ind, Orthotic Fitting/Training, UE Funct Exercise/Act Treatment Duration: Sep 24, 2018 Frequency: At least 5 of 7 days/Wk (IRF) Estimated Hrs Per Day: 1.5 hours per day (60-90 munites per day) Agreement: Yes Rehab Potential: Fair Time/GCodes Start Time: 09:28 Stop Time: 10:00 Total Time Billed (hr/min): 32 Billed Treatment Time visit, 32 minutes exercise SENTHIL FENTON OT August 31, 2018 10:11
--- NOTE | 2018-08-31 10:38 | PM&R Progress Note ---
Subjective HPI/CC On Admission Date Seen by Provider: August 31, 2018 Time Seen by Provider: 10:45 Chief Complaint: Critical illness myopathy HPI: This is a 61yoWM clinic Pt of Dr. Blanc who presented to the [place] emergency room due to generalized weakness. He had been in [place] early in the day for lithotripsy of a large 11 mm ureteral stone and placement of a stent and he told the staff at [place] that he began feeling ill on his way from [place] to [place]. He was found to have a fever of 103.6, elevated Troponin of 0.433 and acute renal failure creatinine of 1.42, lactic acid of 1.86 and white count at max was 24,500. Chest X-ray was inconsistent, maybe some pulmonar y congestion but he underwent intubation for respiratory failure and Dr. Montoya was managing that. He remained intubated for 2.5 days and overall is just having significant weakness and will need intensive therapy to return back home where he lives alone to resume his independent living as he had before. He has had significant edema, Lasix will be given today. He has had significant urinary output and is currently on Rocephin shifting to Omnicef BID due to blood cultures septicemia with E. Coli and will likely discontinue catheter tomorrow. We will also likely remove the right internal jugular central line. Bowels are moving periodically and he doesn't report any significant pain. He is compliant with CPAP machine on a nightly basis. Prior level of function was independent without assistive devices. Subjective/Events-last exam Participating well with therapy and performing his own exercises in his room Catheter DC so he is happy about that and [address] Bonner will remove stent this next week No fever noted Omnicef tolerated and completing in the net 2 days No pain is reported Patient does have some baseline intellectual deficit but seems to function well at home alone Cardiac cath was normal Conferred with RN Reviewed therapy notes Coccyx pain is being addressed. Review of Systems General: Fatigue Pulmonary: Dyspnea Objective Exam Vital Signs Vital Signs Date Time Temp Pulse Resp B/P (MAP) Pulse Ox O2 Delivery O2 Flow Rate FiO2 08/31/18 05:56 97.8 91 16 116/68 (84) 95 Room Air 08/27/18 20:05 21 Capillary Refill : General Appearance: No Apparent Distress, WD/WN, Chronically ill HEENT: PERRL/EOMI, Normal ENT Inspection, Pharynx Normal, Moist Mucous Membranes Neck: Full Range of Motion, Normal Inspection, Non Tender, Supple Respiratory: Chest Non Tender, Lungs Clear, Normal Breath Sounds, No Accessory Muscle Use, No Respiratory Distress, Decreased Breath Sounds Cardiovascular: Regular Rate, Rhythm, No Gallop, No JVD, No Murmur Gastrointestinal: Normal Bowel Sounds, No Organomegaly, No Pulsatile Mass, Non Tender, Soft Back: Normal Inspection, No CVA Tenderness, No Vertebral Tenderness Extremity: Normal Capillary Refill, Normal Inspection, Normal Range of Motion, Non Tender, No Calf Tenderness, Pedal Edema Neurologic/Psychiatric: Alert, Oriented x3, No Motor/Sensory Deficits (generalized weakness of legs and arms 4/5), Normal Mood/Affect Skin: Normal Color, Warm/Dry Lymphatic: No Adenopathy Results/Procedures Lab Patient resulted labs reviewed. FIM Transfers Therapy Code Descriptions/Definitions Functional [place] Measure: 0=Not Assessed/NA 4=Minimal Assistance 1=Total Assistance 5=Supervision or Setup 2=Maximal Assistance 6=Modified [place] 3=Moderate Assistance 7=Complete [place] Therapy Quality Codes: 6 Independent with activity with or without an assistive device 5 Patient requires set up or clean up by helper. Patient completes activity by themselves 4 Supervision or touching assist (CGA). Independence provide cues , steadying assist 3 The helper provides less than half the effort to complete the activity 2 The helper provides more than half the effort to complete the activity 1 Dependent. The helper does all the effort to complete an activity 7 Patient refused to complete or attempt activity 9 The patient did not perform the activity before the current illness or injury 88 Not attempted due to Medical conditions or safety concerns Transfers (B, C, W/C) (FIM): 5 (Close SBA and using FWW.) Scootin Rollin Roll Left to Right (QC): 4 Supine to/from Sit: 4 Sit to/from Stand: 5 Sit to Lying (QC): 4 Sit to Stand (QC): 5 Chair/Fac-if-Lxgkc Xfer(QC): 4 Bed to/from Chair: 5 Car Transfer (QC): 4 Gait Training Does the Patient Walk?: Yes Gait (FIM): 5 Distance (FIM): 3=150 ft Distance: 250' Walk 10 feet (QC): 5 Walk 50 ft with 2 Turns(QC): 5 Walk 150 ft (QC): 5 Walking 10ft/uneven surface-QC: 4 Gait Level of Assist: 5 Gait Persons Needed: 1 Gait Assistive Device: FWW Wheelchair Training Does the Pt Use a Wheelchair?: No Stair Training Stairs (FIM): 1 #of Steps: 1 1 Step (curb) (QC): 4 Level of Assist: 4 Mental Status/Objective Comprehension: 6 Expression: 6 Social Interaction: 6 Problem Solvin Memory: 5 ADL-Treatment Feedin (Pt able to complete own set up and uses regular utensils to eat.) Eating (QC): 6 Groomin (SBA for safety using counter for stabilization.) Oral Hygiene (QC): 4 Bathin (SBA in standing. Using grabbars, hand held shower and shower bench pt completes own shower.) Bathing Location: L Arm, R Arm, L Upper Leg, R Upper Leg, L Lower Leg (including foot), R Lower Leg (including foot), Chest, Abdomen, Buttocks, Perineal Area Shower/Bathe Self (QC): 4 Upper Extremity Dressin (After set up, pt completes by self.) Upper Body Dressing (QC): 5 Lower Extremity Dressin (Assist to don/doff pants over R foot due to manipulation of Villagomez cather. Pt able to thread other foot through pants leg. Assist to don ERNIE then pt used sock aid to don socks. SBA when standing to hike pants over hips.) Lower Body Dressing (QC): 3 On/Off Footwear (QC): 5 Toiletin (Using grabbar and FWW, pt able to complete with SBA for safety.) Toileting Hygiene (QC): 4 Toilet/Commode Transfer: 5 (Close SBA using FWW and grabbars.) Toilet Transfer (QC): 3 Shower: 4 (Min A and verbal cues to complete using FWW, grabbars and shower bench.) Assessment/Plan Assessment and Plan Assess & Plan/Chief Complaint Assessment: s/p VDRF s/p sepsis UTI Ureteral stent in place will be removed this upcoming week by Dr Bonner s/p lithotripsy Urinary retention Hematuria Elevated troponin Elevated BNP Obesity TAMIA on biPAP Edema Hypokalemia Abnormal EST with elevated troponin during ICU stay but cardiac cath normal Coccyx pain Plan: Lasix IV prn Dr Nichols appreciated Dr Bonner appreciated and stent will be DC this upcoming week DC cath today Checked iron given iron infusions Complete abx Potassium supplement (1) Myopathy (2) Abnormal stress test (3) Intellectual disability (4) Hypokalemia (5) Diabetes mellitus (6) Anemia (7) Sepsis (8) Ventilator dependence (9) Elevated troponin (10) Elevated brain natriuretic peptide (BNP) level (11) TAMIA on CPAP (12) Calculus of proximal left ureter (13) Chronic GERD (14) Urinary tract infection (15) Retained ureteral stent DALY LYNN DO August 31, 2018 10:38
--- NOTE | 2018-08-31 10:54 | Physical Therapy Daily Note ---
PT Daily Note-Current Subjective Pt reports doing pretty good, just wishes his bottom pain and sore would go away. States he continues with bilat heel/feet pain from neuropathy Pain Numeric Pain Scale: 6 Comment: Bilat heels, buttocks Appearance Pt in bathroom upon arrival At end of session, pt in bathroom with call light within reach, OT arrived. Mental Status Patient Orientation: Person, Place, Time, Eyes Open Transfers Therapy Code Descriptions/Definitions Functional [place] Measure: 0=Not Assessed/NA 4=Minimal Assistance 1=Total Assistance 5=Supervision or Setup 2=Maximal Assistance 6=Modified [place] 3=Moderate Assistance 7=Complete [place] Therapy Quality Codes: 6 Independent with activity with or without an assistive device 5 Patient requires set up or clean up by helper. Patient completes activity by themselves 4 Supervision or touching assist (CGA). [place] provide cues , steadying assist 3 The helper provides less than half the effort to complete the activity 2 The helper provides more than half the effort to complete the activity 1 Dependent. The helper does all the effort to complete an activity 7 Patient refused to complete or attempt activity 9 The patient did not perform the activity before the current illness or injury 88 Not attempted due to Medical conditions or safety concerns Transfers (B, C, W/C) (FIM): 5 Sit to/from Stand: 5 Pt performs sit to and from stand transfers with only one UE on sitting surface, inst given for BUE use on surfac, but pt does tend to do his way. Noted pt does have strength and balance to perform transfers in this manner but did have one episode that walker tipped sideways and pt was able to to self correct before losing his balance. Encouragement given to use both hands on sitting surface for safety Weight Bearing Right Lower Extremity: Right Full Weight Bearing Left Lower Extremity: Left Full Weight Bearing Gait Training Does the Patient Walk?: Yes Distance (FIM): 3=150 ft Distance: >500' x2 Gait Level of Assist: 5 Gait Persons Needed: 1 Gait Assistive Device: FWW occasional standing rest breaks, slow speed, decreased step length and height. No LOB. Slight SOA. Sitting rest break required while walking outside on uneven surfaces and down ramp before continuing on to walking up stairs with walker Stair Training Stair Training: Handrails/: 1 handrail, uses walker Stairs (FIM): 4 #of Steps: 4 Stairs: Pattern: Step to Level of Assist: 4 (CGA provided as well as verb instruction for technique in use of walker on steps while using handrail) Treatments transfer, gait, safety, toileting, stairs, ramp, uneven surfaces, functional mobility and activities, activity tolerance, picking up objects from low surfaces, Assessment Current Status: Good Progress PT Short Term Goals Short Term Goals Time Frame: September 04, 2018 Transfers (B,C,W/C) (FIM): 5 Gait (FIM): 5 Gait Distance Comment: 150' Gait Level of Assist: 5 Gait Assistive Device: FWW PT Federal Mediator Goals Federal Mediator Goals PT Federal Mediator Goals Time Frame: Sep 18, 2018 Transfers (B,C,W/C) (FIM): 6 Sit to Lying (QC): 6 Lying-Sitting on Side/Bed(QC): 6 Sit to Stand (QC): 6 Rollin Roll Left to Right (QC): 6 Chair/Lex-if-Ytvrj Xfer(QC): 6 Car Transfer (QC): 6 Gait (FIM): 6 Distance: 200' Walk 10 feet (QC): 6 Walk 10ft-Uneven Surface(QC): 6 Walk 50ft with 2 Turns (QC): 6 Walk 150 ft (QC): 6 Gait Level of Assist: 6 Gait Assistive Device: FWW Stairs (FIM): 2 # of Steps: 4 1 Step (curb) (QC): 4 4 Steps (QC): 4 Stairs Level Of Assist: 5 PT Plan Treatment/Plan Treatment Plan: Continue Plan of Care Treatment Plan: Bed Mobility, Education, Functional Activity Jane, Functional Strength, Group Therapy, Gait, Safety, Therapeutic Exercise, Transfers Treatment Duration: Sep 18, 2018 Frequency: At least 5 of 7 days/Wk (IRF) Estimated Hrs Per Day: 1.5 hours per day Patient and/or Family Agrees t: Yes Safety Risks/Education Patient Education: Gait Training, Transfer Techniques, Steps, Safety Issues Teaching Recipient: Patient Teaching Methods: Demonstration, Discussion Response to Teaching: Verbalize Understanding, Return Demonstration, Davion nforcement Needed Time/GCodes Time In: 855 Time Out: 928 Total Billed Treatment Time: 33 Total Billed Treatment 1 visit, GT x 1 unit, FA x 1 unit TASIA PATEL WHEEL CLEANER August 31, 2018 10:54
[2018-08-31] MEDS: CHLORASEPTIC LOZENGE MM PRN ×2 (11:24→16:12)
--- NOTE | 2018-08-31 12:49 | NUR ---
pt showered w assist of PCT. Allevyn patches came off prior to shower. Noted both cheeks of bottom red, excoriated. Applied Alkare swab around area as skin preventative, Allevyn sacral patches x 2 placed to Lt & Rt buttock. Pt states that he doesn't know how he got these sores.
[2018-08-31 17:04] VITALS: BP 130/71
[2018-09-01] MEDS: CHLORASEPTIC LOZENGE MM PRN ×2 (00:57→08:42)
[2018-09-01 05:34] VITALS: BP 115/62
[2018-09-01] MEDS: inSUlin ASPART (NovoLOG) 1 UNIT/0.01 ML (CHARGE PER UNIT) SC SCH ×4 (06:14→20:50)
[2018-09-01] MEDS: KCL 10 MEQ TAB (MICRO K) PO SCH ×2 (06:14→17:43)
[2018-09-01] MEDS: PANTOPRAZOLE 40 MG (PROTONIX) TAB PO SCH (06:14)
[2018-09-01] MEDS: HYDROcodone/APAP 5 MG/325 MG (LORTAB) TAB PO PRN ×2 (06:19→20:50)
[2018-09-01] MEDS: CEFDINIR 300 MG (OMNICEF) CAP PO SCH (08:41)
[2018-09-01] MEDS: POLYETHYLENE GLYCOL 17 GM (MIRALAX) PACK PO SCH ×2 (08:44→19:27)
--- NOTE | 2018-09-01 10:15 | NUR ---
Bilat heels calloused, dry and flaky upon admission.
--- NOTE | 2018-09-01 10:30 | PM&R Progress Note ---
Subjective HPI/CC On Admission Date Seen by Provider: September 01, 2018 Time Seen by Provider: 10:30 Chief Complaint: Critical illness myopathy HPI: This is a 61yoWM clinic Pt of Dr. Blanc who presented to the [place] emergency room due to generalized weakness. He had been in [place] early in the day for lithotripsy of a large 11 mm ureteral stone and placement of a stent and he told the staff at [place] that he began feeling ill on his way from [place] to [place]. He was found to have a fever of 103.6, elevated Troponin of 0.433 and acute renal failure creatinine of 1.42, lactic acid of 1.86 and white count at max was 24,500. Chest X-ray was inconsistent, maybe some pulmonar y congestion but he underwent intubation for respiratory failure and Dr. Montoya was managing that. He remained intubated for 2.5 days and overall is just having significant weakness and will need intensive therapy to return back home where he lives alone to resume his independent living as he had before. He has had significant edema, Lasix will be given today. He has had significant urinary output and is currently on Rocephin shifting to Omnicef BID due to blood cultures septicemia with E. Coli and will likely discontinue catheter tomorrow. We will also likely remove the right internal jugular central line. Bowels are moving periodically and he doesn't report any significant pain. He is compliant with CPAP machine on a nightly basis. Prior level of function was independent without assistive devices. Subjective/Events-last exam Participating well with therapy and performing his own exercises in his room and walking around the unit Catheter DC sso he is thrilled with that Dr Bonner will remove stent this this week Omnicef tolerated and completed No pain is reported Patient does have some baseline intellectual deficit but seems to function well at home alone. Has h/o CHOLO and ETOHism in the past Cardiac cath was normal performed last week Conferred with RN Reviewed therapy notes Coccyx pain is being addressed and that is shearing of the skin and responding to treatment Heels are treated also so will consult Dr Tirado. Review of Systems General: Fatigue Objective Exam Vital Signs Vital Signs Date Time Temp Pulse Resp B/P (MAP) Pulse Ox O2 Delivery O2 Flow Rate FiO2 09/01/18 05:34 97.4 80 20 115/62 (79) 98 Room Air 08/27/18 20:05 21 Capillary Refill : General Appearance: No Apparent Distress, WD/WN, Chronically ill HEENT: PERRL/EOMI, Normal ENT Inspection, Pharynx Normal, Moist Mucous Membranes Neck: Full Range of Motion, Normal Inspection, Non Tender, Supple Respiratory: Chest Non Tender, Lungs Clear, Normal Breath Sounds, No Accessory Muscle Use, No Respiratory Distress, Decreased Breath Sounds Cardiovascular: Regular Rate, Rhythm, No Gallop, No JVD, No Murmur Gastrointestinal: Normal Bowel Sounds, No Organomegaly, No Pulsatile Mass, Non Tender, Soft Back: Normal Inspection, No CVA Tenderness, No Vertebral Tenderness Extremity: Normal Capillary Refill, Normal Inspection, Normal Range of Motion, Non Tender, No Calf Tenderness, Pedal Edema Neurologic/Psychiatric: Alert, Oriented x3, No Motor/Sensory Deficits (generalized weakness of legs and arms 4/5), Normal Mood/Affect Skin: Normal Color, Warm/Dry Lymphatic: No Adenopathy Results/Procedures Lab Patient resulted labs reviewed. FIM Transfers Therapy Code Descriptions/Definitions Functional [place] Measure: 0=Not Assessed/NA 4=Minimal Assistance 1=Total Assistance 5=Supervision or Setup 2=Maximal Assistance 6=Modified [place] 3=Moderate Assistance 7=Complete [place] Therapy Quality Codes: 6 Independent with activity with or without an assistive device 5 Patient requires set up or clean up by helper. Patient completes activity by themselves 4 Supervision or touching assist (CGA). [place] provide cues , steadying assist 3 The helper provides less than half the effort to complete the activity 2 The helper provides more than half the effort to complete the activity 1 Dependent. The helper does all the effort to complete an activity 7 Patient refused to complete or attempt activity 9 The patient did not perform the activity before the current illness or injury 88 Not attempted due to Medical conditions or safety concerns Transfers (B, C, W/C) (FIM): 5 Scootin Rollin Roll Left to Right (QC): 4 Supine to/from Sit: 4 Sit to/from Stand: 5 Sit to Lying (QC): 4 Sit to Stand (QC): 5 Chair/Dgc-mw-Eknbb Xfer(QC): 4 Bed to/from Chair: 5 Car Transfer (QC): 4 Gait Training Does the Patient Walk?: Yes Gait (FIM): 5 Distance (FIM): 3=150 ft Distance: >500' x2 Walk 10 feet (QC): 5 Walk 50 ft with 2 Turns(QC): 5 Walk 150 ft (QC): 5 Walking 10ft/uneven surface-QC: 4 Gait Level of Assist: 5 Gait Persons Needed: 1 Gait Assistive Device: FWW Wheelchair Training Does the Pt Use a Wheelchair?: No Stair Training Stair Training: Handrails/: 1 handrail, uses walker Stairs (FIM): 4 #of Steps: 4 1 Step (curb) (QC): 4 Stairs: Pattern: Step to Level of Assist: 4 (CGA provided as well as verb instruction for technique in use of walker on steps while using handrail) Mental Status/Objective Comprehension: 6 Expression: 6 Social Interaction: 6 Problem Solvin Memory: 5 ADL-Treatment Feedin (Pt able to complete own set up and uses regular utensils to eat.) Eating (QC): 6 Groomin (SBA for safety using counter for stabilization.) Oral Hygiene (QC): 4 Bathin (SBA in standing. Using grabbars, hand held shower and shower bench pt completes own shower.) Bathing Location: L Arm, R Arm, L Upper Leg, R Upper Leg, L Lower Leg (including foot), R Lower Leg (including foot), Chest, Abdomen, Buttocks, Perineal Area Shower/Bathe Self (QC): 4 Upper Extremity Dressin (After set up, pt completes by self.) Upper Body Dressing (QC): 5 Lower Extremity Dressin (Assist to don/doff pants over R foot due to manipulation of Villagomez cather. Pt able to thread other foot through pants leg. Assist to don ERNIE then pt used sock aid to don socks. SBA when standing to hike pants over hips.) Lower Body Dressing (QC): 3 On/Off Footwear (QC): 5 Toiletin (Using grabbar and FWW, pt able to complete with SBA for safety.) Toileting Hygiene (QC): 4 Toilet/Commode Transfer: 5 (Close SBA using FWW and grabbars.) Toilet Transfer (QC): 3 Shower: 4 (Min A and verbal cues to complete using FWW, grabbars and shower bench.) Assessment/Plan Assessment and Plan Assess & Plan/Chief Complaint Assessment: s/p VDRF s/p sepsis UTI Ureteral stent in place will be removed this upcoming week by Dr Bonner s/p lithotripsy Urinary retention Hematuria Elevated troponin Elevated BNP Obesity TAMIA on biPAP Edema Hypokalemia Abnormal EST with elevated troponin during ICU stay but cardiac cath normal Coccyx pain with shearing of skin Heel pain with early pressure ulcers Plan: Lasix IV prn Dr Nichols appreciated Dr Bonner appreciated and stent will be DC this upcoming week Checked iron given iron infusions Complete abx Potassium supplement Check labs in am (1) Myopathy (2) Abnormal stress test (3) Intellectual disability (4) Hypokalemia (5) Diabetes mellitus (6) Anemia (7) Sepsis (8) Ventilator dependence (9) Elevated troponin (10) Elevated brain natriuretic peptide (BNP) level (11) TAMIA on CPAP (12) Calculus of proximal left ureter (13) Chronic GERD (14) Urinary tract infection (15) Retained ureteral stent DALY LYNN DO September 01, 2018 10:30
[2018-09-01] MEDS ORDERED: LORATADINE (CLARITIN) 10 MG TAB PO ONE (10:45)
[2018-09-01] MEDS: guaiFENesin/DM (ROBITUSSIN DM) 10 ML UDC PO PRN (12:01)
[2018-09-01 16:41] VITALS: BP 112/57
[2018-09-02] MEDS: CHLORASEPTIC LOZENGE MM PRN (03:10)
[2018-09-02] MEDS: guaiFENesin/DM (ROBITUSSIN DM) 10 ML UDC PO PRN (03:10)
[2018-09-02] MEDS: HYDROcodone/APAP 5 MG/325 MG (LORTAB) TAB PO PRN ×2 (05:09→18:58)
[2018-09-02] MEDS: KCL 10 MEQ TAB (MICRO K) PO SCH ×2 (05:09→17:46)
[2018-09-02] MEDS: PANTOPRAZOLE 40 MG (PROTONIX) TAB PO SCH (05:09)
[2018-09-02 05:13] LABS: BASOPHILS % (AUTO) 0 % (0-10); EOSINOPHILS % (AUTO) 1 % (0-10); HEMATOCRIT 28 % (40-54); HEMOGLOBIN 8.8 G/DL (13.3-17.7); LYMPHOCYTES # (AUTO) 1.4 X 10^3 (1.0-4.0); LYMPHOCYTES % (AUTO) 26 % (12-44); MEAN CORPUSCULAR HEMOGLOBIN 29 PG (25-34); MEAN CORPUSCULAR HGB CONC 31 G/DL (32-36); MEAN CORPUSCULAR VOLUME 92 FL (80-99); MEAN PLATELET VOLUME 9.1 FL (7.4-10.4); MONOCYTES # (AUTO) 0.7 X 10^3 (0.0-1.0); MONOCYTES % (AUTO) 14 % (0-12); NEUTROPHILS # (AUTO) 3.2 X 10^3 (1.8-7.8); NEUTROPHILS % (AUTO) 59 % (42-75); PLATELET COUNT 330 10^3/uL (130-400); RED CELL DISTRIBUTION WIDTH 15.9 % (10.0-14.5); WHITE BLOOD COUNT 5.4 10^3/uL (4.3-11.0)
[2018-09-02 05:24] VITALS: BP 124/74
[2018-09-02 05:31] LABS: ALANINE AMINOTRANSFERASE 49 U/L (0-55); ALBUMIN 3.2 GM/DL (3.2-4.5); ALKALINE PHOSPHATASE 177 U/L (40-136); BILIRUBIN,TOTAL 0.5 MG/DL (0.1-1.0); BUN/CREATININE RATIO 14; CALCIUM 8.5 MG/DL (8.5-10.1); CARBON DIOXIDE 20 MMOL/L (21-32); CHLORIDE 105 MMOL/L (98-107); CREATININE SERUM 0.71 MG/DL (0.60-1.30); GFR ESTIMATED > 60; GLUCOSE 110 MG/DL (70-105); POTASSIUM 4.3 MMOL/L (3.6-5.0); SODIUM 136 MMOL/L (135-145); TOTAL PROTEIN 6.1 GM/DL (6.4-8.2)
[2018-09-02] MEDS: inSUlin ASPART (NovoLOG) 1 UNIT/0.01 ML (CHARGE PER UNIT) SC SCH ×4 (06:04→20:12)
--- NOTE | 2018-09-02 08:00 | NUR ---
PATIENT STATES HAS NOT BEEN RESTARTED ON METFORMIN. DR. LYNN OKAYS TO RESTART IT.
--- NOTE | 2018-09-02 08:41 | PM&R Progress Note ---
Subjective HPI/CC On Admission Date Seen by Provider: September 02, 2018 Time Seen by Provider: 08:45 Chief Complaint: Critical illness myopathy HPI: This is a 61yoWM clinic Pt of Dr. Blanc who presented to the [place] emergency room due to generalized weakness. He had been in [place] early in the day for lithotripsy of a large 11 mm ureteral stone and placement of a stent and he told the staff at [place] that he began feeling ill on his way from [place] to [place]. He was found to have a fever of 103.6, elevated Troponin of 0.433 and acute renal failure creatinine of 1.42, lactic acid of 1.86 and white count at max was 24,500. Chest X-ray was inconsistent, maybe some pulmonary congestion but he underwent intubation for respiratory failure and Dr. Montoya was managing that. He remained intubated for 2.5 days and overall is just having significant weakness and will need intensive therapy to return back home where he lives alone to resume his independent living as he had before. He has had significant edema, Lasix will be given today. He has had significant urinary output and is currently on Rocephin shifting to Omnicef BID due to blood cultures septicemia with E. Coli and will likely discontinue catheter tomorrow. We will also likely remove the right internal jugular central line. Bowels are moving periodically and he doesn't report any significant pain. He is compliant with CPAP machine on a nightly basis. Prior level of function was independent without assistive devices. Subjective/Events-last exam Participating well with therapy and up ad rabia Stent removal tomorrow by Dr Kailey Bonner and I discussed the case Omnicef has been completed No pain is reported Patient does have some baseline intellectual deficit but seems to function well at home alone. Has h/o CHOLO and ETOHism in the past Cardiac cath was normal performed last week Conferred with RN Reviewed therapy notes Coccyx pain is being addressed and that is shearing of the skin and responding to treatment Heels are treated also so will consult Dr Tirado. Worried about his cat Hgb 8.8 Venofer 3rd dose today Metformin restarted Review of Systems General: Fatigue Objective Exam Vital Signs Vital Signs Date Time Temp Pulse Resp B/P (MAP) Pulse Ox O2 Delivery O2 Flow Rate FiO2 09/02/18 18:00 98.8 96 20 131/76 (94) 99 Room Air 08/27/18 20:05 21 Capillary Refill : General Appearance: No Apparent Distress, WD/WN, Chronically ill HEENT: PERRL/EOMI, Normal ENT Inspection, Pharynx Normal, Moist Mucous Membranes Neck: Full Range of Motion, Normal Inspection, Non Tender, Supple Respiratory: Chest Non Tender, Lungs Clear, Normal Breath Sounds, No Accessory Muscle Use, No Respiratory Distress, Decreased Breath Sounds Cardiovascular: Regular Rate, Rhythm, No Gallop, No JVD, No Murmur Gastrointestinal: Normal Bowel Sounds, No Organomegaly, No Pulsatile Mass, Non Tender, Soft Back: Normal Inspection, No CVA Tenderness, No Vertebral Tenderness Extremity: Normal Capillary Refill, Normal Inspection, Normal Range of Motion, Non Tender, No Calf Tenderness, Pedal Edema Neurologic/Psychiatric: Alert, Oriented x3, No Motor/Sensory Deficits (generalized weakness of legs and arms 4/5), Normal Mood/Affect Skin: Normal Color, Warm/Dry Lymphatic: No Adenopathy Results/Procedures Lab Laboratory Tests 09/02/18 04:56 Patient resulted labs reviewed. FIM Transfers Therapy Code Descriptions/Definitions Functional [place] Measure: 0=Not Assessed/NA 4=Minimal Assistance 1=Total Assistance 5=Supervision or Setup 2=Maximal Assistance 6=Modified [place] 3=Moderate Assistance 7=Complete [place] Therapy Quality Codes: 6 Independent with activity with or without an assistive device 5 Patient requires set up or clean up by helper. Patient completes activity by themselves 4 Supervision or touching assist (CGA). [place] provide cues , steadying assist 3 The helper provides less than half the effort to complete the activity 2 The helper provides more than half the effort to complete the activity 1 Dependent. The helper does all the effort to complete an activity 7 Patient refused to complete or attempt activity 9 The patient did not perform the activity before the current illness or injury 88 Not attempted due to Medical conditions or safety concerns Transfers (B, C, W/C) (FIM): 5 Scootin Rollin Roll Left to Right (QC): 4 Supine to/from Sit: 4 Sit to/from Stand: 5 Sit to Lying (QC): 4 Sit to Stand (QC): 5 Chair/Bol-cv-Dfvil Xfer(QC): 4 Bed to/from Chair: 5 Car Transfer (QC): 4 Gait Training Does the Patient Walk?: Yes Gait (FIM): 5 Distance (FIM): 3=150 ft Distance: >500' x2 Walk 10 feet (QC): 5 Walk 50 ft with 2 Turns(QC): 5 Walk 150 ft (QC): 5 Walking 10ft/uneven surface-QC: 4 Gait Level of Assist: 5 Gait Persons Needed: 1 Gait Assistive Device: FWW Wheelchair Training Does the Pt Use a Wheelchair?: No Stair Training Stair Training: Handrails/: 1 handrail, uses walker Stairs (FIM): 4 #of Steps: 4 1 Step (curb) (QC): 4 Stairs: Pattern: Step to Level of Assist: 4 (CGA provided as well as verb instruction for technique in use of walker on steps while using handrail) Mental Status/Objective Comprehension: 6 Expression: 6 Social Interaction: 6 Problem Solvin Memory: 5 ADL-Treatment Feedin (Pt able to complete own set up and uses regular utensils to eat.) Eating (QC): 6 Groomin (SBA for safety using counter for stabilization.) Oral Hygiene (QC): 4 Bathin (SBA in standing. Using grabbars, hand held shower and shower bench pt completes own shower.) Bathing Location: L Arm, R Arm, L Upper Leg, R Upper Leg, L Lower Leg (including foot), R Lower Leg (including foot), Chest, Abdomen, Buttocks, Perineal Area Shower/Bathe Self (QC): 4 Upper Extremity Dressin (After set up, pt completes by self.) Upper Body Dressing (QC): 5 Lower Extremity Dressin (Assist to don/doff pants over R foot due to manipulation of Villagomez cather. Pt able to thread other foot through pants leg. Assist to don ERNIE then pt used sock aid to don socks. SBA when standing to hike pants over hips.) Lower Body Dressing (QC): 3 On/Off Footwear (QC): 5 Toiletin (Using grabbar and FWW, pt able to complete with SBA for safety.) Toileting Hygiene (QC): 4 Toilet/Commode Transfer: 5 (Close SBA using FWW and grabbars.) Toilet Transfer (QC): 3 Shower: 4 (Min A and verbal cues to complete using FWW, grabbars and shower bench.) Assessment/Plan Assessment and Plan Assess & Plan/Chief Complaint Assessment: s/p VDRF s/p sepsis UTI Ureteral stent in place will be removed tomorrow by Dr Bonner s/p lithotripsy Urinary retention Hematuria Elevated troponin Elevated BNP Obesity TAMIA on biPAP Edema Hypokalemia Abnormal EST with elevated troponin during ICU stay but cardiac cath normal Coccyx pain with shearing of skin Heel pain with early pressure ulcers Plan: Lasix IV prn Dr Nichols appreciated Dr Bonner appreciated and stent will be DC tomorrow Checked iron given iron infusions Complete abx Potassium supplement Check labs in am (1) Myopathy (2) Abnormal stress test (3) Intellectual disability (4) Hypokalemia (5) Diabetes mellitus (6) Anemia (7) Sepsis (8) Ventilator dependence (9) Elevated troponin (10) Elevated brain natriuretic peptide (BNP) level (11) TAMIA on CPAP (12) Calculus of proximal left ureter (13) Chronic GERD (14) Urinary tract infection (15) Retained ureteral stent DALY LYNN DO September 02, 2018 08:41
--- NOTE | 2018-09-02 09:00 | NUR ---
DR. CONLEY HERE AND PLANS FOR STENT REMOVAL IN AM. PATIENT DENIES ANY DIFFICULTY IN VOIDING SINCE RODRIGUEZ CATHETER DC'D.
[2018-09-02] MEDS: LORATADINE (CLARITIN) 10 MG TAB PO SCH (09:03)
[2018-09-02] MEDS: IRON SUCROSE 200 MG/10 ML (VENOFER) VIAL IV SCH (09:03)
[2018-09-02] MEDS: CATHETER FLUSH 10 ML SYR IV PRN (09:04)
[2018-09-02] MEDS: POLYETHYLENE GLYCOL 17 GM (MIRALAX) PACK PO SCH ×2 (09:13→20:11)
--- NOTE | 2018-09-02 09:20 | Occupational Ther Daily Note ---
OT Current Status-Daily Note Subjective Pt alert, sitting in recliner. Pt agrees to therapy. No c/o pain. Pt has a lot of questions about the FWW, his stint, when he is going home, where he will be going for wound care. Will report to social worker assistant. Mental Status/Objective Patient Orientation: Person, Place, Time, Situation Therapy Code Descriptions/Definitions Functional [place] Measure: 0=Not Assessed/NA 4=Minimal Assistance 1=Total Assistance 5=Supervision or Setup 2=Maximal Assistance 6=Modified [place] 3=Moderate Assistance 7=Complete [place] Attachments: IV (midline) ADL-Treatment Therapy Code Descriptions/Definitions Functional [place] Measure: 0=Not Assessed/NA 4=Minimal Assistance 1=Total Assistance 5=Supervision or Setup 2=Maximal Assistance 6=Modified [place] 3=Moderate Assistance 7=Complete [place] Therapy Quality Codes: 6 Independent with activity with or without an assistive device 5 Patient requires set up or clean up by helper. Patient completes activity by themselves 4 Supervision or touching assist (CGA). [place] provide cues , steadying assist 3 The helper provides less than half the effort to complete the activity 2 The helper provides more than half the effort to complete the activity 1 Dependent. The helper does all the effort to complete an activity 7 Patient refused to complete or attempt activity 9 The patient did not perform the activity before the current illness or injury 88 Not attempted due to Medical conditions or safety concerns Eating (FIM): 7 (Pt completes independently.) Eating (QC): 6 Grooming (FIM): 7 (Using counter to stabilize self pt able to complete by self.) Oral Hygiene (QC): 6 Bathing (FIM): 6 (Using grabbars, hand held shower and shower bench to complete own shower.) Bathing Location: L Arm, R Arm, L Upper Leg, R Upper Leg, L Lower Leg (including foot), R Lower Leg (including foot), Chest, Abdomen, Buttocks, Perineal Area Shower/Bathe Self (QC): 6 Upper Body (FIM): 6 (Using FWW to retrieve clothing pt able to complete dressing.) Upper Body Dressing (QC): 6 (Using FWW to retrieve clothing pt able to complete dressing.) Lower Body Dressing (FIM): 6 (Using FWW to retrieve clothing pt able to complete dressing.) Lower Body Dressing (QC): 6 (Using FWW to retrieve clothing pt able to complete dressing.) On/Off Footwear (QC): 6 Toileting (FIM): 6 (Using wall to lean on, pt urinated in urinal then dumped in toilet. For BM pt uses BSC and grabbars.) Toileting Hygiene (QC): 6 Transfers (B, C, W/C) (FIM): 6 (Using FWW) Toilet/Commode Transfer (FIM): 6 Toilet Transfer (QC): 6 Shower Transfer(FIM): 6 (Using FWW, grabbar and shower bench.) Pt does have tub shower at home and states that his mother has tub chair, though unsure if it is available. After therapy, pt sitting in recliner with call light/phone in reach. All needs met in room. OT Short Term Goals Short Term Goals Eating(FIM): 6 Grooming(FIM): 6 Bathing(FIM): 5 Bathing Location: L Arm, R Arm, L Upper Leg, R Upper Leg, L Lower Leg (including foot), R Lower Leg (including foot), Chest, Abdomen, Buttocks, Perineal Area Upper Body Dressing(FIM): 5 Lower Body Dressing(FIM): 5 Toileting(FIM): 5 Transfers (B,C,W/C) (FIM): 5 Toilet/Commode Transfer(FIM): 5 Tub Transfer(FIM): 5 Shower Transfer(FIM): 5 Additional Short Term Goals: 1-Demonstrate ADL Tasks, 2-Verbalize Understanding, 3-ImproveStrength/Jane 1=Demonstrate adherence to instructed precautions during ADL tasks. 2=Patient will verbalize/demonstrate understanding of assistive devices/modifications for ADL. 3=Patient will improve strength/tolerance for activity to enable patient to perform ADL's. OT Correction Goals Correction Goals Eating (FIM): 6 (met-09/02/18) Eating (QC): 6 (met-09/02/18) Groomin (met-09/02/18) Oral Hygiene (QC): 6 (met-09/02/18) Bathing(FIM): 6 (met-09/02/18) Bathing Location: L Arm, R Arm, L Upper Leg, R Upper Leg, L Lower Leg (including foot), R Lower Leg (including foot), Chest, Abdomen, Buttocks, Perineal Area Shower/Bathe Self (QC): 6 (met-09/02/18) Upper Body Dressing(FIM): 6 (met-09/02/18) Upper Body Dressing (QC): 6 (met-09/02/18) Lower Body Dressing(FIM): 6 (met-09/02/18) Lower Body Dressing (QC): 6 (met-09/02/18) On/Off Footwear (QC): 6 (met-09/02/18) Toileting(FIM): 6 (met-09/02/18) Toileting Hygiene (QC): 6 (met-09/02/18) Transfers (B,C,W/C) (FIM): 6 (met-09/02/18) Toilet/Commode Transfer(FIM): 6 (met-09/02/18) Toilet/Commode Transfer (QC): 6 (met-09/02/18) Tub Transfer(FIM): 6 Shower Transfer(FIM): 6 (met-09/02/18) Additional Goals: 1-Demonstrate ADL Tasks, 2-Verbalize Understanding, 3- ImproveStrength/Jane 1=Demonstrate adherence to instructed precautions during ADL tasks. 2=Patient will verbalize/demonstrate understanding of assistive devices/modifications for ADL. 3=Patient will improve strength/tolerance for activity to enable patient to perform ADL's. OT Education/Plan Problem List/Assessment Assessment: Decreased Activ Tolerance, Impaired Self-Care Skills pt presents with functional limitation affecting areas of ADLS/ functional transfers. pt would benefit from skilled OT services to address above mention deficits, increase independence with ADLs/ functional transfers, and for safe transition to home. Discharge Recommendations Plan/Recommendations: Continue POC Treatment Plan/Plan of Care Patient would benefit from OT for education, treatment and training to promote independence in ADL's, mobility, safety and/or upper extremity function for ADL's. Plan of Care: ADL Retraining, Caregiver Training, Cognitive Retraining, Concurrent Therapy, Functional Mobility, Group Exercise/Act as Ind, Orthotic Fitting/Training, UE Funct Exercise/Act Treatment Duration: Sep 24, 2018 Frequency: At least 5 of 7 days/Wk (IRF) Estimated Hrs Per Day: 1.5 hours per day (60-90 munites per day) Agreement: Yes Rehab Potential: Fair Time/GCodes Start Time: 07:00 Stop Time: 08:00 Total Time Billed (hr/min): 60 Billed Treatment Time 1 visit-ADL 4 (60 min) LAURA MENDOZA September 02, 2018 09:20
--- NOTE | 2018-09-02 09:22 | Cardiology Progress Note ---
Cardiology SOAP Progress Note Subjective: No cardiac complaints. Objective: I&O/Vital Signs 09/02/18 09/02/18 05:24 08:01 Temp 97.3 Pulse 91 Resp 20 B/P (MAP) 124/74 (91) Pulse Ox 97 97 O2 Delivery Room Air Room Air 09/02/18 00:00 Intake Total 1250 ml Output Total 2100 ml Balance -850 ml Weight (Pounds): 307 Weight (Ounces): 0.0 Weight (Calculated Kilograms): 139.782273 Constitutional: AAO x 3 Respiratory: No accessory muscle use, No respiratory distress, No chest tender, No chest expansion is symmetric; chest is bilaterally symmetric; No lungs clear to percussion; lungs clear to auscultation; No crackles, No rhonchi, No rales, No stridor, No wheezing, No pleural rub, No other Cardiovascular: regular rate-rhythm; No irregularly irregular, No extra beats, No parasternal heave is noted, No JVD, No edema, No bradycardia, No tachycardia, No point of maximal impulse, No cardiac thrills are palpable; S1 and S2; No gallop/S3, No gallop/S4, No diastolic murmur, No systolic murmur, No friction rub, No click, No other Gastrointestional: No tender, No soft, No round, No distended, No pulsatile mass, No organomegaly, No guarding, No rebound, No tenderness, No hernia, No mass, No audible bowel sounds, No abnormal bowel sounds, No abdominal bruits, No spleenomegaly, No other Extremities: No normal range of motion, No non-tender, No normal inspection, No pedal edema, No calf tenderness, No normal capillary refill, No pelvis stable, No calf tenderness, No inflammation, No pedal edema, No slow capillary refill, No swelling, No other, No abrasion, No clubbing, No cyanosis, No ecchymosis, No laceration, No no lower extremity edema bilateral, No significant edema, No tenderness, No wound Neurologic/Psychiatric: no motor/sensory deficits, alert, normal mood/affect, oriented x 3 Skin: No normal color, No warm/dry, No cyanosis, No cool, No diaphoresis, No damp, No ecchymosis, No jaundice, No mottled, No pallor, No rash, No tattoos/piercings, No ulcerations, No rash on exposed areas, No ulcerations on exposed areas, No other Results/Procedures: Labs Laboratory Tests 09/01/18 11:06: Glucometer 97 09/01/18 16:39: Glucometer 167H 09/01/18 20:46: Glucometer 198H 09/02/18 04:56: White Blood Count 5.4, Red Blood Count 3.04L, Hemoglobin 8.8L, Hematocrit 28L, Mean Corpuscular Volume 92, Mean Corpuscular Hemoglobin 29, Mean Corpuscular Hemoglobin Concent 31L, Red Cell Distribution Width 15.9H, Platelet Count 330, Mean Platelet Volume 9.1, Neutrophils (%) (Auto) 59, Lymphocytes (%) (Auto) 26, Monocytes (%) (Auto) 14H, Eosinophils (%) (Auto) 1, Basophils (%) (Auto) 0, Neutrophils # (Auto) 3.2, Lymphocytes # (Auto) 1.4, Monocytes # (Auto) 0.7, Eosinophils # (Auto) 0.0, Basophils # (Auto) 0.0, Sodium Level 136, Potassium Level 4.3, Chloride Level 105, Carbon Dioxide Level 20L, Anion Gap 11, Blood Urea Nitrogen 10, Creatinine 0.71, Estimat Glomerular Filtration Rate > 60, BUN/Creatinine Ratio 14, Glucose Level 110H, Calcium Level 8.5, Corrected Calcium 9.1, Total Bilirubin 0.5, Aspartate Amino Transf (AST/SGOT) 27, Alanine Aminotransferase (ALT/SGPT) 49, Alkaline Phosphatase 177H, Total Protein 6.1L, Albumin 3.2 A/P: Assessment/Dx: Severe septic shock, likely due to bilateral pneumonia, UTI, Urinary bleeding, Recent kidney stone, left ureter stent, Possible SVT, no strips available, Elevated proBNP, Elevated troponin, Acute kidney injury, Lactic acidosis, Diabetes, Plan: Severe septic shock, likely due to bilateral pneumonia, resolved. UTI, on broad spectrum antibiotics. UTI is not confirmed. Urinary bleeding, status post treatment for kidney stone and left ureter stent yesterday at [facility] in [place]. Significant resolution. Recent kidney stone, left ureter stent, Possible SVT, no strips available, there is a mention in the record that the patient was in SVT and adenosine was given which converted to sinus tachycardia. Unfortunately no strips are available for review, therefore I cannot comment on what was seen by the EMS. All available EKGs show sinus tachycardia. Which is very likely due to severe systemic illness. Elevated proBNP, likely due to bilateral pneumonia and severe sepsis. Bedside echocardiogram revealed normal LV function on 08/23/2018. Elevated troponin, NSTEMI. Coronary angiography will be performed 08/29/2018 showed patent epicardial coronary arteries. secondary to systemic illness (type II myocardial infarction) Acute kidney injury, IV fluids being given. Significant improvement. Lactic acidosis, likely due to severe sepsis. Resolved. Diabetes, Thank you for your consultation. Please call me if you have any questions. Jordana Nichols MD, FACP, FACC, FSCAI, FHRS, CCDS Interventional Cardiology Cardiac Electrophysiology Vascular Medicine and Endovascular Interventions Emely NICHOLS MD September 02, 2018 9:22 am
--- NOTE | 2018-09-02 10:00 | NUR ---
Danielle DELUNA OKAYS THAT PATIENT CAN BE UP AD JAMAL LONG HE HAS WALKER WITH HIM. PATIENT VOICES UNDERSTANDING.
--- NOTE | 2018-09-02 10:32 | Physical Therapy Daily Note ---
PT Daily Note-Current Subjective Agrees to PT. Reports he thinks he is going home Sunday. Pain Numeric Pain Scale: 0-No Pain Mental Status Patient Orientation: Person, Place, Time, Situation Transfers Therapy Code Descriptions/Definitions Functional [place] Measure: 0=Not Assessed/NA 4=Minimal Assistance 1=Total Assistance 5=Supervision or Setup 2=Maximal Assistance 6=Modified [place] 3=Moderate Assistance 7=Complete [place] Therapy Quality Codes: 6 Independent with activity with or without an assistive device 5 Patient requires set up or clean up by helper. Patient completes activity by themselves 4 Supervision or touching assist (CGA). [place] provide cues , steadying assist 3 The helper provides less than half the effort to complete the activity 2 The helper provides more than half the effort to complete the activity 1 Dependent. The helper does all the effort to complete an activity 7 Patient refused to complete or attempt activity 9 The patient did not perform the activity before the current illness or injury 88 Not attempted due to Medical conditions or safety concerns Transfers (B, C, W/C) (FIM): 7 Roll Left to Right (QC): 6 Supine to/from Sit: 7 Sit to/from Stand: 7 Sit to Lying (QC): 6 Sit to Stand (QC): 6 Chair/Nwr-ei-Scioj Xfer(QC): 6 Car Transfer (QC): 6 pt is safe and indep with transfers. Weight Bearing Right Lower Extremity: Right Full Weight Bearing Left Lower Extremity: Left Full Weight Bearing Gait Training Does the Patient Walk?: Yes Gait (FIM): 6 Distance (FIM): 3=150 ft Walk 10 feet (QC): 6 Walk 50 ft with 2 Turns(QC): 6 Walk 150 ft (QC): 6 Walking 10ft/uneven surface-QC: 6 Gait Assistive Device: FWW pt completed gait on multiple surfaces in/outdoor and grassy area; in addition up a slope. He is mod indep with all gait with FWW on all surfaces. Initiated gait training with a cane this date to work towards a less restrictive AD> He was able to walk 200 ft with the cane with turns. In addition, he completed a course that included a curb step, uneven surface and weaving with use of the cane to begin training. Safe and no LOB episodes with this. Wheelchair Training Does the Pt Use a Wheelchair?: No Stair Training Stair Training: Handrails/: 2 handrails Stairs (FIM): 6 (takes extra time) #of Steps: 12 1 Step (curb) (QC): 6 4 Steps (QC): 6 12 Steps (QC): 6 Stairs: Pattern: Step to Balance Picking up an Object (QC): 4 Neuromuscular High level balance training with use of the cane for gait with curb, uneven surface and weaving. Treatments Gait training on varied surfaces extended distances (>500 ft) mod indep. Provided education on safety and managment of gait in grass and stepping over cracks in the sidewalk. Reviewed energy conservation as well Assessment Current Status: Good Progress Excellent progress. Pt safe to be up ad rabia in his room with use of the FWW. He voiced understanding and demonstrated safe use of the walker to be up. He understands the cane is for therapy purposes only. He is meeting PT goals and making excellent gains. PT Short Term Goals Short Term Goals Time Frame: September 04, 2018 Transfers (B,C,W/C) (FIM): 5 Gait (FIM): 5 Gait Distance Comment: 150' Gait Level of Assist: 5 Gait Assistive Device: FWW PT Paper Tester Goals Snf Goals PT Snf Goals Time Frame: Sep 18, 2018 Transfers (B,C,W/C) (FIM): 6 (exceeded) Sit to Lying (QC): 6 (met) Lying-Sitting on Side/Bed(QC): 6 (met) Sit to Stand (QC): 6 (met) Rollin Roll Left to Right (QC): 6 (met) Chair/Aqv-ju-Llyhj Xfer(QC): 6 (met) Car Transfer (QC): 6 (met) Gait (FIM): 6 (met) Distance: 200' Walk 10 feet (QC): 6 (met) Walk 10ft-Uneven Surface(QC): 6 (met) Walk 50ft with 2 Turns (QC): 6 (met) Walk 150 ft (QC): 6 (met) Gait Level of Assist: 6 Gait Assistive Device: FWW Stairs (FIM): 2 (exceeded) # of Steps: 4 1 Step (curb) (QC): 4 4 Steps (QC): 4 Stairs Level Of Assist: 5 PT Plan Problem List Problem List: Activity Tolerance, Functional Strength, Safety, Gait (with cane) Treatment/Plan Treatment Plan: Continue Plan of Care Treatment Plan: Bed Mobility, Education, Functional Activity Jane, Functional Strength, Group Therapy, Gait, Safety, Therapeutic Exercise, Transfers Treatment Duration: Sep 18, 2018 Frequency: At least 5 of 7 days/Wk (IRF) Estimated Hrs Per Day: 1.5 hours per day Patient and/or Family Agrees t: Yes Safety Risks/Education Patient Education: Transfer Techniques, Safety Issues Teaching Recipient: Patient Teaching Methods: Demonstration, Discussion Response to Teaching: Return Demonstration Discharge Recommendations Therapy D/C Recommendations: Physical Therapy Home Care Time/GCodes Time In: 900 Time Out: 1000 Total Billed Treatment Time: 60 Total Billed Treatment visit GT 30 NM 30 LAURA DELUNA PT September 02, 2018 10:32
--- NOTE | 2018-09-02 13:05 | NUR ---
MRSA SCREEN DC'D BECAUSE PATIENT HAD IT DONE ON 08-23-18 AND WAS NEGATIVE.
--- NOTE | 2018-09-02 13:24 | Speech Therapy Daily Note ---
Speech Daily Progress Note Subjective Date Seen by Provider: September 02, 2018 Time Seen by Provider: 00:30 The patient was just finishing up his PT session when I arrived. Objective The patient completed problem solving activities related to his safety and independence with 80% accuracy given min to mod verbal cues and/or repetitions. Assessment Assessment Current Status: Good Progress Treatment Plan Continue Plan of Care Communication Comprehension: 6 Expression: 6 Social Cognition Social Interaction: 6 Problem Solvin Memory: 5 Speech Short Term Goals Short Term Goals Short Term Goals 1) The patient will be able to follow verbal instructions with her daily tasks at 90% or greater with minimal cues. 2) The patient will recall new information provided with 90% or greater with minimal cues. 3) The patient will complete memory exercises with 90% or greater with minimal cues. Speech Surgical Assistant Goals Surgical Assistant Goals The patient will improve safety and independence in order to return home. Speech-Plan Patient/Family Goals Patient/Family Goals: The patient plans to return home with family support post rehab. Treatment Plan Speech Therapy Treatment Plan: Continue Plan of Care The patient is making good progress as a result of skilled ST services. Treatment Duration: September 06, 2018 Frequency: 5 times per week Estimated Hrs Per Day: .5 hour per day Rehab Potential: Fair Barriers to Learning: Patient has been refusing to get out of bed due to getting dizzy. Pt/Family Agrees to Plan: Yes Safety Risks/Education Teaching Recipient: Patient Teaching Methods: Discussion Response to Teaching: Verbalize Understanding Education Topics Provided: Safety of oral intake due to patient having a slight bit of trouble swallowing again. Bedside assessment reveals no change in diet texture needed at this time. Time Speech Therapy Time In: 11:30 Speech Therapy Time Out: 12:00 Total Billed Time: 30 Billed Treatment Time 1, HUYEN Mercado September 02, 2018 13:24
--- NOTE | 2018-09-02 15:05 | Therapy Group Daily Note ---
Therapy Daily Group Note Patient Education Topic Other List Below (Pain management, ARU description/expecations) Exercises Stretching Session Ratio (pt:therapist): 4:1 Goal of Session: Education on ARU Expectations Goal Met for this Session: Yes Pt Benefit of Group: Contributions to Others, F/U Use of Strategies @Home, Improved Cognition, Recognition of Peers, Socialization Other/Notes Pt ambulated with FWW to [facility] area for OT/PT group. Group consisted of introductions (name, place living, storm memories), socialization, ARU description/expectations, stretching and pain management education. Pt introduced self appropriately and actively listened to peers. Pt demonstrated understanding of using stretch for pain management by using gait belt as stretching device. Pt then verbalized own strategies for pain management and understanding of drug-free options for management. Pt acknowledged understanding of ARU description/expectations and asked pertinent questions. After group, pt sitting in recliner. All needs met in room. Call light/phone in reach. Start Time: 13:00 Stop Time: 14:30 Total Billed Treatment Time: 90 Total Billed Treatment 1-GRP LAURA MENDOZA September 02, 2018 15:05
[2018-09-02] MEDS: metFORMIN 500 MG (GLUCOPHAGE) TAB PO SCH (17:46)
[2018-09-02 18:00] VITALS: BP 131/76
[2018-09-03] MEDS: guaiFENesin/DM (ROBITUSSIN DM) 10 ML UDC PO PRN (01:11)
[2018-09-03 05:07] VITALS: BP 114/71
[2018-09-03] MEDS: inSUlin ASPART (NovoLOG) 1 UNIT/0.01 ML (CHARGE PER UNIT) SC SCH ×4 (06:23→20:34)
[2018-09-03] MEDS: metFORMIN 500 MG (GLUCOPHAGE) TAB PO SCH ×2 (06:23→16:21)
[2018-09-03] MEDS: PANTOPRAZOLE 40 MG (PROTONIX) TAB PO SCH (06:23)
[2018-09-03] MEDS: KCL 10 MEQ TAB (MICRO K) PO SCH ×2 (06:23→16:21)
[2018-09-03] MEDS ORDERED: LIDOCAINE UROJET 2% GEL 10 ML PKG ONE (07:20)
--- NOTE | 2018-09-03 07:56 | Occupational Ther Daily Note ---
OT Current Status-Daily Note Subjective Pt alert, lying in bed. Pt agrees to therapy. C/o pain at IV site, buttocks and throat-did not rate. Procedure scheduled for AM. Mental Status/Objective Patient Orientation: Person, Place, Time, Situation Therapy Code Descriptions/Definitions Functional [place] Measure: 0=Not Assessed/NA 4=Minimal Assistance 1=Total Assistance 5=Supervision or Setup 2=Maximal Assistance 6=Modified [place] 3=Moderate Assistance 7=Complete [place] Attachments: IV ADL-Treatment Pt agrees to shower. Pt ambulates to closet using FWW then retrieved clothing and ambulated to bathroom without FWW, no LOB. Pt completed toileting, standing to use urinal to void, able to manipulate clothing. Demonstrates the ability in sitting to cleanse self after BM. Pt then transfers into shower using grabbar, stands in shower to bathes holding onto grabbars then sits to dry self. Pt dresses self and completes grooming without AE, safety concerns. Completes grooming standing at sink, stabilizes self with counter. Therapy Code Descriptions/Definitions Functional [place] Measure: 0=Not Assessed/NA 4=Minimal Assistance 1=Total Assistance 5=Supervision or Setup 2=Maximal Assistance 6=Modified [place] 3=Moderate Assistance 7=Complete [place] Therapy Quality Codes: 6 Independent with activity with or without an assistive device 5 Patient requires set up or clean up by helper. Patient completes activity by themselves 4 Supervision or touching assist (CGA). [place] provide cues , steadying assist 3 The helper provides less than half the effort to complete the activity 2 The helper provides more than half the effort to complete the activity 1 Dependent. The helper does all the effort to complete an activity 7 Patient refused to complete or attempt activity 9 The patient did not perform the activity before the current illness or injury 88 Not attempted due to Medical conditions or safety concerns Eating (FIM): 7 (Able to set up for meals and use regular utensils.) Eating (QC): 6 Grooming (FIM): 7 (Stands at sink to complete.) Oral Hygiene (QC): 6 Bathing (FIM): 6 Bathing Location: L Arm, R Arm, L Upper Leg, R Upper Leg, L Lower Leg (including foot), R Lower Leg (including foot), Chest, Abdomen, Buttocks, Perineal Area Shower/Bathe Self (QC): 6 Upper Body (FIM): 6 (Safety concerns) Upper Body Dressing (QC): 6 Lower Body Dressing (FIM): 6 (Safety concerns) Lower Body Dressing (QC): 6 On/Off Footwear (QC): 6 Toileting (FIM): 6 Toileting Hygiene (QC): 6 Transfers (B, C, W/C) (FIM): 6 (Pt has demonstrated ability to complete with and without AE. Safety concerns.) Toilet/Commode Transfer (FIM): 6 Toilet Transfer (QC): 6 Tub Transfer(FIM): 6 (Pt demonstrated ability to complete tub transfer by stepping in using wall and one grabbar. Safety concerns.) Shower Transfer(FIM): 6 (Using grabbars.) Pt had procedure in room during OT session from [id number]. LAMAR resumed treatment after procedure. After therapy, pt sitting in recliner with call light/phone in reach. All needs met in room. OT Short Term Goals Short Term Goals Eating(FIM): 6 Grooming(FIM): 6 Bathing(FIM): 5 Bathing Location: L Arm, R Arm, L Upper Leg, R Upper Leg, L Lower Leg (including foot), R Lower Leg (including foot), Chest, Abdomen, Buttocks, Perineal Area Upper Body Dressing(FIM): 5 Lower Body Dressing(FIM): 5 Toileting(FIM): 5 Transfers (B,C,W/C) (FIM): 5 Toilet/Commode Transfer(FIM): 5 Tub Transfer(FIM): 5 Shower Transfer(FIM): 5 Additional Short Term Goals: 1-Demonstrate ADL Tasks, 2-Verbalize Understanding , 3-ImproveStrength/Jane 1=Demonstrate adherence to instructed precautions during ADL tasks. 2=Patient will verbalize/demonstrate understanding of assistive devices/modifications for ADL. 3=Patient will improve strength/tolerance for activity to enable patient to perform ADL's. OT Electrical Accessories Assembler Goals Correction Goals Eating (FIM): 6 (met-09/02/18) Eating (QC): 6 (met-09/02/18) Groomin (met-09/02/18) Oral Hygiene (QC): 6 (met-09/02/18) Bathing(FIM): 6 (met-09/02/18) Bathing Location: L Arm, R Arm, L Upper Leg, R Upper Leg, L Lower Leg (including foot), R Lower Leg (including foot), Chest, Abdomen, Buttocks, Per ineal Area Shower/Bathe Self (QC): 6 (met-09/02/18) Upper Body Dressing(FIM): 6 (met-09/02/18) Upper Body Dressing (QC): 6 (met-09/02/18) Lower Body Dressing(FIM): 6 (met-09/02/18) Lower Body Dressing (QC): 6 (met-09/02/18) On/Off Footwear (QC): 6 (met-09/02/18) Toileting(FIM): 6 (met-09/02/18) Toileting Hygiene (QC): 6 (met-09/02/18) Transfers (B,C,W/C) (FIM): 6 (met-09/02/18) Toilet/Commode Transfer(FIM): 6 (met-09/02/18) Toilet/Commode Transfer (QC): 6 (met-09/02/18) Tub Transfer(FIM): 6 (met-08/15/18) Shower Transfer(FIM): 6 (met-09/02/18) Additional Goals: 1-Demonstrate ADL Tasks, 2-Verbalize Understanding, 3- ImproveStrength/Jane 1=Demonstrate adherence to instructed precautions during ADL tasks. 2=Patient will verbalize/demonstrate understanding of assistive devices/modifications for ADL. 3=Patient will improve strength/tolerance for activity to enable patient to perform ADL's. OT Education/Plan Problem List/Assessment Assessment: Impaired Funct Balance pt presents with functional limitation affecting areas of ADLS/ functional transfers. pt would benefit from skilled OT services to address above mention deficits, increase independence with ADLs/ functional transfers, and for safe transition to home. Discharge Recommendations Plan/Recommendations: Continue POC Treatment Plan/Plan of Care Patient would benefit from OT for education, treatment and training to promote independence in ADL's, mobility, safety and/or upper extremity function for ADL's. Plan of Care: ADL Retraining, Caregiver Training, Cognitive Retraining, Concurrent Therapy, Functional Mobility, Group Exercise/Act as Ind, Orthotic Fitting/Training, UE Funct Exercise/Act Treatment Duration: Sep 24, 2018 Frequency: At least 5 of 7 days/Wk (IRF) Estimated Hrs Per Day: 1.5 hours per day (60-90 munites per day) Agreement: Yes Rehab Potential: Fair Time/GCodes Start Time: 07:00 ([id number]) Stop Time: 08:45 ([id number]) Total Time Billed (hr/min): 90 Billed Treatment Time 2 visits-ADL 3 (50 min) ADL 3 (40 min) LAURA MENDOZA September 03, 2018 07:56
[2018-09-03] MEDS: POLYETHYLENE GLYCOL 17 GM (MIRALAX) PACK PO SCH ×2 (08:17→19:32)
[2018-09-03] MEDS: LORATADINE (CLARITIN) 10 MG TAB PO SCH (08:17)
--- NOTE | 2018-09-03 08:37 | PM&R Progress Note ---
Subjective HPI/CC On Admission Date Seen by Provider: September 03, 2018 Time Seen by Provider: 08:30 Chief Complaint: Critical illness myopathy HPI: This is a 61yoWM clinic Pt of Dr. Blanc who presented to the [facility] emergency room due to generalized weakness. He had been in [place] early in the day for lithotripsy of a large 11 mm ureteral stone and placement of a stent and he told the staff at [facility] that he began feeling ill on his way from [place] to [facility]. He was found to have a fever of 103.6, elevated Troponin of 0.433 and acute renal failure creatinine of 1.42, lactic acid of 1.86 and white count at max was 24,500. Chest X-ray was inconsistent, maybe some pulmonar y congestion but he underwent intubation for respiratory failure and Dr. Montoya was managing that. He remained intubated for 2.5 days and overall is just having significant weakness and will need intensive therapy to return back home where he lives alone to resume his independent living as he had before. He has had significant edema, Lasix will be given today. He has had significant urinary output and is currently on Rocephin shifting to Omnicef BID due to blood cultures septicemia with E. Coli and will likely discontinue catheter tomorrow. We will also likely remove the right internal jugular central line. Bowels are moving periodically and he doesn't report any significant pain. He is compliant with CPAP machine on a nightly basis. Prior level of function was independent without assistive devices. Subjective/Events-last exam Participating well with therapy and up ad rabia Stent removal by Dr Bonner this morning without complications Dr Bonner and I discussed the case again, patient was given 1 gram of Rocephin during procedure to minimize sepsis again from urogenital source Omnicef has been completed No pain is reported Patient does have some baseline intellectual deficit but seems to function well at home alone. Has h/o CHOLO and ETOHism in the past Cardiac cath was normal performed last week Conferred with RN Reviewed therapy notes Coccyx pain is being addressed and that is shearing of the skin and responding to treatment Heels are treated also so will consult Dr Tirado. Worried about his cat Hgb 8.8 Venofer 3rd dose today Metformin restarted DC planned for tomorrow Review of Systems General: Fatigue Musculoskeletal: back pain Objective Exam Vital Signs Vital Signs Date Time Temp Pulse Resp B/P (MAP) Pulse Ox O2 Delivery O2 Flow Rate FiO2 09/03/18 17:22 98.2 100 20 133/74 (93) 98 Room Air Capillary Refill : General Appearance: No Apparent Distress, WD/WN, Chronically ill HEENT: PERRL/EOMI, Normal ENT Inspection, Pharynx Normal, Moist Mucous Membranes Neck: Full Range of Motion, Normal Inspection, Non Tender, Supple Respiratory: Chest Non Tender, Lungs Clear, Normal Breath Sounds, No Accessory Muscle Use, No Respiratory Distress, Decreased Breath Sounds Cardiovascular: Regular Rate, Rhythm, No Gallop, No JVD, No Murmur Gastrointestinal: Normal Bowel Sounds, No Organomegaly, No Pulsatile Mass, Non Tender, Soft Back: Normal Inspection, No CVA Tenderness, No Vertebral Tenderness Extremity: Normal Capillary Refill, Normal Inspection, Normal Range of Motion, Non Tender, No Calf Tenderness, Pedal Edema Neurologic/Psychiatric: Alert, Oriented x3, No Motor/Sensory Deficits (generalized weakness of legs and arms 4/5), Normal Mood/Affect Skin: Normal Color, Warm/Dry Lymphatic: No Adenopathy Results/Procedures Lab Patient resulted labs reviewed. FIM Transfers Therapy Code Descriptions/Definitions Functional [place] Measure: 0=Not Assessed/NA 4=Minimal Assistance 1=Total Assistance 5=Supervision or Setup 2=Maximal Assistance 6=Modified [place] 3=Moderate Assistance 7=Complete [place] Therapy Quality Codes: 6 Independent with activity with or without an assistive device 5 Patient requires set up or clean up by helper. Patient completes activity by themselves 4 Supervision or touching assist (CGA). [place] provide cues , steadying assist 3 The helper provides less than half the effort to complete the activity 2 The helper provides more than half the effort to complete the activity 1 Dependent. The helper does all the effort to complete an activity 7 Patient refused to complete or attempt activity 9 The patient did not perform the activity before the current illness or injury 88 Not attempted due to Medical conditions or safety concerns Transfers (B, C, W/C) (FIM): 6 (Pt has demonstrated ability to complete with and without AE. Safety concerns.) Scootin Rollin Roll Left to Right (QC): 6 Supine to/from Sit: 7 Sit to/from Stand: 7 Sit to Lying (QC): 6 Sit to Stand (QC): 6 Chair/Drf-wa-Jbnij Xfer(QC): 6 Bed to/from Chair: 5 Car Transfer (QC): 6 Gait Training Does the Patient Walk?: Yes Gait (FIM): 6 Distance (FIM): 3=150 ft Distance: >500' x2 Walk 10 feet (QC): 6 Walk 50 ft with 2 Turns(QC): 6 Walk 150 ft (QC): 6 Walking 10ft/uneven surface-QC: 6 Gait Level of Assist: 5 Gait Persons Needed: 1 Gait Assistive Device: FWW Wheelchair Training Does the Pt Use a Wheelchair?: No Stair Training Stair Training: Handrails/: 2 handrails Stairs (FIM): 6 (takes extra time) #of Steps: 12 1 Step (curb) (QC): 6 4 Steps (QC): 6 12 Steps (QC): 6 Stairs: Pattern: Step to Level of Assist: 4 (CGA provided as well as verb instruction for technique in use of walker on steps while using handrail) Balance Picking up an Object (QC): 4 Mental Status/Objective Comprehension: 6 Expression: 6 Social Interaction: 6 Problem Solvin Memory: 5 ADL-Treatment Feedin (Able to set up for meals and use regular utensils.) Eating (QC): 6 Groomin (Stands at sink to complete.) Oral Hygiene (QC): 6 Bathin Bathing Location: L Arm, R Arm, L Upper Leg, R Upper Leg, L Lower Leg (including foot), R Lower Leg (including foot), Chest, Abdomen, Buttocks, Perineal Area Shower/Bathe Self (QC): 6 Upper Extremity Dressin (Safety concerns) Upper Body Dressing (QC): 6 Lower Extremity Dressin (Safety concerns) Lower Body Dressing (QC): 6 On/Off Footwear (QC): 6 Toiletin Toileting Hygiene (QC): 6 Toilet/Commode Transfer: 6 Toilet Transfer (QC): 6 Shower: 6 (Using grabbars.) Assessment/Plan Assessment and Plan Assess & Plan/Chief Complaint Assessment: s/p VDRF s/p sepsis UTI Ureteral stent in place s/p removal today by Dr Bonner s/p lithotripsy Urinary retention Hematuria Elevated troponin Elevated BNP Obesity TAMIA on biPAP Edema Hypokalemia Abnormal EST with elevated troponin during ICU stay but cardiac cath normal Coccyx pain with shearing of skin Heel pain with early pressure ulcers Plan: Lasix IV prn Dr Nichols appreciated Dr Bonner appreciated and stent will be DC tomorrow Checked iron given iron infusions Completed abx Potassium supplement Check labs in am (1) Myopathy (2) Abnormal stress test (3) Intellectual disability (4) Hypokalemia (5) Diabetes mellitus (6) Anemia (7) Sepsis (8) Ventilator dependence (9) Elevated troponin (10) Elevated brain natriuretic peptide (BNP) level (11) TAMIA on CPAP (12) Calculus of proximal left ureter (13) Chronic GERD (14) Urinary tract infection (15) Retained ureteral stent DALY LYNN DO September 03, 2018 08:37
[2018-09-03] MEDS: HYDROcodone/APAP 5 MG/325 MG (LORTAB) TAB PO PRN ×2 (11:24→18:20)
--- NOTE | 2018-09-03 12:26 | Physical Therapy Daily Note ---
PT Daily Note-Current Subjective Pt in Therapy Commons area upon arrival. Pt agrees to PT. Pt is wanting to D/C tomorrow. Pain Numeric Pain Scale: 5-Moderate Pain Location: Dorsal Location Body Site: Sacrum Pain Description: Ache Mental Status Patient Orientation: Person, Place, Situation Transfers Therapy Code Descriptions/Definitions Functional [place] Measure: 0=Not Assessed/NA 4=Minimal Assistance 1=Total Assistance 5=Supervision or Setup 2=Maximal Assistance 6=Modified Section 3=Moderate Assistance 7=Complete Section Therapy Quality Codes: 6 Independent with activity with or without an assistive device 5 Patient requires set up or clean up by helper. Patient completes activity by themselves 4 Supervision or touching assist (CGA). [place] provide cues , steadying assist 3 The helper provides less than half the effort to complete the activity 2 The helper provides more than half the effort to complete the activity 1 Dependent. The helper does all the effort to complete an activity 7 Patient refused to complete or attempt activity 9 The patient did not perform the activity before the current illness or injury 88 Not attempted due to Medical conditions or safety concerns Scootin Sit to/from Stand: 6 Sit to Stand (QC): 6 Weight Bearing Right Lower Extremity: Right Full Weight Bearing Left Lower Extremity: Left Full Weight Bearing Gait Training Does the Patient Walk?: Yes Gait (FIM): 6 Distance (FIM): 3=150 ft Distance: 750' Walk 10 feet (QC): 6 Walk 50 ft with 2 Turns(QC): 6 Walk 150 ft (QC): 6 Walking 10ft/uneven surface-QC: 6 Gait Level of Assist: 6 Gait Persons Needed: 1 Gait Assistive Device: Cane Single Point Wheelchair Training Does the Pt Use a Wheelchair?: No Treatments Pt ambulates in hallway using SPC to practice for JAVA ENTERPRISE ARCHITECT to observe if safe for home use. Pt walks extended distances on ARU and on main floor of hospital. Pt practices on tasks such as bending over, lifting, activity tolerance improvement. Pt returns to ARU after walk to take RB. Pt reports not feeling well and asks Nurse to check Blood Sugar (which was WNL). JAVA ENTERPRISE ARCHITECT checks pt's Blood Pressure which was 154/75, Pulse was 108 & O2 was 99%. This was reported to Nurse. Pt uses restroom at end of tx. Pt resting in room with all needs met. Assessment Current Status: Good Progress Pt fatigues after extended walk, needing RB. JAVA ENTERPRISE ARCHITECT also gives instruction over watching Blood Sugar and not eating many sugar filled snacks, increasing Blood Sugar. PT Short Term Goals Short Term Goals Time Frame: September 04, 2018 Transfers (B,C,W/C) (FIM): 5 Gait (FIM): 5 Gait Distance Comment: 150' Gait Level of Assist: 5 Gait Assistive Device: FWW PT Cone Sewer Goals Cone Sewer Goals PT Care Home Goals Time Frame: Sep 18, 2018 Transfers (B,C,W/C) (FIM): 6 (exceeded) Sit to Lying (QC): 6 (met) Lying-Sitting on Side/Bed(QC): 6 (met) Sit to Stand (QC): 6 (met) Rollin Roll Left to Right (QC): 6 (met) Chair/Rir-bo-Nenvc Xfer(QC): 6 (met) Car Transfer (QC): 6 (met) Gait (FIM): 6 (met) Distance: 200' Walk 10 feet (QC): 6 (met) Walk 10ft-Uneven Surface(QC): 6 (met) Walk 50ft with 2 Turns (QC): 6 (met) Walk 150 ft (QC): 6 (met) Gait Level of Assist: 6 Gait Assistive Device: FWW Stairs (FIM): 2 (exceeded) # of Steps: 4 1 Step (curb) (QC): 4 4 Steps (QC): 4 Stairs Level Of Assist: 5 PT Plan Problem List Problem List: Activity Tolerance, Functional Strength Treatment/Plan Treatment Plan: Continue Plan of Care Treatment Plan: Bed Mobility, Education, Functional Activity Jane, Functional Strength, Group Therapy, Gait, Safety, Therapeutic Exercise, Transfers Treatment Duration: Sep 18, 2018 Frequency: At least 5 of 7 days/Wk (IRF) Estimated Hrs Per Day: 1.5 hours per day Patient and/or Family Agrees t: Yes Safety Risks/Education Patient Education: Gait Training, Transfer Techniques, Correct Positioning, Safety Issues Teaching Recipient: Patient Teaching Methods: Discussion Response to Teaching: Verbalize Understanding Time/GCodes Time In: 1015 Time Out: 1100 Total Billed Treatment Time: 45 Total Billed Treatment 1, GT x2 (30m) & FA (15m) G Codes Necessary: No KEN SABA JAVA ENTERPRISE ARCHITECT September 03, 2018 12:26
--- NOTE | 2018-09-03 13:56 | Speech Therapy Daily Note ---
Speech Daily Progress Note Subjective Date Seen by Provider: September 03, 2018 Time Seen by Provider: 00:30 Patient was resting in his recliner watching television when I entered the room. Objective The patient completed problem solving tasks related to his daily needs with 90% accuracy given minimal verbal cues. Assessment Assessment Current Status: Good Progress Treatment Plan Continue Plan of Care Communication Comprehension: 7 Expression: 7 Social Cognition Social Interaction: 7 Problem Solvin Memory: 7 Speech Short Term Goals Short Term Goals Short Term Goals 1) The patient will be able to follow verbal instructions with her daily tasks at 90% or greater with minimal cues. Met 2) The patient will recall new information provided with 90% or greater with minimal cues. Met 3) The patient will complete memory exercises with 90% or greater with minimal cues. Met Speech Family Intervention Specialist Goals Family Intervention Specialist Goals The patient will improve safety and independence in order to return home. Met Speech-Plan Patient/Family Goals Patient/Family Goals: The patient is returning to his home tomorrow with home health services. Treatment Plan Speech Therapy Treatment Plan: Continue Plan of Care The patient has made good progress as a result of ST services. Treatment Duration: September 06, 2018 Frequency: 5 times per week Estimated Hrs Per Day: .5 hour per day Rehab Potential: Fair Barriers to Learning: Memory and problem solving deficits have been resolved. Pt/Family Agrees to Plan: Yes Safety Risks/Education Teaching Recipient: Patient Teaching Methods: Discussion Response to Teaching: Verbalize Understanding Education Topics Provided: Continued safety upon his return home. Time Speech Therapy Time In: 09:45 Speech Therapy Time Out: 10:15 Total Billed Time: 30 Billed Treatment Time 1, HUYEN Mercado September 03, 2018 13:56
--- NOTE | 2018-09-03 15:51 | Physical Therapy Daily Note ---
PT Daily Note-Current Subjective Pt sitting in room upon arrival. Pt agrees to PT. Pain Location: No Pain Reported Mental Status Patient Orientation: Person, Place, Time, Situation Transfers Therapy Code Descriptions/Definitions Functional Tynan Measure: 0=Not Assessed/NA 4=Minimal Assistance 1=Total Assistance 5=Supervision or Setup 2=Maximal Assistance 6=Modified Tynan 3=Moderate Assistance 7=Complete Tynan Therapy Quality Codes: 6 Independent with activity with or without an assistive device 5 Patient requires set up or clean up by helper. Patient completes activity by themselves 4 Supervision or touching assist (CGA). Turney provide cues , steadying assist 3 The helper provides less than half the effort to complete the activity 2 The helper provides more than half the effort to complete the activity 1 Dependent. The helper does all the effort to complete an activity 7 Patient refused to complete or attempt activity 9 The patient did not perform the activity before the current illness or injury 88 Not attempted due to Medical conditions or safety concerns Scootin Sit to/from Stand: 6 Sit to Stand (QC): 6 Weight Bearing Right Lower Extremity: Right Full Weight Bearing Left Lower Extremity: Left Full Weight Bearing Gait Training Does the Patient Walk?: Yes Gait (FIM): 6 Distance (FIM): 3=150 ft Distance: 150' Walk 10 feet (QC): 6 Walk 50 ft with 2 Turns(QC): 6 Walk 150 ft (QC): 6 Gait Level of Assist: 6 Gait Persons Needed: 1 Gait Assistive Device: Cane Single Point Wheelchair Training Does the Pt Use a Wheelchair?: No Stair Training Stair Training: Handrails/: 1 handrail, uses cane #of Steps: 8 1 Step (curb) (QC): 6 4 Steps (QC): 6 Stairs: Pattern: Step to Level of Assist: 6 Treatments Pt ambulates in hallway using SPC. Pt completes 2 sets of steps using SPC and handrail. Pt returns to room to use restroom and rest at end of tx. Pt has all needs met. Assessment Current Status: Good Progress Pt tolerates tx well. Pt reports feeling anxious for D/C tomorrow. PT Short Term Goals Short Term Goals Time Frame: September 04, 2018 Transfers (B,C,W/C) (FIM): 5 Gait (FIM): 5 Gait Distance Comment: 150' Gait Level of Assist: 5 Gait Assistive Device: FWW PT Manager Supply Chain Planning Goals Manager Supply Chain Planning Goals PT Manager Supply Chain Planning Goals Time Frame: Sep 18, 2018 Transfers (B,C,W/C) (FIM): 6 (exceeded) Sit to Lying (QC): 6 (met) Lying-Sitting on Side/Bed(QC): 6 (met) Sit to Stand (QC): 6 (met) Rollin Roll Left to Right (QC): 6 (met) Chair/Wab-qs-Qvpgn Xfer(QC): 6 (met) Car Transfer (QC): 6 (met) Gait (FIM): 6 (met) Distance: 200' Walk 10 feet (QC): 6 (met) Walk 10ft-Uneven Surface(QC): 6 (met) Walk 50ft with 2 Turns (QC): 6 (met) Walk 150 ft (QC): 6 (met) Gait Level of Assist: 6 Gait Assistive Device: FWW Stairs (FIM): 2 (exceeded) # of Steps: 4 1 Step (curb) (QC): 4 4 Steps (QC): 4 Stairs Level Of Assist: 5 PT Plan Problem List Problem List: Activity Tolerance Treatment/Plan Treatment Plan: Continue Plan of Care Treatment Plan: Bed Mobility, Education, Functional Activity Jane, Functional Strength, Group Therapy, Gait, Safety, Therapeutic Exercise, Transfers Treatment Duration: Sep 18, 2018 Frequency: At least 5 of 7 days/Wk (IRF) Estimated Hrs Per Day: 1.5 hours per day Patient and/or Family Agrees t: Yes Safety Risks/Education Patient Education: Gait Training, Steps, Correct Positioning, Safety Issues Teaching Recipient: Patient Teaching Methods: Discussion Response to Teaching: Verbalize Understanding Time/GCodes Time In: 1330 Time Out: 1400 Total Billed Treatment Time: 30 Total Billed Treatment 1, GT (15m) & FA (15m) G Codes Necessary: KEN Dempsey SALES AND IN HOME DELIVERY SPECIALIST September 03, 2018 15:51
--- NOTE | 2018-09-03 16:00 | NUR ---
REPORT RECEIVED FROM GABRIELLE DE LA ROSA. PATIENT UP IN ROOM PACKING IN PREP FOR DISCHARGE TOMORROW. RIGHT AC SPACE RED AND HARD FROM WHERE PREVIOUS IV WAS. WARM PACK APPLIED. THIS NURSE TOLD PATIENT IV NEEDED RESTARTED FOR IV VENOFER TOMORROW. PATIENT STATES HE DOES NOT WANT IV AND GOING TO REFUSE VENOFER. STATES HAS BEEN VOIDING WELL SINCE DR. CONLEY REMOVED STENT THIS AM. BLOOD SUGARS WELL CONTROLLED EVEN THOUGH SNACKS FREQUENTLY.
--- NOTE | 2018-09-03 16:50 | NUR ---
DR. COONEY CALLED TO CHECK ON PATIENT'S WOUNDS. HE WAS INFORMED OF PATIENT BEING DISCHARGED TOMORROW AND HE SUGGESTED TO FOLLOW UP IN WOUND CLINIC IF BUTTOCK WOUNDS AREN'T HEALING, BUT WAS ENCOURAGED THAT PATIENT IS UP AD JAMAL NOW. PATIENT IS ALSO OPEN TO HOME HEALTH NURSE.
[2018-09-03 17:22] VITALS: BP 133/74
--- NOTE | 2018-09-03 18:30 | NUR ---
STATES HAS EXPELLED 5 STOOLS TODAY, THE LAST 4 BEING LOOSE. DENIES ABD. CRAMPS. WILL CONTINUE TO MONITOR. WARM PACK AGAIN APPLIED TO RIGHT AC SPACE.
[2018-09-04 05:43] VITALS: BP 128/75
[2018-09-04] MEDS: inSUlin ASPART (NovoLOG) 1 UNIT/0.01 ML (CHARGE PER UNIT) SC SCH (05:59)
[2018-09-04] MEDS: PANTOPRAZOLE 40 MG (PROTONIX) TAB PO SCH (06:01)
[2018-09-04] MEDS: metFORMIN 500 MG (GLUCOPHAGE) TAB PO SCH (06:01)
[2018-09-04] MEDS: KCL 10 MEQ TAB (MICRO K) PO SCH (06:01)
[2018-09-04] MEDS: HYDROcodone/APAP 5 MG/325 MG (LORTAB) TAB PO PRN (06:03)
[2018-09-04] MEDS ORDERED: TRAM50TA2 PO (08:20)
[2018-09-04] MEDS ORDERED: LORA10TA7 PO (08:21)
[2018-09-04] MEDS ORDERED: POTA10TA6 PO (08:21)
[2018-09-04] MEDS ORDERED: FURO-125 PO (08:21)
[2018-09-04] MEDS ORDERED: HYDR-3820 PO (08:21)
[2018-09-04] MEDS ORDERED: METF-397 PO (08:21)
[2018-09-04] MEDS ORDERED: POLY17PO31 PO (08:21)
--- NOTE | 2018-09-04 08:23 | D/C HH Face to Face Order ---
D/C Face to Face Orders Instructions for Patient Via [facility], Patient Instructions/FollowUp: Dr Blanc in 1 week Physician to follow Patient: Dr Blanc Discharge Diet for Home: ADA Diet Patient Problems: s/p severe sepsis s/p kidney stone s/p stent removal DM Goals for Patient: Healing of coccyx wounds and heel wounds Patient Data-Allergies,Ht & Wt Patient Allergies: Coded Allergies: No Known Drug Allergies (Unverified , 08/21/18) Height (Feet): 5 Height (Inches): 9.00 Weight (Pounds): 307 Weight (Ounces): 0.0 Home Health Need/Face to Face Date of Face to Face: September 04, 2018 Clinical Findings: Generalized weakness and fatigue, Instability, Muscle weakness, Non-healing wound I have seen Pt [id number]: Yes Discharged To: Home Diagnosis/Conditions: s/p severe sepsis s/p kidney stone s/p stent removal DM Patient is Homebound due to: CognItive deficits, Zainab fall risk due to instabilty, Muscle weakness Homebound Status Due to the above stated illness, injury or surgical procedure (medical condition or diagnosis) and associated clinical findings, the patient is homebound because of his/her inability to leave home except with aid of a supportive device and/or person AND leaving the home requires a considerable and taxing effort or is medically contraindicated. Pt req the following assistanc: Clem [facility] Nursing Orders Home Health Services Order: Nursing Services Certify Stmt I certify that this patient is under my care and that I, a nurse practitioner or a physician; a facilities assistant working with me, had a face to face encounter that - meets the physician face to face encounter requirements with this patient as dated. DALY LYNN DO September 04, 2018 08:23
--- NOTE | 2018-09-04 08:25 | Discharge Summary ---
Diagnosis/Chief Complaint Date of Admission August 27, 2018 at 11:10 Date of Discharge Discharge Date: September 04, 2018 Discharge Diagnosis Assessment: s/p VDRF s/p sepsis UTI Ureteral stent in place s/p removal today by Dr Bonner s/p lithotripsy Urinary retention Hematuria Elevated troponin Elevated BNP Obesity TAMIA on biPAP Edema Hypokalemia Abnormal EST with elevated troponin during ICU stay but cardiac cath normal Coccyx pain with shearing of skin Heel pain with early pressure ulcers Plan: Lasix PO daily prn Dr Nichols appreciated Dr Bonner appreciated and stent DC ELIZABETH Owen Completed abx Potassium supplement Check labs in am Discharge Summary Discharge Physical Examination Allergies: Coded Allergies: No Known Drug Allergies (Unverified , 08/21/18) Vitals & I&Os Vital Signs Date Time Temp Pulse Resp B/P (MAP) Pulse Ox O2 Delivery O2 Flow Rate FiO2 09/04/18 08:55 Room Air 09/04/18 08:27 98.1 89 20 127/71 (89) 99 General Appearance: Alert, Oriented X3, Cooperative Respiratory: Clear to Auscultation, Normal Air Movement Cardiovascular: Regular Rate, Normal S1, Normal S2 Neuro: Normal Gait, Normal Speech, Strength at 5/5 X4 Ext Psych/Mental Status: Mental Status NL, Mood NL Hospital Course Was the Problem List Reviewed?: Yes Hospital course: Pt had a lengthy hospital course in inpatient rehab in nine days. He was very debilitated from B/L Pneumonia, sepsis, non-ST elevation NV and sepsis form UTI. Overall he improved a great deal, was able to restart medications he takes at home. Blood sugars remained in satisfactory status. BM remained normal after meds were given. Dr. Bonner removed stent and will see him in two weeks. He completed antibiotic treatment. Cardiac cath was normal after non-ST elevation was diagnosed in ICU during critical illness. Overall he will have home health for wound management. Labs (last 24 hrs) Laboratory Tests 08/27/18 15:41: Glucometer 92 08/27/18 21:19: Glucometer 87 08/28/18 05:15: White Blood Count 7.5, Red Blood Count 2.66L, Hemoglobin 7.8L, Hematocrit 25L, Mean Corpuscular Volume 93, Mean Corpuscular Hemoglobin 29, Mean Corpuscular Hemoglobin Concent 32, Red Cell Distribution Width 15.0H, Platelet Count 176, Mean Platelet Volume 9.2, Neutrophils (%) (Auto) 73, Lymphocytes (%) (Auto) 18, Monocytes (%) (Auto) 9, Eosinophils (%) (Auto) 1, Basophils (%) (Auto) 0, Neutrophils # (Auto) 5.5, Lymphocytes # (Auto) 1.3, Monocytes # (Auto) 0.7, Eosinophils # (Auto) 0.1, Basophils # (Auto) 0.0, Sodium Level 141, Potassium Level 3.3L, Chloride Level 108H, Carbon Dioxide Level 23, Anion Gap 10, Blood Urea Nitrogen 15, Creatinine 0.68, Estimat Glomerular Filtration Rate > 60, BUN/Creatinine Ratio 22, Glucose Level 108H, Calcium Level 8.3L, Corrected Calcium 9.3, Iron Level 25L, Total Bilirubin 0.6, Aspartate Amino Transf (AST/SGOT) 60H, Alanine Aminotransferase (ALT/SGPT) 94H, Alkaline Phosphatase 221H, Total Protein 5.2L, Albumin 2.8L 08/28/18 16:23: Glucometer 86 08/28/18 20:34: Glucometer 115H 08/29/18 05:09: Glucometer 101 08/29/18 14:36: Glucometer 134H 08/29/18 16:31: Glucometer 118H 08/29/18 20:27: Glucometer 114H 08/30/18 04:56: White Blood Count 5.7, Red Blood Count 2.81L, Hemoglobin 8.2L, Hematocrit 26L, Mean Corpuscular Volume 91, Mean Corpuscular Hemoglobin 29, Mean Corpuscular Hemoglobin Concent 32, Red Cell Distribution Width 15.7H, Platelet Count 247, Mean Platelet Volume 9.0, Neutrophils (%) (Auto) 69, Lymphocytes (%) (Auto) 17, Monocytes (%) (Auto) 14H, Eosinophils (%) (Auto) 1, Basophils (%) (Auto) 0, Neutrophils # (Auto) 3.9, Lymphocytes # (Auto) 0.9L, Monocytes # (Auto) 0.8, Eosinophils # (Auto) 0.0, Basophils # (Auto) 0.0, Sodium Level 137, Potassium Level 3.5L, Chloride Level 106, Carbon Dioxide Level 22, Anion Gap 9, Blood Urea Nitrogen 10, Creatinine 0.65, Estimat Glomerular Filtration Rate > 60, BUN/Creatinine Ratio 15, Glucose Level 114H, Calcium Level 8.3L, Corrected Calcium 9.2, Total Bilirubin 0.6, Aspartate Amino Transf (AST/SGOT) 38H, Alanine Aminotransferase (ALT/SGPT) 71H, Alkaline Phosphatase 203H, Total Protein 5.5L, Albumin 2.9L 08/30/18 11:30: Glucometer 109 08/30/18 16:50: Glucometer 116H 08/30/18 20:18: Glucometer 122H 08/31/18 05:19: Glucometer 118H 08/31/18 11:01: Glucometer 116H 08/31/18 15:39: Glucometer 117H 08/31/18 20:27: Glucometer 127H 09/01/18 05:10: Glucometer 124H 09/01/18 11:06: Glucometer 97 09/01/18 16:39: Glucometer 167H 09/01/18 20:46: Glucometer 198H 09/02/18 04:56: White Blood Count 5.4, Red Blood Count 3.04L, Hemoglobin 8.8L, Hematocrit 28L, Mean Corpuscular Volume 92, Mean Corpuscular Hemoglobin 29, Mean Corpuscular Hemoglobin Concent 31L, Red Cell Distribution Width 15.9H, Platelet Count 330, Mean Platelet Volume 9.1, Neutrophils (%) (Auto) 59, Lymphocytes (%) (Auto) 26, Monocytes (%) (Auto) 14H, Eosinophils (%) (Auto) 1, Basophils (%) (Auto) 0, Neutrophils # (Auto) 3.2, Lymphocytes # (Auto) 1.4, Monocytes # (Auto) 0.7, Eosinophils # (Auto) 0.0, Basophils # (Auto) 0.0, Sodium Level 136, Potassium Level 4.3, Chloride Level 105, Carbon Dioxide Level 20L, Anion Gap 11, Blood Urea Nitrogen 10, Creatinine 0.71, Estimat Glomerular Filtration Rate > 60, BUN/Creatinine Ratio 14, Glucose Level 110H, Calcium Level 8.5, Corrected Calcium 9.1, Total Bilirubin 0.5, Aspartate Amino Transf (AST/SGOT) 27, Alanine Aminotransferase (ALT/SGPT) 49, Alkaline Phosphatase 177H, Total Protein 6.1L, Albumin 3.2 09/02/18 11:33: Glucometer 115H 09/02/18 16:10: Glucometer 98 09/02/18 20:09: Glucometer 108 09/03/18 05:52: Glucometer 113H 09/03/18 10:49: Glucometer 109 09/03/18 16:05: Glucometer 106 09/03/18 20:30: Glucometer 136H 09/04/18 05:21: Glucometer 149H Pending Labs Laboratory Tests 08/27/18 15:41: Glucometer 92 08/27/18 21:19: Glucometer 87 08/28/18 05:15: White Blood Count 7.5, Red Blood Count 2.66, Hemoglobin 7.8, Hematocrit 25, Mean Corpuscular Volume 93, Mean Corpuscular Hemoglobin 29, Mean Corpuscular Hemoglobin Concent 32, Red Cell Distribution Width 15.0, Platelet Count 176, Mean Platelet Volume 9.2, Neutrophils (%) (Auto) 73, Lymphocytes (%) (Auto) 18, Monocytes (%) (Auto) 9, Eosinophils (%) (Auto) 1, Basophils (%) (Auto) 0, Neutrophils # (Auto) 5.5, Lymphocytes # (Auto) 1.3, Monocytes # (Auto) 0.7, Eosinophils # (Auto) 0.1, Basophils # (Auto) 0.0, Sodium Level 141, Potassium Level 3.3, Chloride Level 108, Carbon Dioxide Level 23, Anion Gap 10, Blood Urea Nitrogen 15, Creatinine 0.68, Estimat Glomerular Filtration Rate > 60, BUN/Creatinine Ratio 22, Glucose Level 108, Calcium Level 8.3, Corrected Calcium 9.3, Iron Level 25, Total Bilirubin 0.6, Aspartate Amino Transf (AST/SGOT) 60, Alanine Aminotransferase (ALT/SGPT) 94, Alkaline Phosphatase 221, Total Protein 5.2, Albumin 2.8 08/28/18 16:23: Glucometer 86 08/28/18 20:34: Glucometer 115 08/29/18 05:09: Glucometer 101 08/29/18 14:36: Glucometer 134 08/29/18 16:31: Glucometer 118 08/29/18 20:27: Glucometer 114 08/30/18 04:56: White Blood Count 5.7, Red Blood Count 2.81, Hemoglobin 8.2, Hematocrit 26, Mean Corpuscular Volume 91, Mean Corpuscular Hemoglobin 29, Mean Corpuscular Hemoglobin Concent 32, Red Cell Distribution Width 15.7, Platelet Count 247, Mean Platelet Volume 9.0, Neutrophils (%) (Auto) 69, Lymphocytes (%) (Auto) 17, Monocytes (%) (Auto) 14, Eosinophils (%) (Auto) 1, Basophils (%) (Auto) 0, Neutrophils # (Auto) 3.9, Lymphocytes # (Auto) 0.9, Monocytes # (Auto) 0.8, Eosinophils # (Auto) 0.0, Basophils # (Auto) 0.0, Sodium Level 137, Potassium Level 3.5, Chloride Level 106, Carbon Dioxide Level 22, Anion Gap 9, Blood Urea Nitrogen 10, Creatinine 0.65, Estimat Glomerular Filtration Rate > 60, BUN/Creatinine Ratio 15, Glucose Level 114, Calcium Level 8.3, Corrected Calcium 9.2, Total Bilirubin 0.6, Aspartate Amino Transf (AST/SGOT) 38, Alanine Aminotransferase (ALT/SGPT) 71, Alkaline Phosphatase 203, Total Protein 5.5, Albumin 2.9 08/30/18 11:30: Glucometer 109 08/30/18 16:50: Glucometer 116 08/30/18 20:18: Glucometer 122 08/31/18 05:19: Glucometer 118 08/31/18 11:01: Glucometer 116 08/31/18 15:39: Glucometer 117 08/31/18 20:27: Glucometer 127 09/01/18 05:10: Glucometer 124 09/01/18 11:06: Glucometer 97 09/01/18 16:39: Glucometer 167 09/01/18 20:46: Glucometer 198 09/02/18 04:56: White Blood Count 5.4, Red Blood Count 3.04, Hemoglobin 8.8, Hematocrit 28, Mean Corpuscular Volume 92, Mean Corpuscular Hemoglobin 29, Mean Corpuscular Hemoglobin Concent 31, Red Cell Distribution Width 15.9, Platelet Count 330, Mean Platelet Volume 9.1, Neutrophils (%) (Auto) 59, Lymphocytes (%) (Auto) 26, Monocytes (%) (Auto) 14, Eosinophils (%) (Auto) 1, Basophils (%) (Auto) 0, Neutrophils # (Auto) 3.2, Lymphocytes # (Auto) 1.4, Monocytes # (Auto) 0.7, Eosinophils # (Auto) 0.0, Basophils # (Auto) 0.0, Sodium Level 136, Potassium Level 4.3, Chloride Level 105, Carbon Dioxide Level 20, Anion Gap 11, Blood Urea Nitrogen 10, Creatinine 0.71, Estimat Glomerular Filtration Rate > 60, BUN/Creatinine Ratio 14, Glucose Level 110, Calcium Level 8.5, Corrected Calcium 9.1, Total Bilirubin 0.5, Aspartate Amino Transf (AST/SGOT) 27, Alanine Aminotransferase (ALT/SGPT) 49, Alkaline Phosphatase 177, Total Protein 6.1, Albumin 3.2 09/02/18 11:33: Glucometer 115 09/02/18 16:10: Glucometer 98 09/02/18 20:09: Glucometer 108 09/03/18 05:52: Glucometer 113 09/03/18 10:49: Glucometer 109 09/03/18 16:05: Glucometer 106 09/03/18 20:30: Glucometer 136 09/04/18 05:21: Glucometer 149 Discharge Home Medications: Active Scripts Active Lasix (Furosemide) 20 Mg Tablet 20 Mg PO DAILY Metformin HCl 500 Mg Tablet 1,000 Mg PO BID@,17 30 Days Polyethylene Glycol 3350 17 Gm Powd.pack 34 Gm PO BID Klor-Con 10 (Potassium Chloride) 10 Meq Tablet.er 10 Meq PO BID WITH MEALS Loratadine 10 Mg Tablet 10 Mg PO DAILY Hydrocodon-Acetaminophn 10-325 (Hydrocodone/Acetaminophen) 1 Each Tablet 1 Tab PO BID Tramadol HCl 50 Mg Tablet 50 Mg PO BID PRN Reported Flomax (Tamsulosin HCl) 0.4 Mg Cap 0.4 Mg PO 1730 LAST FILLED #30 07-08-18 Dicyclomine HCl 10 Mg Capsule 20 Mg PO BID TAKES 2 (10MG) CAPSULES Fish Oil 1,000 mg Capsule ([place] 3 Polyunsat Fatty Acids) 1,000 Mg Cap 1,000 Mg PO DAILY Multivitamins (Multivitamin) 1 Each Tablet 1 Tab PO DAILY Topiramate 50 Mg Tablet 50 Mg PO HS Metoprolol Succinate 50 Mg Tab.er.24h 50 Mg PO BID LAST FILLED #60 07-11-18 Niacin ER (Niacin) 1,000 Mg Tab.er.24h 1,000 Mg PO DAILY Ranitidine HCl 150 Mg Tablet 150 Mg PO BID Gabapentin 400 Mg Capsule 400 Mg PO TID Hyoscyamine Sulfate 0.125 Mg Tablet 0.125 Mg PO Q4H PRN Esomeprazole Magnesium 40 Mg Capsule.dr 40 Mg PO DAILY Ezetimibe 10 Mg Tablet 10 Mg PO DAILY Simvastatin 80 Mg Tablet 80 Mg PO HS Nabumetone 750 Mg Tablet 750 Mg PO BID Instructions to patient/family Please see electronic discharge instructions given to patient. Diagnosis/Problems Diagnosis/Problems (1) Myopathy (2) Abnormal stress test (3) Intellectual disability (4) Hypokalemia (5) Diabetes mellitus (6) Anemia (7) Sepsis (8) Ventilator dependence (9) Elevated troponin (10) Elevated brain natriuretic peptide (BNP) level (11) TAMIA on CPAP (12) Calculus of proximal left ureter (13) Chronic GERD (14) Urinary tract infection Status: Acute (15) Retained ureteral stent Status: Acute Clinical Quality Measures DVT/VTE Risk/Contraindication: Risk Factor Score Per Nursin RFS Level Per Nursing on Admit: 4+=Very High DALY LYNN DO September 04, 2018 08:25
[2018-09-04 08:27] VITALS: BP 127/71
--- NOTE | 2018-09-04 08:34 | Therapy Team Discharge Summary ---
Therapy Discharge Summary Discharge Recommendations Date of Discharge Therapy D/C Recommendations: Physical Therapy Home Care Occupational Therapy Impaired Funct Balance Speech-Language Pathology The patient was admitted to the ARU s/p kidney stone and stint complications. The patient was referred for a cognitive-communication eval which was completed with the EVANGELINA. The patient scored in the mild mental status decline area with deficits noted in memory in and problem solving. The patient completed tasks and met all goals. He is returning home today and is being discharged from [facility] at this time. PT Nursing Home Goals Division Chair Goals PT Nursing Home Goals Time Frame: Sep 18, 2018 Transfers (B,C,W/C) (FIM): 6 (exceeded) Roll Left to Right (QC): 6 (met) Sit to Lying (QC): 6 (met) Lying-Sitting on Side/Bed(QC): 6 (met) Sit to Stand (QC): 6 (met) Chair/Bmb-gd-Yzbfj Xfer(QC): 6 (met) Car Transfer (QC): 6 (met) Gait (FIM): 6 (met) Distance: 200' Walk 10 feet (QC): 6 (met) Walk 10ft-Uneven Surface(QC): 6 (met) Walk 50ft with 2 Turns (QC): 6 (met) Walk 150 ft (QC): 6 (met) Gait Level of Assist: 6 Gait Assistive Device: FWW Stairs (FIM): 2 (exceeded) # of Steps: 4 1 Step (curb) (QC): 4 4 Steps (QC): 4 Stairs Level Of Assist: 5 OT Nursing Home Goals Division Chair Goals Eating (FIM): 6 (met-09/02/18) Eating (QC): 6 (met-09/02/18) Oral Hygiene (QC): 6 (met-09/02/18) Grooming(FIM): 6 (met-09/02/18) Bathing(FIM): 6 (met-09/02/18) Bathing Location: L Arm, R Arm, L Upper Leg, R Upper Leg, L Lower Leg (including foot), R Lower Leg (including foot), Chest, Abdomen, Buttocks, Perineal Area Shower/Bathe Self (QC): 6 (met-09/02/18) Upper Body Dressing(FIM): 6 (met-09/02/18) Upper Body Dressing (QC): 6 ([facility]-09/02/18) Lower Body Dressing(FIM): 6 ([facility]-09/02/18) Lower Body Dressing (QC): 6 ([facility]-09/02/18) On/Off Footwear (QC): 6 ([facility]-09/02/18) Toileting(FIM): 6 ([facility]-09/02/18) Toileting Hygiene (QC): 6 ([facility]-09/02/18) Transfers (B,C,W/C) (FIM): 6 (met-09/02/18) Toilet/Commode Transfer(FIM): 6 ([facility]-09/02/18) Toilet/Commode Transfer (QC): 6 ([facility]-09/02/18) Tub Transfer(FIM): 6 ([facility]-08/15/18) Shower Transfer(FIM): 6 ([facility]-09/02/18) Additional Goals: 1-Demonstrate ADL Tasks, 2-Verbalize Understanding, 3- ImproveStrength/Jane 1=Demonstrate adherence to instructed precautions during ADL tasks. 2=Patient will verbalize/demonstrate understanding of assistive devices/modifications for ADL. 3=Patient will improve strength/tolerance for activity to enable patient to perform ADL's. Speech Division Chair Goals Division Chair Goals The patient will improve safety and independence in order to return home. Met HUYEN JANG September 04, 2018 08:34
[2018-09-04] MEDS: IRON SUCROSE 200 MG/10 ML (VENOFER) VIAL IV SCH (08:35)
[2018-09-04] MEDS: LORATADINE (CLARITIN) 10 MG TAB PO SCH (08:35)
[2018-09-04] MEDS: POLYETHYLENE GLYCOL 17 GM (MIRALAX) PACK PO SCH (09:03)
--- NOTE | 2018-09-04 09:47 | NUR ---
GUEST SERVICE SUPERVISOR met with patient and family to review any last minute concerns regarding discharge plans today. Patient requests [facility] medical records to be sent to Dr. Blanc, GUEST SERVICE SUPERVISOR obtained signed release form and will complete this request. Patient is scheduled to see PCP tomorrow. GUEST SERVICE SUPERVISOR sent discharge orders to [facility], they will start care on 09/06 for nursing services only for wound management. GUEST SERVICE SUPERVISOR requested RN to send Allevyn dressings with patient until [facility] evaluates on 09/06. Patient was deemed safe to utilize SPC. Per request of patient, order and supporting documentation was sent to [facility], he will fish bait picker item on his way home. Patient's brother and brothers significant other intend to stay overnight with patient and provide transport to PCP appt tomorrow. Patient and family express no further concerns. Please see discharge summary for further information.
--- NOTE | 2018-09-04 10:10 | Therapy Team Discharge Summary ---
Therapy Discharge Summary Discharge Recommendations Date of Discharge Therapy D/C Recommendations: Physical Therapy Home Care Occupational Therapy pt has made good progress in inpt rehab. OT has focused on increasing independence with ADLs/ functional transfers, use of AE, UE strength, increase activity tolerance/ endurance, and increase overall safety with functional tasks in sitting and standing. pt currently can completing all ADLs independently/ MOD I using AE and safety concerns for balance using SPC for functional transfers. recommended the following equipment: shower chair and SPC for home. pt has met all OT goal. d/c OT services at this time. recommended OT HH PT Traffic Expert Goals Traffic Expert Goals PT Traffic Expert Goals Time Frame: Sep 18, 2018 Transfers (B,C,W/C) (FIM): 6 (exceeded) Roll Left to Right (QC): 6 (met) Sit to Lying (QC): 6 (met) Lying-Sitting on Side/Bed(QC): 6 (met) Sit to Stand (QC): 6 (met) Chair/Kje-nz-Dbqwf Xfer(QC): 6 (met) Car Transfer (QC): 6 (met) Gait (FIM): 6 (met) Distance: 200' Walk 10 feet (QC): 6 (met) Walk 10ft-Uneven Surface(QC): 6 (met) Walk 50ft with 2 Turns (QC): 6 (met) Walk 150 ft (QC): 6 (met) Gait Level of Assist: 6 Gait Assistive Device: FWW Stairs (FIM): 2 (exceeded) # of Steps: 4 1 Step (curb) (QC): 4 4 Steps (QC): 4 Stairs Level Of Assist: 5 OT Traffic Expert Goals Fpc Goals Eating (FIM): 6 (met-09/02/18) Eating (QC): 6 (met-09/02/18) Oral Hygiene (QC): 6 (met-09/02/18) Grooming(FIM): 6 (met-09/02/18) Bathing(FIM): 6 (met-09/02/18) Bathing Location: L Arm, R Arm, L Upper Leg, R Upper Leg, L Lower Leg (includin g foot), R Lower Leg (including foot), Chest, Abdomen, Buttocks, Perineal Area Shower/Bathe Self (QC): 6 (met-09/02/18) Upper Body Dressing(FIM): 6 ([facility]-09/02/18) Upper Body Dressing (QC): 6 (met-09/02/18) Lower Body Dressing(FIM): 6 (met-09/02/18) Lower Body Dressing (QC): 6 (met-09/02/18) On/Off Footwear (QC): 6 (met-09/02/18) Toileting(FIM): 6 (met-09/02/18) Toileting Hygiene (QC): 6 (met-09/02/18) Transfers (B,C,W/C) (FIM): 6 (met-09/02/18) Toilet/Commode Transfer(FIM): 6 (met-09/02/18) Toilet/Commode Transfer (QC): 6 (met-09/02/18) Tub Transfer(FIM): 6 (met-08/15/18) Shower Transfer(FIM): 6 ([facility]-09/02/18) Additional Goals: 1-Demonstrate ADL Tasks, 2-Verbalize Understanding, 3- ImproveStrength/Jane 1=Demonstrate adherence to instructed precautions during ADL tasks. 2=Patient will verbalize/demonstrate understanding of assistive devices/modifi cations for ADL. 3=Patient will improve strength/tolerance for activity to enable patient to perform ADL's. Speech Fpc Goals Traffic Expert Goals The patient will improve safety and independence in order to return home. Met SERVANDO THOMAS OT September 04, 2018 10:10
--- NOTE | 2018-09-04 11:20 | Therapy Team Discharge Summary ---
Therapy Discharge Summary Discharge Recommendations Date of Discharge 09/04/2018 Therapy D/C Recommendations: Physical Therapy Home Care Physical Therapy This patient was admitted to ARU post acute hospital stay due to pneumonia/sepsis. 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 Upon admission to ARU, he required min assist with transfers, walked 120 ft with FWW with min assist, went up and down a step with assist. Treatment has focused on functional strength and balance to progress transfers and gait to a mod indep level. In addition we have focused on functional safety and progression of gait to use of a cane. He has made excellent progress and has achieved all goals. He is indep with transfers, mod indep with gait and stairs. He is able to complete a car transfer without assist as well. He is to discharge home with recommended follow up [facility] PT to address safety and functional mobility in his home. DC from MTU this date. Occupational Therapy Impaired Funct Balance PT Chcf Goals Chcf Goals PT Chcf Goals Time Frame: Sep 18, 2018 Transfers (B,C,W/C) (FIM): 6 (exceeded) Roll Left to Right (QC): 6 (met) Sit to Lying (QC): 6 (met) Lying-Sitting on Side/Bed(QC): 6 (met) Sit to Stand (QC): 6 (met) Chair/Wib-aq-Ekwzh Xfer(QC): 6 (met) Car Transfer (QC): 6 (met) Gait (FIM): 6 (met) Distance: 200' Walk 10 feet (QC): 6 (met) Walk 10ft-Uneven Surface(QC): 6 (met) Walk 50ft with 2 Turns (QC): 6 (met) Walk 150 ft (QC): 6 (met) Gait Level of Assist: 6 Gait Assistive Device: FWW Stairs (FIM): 2 (exceeded) # of Steps: 4 1 Step (curb) (QC): 4 4 Steps (QC): 4 Stairs Level Of Assist: 5 all goals met or exceeded OT Audience Coordinator Goals Audience Coordinator Goals Eating (FIM): 6 (met-09/02/18) Eating (QC): 6 (met-09/02/18) Oral Hygiene (QC): 6 (met-09/02/18) Grooming(FIM): 6 (met-09/02/18) Bathing(FIM): 6 (met-09/02/18) Bathing Location: L Arm, R Arm, L Upper Leg, R Upper Leg, L Lower Leg (including foot), R Lower Leg (including foot), Chest, Abdomen, Buttocks, Perineal Area Shower/Bathe Self (QC): 6 (met-09/02/18) Upper Body Dressing(FIM): 6 (met-09/02/18) Upper Body Dressing (QC): 6 (met-09/02/18) Lower Body Dressing(FIM): 6 (met-09/02/18) Lower Body Dressing (QC): 6 (met-09/02/18) On/Off Footwear (QC): 6 (met09/02/18) Toileting(FIM): 6 (met-09/02/18) Toileting Hygiene (QC): 6 (met09/02/18) Transfers (B,C,W/C) (FIM): 6 (met09/02/18) Toilet/Commode Transfer(FIM): 6 (met-09/02/18) Toilet/Commode Transfer (QC): 6 (met-09/02/18) Tub Transfer(FIM): 6 (met-08/15/18) Shower Transfer(FIM): 6 (09/02/18) Additional Goals: 1-Demonstrate ADL Tasks, 2-Verbalize Understanding, 3-ImproveStrength/Jane 1=Demonstrate adherence to instructed precautions during ADL tasks. 2=Patient will verbalize/demonstrate understanding of assistive devices/modifications for ADL. 3=Patient will improve strength/tolerance for activity to enable patient to perform ADL's. Speech Chcf Goals Audience Coordinator Goals The patient will improve safety and independence in order to return home. Met LAURA DELUNA PT September 04, 2018 11:20
== END 2018-09-04 09:30 | disposition home health service (06) | DRG 91 ==
PROVIDERS: ADMIT Internal Medicine; ATTEND Internal Medicine
DX: G72.81 Critical illness myopathy (principal); A41.51 Sepsis due to Escherichia coli [E. coli]; I21.A1 Myocardial infarction type 2; N39.0 Urinary tract infection, site not specified; N17.9 Acute kidney failure, unspecified; N20.1 Calculus of ureter; J44.9 Chronic obstructive pulmonary disease, unspecified; E66.9 Obesity, unspecified; Z68.42 Body mass index [BMI] 45.0-49.9, adult; R60.0 Localized edema; G47.33 Obstructive sleep apnea (adult) (pediatric); R33.9 Retention of urine, unspecified; E11.9 Type 2 diabetes mellitus without complications; I10 Essential (primary) hypertension; D64.9 Anemia, unspecified; E87.6 Hypokalemia; E78.00 Pure hypercholesterolemia, unspecified; K21.9 Gastro-esophageal reflux disease without esophagitis; Z96.0 Presence of urogenital implants; M53.3 Sacrococcygeal disorders, not elsewhere classified; F79 Unspecified intellectual disabilities; L89.619 Pressure ulcer of right heel, unspecified stage; L89.629 Pressure ulcer of left heel, unspecified stage
CPT/HCPCS: 36415; 78452; 80053; 82962; 83540; 85025; 93017; 94760

== ENCOUNTER → 2018-08-27 | Outpatient (CLI) | payer MEDICARE, MEDICAID ==
[~2018-08-27] MED LIST changes: +DICY10CA12 PO; +FERR-84 PO; +FURO-125 PO; +GABA-490 PO; +HEParin (CATH LAB) 0 ML IV ONE; +HEParin 1000 UNIT/ML (10ML VIAL) FOR BOLUS ONE; +HYDR-3820 PO; +HYOS-20 PO; +LIDOCAINE 1% INJ 20 ML 20 ML VIAL ONE; +LORA10TA7 PO; +METF-397 PO; +METO-370 PO; +MIDAZOLAM 5 MG/5 ML (VERSED) VIAL ONE; +MULT1TAB69 PO; +NIAC100045 PO; +NITRO DRIP 25000 MCG/D5W 250 ML IV ONE; +NS IV 1000 ML 0 ML ONE; +NS IV 1000 ML 1,000 ML IV SCH; +OMG1KC PO; +PATIENT MAY USE OWN MEDS, ALL PO SCH; +POLY17PO31 PO; +POTA10TA6 PO; +RANI150T11 PO; +REGADENOSON 0.4 MG/5 ML SYR (LEXISCAN) IV ONE; +TOPI50TA13 PO; +VERAPAMIL 5 MG/2 ML (CALAN) VIAL IV ONE; +fentaNYL INJECTION 100 MCG/2 ML AMP ONE
[2018-08-27 13:35] VITALS: BP 139/71
== END ==
LOC: SURG 13:30 → CATH 13:30 → CARD 13:30 → EDSTATUS 08-30 08:52
PROVIDERS: ATTEND Internal Medicine Interventional Cardiology
DX: Z53.9 Procedure and treatment not carried out, unspecified reason (principal)

== ENCOUNTER 2018-08-29 10:19 | Day surgery (SDC) | payer MEDICARE, MEDICAID ==
[2018-08-29] VITALS (9 sets, daily range): BP systolic 108–134; BP diastolic 62–72
[~2018-08-29 10:19] MED LIST changes: +EZET10TA27 PO; -EZET10TA49 PO; +HEParin 1000 UNIT/ML (10ML VIAL) FOR BOLUS IV ONE; +LIDOCAINE 1% INJ 20 ML 20 ML VIAL INJ ONE; +MIDAZOLAM 5 MG/5 ML (VERSED) VIAL IV ONE; +NITRO DRIP 25000 MCG/D5W 250 ML IV ONE; +fentaNYL INJECTION 100 MCG/2 ML AMP INJ ONE
[2018-08-29] MEDS ORDERED: HEParin (CATH LAB) 2,000 ML IV ONE (10:35)
[2018-08-29] MEDS ORDERED: NS IV 1000 ML 1,000 ML IV SCH (10:35)
[2018-08-29] MEDS ORDERED: VERAPAMIL 5 MG/2 ML (CALAN) VIAL IV ONE (10:35)
[2018-08-29] MEDS ORDERED: PATIENT MAY USE OWN MEDS, ALL PO SCH (10:45)
[2018-09-04] MEDS ORDERED: TRAM50TA2 PO (08:20)
[2018-09-04] MEDS ORDERED: LORA10TA7 PO (08:21)
[2018-09-04] MEDS ORDERED: POTA10TA6 PO (08:21)
[2018-09-04] MEDS ORDERED: HYDR-3820 PO (08:21)
[2018-09-04] MEDS ORDERED: METF-397 PO (08:21)
[2018-09-04] MEDS ORDERED: POLY17PO31 PO (08:21)
[2018-09-04] MEDS ORDERED: FURO-125 PO (08:21)
== END 2018-08-29 14:00 ==
LOC: CATH 10:19 → SDC 10:19 → CATH 14:00 → SDC 14:00
PROVIDERS: ATTEND Internal Medicine Interventional Cardiology
DX: A41.9 Sepsis, unspecified organism (principal); J96.90 Respiratory failure, unspecified, unspecified whether with hypoxia or hypercapnia; I21.A1 Myocardial infarction type 2; E11.9 Type 2 diabetes mellitus without complications; Z79.4 Long term (current) use of insulin; Z79.899 Other long term (current) drug therapy
CPT/HCPCS: 93458

== ENCOUNTER 2018-09-03 07:00 | Day surgery (SDC) | payer MEDICARE, MEDICAID ==
[~2018-09-03 07:00] MED LIST changes: -EZET10TA27 PO; +EZET10TA49 PO; -HEParin 1000 UNIT/ML (10ML VIAL) FOR BOLUS IV ONE; -LIDOCAINE 1% INJ 20 ML 20 ML VIAL INJ ONE; -MIDAZOLAM 5 MG/5 ML (VERSED) VIAL IV ONE; -NITRO DRIP 25000 MCG/D5W 250 ML IV ONE; -fentaNYL INJECTION 100 MCG/2 ML AMP INJ ONE
--- NOTE | 2018-09-03 07:09 | Progress Note-Pre Operative ---
Pre-Operative Progress Note H&P Reviewed The H&P was reviewed, patient examined and no changes noted. Date Seen by Provider: September 03, 2018 Time Seen by Provider: 07:08 Date H&P Reviewed: September 03, 2018 Time H&P Reviewed: 07:08 Pre-Operative Diagnosis: LT URETERAL STONE JONATHAN CONLEY MD September 03, 2018 07:09
--- NOTE | 2018-09-03 07:14 | Progress Note-Post Operative ---
Post-Operative Progess Note Surgeon (s)/Caravan Park [employer] Camping [employer] Manager (s) Surgeon JONATHAN CONLEY MD Caravan Park And Camping [employer] Manager: NONE Pre-Operative Diagnosis LT URETERAL STONE Post-Operative Diagnosis SAME Procedure & Operative Findings Date of Procedure 09/03/18 Procedure Performed/Findings CYSTOSCOPY WITH REMOVAL OF STENT Anesthesia Type LOCAL Estimated Blood Loss Estimated blood loss (mL): NONE Specimens/Packing Specimens Removed STENT Packing: NONE JONATHAN CONLEY MD September 03, 2018 07:14
[2018-09-03] MEDS ORDERED: cefTRIAXone FOR IV USE 1,000 MG in WATER (STERILE) FOR INJECTION 10 ML IV ONE (08:15)
--- NOTE | 2018-09-03 09:58 | OPERATIVE REPORT ---
DATE OF SERVICE: 09/03/2018 PREOPERATIVE DIAGNOSIS: Left ureteral stone. POSTOPERATIVE DIAGNOSIS: Left ureteral stone. OPERATION: Cystoscopy and removing of left ureteral stent. SURGEON: Favio Conley MD. ANESTHESIA: Local. COMPLICATIONS: None. DESCRIPTION OF PROCEDURE: With the patient supine in his bed, the genitalia were prepped and draped in the usual sterile fashion. Urethra was infiltrated with 2% lidocaine jelly. A penile clamp was applied. This was then removed and a flexible cystoscope introduced under vision. The anterior urethra was normal. The prostate was mildly enlarged with bladder neck obstruction. Bladder was entered. The distal end of the left ureteral stent was visualized. It was grasped with a grasping forceps and removed complete. The patient tolerated the procedure and anesthesia well and remained in his bed in stable condition. Job ID: [id number] DocumentID: [id number] Dictated Date: 09/03/2018 08:12:39 Lead Shipper Date: 09/03/2018 09:56:57 Dictated By: FAVIO CONLEY MD MTDD
[2018-09-04] MEDS ORDERED: TRAM50TA2 PO (08:20)
[2018-09-04] MEDS ORDERED: POTA10TA6 PO (08:21)
[2018-09-04] MEDS ORDERED: HYDR-3820 PO (08:21)
[2018-09-04] MEDS ORDERED: METF-397 PO (08:21)
[2018-09-04] MEDS ORDERED: FURO-125 PO (08:21)
[2018-09-04] MEDS ORDERED: POLY17PO31 PO (08:21)
[2018-09-04] MEDS ORDERED: LORA10TA7 PO (08:21)
== END 2018-09-03 08:09 | disposition home or self-care (01) ==
LOC: SDC 07:00
PROVIDERS: ATTEND Urology
DX: Z46.6 Encounter for fitting and adjustment of urinary device (principal); N20.1 Calculus of ureter

== ENCOUNTER 2018-09-11 14:39 | Emergency (ER) | payer MEDICARE, MEDICAID ==
[~2018-09-11] VITALS: Ht 175.3 cm; Wt 136.1 kg
[2018-09-11 15:50] LABS: BILIRUBIN,URINE NEGATIVE (NEGATIVE); CLARITY,URINE CLEAR; COLOR,URINE YELLOW; GLUCOSE, URINE (UA) NEGATIVE (NEGATIVE); KETONES,URINE NEGATIVE (NEGATIVE); LEUKOCYTE ESTERASE ,URINE 1+ (NEGATIVE); NITRITE,URINE NEGATIVE (NEGATIVE); PH,URINE 5 (5-9); PROTEIN,URINE 2+ (NEGATIVE); UROBILINOGEN,URINE NORMAL (NORMAL)
[2018-09-11 16:03] LABS: BACTERIA,URINE TRACE /HPF
[2018-09-11] MEDS: NS IV 1000 ML 1,000 ML IV SCH ×2 (16:35→20:14)
[2018-09-11 16:48] LABS: BASOPHILS % (AUTO) 0 % (0-10); EOSINOPHILS % (AUTO) 0 % (0-10); HEMATOCRIT 28 % (40-54); LYMPHOCYTES # (AUTO) 1.7 X 10^3 (1.0-4.0); LYMPHOCYTES % (AUTO) 12 % (12-44); MEAN CORPUSCULAR HEMOGLOBIN 30 PG (25-34); MEAN CORPUSCULAR HGB CONC 32 G/DL (32-36); MEAN CORPUSCULAR VOLUME 92 FL (80-99); MEAN PLATELET VOLUME 8.8 FL (7.4-10.4); MONOCYTES # (AUTO) 1.1 X 10^3 (0.0-1.0); MONOCYTES % (AUTO) 8 % (0-12); NEUTROPHILS # (AUTO) 11.3 X 10^3 (1.8-7.8); NEUTROPHILS % (AUTO) 80 % (42-75); PLATELET COUNT 269 10^3/uL (130-400); RED CELL DISTRIBUTION WIDTH 16.1 % (10.0-14.5); WHITE BLOOD COUNT 14.2 10^3/uL (4.3-11.0)
[2018-09-11 16:52] LABS: INR 1.1 (0.8-1.4); PROTHROMBIN TIME PATIENT 14.2 SEC (12.2-14.7)
[2018-09-11 17:04] LABS: ALANINE AMINOTRANSFERASE 22 U/L (0-55); ALBUMIN 3.6 GM/DL (3.2-4.5); ALKALINE PHOSPHATASE 106 U/L (40-136); BILIRUBIN,TOTAL 0.6 MG/DL (0.1-1.0); BUN/CREATININE RATIO 15; CALCIUM 9.6 MG/DL (8.5-10.1); CARBON DIOXIDE 26 MMOL/L (21-32); CHLORIDE 99 MMOL/L (98-107); CREATININE SERUM 0.81 MG/DL (0.60-1.30); GFR ESTIMATED > 60; GLUCOSE 109 MG/DL (70-105); POTASSIUM 3.8 MMOL/L (3.6-5.0); SODIUM 136 MMOL/L (135-145); TOTAL PROTEIN 7.3 GM/DL (6.4-8.2)
[2018-09-11 17:10] LABS: BAND NEUTROPHILS 1 %; BASOPHILS % (MANUAL) 0 %; EOSINOPHILS % (MANUAL) 0 %; LYMPHOCYTES % (MANUAL) 10 %; MONOCYTES % (MANUAL) 10 %; NEUTROPHILS % (MANUAL) 79 %; POLYCHROMASIA SLIGHT
[2018-09-11 17:11] LABS: ANISOCYTOSIS SLIGHT
[2018-09-11] MEDS: ACETAMINOPHEN 500 MG TAB (TYLENOL) PO ONE (17:17)
--- NOTE | 2018-09-11 17:26 | Diagnostic Imaging Report ---
INDICATION: Fevers. Shortness of breath. COMPARISON: Comparison is made to prior study of August 26, 2018. FINDINGS: Examination is limited by some patient motion. There is enlargement of the cardiac silhouette. Central pulmonary vascularity appears mildly prominent. There are some patchy atelectasis or infiltrate in the right middle lobe. There is also a rounded density projecting over the lower right chest which is believed to be a nipple shadow but was not present on the previous exam. There is no large effusion. There is no pneumothorax. IMPRESSION: 1. Enlarged cardiac silhouette with central pulmonary vascular congestion and patchy right middle lobe atelectasis or infiltrate. Rounded density projecting over the right chest was believed to be reflective of a nipple shadow. Dictated by: Dictated on workstation # [id number]
--- NOTE | 2018-09-11 17:59 | ED GU-Male ---
General Chief Complaint: - Urinary Stated Complaint: INFECTION;FEVER Nursing Triage Note: PATIENT STATES THAT IT STINGS WHEN HE URINATES AND HE HAS HAD FEVERS. WOUND CARE SENT HIM HERE FOR EVALUATION. Source: patient Exam Limitations: no limitations History of Present Illness Date Seen by Provider: September 11, 2018 Time Seen by Provider: 16:30 Initial Comments 8-year-old male sent over to the emergency room by [facility] [place] wound care for complaints of burning with urination and fevers. He was being evaluated that wound care for a large decubitus ulcer to his coccyx area. He has recently had a ureteral stent and urostomy tube removed from his left kidney for obstructing kidney stones. He was found to have a low-grade temperature of 100.2 on arrival. He is alert and baseline. He is MR. Timing/Duration: this afternoon Associated Symptoms: urinary frequency, other (burning with urination) Allergies and Home Medications Allergies Coded Allergies: No Known Drug Allergies (Unverified , 08/21/18) Home Medications Dicyclomine HCl 10 Mg Capsule, 20 MG PO BID, (Reported) TAKES 2 (10MG) CAPSULES Esomeprazole Magnesium 40 Mg Capsule.dr, 40 MG PO DAILY, (Reported) Ezetimibe 10 Mg Tablet, 10 MG PO DAILY, (Reported) Furosemide 20 Mg Tablet, 20 MG PO DAILY Prescribed by: DALY LYNN on 09/04/18820 Gabapentin 400 Mg Capsule, 400 MG PO TID, (Reported) Hydrocodone/Acetaminophen 1 Each Tablet, 1 TAB PO BID Prescribed by: DALY LYNN on 09/04/18820 Hyoscyamine Sulfate 0.125 Mg Tablet, 0.125 MG PO Q4H PRN for SPASMS, (Reported) Loratadine 10 Mg Tablet, 10 MG PO DAILY Prescribed by: DALY LYNN on 09/04/18820 Metformin HCl 500 Mg Tablet, 1,000 MG PO BID@,17 Prescribed by: DALY LYNN on 09/04/18820 Metoprolol Succinate 50 Mg Tab.er.24h, 50 MG PO BID, (Reported) LAST FILLED #60 07-11-18 Multivitamin 1 Each Tablet, 1 TAB PO DAILY, (Reported) Nabumetone 750 Mg Tablet, 750 MG PO BID, (Reported) Niacin 1,000 Mg Tab.er.24h, 1,000 MG PO DAILY, (Reported) Zap 3 Polyunsat Fatty Acids 1,000 Mg Cap, 1,000 MG PO DAILY, (Reported) Polyethylene Glycol 3350 17 Gm Powd.pack, 34 GM PO BID Prescribed by: DALY LYNN on 09/04/18820 Potassium Chloride 10 Meq Tablet.er, 10 MEQ PO BID WITH MEALS Prescribed by: DALY LYNN on 09/04/18820 Ranitidine HCl 150 Mg Tablet, 150 MG PO BID, (Reported) Simvastatin 80 Mg Tablet, 80 MG PO HS, (Reported) Tamsulosin HCl 0.4 Mg Cap, 0.4 MG PO 1730, (Reported) LAST FILLED #30 07-08-18 Topiramate 50 Mg Tablet, 50 MG PO HS, (Reported) Tramadol HCl 50 Mg Tablet, 50 MG PO BID PRN for PAIN-MODERATE Prescribed by: DALY LYNN on 09/04/18819 Patient Home Medication List Home Medication List Reviewed: Yes Review of Systems Review of Systems Constitutional: see HPI, chills, fever Skin: see HPI, other (bed sore to coccyx area) All Other Systemes Reviewed Negative Unless Noted: Yes Past Kjoteji-Fntjik-Rajewd Hx Past Med/Social Hx: Reviewed Nursing Past Med/Soc Hx Patient Social History Alcohol Use: Occasionally Uses Number of Drinks Today: GG Alcohol Beverage of Choice: Whiskey Recreational Drug Use: Yes Drug of Choice: hx meth,coke, speed-inhale nad inject-clean since 2000 Smoking Status: Former Smoker Former Smoker, Quit: Apr 29, 1982 2nd Hand Smoke Exposure: No Recent Foreign Travel: No Contact w/Someone Who Travel: No Recent Infectious Disease Expo: No Recent Hopitalizations: No Immunizations Up To Date PED Vaccines UTD: Yes Seasonal Allergies Seasonal Allergies: Yes Past Medical History Surgeries: Yes (HERNIA, HEMORRHOIDECTOMY, ESWL) Respiratory: Yes Pneumonia, Sleep Apnea Currently Using CPAP: Yes Cardiac: Yes High Cholesterol, Hypertension Neurological: No Reproductive Disorders: No Sexually Transmitted Disease: No HIV/AIDS: No Genitourinary: Yes (UROSTOMY PLACED July,) Bladder Infection, Kidney Stones Gastrointestinal: Yes Colitis, Gastroesophageal Reflux Musculoskeletal: Yes Arthritis, Chronic Back Pain Endocrine: Yes Diabetes, Non-Insulin dep HEENT: Yes (READING GLASSES) Loss of Vision: Bilateral Hearing Impairment: Denies Cancer: No Psychosocial: Yes Depression Integumentary: No Blood Disorders: No Adverse Reaction/Blood Tranf: No (N/A) Family Medical History Reviewed Nursing Family Hx Patient reports no known family medical history. Physical Exam Vital Signs Vital Signs - First Documented 09/11/18 09/11/18 14:52 21:21 Temp 99.0 Pulse 123 Resp 20 B/P (MAP) 136/61 (86) Pulse Ox 97 O2 Delivery Room Air Capillary Refill : Less Than 3 Seconds Height, Weight, BMI Height: 5'9.00" Weight: 300lbs. 0oz. 136.502527yg; 45.3 BMI Method:Stated General Appearance: WD/WN, no apparent distress Cardiovascular: normal peripheral pulses, regular rate, rhythm, no edema, no gallop, no JVD, no murmur Respiratory: chest non-tender, lungs clear, normal breath sounds, no respiratory distress, no accessory muscle use Gastrointestinal: normal bowel sounds, non tender, soft, no organomegaly, no pulsatile mass Extremities: normal range of motion, normal capillary refill Neurologic/Psychiatric: alert, normal mood/affect, oriented x 3 Skin: normal color, warm/dry, other (large macerated area to each side of gluteal cleft with surrounding erythema. Pressure ulcers to bilat heels. ) Focused Exam Lactate Level 09/11/18 16:59: Lactic Acid Level 2.30*H 09/11/18 19:15: Lactic Acid Level 0.97 Lactic Acid Level Laboratory Tests Test 09/11/18 16:59 09/11/18 19:15 Lactic Acid Level 2.30 MMOL/L (0.50-2.00) *H 0.97 MMOL/L (0.50-2.00) Procedures/Interventions Date of ETT Placement: August 22, 2018 Time of ETT Placement: 07 Progress/Results/Core Measures Suspected Sepsis Recent Fever Within 48 Hours: Yes Infection Criteria Present: Suspected New Infection New/Unexplained Altered Menta: No Sepsis Screen: Possible Sepsis Risk SIRS Temperature:99.0 Pulse: 123 Respiratory Rate: 20 Laboratory Tests 09/11/18 16:20: White Blood Count 14.2H Blood Pressure 136 /61 Mean: 86 09/11/18 16:59: Lactic Acid Level 2.30*H 09/11/18 19:15: Lactic Acid Level 0.97 Laboratory Tests 5/29/19 16:20: Creatinine 0.81, INR Comment 1.1, Platelet Count 269, Total Bilirubin 0.6 Results/Orders Lab Results Laboratory Tests Test 09/11/18 15:40 09/11/18 16:20 09/11/18 16:59 09/11/18 19:15 Range/Units Urine Color YELLOW Urine Clarity CLEAR Urine pH 5 5-9 Urine Specific [place] 1.020 1.016-1.022 Urine Protein 2+ H NEGATIVE Urine Glucose (UA) NEGATIVE NEGATIVE Urine Ketones NEGATIVE NEGATIVE Urine Nitrite NEGATIVE NEGATIVE Urine Bilirubin NEGATIVE NEGATIVE Urine Urobilinogen NORMAL NORMAL MG/DL Urine Leukocyte Esterase 1+ H NEGATIVE Urine RBC (Auto) 3+ H NEGATIVE Urine RBC 10-25 H /HPF Urine WBC 2-5 /HPF Urine Squamous Epithelial Cells 5-10 /HPF Urine Crystals NONE /LPF Urine Bacteria TRACE /HPF Urine Casts NONE /LPF Urine Mucus SMALL H /LPF Urine Culture Indicated YES White Blood Count 14.2 H 4.3-11.0 10^3/uL Red Blood Count 3.05 L 4.35-5.85 10^6/uL Hemoglobin 9.0 L 13.3-17.7 G/DL Hematocrit 28 L 40-54 % Mean Corpuscular Volume 92 80-99 FL Mean Corpuscular Hemoglobin 30 25-34 PG Mean Corpuscular Hemoglobin Concent 32 32-36 G/DL Red Cell Distribution Width 16.1 H 10.0-14.5 % Platelet Count 269 130-400 10^3/uL Mean Platelet Volume 8.8 7.4-10.4 FL Neutrophils (%) (Auto) 80 H 42-75 % Lymphocytes (%) (Auto) 12 12-44 % Monocytes (%) (Auto) 8 0-12 % Eosinophils (%) (Auto) 0 0-10 % Basophils (%) (Auto) 0 0-10 % Neutrophils # (Auto) 11.3 H 1.8-7.8 X 10^3 Lymphocytes # (Auto) 1.7 1.0-4.0 X 10^3 Monocytes # (Auto) 1.1 H 0.0-1.0 X 10^3 Eosinophils # (Auto) 0.0 0.0-0.3 10^3/uL Basophils # (Auto) 0.0 0.0-0.1 10^3/uL Neutrophils % (Manual) 79 % Lymphocytes % (Manual) 10 % Monocytes % (Manual) 10 % Eosinophils % (Manual) 0 % Basophils % (Manual) 0 % Band Neutrophils 1 % Polychromasia SLIGHT Anisocytosis SLIGHT Prothrombin Time 14.2 12.2-14.7 SEC INR Comment 1.1 0.8-1.4 Activated Partial Thromboplast Time 39 H 24-35 SEC Sodium Level 136 135-145 MMOL/L Potassium Level 3.8 3.6-5.0 MMOL/L Chloride Level 99 98-107 MMOL/L Carbon Dioxide Level 26 21-32 MMOL/L Anion Gap 11 5-14 MMOL/L Blood Urea Nitrogen 12 7-18 MG/DL Creatinine 0.81 0.60-1.30 MG/DL Estimat Glomerular Filtration Rate > 60 BUN/Creatinine Ratio 15 Glucose Level 109 H 70-105 MG/DL Calcium Level 9.6 8.5-10.1 MG/DL Corrected Calcium 9.9 8.5-10.1 MG/DL Total Bilirubin 0.6 0.1-1.0 MG/DL Aspartate Amino Transf (AST/SGOT) 23 5-34 U/L Alanine Aminotransferase (ALT/SGPT) 22 0-55 U/L Alkaline Phosphatase 106 40-136 U/L Total Protein 7.3 6.4-8.2 GM/DL Albumin 3.6 3.2-4.5 GM/DL Lactic Acid Level 2.30 *H 0.97 0.50-2.00 MMOL/L Test 09/11/18 21:20 Range/Units Glucometer 131 H 70-110 MG/DL My Orders Orders - ZINA HENAO Ua Culture If Indicated (09/11/18 15:23) Urine Culture (09/11/18 15:40) Cbc With Automated Diff (09/11/18 16:05) Comprehensive Metabolic Panel (09/11/18 16:05) Blood Culture (09/11/18 16:05) Protime With Inr (09/11/18 16:05) Partial Thromboplastin Time (09/11/18 16:05) Chest 1 View, Ap/Pa Only (09/11/18 16:05) Ed Iv/Invasive Line Start (09/11/18 16:05) Ed Iv/Invasive Line Start (09/11/18 16:05) Ekg Tracing (09/11/18 16:05) Vital Signs Adult Sepsis Patie Q15M (09/11/18 16:05) O2 (09/11/18 16:05) Remove Rings In Anticipation O (09/11/18 16:05) Wound Culture (09/11/18 16:05) Lactic Acid Analyzer (09/11/18 16:05) Ns Iv 1000 Ml (Sodium Chloride 0.9%) (09/11/18 16:05) Manual Differential (09/11/18 16:20) Acetaminophen Tablet (Tylenol Tablet) (09/11/18 17:15) Ct Abdomen/Pelvis Wo (09/11/18 17:58) Vancomycin Injection (Vancomycin Injecti (09/11/18 19:30) Piperacillin/Tazobactam (Bulk) (Zosyn In (09/11/18 19:30) Ns Iv 1000 Ml (Sodium Chloride 0.9%) (09/11/18 19:30) Vancomycin Injection (Vancomycin Injecti (09/11/18 20:34) Ns (Ivpb) (Sodium Chloride 0.9%) (09/11/18 20:34) Medications Given in ED Current Medications Medications Dose Ordered Sig/Cathie Route Start Time Stop Time Status Last Admin Dose Admin Acetaminophen 1,000 mg ONCE ONCE PO 09/11/18 17:15 09/11/18 17:16 DC 09/11/18 17:17 1,000 MG Piperacillin Sod/ Tazobactam Sod 4.5 gm/Sodium Chloride 120 ml @ 240 mls/hr ONCE ONCE IV 09/11/18 19:30 09/11/18 19:59 DC 09/11/18 20:22 240 MLS/HR Vital Signs/I&O 09/11/18 09/11/18 09/11/18 09/11/18 14:52 16:38 17:17 21:21 Temp 99.0 99.0 99.8 Pulse 123 112 Resp 20 22 B/P (MAP) 136/61 (86) 131/83 (99) Pulse Ox 97 98 97 O2 Delivery Room Air Capillary Refill : Less Than 3 Seconds Blood Pressure Mean: 86 Progress Note : Time: 19:10 Progress Note Second liter of NS ordered at this time. Giving fluid with caution due to history of heart failure and findings on chest x-ray. ECG Initial ECG Impression Date: September 11, 2018 Initial ECG Impression Time: 17:07 Initial ECG Rate: 123 Initial ECG Rhythm: S.Tach Initial ECG Intervals: Normal Initial ECG Impression: Normal Initial ECG Comparisson: Unchanged Diagnostic Imaging Diagonstic Imaging: Xray, CT Plain Films/CT/US/NM/MRI: chest, abdomen, pelvis Comments NAME: [facility] REC#: [id number] PT STATUS: REG ER : 1960 PHYSICIAN: ZINA HENAO ADMIT DATE: 09/11/18/ER Draft Date of Exam:09/11/18 CT ABDOMEN/PELVIS WO PROCEDURE: CT abdomen and pelvis without contrast. TECHNIQUE: Multiple contiguous axial images were obtained through the abdomen and pelvis without the use of intravenous contrast. Auto Exposure Controls were utilized during the CT exam to meet ALARA standards for radiation dose reduction. INDICATION: Left-sided flank pain and history of kidney stones. COMPARISON: Comparison is made with the prior study from August 21, 2018. FINDINGS: The lung bases demonstrate no focal infiltrate or evidence of an effusion. The liver demonstrates underlying steatosis without evidence of a focal intrahepatic abnormality. The gallbladder is nondistended without radiodense gallstone. There is no biliary dilatation. Pancreas demonstrates no focal abnormality. Spleen is normal in size. There is no adrenal mass. There has been interval removal of the patient's prior left-sided ureteral stent when compared to the prior examination. There is some minimal residual prominence of the proximal aspect of the ureter but no stone within the ureter. There is a nonobstructing stone within the lower calyces of the left kidney. There is some minimal residual left perinephric fat stranding. There is a left-sided posteriorly projecting renal cyst. The right kidney appears nonobstructed. Small and large bowel is normal in caliber without obstruction. There is moderate stool within the colon. There is no abnormal bowel thickening. There is a normal appendix. There is diverticulosis but no evidence of diverticulitis. There is no free air, free fluid, or evidence of abscess. Urinary bladder is unremarkable. There are no pathologically enlarged lymph nodes. Aorta is normal in caliber. There is no acute or suspicious osseous abnormality. IMPRESSION: 1. Nonobstructive stone is present within the lower calyces of the left kidney. There has been interval removal of the patient's prior left-sided ureteral stent. There is no current stone within the collecting system. There is mild residual prominence of the proximal aspect of the left ureter into the left intrarenal calyces. 2. Right kidney is nonobstructed without urolithiasis. 3. There is no bowel obstruction. Uncomplicated diverticulosis noted. 4. No focal inflammation within the omentum or mesentery. There is no free air, free fluid, or evidence of abscess. Dictated on workstation # [id number] Dict: 09/11/18 1827 Trans: 09/11/18 1843 [facility] [id number] Interpreted by: EREN HAMMOND MD Electronically signed by: AIDEE VIA [place], [place] NAME: DARSHAN ROY [facility] REC#: [id number] PT STATUS: REG ER : 1960 PHYSICIAN: ZINA HENAO ADMIT DATE: 09/11/18/ER Draft Date of Exam:09/11/18 CHEST 1 VIEW, AP/PA ONLY INDICATION: Fevers. Shortness of breath. COMPARISON: Comparison is made to prior study of August 26, 2018. FINDINGS: Examination is limited by some patient motion. There is enlargement of the cardiac silhouette. Central pulmonary vascularity appears mildly prominent. There are some patchy atelectasis or infiltrate in the right middle lobe. There is also a rounded density projecting over the lower right chest which is believed to be a nipple shadow but was not present on the previous exam. There is no large effusion. There is no pneumothorax. IMPRESSION: 1. Enlarged cardiac silhouette with central pulmonary vascular congestion and patchy right middle lobe atelectasis or infiltrate. Rounded density projecting over the right chest was believed to be reflective of a nipple shadow. Dictated on workstation # [id number] Dict: 09/11/18 1718 Trans: 09/11/18 1726 [facility] [id number] Interpreted by: EREN HAMMOND MD Electronically signed by: Reviewed: Reviewed by Me Departure Impression Primary Impression: Pneumonia Additional Impressions: Sepsis Decubitus ulcer of coccyx Disposition: 02 XFER SHT-TRM HOSP Condition: Stable/Unchanged Transfer Time Spoke to Accepting Phy: 19:[address] Rooney Recommends Vanc and Adelaida Transfer Time: 19:30 Transfer Facility: [facility] Method of Transfer: EMS ([facility]) Departure-Patient Inst. Referrals: MARS PETERS DO (PCP/Family) Primary Care Physician ZINA HENAO September 11, 2018 17:59
--- NOTE | 2018-09-11 18:43 | Diagnostic Imaging Report ---
PROCEDURE: CT abdomen and pelvis without contrast. TECHNIQUE: Multiple contiguous axial images were obtained through the abdomen and pelvis without the use of intravenous contrast. Auto Exposure Controls were utilized during the CT exam to meet ALARA standards for radiation dose reduction. INDICATION: Left-sided flank pain and history of kidney stones. COMPARISON: Comparison is made with the prior study from August 21, 2018. FINDINGS: The lung bases demonstrate no focal infiltrate or evidence of an effusion. The liver demonstrates underlying steatosis without evidence of a focal intrahepatic abnormality. The gallbladder is nondistended without radiodense gallstone. There is no biliary dilatation. Pancreas demonstrates no focal abnormality. Spleen is normal in size. There is no adrenal mass. There has been interval removal of the patient's prior left-sided ureteral stent when compared to the prior examination. There is some minimal residual prominence of the proximal aspect of the ureter but no stone within the ureter. There is a nonobstructing stone within the lower calyces of the left kidney. There is some minimal residual left perinephric fat stranding. There is a left-sided posteriorly projecting renal cyst. The right kidney appears nonobstructed. Small and large bowel is normal in caliber without obstruction. There is moderate stool within the colon. There is no abnormal bowel thickening. There is a normal appendix. There is diverticulosis but no evidence of diverticulitis. There is no free air, free fluid, or evidence of abscess. Urinary bladder is unremarkable. There are no pathologically enlarged lymph nodes. Aorta is normal in caliber. There is no acute or suspicious osseous abnormality. IMPRESSION: 1. Nonobstructive stone is present within the lower calyces of the left kidney. There has been interval removal of the patient's prior left-sided ureteral stent. There is no current stone within the collecting system. There is mild residual prominence of the proximal aspect of the left ureter into the left intrarenal calyces. 2. Right kidney is nonobstructed without urolithiasis. 3. There is no bowel obstruction. Uncomplicated diverticulosis noted. 4. No focal inflammation within the omentum or mesentery. There is no free air, free fluid, or evidence of abscess. Dictated by: Dictated on workstation # [id number]
[2018-09-11] MEDS: PIPERACILLIN/TAZOBACTAM (BULK) 4.5 GM in NS (IVPB) 100 ML IV ONE (20:22)
[2018-09-11] MEDS: NS (IVPB) 250 ML ONE (20:51)
[2018-09-11] MEDS: VANCOMYCIN 1000 MG/VIAL ONE (20:51)
[2018-09-11] MEDS: VANCOMYCIN INJECTION 1,000 MG in NS (IVPB) 250 ML IV SCH (20:52)
[2018-09-11 21:21] VITALS: BP 131/83
== END 2018-09-11 21:20 | disposition short-term general hospital (02) ==
LOC: EDUNIT# 14:39 → ER 14:39
DX: J18.9 Pneumonia, unspecified organism (principal); A41.9 Sepsis, unspecified organism; L89.159 Pressure ulcer of sacral region, unspecified stage; G47.30 Sleep apnea, unspecified; I10 Essential (primary) hypertension; E78.00 Pure hypercholesterolemia, unspecified; E11.9 Type 2 diabetes mellitus without complications; K21.9 Gastro-esophageal reflux disease without esophagitis; F32.9 Major depressive disorder, single episode, unspecified; Z93.6 Other artificial openings of urinary tract status; Z87.448 Personal history of other diseases of urinary system; Z87.442 Personal history of urinary calculi; Z79.84 Long term (current) use of oral hypoglycemic drugs; Z87.891 Personal history of nicotine dependence; Z98.890 Other specified postprocedural states; Z87.01 Personal history of pneumonia (recurrent)
CPT/HCPCS: 36415; 71045; 74176; 80053; 81000; 82962; 83605; 85007; 85027; 85610; 85730; 87040; 87070; 87088; 87186; 87205; 93005; 96361; 96365; 96367

== ENCOUNTER → 2018-09-11 | Outpatient (CLI) | payer MEDICARE, MEDICAID ==
[~2018-09-11] MED LIST changes: +FURO-125 PO; +LORA10TA7 PO; +METF-397 PO; +POLY17PO31 PO; +POTA10TA6 PO
== END ==
LOC: WOUNDCARE 13:31
PROVIDERS: ATTEND Surgery
DX: L89.310 Pressure ulcer of right buttock, unstageable (principal); L89.320 Pressure ulcer of left buttock, unstageable; N39.0 Urinary tract infection, site not specified; R50.9 Fever, unspecified; G31.84 Mild cognitive impairment of uncertain or unknown etiology
CPT/HCPCS: 99214

== ENCOUNTER → 2018-09-18 | Outpatient (CLI) | payer MEDICARE, MEDICAID | LOC: WOUNDCARE 12:17 | PROVIDERS: ATTEND Surgery | DX: L89.310 Pressure ulcer of right buttock, unstageable (principal); L89.320 Pressure ulcer of left buttock, unstageable; G31.84 Mild cognitive impairment of uncertain or unknown etiology | CPT/HCPCS: 99213 ==

== ENCOUNTER → 2018-10-16 | Outpatient (CLI) | payer MEDICARE, MEDICAID | LOC: WOUNDCARE 09:57 | PROVIDERS: ATTEND Surgery | DX: L89.313 Pressure ulcer of right buttock, stage 3 (principal); L89.323 Pressure ulcer of left buttock, stage 3; G31.84 Mild cognitive impairment of uncertain or unknown etiology | CPT/HCPCS: 99213 ==

== ENCOUNTER → 2018-10-22 | Outpatient (CLI) | payer MEDICARE, MEDICAID | LOC: WOUNDCARE 10:25 | PROVIDERS: ATTEND Nurse Practitioner | DX: L89.323 Pressure ulcer of left buttock, stage 3 (principal); L89.313 Pressure ulcer of right buttock, stage 3; I96 Gangrene, not elsewhere classified; G31.84 Mild cognitive impairment of uncertain or unknown etiology | CPT/HCPCS: 17250 ==

== ENCOUNTER → 2018-11-05 | Outpatient (CLI) | payer MEDICARE, MEDICAID | LOC: WOUNDCARE 09:52 | PROVIDERS: ATTEND Nurse Practitioner | DX: L89.313 Pressure ulcer of right buttock, stage 3 (principal); L89.323 Pressure ulcer of left buttock, stage 3; G31.84 Mild cognitive impairment of uncertain or unknown etiology; I96 Gangrene, not elsewhere classified | CPT/HCPCS: 17250 ==

== ENCOUNTER 2018-11-11 05:33 | Emergency (ER) | payer MEDICARE, MEDICAID ==
[~2018-11-11] VITALS: Ht 175.3 cm; Wt 111.1 kg
[2018-11-11 06:11] LABS: CLARITY,URINE CLOUDY; COLOR,URINE BROWN
--- NOTE | 2018-11-11 06:11 | ED GU-Male ---
General Chief Complaint: - Urinary Stated Complaint: DISCOLORED URINE Nursing Triage Note: PT COMPLAINING OF DARK URINE THE PAST TWO DAYS Source: patient, family History of Present Illness Date Seen by Provider: Nov 11, 2018 Time Seen by Provider: 06:00 Initial Comments 58 yo male complains of dark urine, pt states that he thinks he might have passed a kidney stone about 3-4 days ago. that for the last 2 days, he has had some dark urine. pt reports mild left sided flank pain. no dysuria, did have some hesitancy couple days ago but that has resolved. no fever, chills, n/v or other systemic complaints at this time. Allergies and Home Medications Allergies Coded Allergies: No Known Drug Allergies (Unverified , 08/21/18) Home Medications Dicyclomine HCl 10 Mg Capsule, 20 MG PO BID, (Reported) TAKES 2 (10MG) CAPSULES Esomeprazole Magnesium 40 Mg Capsule.dr, 40 MG PO DAILY, (Reported) Ezetimibe 10 Mg Tablet, 10 MG PO DAILY, (Reported) Furosemide 20 Mg Tablet, 20 MG PO DAILY Prescribed by: DALY LYNN on 09/04/18820 Gabapentin 400 Mg Capsule, 400 MG PO TID, (Reported) Hydrocodone/Acetaminophen 1 Each Tablet, 1 TAB PO BID Prescribed by: DALY LYNN on 09/04/18820 Hyoscyamine Sulfate 0.125 Mg Tablet, 0.125 MG PO Q4H PRN for SPASMS, (Reported) Loratadine 10 Mg Tablet, 10 MG PO DAILY Prescribed by: DALY LYNN on 09/04/18820 Metformin HCl 500 Mg Tablet, 1,000 MG PO BID@ Prescribed by: DALY LYNN on 09/04/18820 Metoprolol Succinate 50 Mg Tab.er.24h, 50 MG PO BID, (Reported) LAST FILLED #60 07-11-18 Multivitamin 1 Each Tablet, 1 TAB PO DAILY, (Reported) Nabumetone 750 Mg Tablet, 750 MG PO BID, (Reported) Niacin 1,000 Mg Tab.er.24h, 1,000 MG PO DAILY, (Reported) [place] 3 Polyunsat Fatty Acids 1,000 Mg Cap, 1,000 MG PO DAILY, (Reported) Polyethylene Glycol 3350 17 Gm Powd.pack, 34 GM PO BID Prescribed by: DALY LYNN on 09/04/18820 Potassium Chloride 10 Meq Tablet.er, 10 MEQ PO BID WITH MEALS Prescribed by: DALY LYNN on 09/04/18820 Ranitidine HCl 150 Mg Tablet, 150 MG PO BID, (Reported) Simvastatin 80 Mg Tablet, 80 MG PO HS, (Reported) Tamsulosin HCl 0.4 Mg Cap, 0.4 MG PO 1730, (Reported) LAST FILLED #30 07-08-18 Topiramate 50 Mg Tablet, 50 MG PO HS, (Reported) Tramadol HCl 50 Mg Tablet, 50 MG PO BID PRN for PAIN-MODERATE Prescribed by: DALY LYNN on 09/04/18819 Patient Home Medication List Home Medication List Reviewed: Yes Review of Systems Review of Systems Constitutional: see HPI; No chills, No fever Respiratory: no symptoms reported; No cough, No short of breath Cardiovascular: No chest pain Gastrointestinal: see HPI Genitourinary: see HPI Skin: no symptoms reported Past Vagniww-Tsshrm-Jouxfc Hx Past Med/Social Hx: Reviewed Nursing Past Med/Soc Hx Patient Social History Alcohol Use: Denies Use Number of Drinks Today: GG Alcohol Beverage of Choice: Whiskey Recreational Drug Use: Yes Drug of Choice: hx meth,coke, speed-inhale nad inject-clean since 2000 Former Smoker, Quit: Apr 29, 1982 2nd Hand Smoke Exposure: No Recent Foreign Travel: No Contact w/Someone Who Travel: No Recent Infectious Disease Expo: No Recent Hopitalizations: No Physical Abuse: No Sexual Abuse: No Mistreated: No Fear: No Immunizations Up To Date PED Vaccines UTD: Yes Seasonal Allergies Seasonal Allergies: Yes Past Medical History Surgeries: Yes (HERNIA, HEMORRHOIDECTOMY, ESWL) Respiratory: Yes Pneumonia, Sleep Apnea Currently Using CPAP: Yes Cardiac: Yes High Cholesterol, Hypertension Neurological: No Reproductive Disorders: No Sexually Transmitted Disease: No HIV/AIDS: No Genitourinary: Yes (UROSTOMY PLACED July,) Bladder Infection, Kidney Stones Gastrointestinal: Yes Colitis, Gastroesophageal Reflux Musculoskeletal: Yes Arthritis, Chronic Back Pain Endocrine: Yes Diabetes, Non-Insulin dep HEENT: Yes (READING GLASSES) Loss of Vision: Bilateral Hearing Impairment: Denies Cancer: No Psychosocial: Yes Depression Integumentary: No Blood Disorders: No Adverse Reaction/Blood Tranf: No (N/A) Family Medical History Patient reports no known family medical history. Physical Exam Vital Signs Vital Signs - First Documented 11/11/18 05:47 Temp 97.8 Pulse 76 Resp 16 B/P (MAP) 108/51 (70) Pulse Ox 97 O2 Delivery Room Air Capillary Refill : Less Than 3 Seconds Height, Weight, BMI Height: 5'9.00" Weight: 245lbs. 0oz. 111.579146ps; 45.3 BMI Method:Stated General Appearance: WD/WN HEENT: normal ENT inspection Neck: full range of motion, supple Cardiovascular: normal peripheral pulses, regular rate, rhythm Respiratory: chest non-tender, lungs clear, normal breath sounds Gastrointestinal: non tender, soft Extremities: normal range of motion, non-tender Skin: normal color, warm/dry Lymphatic: no adenopathy Procedures/Interventions Date of ETT Placement: August 22, 2018 Time of ETT Placement: 736 Progress/Results/Core Measures Suspected Sepsis Recent Fever Within 48 Hours: No Infection Criteria Present: None New/Unexplained Altered Menta: No Sepsis Screen: No Definite Risk SIRS Temperature:97.8 Pulse: 76 Respiratory Rate: 16 Blood Pressure 108 /51 Mean: 70 Results/Orders Lab Results Laboratory Tests Test 11/11/18 05:48 Range/Units Urine Color BROWN H Urine Clarity CLOUDY Urine pH 7.0 5-9 Urine Specific [place] 1.010 L 1.016-1.022 Urine Protein NEGATIVE NEGATIVE Urine Glucose (UA) NEGATIVE NEGATIVE Urine Ketones NEGATIVE NEGATIVE Urine Nitrite NEGATIVE NEGATIVE Urine Bilirubin NEGATIVE NEGATIVE Urine Urobilinogen 0.2 NORMAL MG/DL Urine Leukocyte Esterase NEGATIVE NEGATIVE Urine RBC (Auto) 3+ H NEGATIVE Urine RBC TNTC H /HPF Urine WBC 2-5 /HPF Urine Squamous Epithelial Cells 2-5 /HPF Urine Crystals NONE /LPF Urine Bacteria NONE /HPF Urine Casts NONE /LPF Urine Mucus NEGATIVE /LPF Urine Culture Indicated NO My Orders Orders - ANTHONY PALM DO Ct Abdomen/Pelvis Wo (11/11/18 06:14) Vital Signs/I&O 11/11/18 05:47 Temp 97.8 Pulse 76 Resp 16 B/P (MAP) 108/51 (70) Pulse Ox 97 O2 Delivery Room Air Capillary Refill : Less Than 3 Seconds Blood Pressure Mean: 70 Diagnostic Imaging Diagonstic Imaging: CT Plain Films/CT/US/NM/MRI: abdomen Reviewed: Reviewed/Discussed Departure Impression Primary Impression: Hematuria, gross Disposition: 01 HOME, SELF-CARE Condition: Stable Departure-Patient Inst. Referrals: MARS PETERS DO (PCP/Family) Primary Care Physician Patient Instructions: Blood in the Urine (Hematuria) in Adults Add. Discharge Instructions: Follow up with Dr. Templeton for further evaluation. All discharge instructions reviewed with patient and/or family. Voiced understanding. ANTHONY PALM DO Nov 11, 2018 06:11
[2018-11-11 06:12] LABS: BILIRUBIN,URINE NEGATIVE (NEGATIVE); GLUCOSE, URINE (UA) NEGATIVE (NEGATIVE); KETONES,URINE NEGATIVE (NEGATIVE); LEUKOCYTE ESTERASE ,URINE NEGATIVE (NEGATIVE); NITRITE,URINE NEGATIVE (NEGATIVE); PROTEIN,URINE NEGATIVE (NEGATIVE); RBC,URINE TNTC /HPF; UROBILINOGEN,URINE 0.2 MG/DL (NORMAL)
--- NOTE | 2018-11-11 07:08 | Diagnostic Imaging Report ---
PROCEDURE: CT abdomen and pelvis without contrast. TECHNIQUE: Multiple contiguous axial images were obtained through the abdomen and pelvis without the use of intravenous contrast. Auto Exposure Controls were utilized during the CT exam to meet ALARA standards for radiation dose reduction. INDICATION: Back pain. Hematuria. History of stones. COMPARISON: CT abdomen and pelvis on 09/11/2018. FINDINGS: The heart is prominent. The included lung bases are clear. Stable appearance of the kidneys with unchanged nonobstructing calculus in the inferior pole of the left kidney measuring 5 mm. Stable prominence of the left renal pelvis and proximal ureter, representing chronic changes. No evidence of obstructing calculi or hydronephrosis bilaterally. No bladder calculi are visualized. The liver, spleen, pancreas, and adrenal glands are stable in appearance without acute abnormality. There is no pathologically enlarged mesenteric or retroperitoneal adenopathy. The bowel loops are nondilated. The appendix is unremarkable. A few scattered diverticula are present without acute diverticulitis. There is no free fluid or free air. The osseous structures are age-appropriate. There is no free air, loculated collection, or adenopathy in the pelvis. IMPRESSION: No evidence of obstructing calculi or hydronephrosis. Stable nonobstructing calculus in the inferior pole left kidney measuring 5 mm. No acute abdominal findings. Dictated by: Dictated on workstation # [id number]
[2018-11-11 07:29] VITALS: BP 108/51
== END 2018-11-11 07:29 | disposition home or self-care (01) ==
LOC: EDUNIT# 05:33 → ER FS 05:34
DX: R31.9 Hematuria, unspecified (principal); I10 Essential (primary) hypertension; E11.9 Type 2 diabetes mellitus without complications; F32.9 Major depressive disorder, single episode, unspecified; E78.00 Pure hypercholesterolemia, unspecified; G47.30 Sleep apnea, unspecified; K21.9 Gastro-esophageal reflux disease without esophagitis; Z79.84 Long term (current) use of oral hypoglycemic drugs; Z87.891 Personal history of nicotine dependence; Z87.442 Personal history of urinary calculi
CPT/HCPCS: 74176; 81000

== ENCOUNTER → 2018-11-12 | Outpatient (CLI) | payer MEDICARE, MEDICAID | LOC: WOUNDCARE 10:14 | PROVIDERS: ATTEND Nurse Practitioner | DX: L89.313 Pressure ulcer of right buttock, stage 3 (principal); L89.323 Pressure ulcer of left buttock, stage 3; G31.84 Mild cognitive impairment of uncertain or unknown etiology; L92.8 Other granulomatous disorders of the skin and subcutaneous tissue; I96 Gangrene, not elsewhere classified | CPT/HCPCS: 17250 ==

== ENCOUNTER → 2018-11-19 | Outpatient (CLI) | payer MEDICARE, MEDICAID | LOC: WOUNDCARE 10:12 | PROVIDERS: ATTEND Nurse Practitioner | DX: L89.313 Pressure ulcer of right buttock, stage 3 (principal); L89.323 Pressure ulcer of left buttock, stage 3; G31.84 Mild cognitive impairment of uncertain or unknown etiology; L92.9 Granulomatous disorder of the skin and subcutaneous tissue, unspecified; I96 Gangrene, not elsewhere classified | CPT/HCPCS: 11042 ==

== ENCOUNTER → 2018-11-26 | Outpatient (CLI) | payer MEDICARE, MEDICAID | LOC: WOUNDCARE 09:20 | PROVIDERS: ATTEND Nurse Practitioner | DX: L89.313 Pressure ulcer of right buttock, stage 3 (principal); L89.323 Pressure ulcer of left buttock, stage 3; G31.84 Mild cognitive impairment of uncertain or unknown etiology; L92.9 Granulomatous disorder of the skin and subcutaneous tissue, unspecified; I96 Gangrene, not elsewhere classified | CPT/HCPCS: 11042; 87070; 87075; 87077; 87205 ==

== ENCOUNTER → 2018-12-02 | Outpatient (CLI) | payer MEDICARE, MEDICAID ==
--- NOTE | 2018-12-02 17:37 | Diagnostic Imaging Report ---
INDICATION: Chronic left knee pain. TIME OF EXAM: 1:49 p.m. FINDINGS: Three views of the right knee demonstrate joint spaces to be well maintained. Articular surfaces are smooth. No fracture, dislocation, or effusion is detected. IMPRESSION: No acute bony abnormality is detected. Dictated by: Dictated on workstation # [id number]
== END ==
LOC: RAD FS 13:45
PROVIDERS: ATTEND Nurse Practitioner
DX: G89.29 Other chronic pain (principal); M25.562 Pain in left knee
CPT/HCPCS: 73562

== ENCOUNTER → 2018-12-03 | Outpatient (CLI) | payer MEDICARE, MEDICAID | LOC: WOUNDCARE 10:02 | PROVIDERS: ATTEND Nurse Practitioner | DX: L89.323 Pressure ulcer of left buttock, stage 3 (principal); L89.313 Pressure ulcer of right buttock, stage 3; I96 Gangrene, not elsewhere classified; G31.84 Mild cognitive impairment of uncertain or unknown etiology; L92.8 Other granulomatous disorders of the skin and subcutaneous tissue | CPT/HCPCS: 11042 ==

== ENCOUNTER → 2018-12-10 | Outpatient (CLI) | payer MEDICARE, MEDICAID | LOC: WOUNDCARE 10:02 | PROVIDERS: ATTEND Nurse Practitioner | DX: L89.313 Pressure ulcer of right buttock, stage 3 (principal); L89.323 Pressure ulcer of left buttock, stage 3; G31.84 Mild cognitive impairment of uncertain or unknown etiology; L92.8 Other granulomatous disorders of the skin and subcutaneous tissue; I96 Gangrene, not elsewhere classified | CPT/HCPCS: 11042 ==

== ENCOUNTER → 2018-12-17 | Outpatient (CLI) | payer MEDICARE, MEDICAID | LOC: WOUNDCARE 09:49 | PROVIDERS: ATTEND Nurse Practitioner | DX: L89.313 Pressure ulcer of right buttock, stage 3 (principal); L89.323 Pressure ulcer of left buttock, stage 3; G31.84 Mild cognitive impairment of uncertain or unknown etiology; L92.8 Other granulomatous disorders of the skin and subcutaneous tissue; I96 Gangrene, not elsewhere classified | CPT/HCPCS: 11042 ==

== ENCOUNTER → 2018-12-24 | Outpatient (CLI) | payer MEDICARE, MEDICAID | LOC: WOUNDCARE 10:01 | PROVIDERS: ATTEND Nurse Practitioner | DX: I96 Gangrene, not elsewhere classified (principal); L89.323 Pressure ulcer of left buttock, stage 3; L89.313 Pressure ulcer of right buttock, stage 3; G31.84 Mild cognitive impairment of uncertain or unknown etiology; L92.8 Other granulomatous disorders of the skin and subcutaneous tissue | CPT/HCPCS: 11042 ==

== ENCOUNTER → 2018-12-31 | Outpatient (CLI) | payer MEDICARE, MEDICAID | LOC: WOUNDCARE 09:58 | PROVIDERS: ATTEND Nurse Practitioner | DX: I96 Gangrene, not elsewhere classified (principal); L89.323 Pressure ulcer of left buttock, stage 3; L89.313 Pressure ulcer of right buttock, stage 3; G31.84 Mild cognitive impairment of uncertain or unknown etiology; L92.8 Other granulomatous disorders of the skin and subcutaneous tissue | CPT/HCPCS: 11042 ==

== ENCOUNTER → 2019-01-07 | Outpatient (CLI) | payer MEDICARE, MEDICAID | LOC: WOUNDCARE 10:30 | PROVIDERS: ATTEND Nurse Practitioner | DX: I96 Gangrene, not elsewhere classified (principal); L89.313 Pressure ulcer of right buttock, stage 3; L89.323 Pressure ulcer of left buttock, stage 3; G31.84 Mild cognitive impairment of uncertain or unknown etiology; L92.8 Other granulomatous disorders of the skin and subcutaneous tissue | CPT/HCPCS: 11042 ==

== ENCOUNTER → 2019-01-14 | Outpatient (CLI) | payer MEDICARE, MEDICAID | LOC: WOUNDCARE 10:02 | PROVIDERS: ATTEND Nurse Practitioner | DX: L89.313 Pressure ulcer of right buttock, stage 3 (principal); L89.323 Pressure ulcer of left buttock, stage 3; G31.84 Mild cognitive impairment of uncertain or unknown etiology; L92.8 Other granulomatous disorders of the skin and subcutaneous tissue; I96 Gangrene, not elsewhere classified | CPT/HCPCS: 11042 ==

== ENCOUNTER → 2019-01-21 | Outpatient (CLI) | payer MEDICARE, MEDICAID | LOC: WOUNDCARE 09:28 | PROVIDERS: ATTEND Nurse Practitioner | DX: I96 Gangrene, not elsewhere classified (principal); L89.323 Pressure ulcer of left buttock, stage 3; L89.313 Pressure ulcer of right buttock, stage 3; G31.84 Mild cognitive impairment of uncertain or unknown etiology; L92.8 Other granulomatous disorders of the skin and subcutaneous tissue | CPT/HCPCS: 99213 ==

== ENCOUNTER → 2019-01-27 | Outpatient (CLI) | payer MEDICARE, MEDICAID | LOC: WOUNDCARE 12:48 | PROVIDERS: ATTEND Surgery | DX: L89.313 Pressure ulcer of right buttock, stage 3 (principal); G31.84 Mild cognitive impairment of uncertain or unknown etiology; L92.8 Other granulomatous disorders of the skin and subcutaneous tissue; I96 Gangrene, not elsewhere classified | CPT/HCPCS: 11042 ==

== ENCOUNTER → 2019-02-04 | Outpatient (CLI) | payer MEDICARE, MEDICAID | LOC: WOUNDCARE 10:30 | PROVIDERS: ATTEND Nurse Practitioner | DX: L89.313 Pressure ulcer of right buttock, stage 3 (principal); G31.84 Mild cognitive impairment of uncertain or unknown etiology; L92.8 Other granulomatous disorders of the skin and subcutaneous tissue; I96 Gangrene, not elsewhere classified | CPT/HCPCS: 11042 ==

== ENCOUNTER 2019-02-10 22:27 | Emergency (ER) | payer MEDICARE, MEDICAID ==
[~2019-02-10] VITALS: Ht 175 cm; Wt 103.9 kg
[2019-02-10] MEDS ORDERED: LIDOCAINE/EPI 2% 1:100,00 (XYLOCAINE) 20 ML VIAL ONE (23:01)
[2019-02-10] MEDS ORDERED: LIDOCAINE/EPI 2% 1:100,00 (XYLOCAINE) 20 ML VIAL INJ ONE (23:15)
--- NOTE | 2019-02-10 23:35 | ED Integumentary General ---
General Chief Complaint: Skin/Wound Problems Stated Complaint: PRESSURE WOUND CARE ISSUES Nursing Triage Note: PT TREATED BY WOUND CARE IN [place] TODAY AROUND 11AM. PT'S DRESSING WAS SATURATED WITH BLOOD THIS AFTERNOON SO HE HAD THE DRESSING CHANGED BY A LOCAL PHYSICIAN. PT PRESENTS ARMINDA WITH HIS DRESSING SATURATED IN BLOOD AGAIN. Source: patient History of Present Illness Date Seen by Provider: Feb 10, 2019 Time Seen by Provider: 22:29 Initial Comments 58 yo M presents with bleeding from wound on right butt cheek. He had a wound that has been treated with Dr. Cooney with the wound clinic from [place]. Today he had a debridement procedure due to having some " tissue and infection in it" and it has been bleeding since then. He left the wound clinic and then went to run errands and was working this afternoon. He had the wound dressing soak through with blood. He had gone to the clinic with Dr. Peters and had a new dressing placed to try and help control the bleeding. However that has also bled through since the dressing was changed. He has presented to the ED [place] because he was not sure how to get the bleeding controlled or change the dressing out by himself at home. He is scheduled to see the local clinic tomorrow and they will change the dressing again for him. He is to see Dr. Cooney again next week. He has had no fever or chills. Allergies and Home Medications Allergies Coded Allergies: No Known Drug Allergies (Unverified , 08/21/18) Home Medications Dicyclomine HCl 10 Mg Capsule, 20 MG PO BID, (Reported) TAKES 2 (10MG) CAPSULES Esomeprazole Magnesium 40 Mg Capsule.dr, 40 MG PO DAILY, (Reported) Ezetimibe 10 Mg Tablet, 10 MG PO DAILY, (Reported) Furosemide 20 Mg Tablet, 20 MG PO DAILY Prescribed by: DALY LYNN on 09/04/18820 Gabapentin 400 Mg Capsule, 400 MG PO TID, (Reported) Hydrocodone/Acetaminophen 1 Each Tablet, 1 TAB PO BID Prescribed by: DALY LYNN on 09/04/18820 Hyoscyamine Sulfate 0.125 Mg Tablet, 0.125 MG PO Q4H PRN for SPASMS, (Reported) Loratadine 10 Mg Tablet, 10 MG PO DAILY Prescribed by: DALY LYNN on 5/22/19 0821 Metformin HCl 500 Mg Tablet, 1,000 MG PO BID@ Prescribed by: DALY LYNN on 09/04/18820 Metoprolol Succinate 50 Mg Tab.er.24h, 50 MG PO BID, (Reported) LAST FILLED #60 07-11-18 Multivitamin 1 Each Tablet, 1 TAB PO DAILY, (Reported) Nabumetone 750 Mg Tablet, 750 MG PO BID, (Reported) Niacin 1,000 Mg Tab.er.24h, 1,000 MG PO DAILY, (Reported) [place] 3 Polyunsat Fatty Acids 1,000 Mg Cap, 1,000 MG PO DAILY, (Reported) Polyethylene Glycol 3350 17 Gm Powd.pack, 34 GM PO BID Prescribed by: DALY LYNN on 09/04/18820 Potassium Chloride 10 Meq Tablet.er, 10 MEQ PO BID WITH MEALS Prescribed by: DALY LYNN on 09/04/18820 Ranitidine HCl 150 Mg Tablet, 150 MG PO BID, (Reported) Simvastatin 80 Mg Tablet, 80 MG PO HS, (Reported) Tamsulosin HCl 0.4 Mg Cap, 0.4 MG PO 1730, (Reported) LAST FILLED #30 07-08-18 Topiramate 50 Mg Tablet, 50 MG PO HS, (Reported) Tramadol HCl 50 Mg Tablet, 50 MG PO BID PRN for PAIN-MODERATE Prescribed by: DALY LYNN on 09/04/18819 Patient Home Medication List Home Medication List Reviewed: Yes Review of Systems Review of Systems Constitutional: No chills, No fever EENTM: no symptoms reported Respiratory: no symptoms reported Cardiovascular: no symptoms reported Gastrointestinal: no symptoms reported Genitourinary: no symptoms reported Musculoskeletal: no symptoms reported Skin: see HPI Psychiatric/Neurological: No Symptoms Reported Past Imaumer-Losros-Vjmhpp Hx Past Med/Social Hx: Reviewed Nursing Past Med/Soc Hx Patient Social History Alcohol Beverage of Choice: Whiskey Drug of Choice: hx meth,coke, speed-inhale nad inject-clean since 2000 Former Smoker, Quit: Apr 29, 1982 2nd Hand Smoke Exposure: No Recent Foreign Travel: No Contact w/Someone Who Travel: No Recent Infectious Disease Expo: No Recent Hopitalizations: No Physical Abuse: No Sexual Abuse: No Immunizations Up To Date PED Vaccines UTD: Yes Seasonal Allergies Seasonal Allergies: Yes Past Medical History Surgeries: Yes (HERNIA, HEMORRHOIDECTOMY, ESWL) Respiratory: Yes Pneumonia, Sleep Apnea Currently Using CPAP: Yes Cardiac: Yes High Cholesterol, Hypertension Neurological: No Reproductive Disorders: No Sexually Transmitted Disease: No HIV/AIDS: No Genitourinary: Yes (UROSTOMY PLACED July,) Bladder Infection, Kidney Stones Gastrointestinal: Yes Colitis, Gastroesophageal Reflux Musculoskeletal: Yes Arthritis, Chronic Back Pain Endocrine: Yes Diabetes, Non-Insulin dep HEENT: Yes (READING GLASSES) Loss of Vision: Bilateral Hearing Impairment: Denies Cancer: No Psychosocial: Yes Depression Integumentary: No Blood Disorders: No Adverse Reaction/Blood Tranf: No (N/A) Family Medical History Patient reports no known family medical history. Physical Exam Vital Signs Vital Signs - First Documented 02/10/19 22:30 Temp 36.0 Pulse 90 Resp 18 B/P (MAP) 126/72 (90) Pulse Ox 96 O2 Delivery Room Air Capillary Refill : Less Than 3 Seconds General Appearance: WD/WN, no apparent distress HEENT: pharynx normal Neurologic/Psychiatric: alert, normal mood/affect, oriented x 3 Skin: normal color, warm/dry Skin Problem Location: other (right butt cheek) Skin Problem Character: other (bleeding from blood vessels inside the wound on right butt cheek ) Procedures/Interventions Date of ETT Placement: August 22, 2018 Time of ETT Placement: 736 Progress/Results/Core Measures Results/Orders My Orders Orders - MITESH BATISTA MD Lidocaine/Epi 2% 1:100,000 (Xylocaine/Ep (02/10/19 23:01) Lidocaine/Epi 2% 1:100,000 (Xylocaine/Ep (02/10/19 23:15) Wound Dressing-Ed (02/10/19 23:31) Medications Given in ED Current Medications Medications Dose Ordered Sig/Cathie Route Start Time Stop Time Status Last Admin Dose Admin Lidocaine/ Epinephrine 20 ml ONCE ONCE INJ 02/10/19 23:15 02/10/19 23:17 DC 02/10/19 23:05 20 ML Vital Signs/I&O 02/10/19 22:30 Temp 36.0 Pulse 90 Resp 18 B/P (MAP) 126/72 (90) Pulse Ox 96 O2 Delivery Room Air Blood Pressure Mean: 90 POS Progress Progress Note : Progress Note Utilizing disposable electric cautery and lidocaine with epinephrine the superficial blood vessels that were seen to be bleeding within the wound and causing active bleeding to soak through recurrent dressings were cauterized then treated with direct pressure then 1 in Iodoform packing gauze was placed. After packing the wound with 1 in Iodoform packing gauze direct pressure was held for 5 minutes to try and help control any continued bleeding. An occlusive dressing was applied and pt was advised to avoid any strenuous activity and to go home and rest. He was given a note to be off work for tomorrow and to check with clinic locally for dressing change and that he might need to have a repeat visit with Dr. Cooney this week if the wound continues to bleed. Departure Impression Primary Impression: Hemorrhage from wound Disposition: HOME, SELF-CARE Condition: Stable Departure-Patient Inst. Decision time for Depature: 23:37 Referrals: MARS PETERS DO (PCP/Family) Primary Care Physician BENIGNO COONEY MD Patient Instructions: Wound Care (DC) Add. Discharge Instructions: Limit your activity so that you do not cause more bleeding to the wound Check back with the clinic tomorrow about dressing change and if it keeps bleeding then you may need to see Dr. Cooney with the wound clinic in [place] this week All discharge instructions reviewed with patient and/or family. Voiced understanding. Work/School Note: Work Release Form Date Seen in the Emergency Department: Feb 10, 2019 Return to Work: Feb 12, 2019 Restrictions: No Restrictions Images Torso/Trunk 1 - Other-See Progress Note (surgical wound ) Progress Wound on right butt cheek present with packing in place that has saturated 4 x 4 gauze pads present. this was removed and then the wound edges were noted to have superficial blood vessels that were oozing and bleeding. Utilizing a combination of direct pressure, lidocaine with epinephrine, and disposable electric cautery the bleeding was controlled. Then 1 in Iodoform gauze packing was placed in wound before applying direct pressure for 5 minutes to help control any further bleeding. Then an occlusive dressing was applied in case the pt was going to shower tonight. MITESH BATISTA MD Feb 10, 2019 23:35 POS
[2019-02-10 23:41] VITALS: BP 111/67
== END 2019-02-10 23:45 | disposition home or self-care (01) ==
LOC: EDUNIT# 22:27 → ER FS 22:28
DX: L76.22 Postprocedural hemorrhage of skin and subcutaneous tissue following other procedure (principal); I10 Essential (primary) hypertension; E11.9 Type 2 diabetes mellitus without complications; F32.9 Major depressive disorder, single episode, unspecified; G47.30 Sleep apnea, unspecified; E78.00 Pure hypercholesterolemia, unspecified; K21.9 Gastro-esophageal reflux disease without esophagitis; Z87.442 Personal history of urinary calculi; Z99.89 Dependence on other enabling machines and devices; Z79.84 Long term (current) use of oral hypoglycemic drugs; Z87.891 Personal history of nicotine dependence
CPT/HCPCS: 99282

== ENCOUNTER → 2019-02-10 | Outpatient (CLI) | payer MEDICARE, MEDICAID | LOC: WOUNDCARE 09:07 | PROVIDERS: ATTEND Surgery | DX: I96 Gangrene, not elsewhere classified (principal); L89.313 Pressure ulcer of right buttock, stage 3; L02.219 Cutaneous abscess of trunk, unspecified; G31.84 Mild cognitive impairment of uncertain or unknown etiology | CPT/HCPCS: 10060; 10061; 87070; 87077; 87186; 87205 ==

== ENCOUNTER → 2019-02-11 | Outpatient (CLI) | payer MEDICARE, MEDICAID | LOC: WOUNDCARE 13:57 | PROVIDERS: ATTEND Surgery | DX: L76.21 Postprocedural hemorrhage of skin and subcutaneous tissue following a dermatologic procedure (principal); L02.219 Cutaneous abscess of trunk, unspecified; L89.313 Pressure ulcer of right buttock, stage 3; G31.84 Mild cognitive impairment of uncertain or unknown etiology; I96 Gangrene, not elsewhere classified | CPT/HCPCS: 99213 ==

== ENCOUNTER → 2019-02-17 | Outpatient (CLI) | payer MEDICARE, MEDICAID | LOC: WOUNDCARE 08:47 | PROVIDERS: ATTEND Surgery | DX: L76.21 Postprocedural hemorrhage of skin and subcutaneous tissue following a dermatologic procedure (principal); L02.219 Cutaneous abscess of trunk, unspecified; L89.313 Pressure ulcer of right buttock, stage 3; G31.84 Mild cognitive impairment of uncertain or unknown etiology; I96 Gangrene, not elsewhere classified | CPT/HCPCS: 11042 ==

== ENCOUNTER → 2019-02-24 | Outpatient (CLI) | payer MEDICARE, MEDICAID | LOC: WOUNDCARE 08:59 | PROVIDERS: ATTEND Surgery | DX: L89.313 Pressure ulcer of right buttock, stage 3 (principal); L02.219 Cutaneous abscess of trunk, unspecified; G31.84 Mild cognitive impairment of uncertain or unknown etiology; I96 Gangrene, not elsewhere classified | CPT/HCPCS: 11042 ==

== ENCOUNTER → 2019-03-03 | Outpatient (CLI) | payer MEDICARE, MEDICAID | LOC: WOUNDCARE 08:56 | PROVIDERS: ATTEND Surgery | DX: L89.313 Pressure ulcer of right buttock, stage 3 (principal); L02.219 Cutaneous abscess of trunk, unspecified; G31.84 Mild cognitive impairment of uncertain or unknown etiology; I96 Gangrene, not elsewhere classified | CPT/HCPCS: 11042 ==

== ENCOUNTER → 2019-03-10 | Outpatient (CLI) | payer MEDICARE, MEDICAID | LOC: WOUNDCARE 08:44 | PROVIDERS: ATTEND Surgery | DX: I96 Gangrene, not elsewhere classified (principal); L89.313 Pressure ulcer of right buttock, stage 3; L02.219 Cutaneous abscess of trunk, unspecified; G31.84 Mild cognitive impairment of uncertain or unknown etiology | CPT/HCPCS: 11043; 87070; 87077; 87186; 87205 ==

== ENCOUNTER → 2019-03-17 | Outpatient (CLI) | payer MEDICARE, MEDICAID | LOC: WOUNDCARE 09:02 | PROVIDERS: ATTEND Surgery | DX: L89.313 Pressure ulcer of right buttock, stage 3 (principal); L02.219 Cutaneous abscess of trunk, unspecified; G31.84 Mild cognitive impairment of uncertain or unknown etiology; I96 Gangrene, not elsewhere classified | CPT/HCPCS: 99213 ==

== ENCOUNTER → 2019-03-24 | Outpatient (CLI) | payer MEDICARE, MEDICAID ==
[~2019-03-24] MED LIST changes: -METO-370 PO; +METO50TA7 PO; -TAMS0.4C98 PO; +TMSL.4C PO; -TRAM50TA2 PO; +TRM50T PO
== END ==
LOC: WOUNDCARE 08:59
PROVIDERS: ATTEND Surgery
DX: L89.313 Pressure ulcer of right buttock, stage 3 (principal); L02.219 Cutaneous abscess of trunk, unspecified; G31.84 Mild cognitive impairment of uncertain or unknown etiology; I96 Gangrene, not elsewhere classified
CPT/HCPCS: 99213

== ENCOUNTER → 2019-03-31 | Outpatient (CLI) | payer MEDICARE, MEDICAID ==
[~2019-03-31] MED LIST changes: +METO-370 PO; -METO50TA7 PO; +TAMS0.4C98 PO; -TMSL.4C PO; +TRAM50TA2 PO; -TRM50T PO
== END ==
LOC: WOUNDCARE 09:03
PROVIDERS: ATTEND Surgery
DX: I96 Gangrene, not elsewhere classified (principal); L89.313 Pressure ulcer of right buttock, stage 3; L92.8 Other granulomatous disorders of the skin and subcutaneous tissue; L02.219 Cutaneous abscess of trunk, unspecified; G31.84 Mild cognitive impairment of uncertain or unknown etiology
CPT/HCPCS: 17250

== ENCOUNTER → 2019-04-07 | Outpatient (CLI) | payer MEDICARE, MEDICAID | LOC: WOUNDCARE 09:03 | PROVIDERS: ATTEND Surgery | DX: L92.8 Other granulomatous disorders of the skin and subcutaneous tissue (principal); L89.313 Pressure ulcer of right buttock, stage 3; L02.219 Cutaneous abscess of trunk, unspecified; G31.84 Mild cognitive impairment of uncertain or unknown etiology; I96 Gangrene, not elsewhere classified | CPT/HCPCS: 17250 ==

== ENCOUNTER → 2019-04-14 | Outpatient (CLI) | payer MEDICARE, MEDICAID | LOC: WOUNDCARE 08:51 | PROVIDERS: ATTEND Surgery | DX: I96 Gangrene, not elsewhere classified (principal); L89.313 Pressure ulcer of right buttock, stage 3; L02.219 Cutaneous abscess of trunk, unspecified; G31.84 Mild cognitive impairment of uncertain or unknown etiology; L92.8 Other granulomatous disorders of the skin and subcutaneous tissue | CPT/HCPCS: 99213 ==

== ENCOUNTER → 2019-04-21 | Outpatient (CLI) | payer MEDICARE, OTHER ==
[~2019-04-21] MED LIST changes: -TRAM50TA2 PO; +TRM50T PO
== END ==
LOC: WOUNDCARE 09:02
PROVIDERS: ATTEND Preventive Medicine Undersea and Hyperbaric Medicine
DX: L89.313 Pressure ulcer of right buttock, stage 3 (principal); L92.8 Other granulomatous disorders of the skin and subcutaneous tissue; L02.219 Cutaneous abscess of trunk, unspecified; G31.84 Mild cognitive impairment of uncertain or unknown etiology
CPT/HCPCS: 99212

== ENCOUNTER → 2019-04-28 | Outpatient (CLI) | payer MEDICARE, OTHER ==
[~2019-04-28] MED LIST changes: -METO-370 PO; +METO50TA7 PO; -TAMS0.4C98 PO; +TMSL.4C PO
== END ==
LOC: WOUNDCARE 08:50
PROVIDERS: ATTEND Preventive Medicine Undersea and Hyperbaric Medicine
DX: I96 Gangrene, not elsewhere classified (principal); L89.313 Pressure ulcer of right buttock, stage 3; L02.219 Cutaneous abscess of trunk, unspecified; L92.8 Other granulomatous disorders of the skin and subcutaneous tissue; G31.84 Mild cognitive impairment of uncertain or unknown etiology
CPT/HCPCS: 11042

== ENCOUNTER → 2019-04-29 | Outpatient (CLI) | payer MEDICARE, OTHER ==
--- NOTE | 2019-04-29 17:03 | Diagnostic Imaging Report ---
INDICATION: Right hip pain. TIME OF EXAM: 10:32 a.m. FINDINGS: Two views of right hip show normal femoroacetabular alignment. The joint space is well maintained. The femoral head and neck are intact. No fractures are seen. Benign calcifications adjacent to the greater trochanter are noted. IMPRESSION: No acute bony abnormality is detected. Dictated by: Dictated on workstation # [id number]
--- NOTE | 2019-04-29 17:08 | Diagnostic Imaging Report ---
Clinical indications: Patient with pain in the back for several months. No known injury. EXAM: X-ray of the lumbar spine, 3 views. COMPARISON: None. FINDINGS: There is no acute lumbar spine fracture or dislocation. There is mild hypertrophic spurring involving the mid to lower lumbar spine and lower lumbar spine facet arthropathy. The lumbar disk spaces are maintained. There is mild sclerosis of the left sacroiliac joint. IMPRESSION: Degenerative disease of the lumbar spine with no acute fracture or dislocation. Dictated by: Dictated on workstation # [id number]
== END ==
LOC: RAD FS 10:22
PROVIDERS: ATTEND Nurse Practitioner
DX: M47.816 Spondylosis without myelopathy or radiculopathy, lumbar region (principal)
CPT/HCPCS: 72100; 73502

== ENCOUNTER → 2019-05-05 | Outpatient (CLI) | payer MEDICARE, OTHER | LOC: WOUNDCARE 09:43 | PROVIDERS: ATTEND Preventive Medicine Undersea and Hyperbaric Medicine | DX: L89.313 Pressure ulcer of right buttock, stage 3 (principal); L02.219 Cutaneous abscess of trunk, unspecified; G31.84 Mild cognitive impairment of uncertain or unknown etiology; L92.8 Other granulomatous disorders of the skin and subcutaneous tissue | CPT/HCPCS: 87070; 87075; 87077; 87101; 87186; 87205; 99213 ==

== ENCOUNTER → 2019-05-09 | Outpatient (CLI) | payer MEDICARE, OTHER ==
--- NOTE | 2019-05-09 18:42 | Diagnostic Imaging Report ---
INDICATION: Left rib pain. EXAMINATION: Four views of the left ribs were obtained. FINDINGS: No fractures are demonstrated. No destructive bony changes. No pneumothorax. No pleural effusions are demonstrated. There is mild hazy appearance of the left lung base. IMPRESSION: Negative left ribs. Question is raised of possible developing pneumonia in left lower lobe. Would consider PA and lateral chest. Dictated by: Dictated on workstation # [id number]
== END ==
LOC: RAD FS 15:18
PROVIDERS: ATTEND Nurse Practitioner Family
DX: R07.9 Chest pain, unspecified (principal)
CPT/HCPCS: 71100

== ENCOUNTER → 2019-05-12 | Outpatient (CLI) | payer MEDICARE, OTHER ==
--- NOTE | 2019-05-12 18:07 | Diagnostic Imaging Report ---
INDICATION: Sacral ulcer. FINDINGS: No sacral bony destruction could be radiographically identified. There are SI joint and lower lumbar degenerative changes and mild arthritis to the hips. No soft tissue gas or opaque foreign body. IMPRESSION: No acute-appearing abnormality. Dictated by: Dictated on workstation # [id number]
== END ==
LOC: RAD 13:39
PROVIDERS: ATTEND Orthopaedic Surgery Hand Surgery
DX: L89.313 Pressure ulcer of right buttock, stage 3 (principal); L02.219 Cutaneous abscess of trunk, unspecified; G31.84 Mild cognitive impairment of uncertain or unknown etiology; L92.8 Other granulomatous disorders of the skin and subcutaneous tissue; B96.29 Other Escherichia coli [E. coli] as the cause of diseases classified elsewhere
CPT/HCPCS: 72220

== ENCOUNTER → 2019-05-12 | Outpatient (CLI) | payer MEDICARE, OTHER | LOC: WOUNDCARE 12:51 | PROVIDERS: ATTEND Orthopaedic Surgery Hand Surgery | DX: L89.313 Pressure ulcer of right buttock, stage 3 (principal); L02.219 Cutaneous abscess of trunk, unspecified; G31.84 Mild cognitive impairment of uncertain or unknown etiology; L92.8 Other granulomatous disorders of the skin and subcutaneous tissue; B96.20 Unspecified Escherichia coli [E. coli] as the cause of diseases classified elsewhere | CPT/HCPCS: 11042 ==

== ENCOUNTER → 2019-05-19 | Outpatient (CLI) | payer MEDICARE | LOC: WOUNDCARE 08:55 | PROVIDERS: ATTEND Preventive Medicine Undersea and Hyperbaric Medicine | DX: L89.313 Pressure ulcer of right buttock, stage 3 (principal); L02.219 Cutaneous abscess of trunk, unspecified; G31.84 Mild cognitive impairment of uncertain or unknown etiology; L92.8 Other granulomatous disorders of the skin and subcutaneous tissue; B96.20 Unspecified Escherichia coli [E. coli] as the cause of diseases classified elsewhere; B96.29 Other Escherichia coli [E. coli] as the cause of diseases classified elsewhere | CPT/HCPCS: 97597 ==

== ENCOUNTER → 2019-05-22 | Outpatient (CLI) | payer MEDICARE | LOC: WOUNDCARE 08:37 | PROVIDERS: ATTEND Orthopaedic Surgery Hand Surgery | DX: L89.314 Pressure ulcer of right buttock, stage 4 (principal) | CPT/HCPCS: 99212 ==

== ENCOUNTER → 2019-05-26 | Outpatient (CLI) | payer MEDICARE, MEDICAID | LOC: WOUNDCARE 08:45 | PROVIDERS: ATTEND Preventive Medicine Undersea and Hyperbaric Medicine | DX: L92.8 Other granulomatous disorders of the skin and subcutaneous tissue (principal); L89.313 Pressure ulcer of right buttock, stage 3; L02.219 Cutaneous abscess of trunk, unspecified; G31.84 Mild cognitive impairment of uncertain or unknown etiology; B96.29 Other Escherichia coli [E. coli] as the cause of diseases classified elsewhere; I96 Gangrene, not elsewhere classified | CPT/HCPCS: 99213 ==

== ENCOUNTER → 2019-05-28 | Outpatient (CLI) | payer MEDICARE | LOC: WOUNDCARE 09:03 | PROVIDERS: ATTEND Orthopaedic Surgery Hand Surgery | DX: L89.314 Pressure ulcer of right buttock, stage 4 (principal) | CPT/HCPCS: 99212 ==

== ENCOUNTER → 2019-06-02 | Outpatient (CLI) | payer MEDICARE | LOC: WOUNDCARE 08:04 | PROVIDERS: ATTEND Preventive Medicine Undersea and Hyperbaric Medicine | DX: L89.313 Pressure ulcer of right buttock, stage 3 (principal); L02.219 Cutaneous abscess of trunk, unspecified; G31.84 Mild cognitive impairment of uncertain or unknown etiology; L92.8 Other granulomatous disorders of the skin and subcutaneous tissue; B96.29 Other Escherichia coli [E. coli] as the cause of diseases classified elsewhere | CPT/HCPCS: 11042 ==

== ENCOUNTER → 2019-06-04 | Outpatient (CLI) | payer MEDICARE | LOC: WOUNDCARE 09:02 | PROVIDERS: ATTEND Orthopaedic Surgery Hand Surgery | DX: L89.310 Pressure ulcer of right buttock, unstageable (principal); I10 Essential (primary) hypertension; I25.2 Old myocardial infarction; E11.9 Type 2 diabetes mellitus without complications; M19.91 Primary osteoarthritis, unspecified site; H40.9 Unspecified glaucoma | CPT/HCPCS: 99212 ==

== ENCOUNTER → 2019-06-09 | Outpatient (CLI) | payer MEDICARE, MEDICAID | LOC: WOUNDCARE 08:28 | PROVIDERS: ATTEND Preventive Medicine Undersea and Hyperbaric Medicine | DX: L89.313 Pressure ulcer of right buttock, stage 3 (principal); L02.219 Cutaneous abscess of trunk, unspecified; G31.84 Mild cognitive impairment of uncertain or unknown etiology; L92.8 Other granulomatous disorders of the skin and subcutaneous tissue; B96.29 Other Escherichia coli [E. coli] as the cause of diseases classified elsewhere | CPT/HCPCS: 99213 ==

== ENCOUNTER → 2019-06-11 | Outpatient (CLI) | payer MEDICARE, MEDICAID | LOC: WOUNDCARE 08:04 | PROVIDERS: ATTEND Orthopaedic Surgery Hand Surgery | DX: L89.319 Pressure ulcer of right buttock, unspecified stage (principal); I10 Essential (primary) hypertension; E11.9 Type 2 diabetes mellitus without complications; I25.2 Old myocardial infarction; H40.9 Unspecified glaucoma | CPT/HCPCS: 99212 ==

== ENCOUNTER 2019-06-16 11:37 | Emergency (ER) | payer MEDICARE, MEDICAID ==
[~2019-06-16] VITALS: Ht 175 cm; Wt 107.3 kg
[2019-06-16 11:52] VITALS: BP 127/66
--- NOTE | 2019-06-16 12:28 | ED Integumentary General ---
General Chief Complaint: Skin/Wound Problems Stated Complaint: WOUND CHECK Source: patient Exam Limitations: no limitations History of Present Illness Date Seen by Provider: Jun 16, 2019 Time Seen by Provider: 12:23 Initial Comments Patient presents with bleeding from his wound on his buttocks. States that he saw a wound care doctor today, Dr. Tirado and had wound care done and after leaving he noticed a lot of bleeding that soaked through his pad and through his undergarment down his leg so he came to the [facility] ER which was here in [place]. Denies any significant pain or other concerns at this time. Allergies and Home Medications Allergies Coded Allergies: No Known Drug Allergies (Unverified , 08/21/18) Home Medications Dicyclomine HCl 10 Mg Capsule, 20 MG PO BID, (Reported) TAKES 2 (10MG) CAPSULES Esomeprazole Magnesium 40 Mg Capsule.dr, 40 MG PO DAILY, (Reported) Ezetimibe 10 Mg Tablet, 10 MG PO DAILY, (Reported) Furosemide 20 Mg Tablet, 20 MG PO DAILY Prescribed by: DALY LYNN on 09/04/18820 Gabapentin 400 Mg Capsule, 400 MG PO TID, (Reported) Hydrocodone/Acetaminophen 1 Each Tablet, 1 TAB PO BID Prescribed by: DALY LYNN on 09/04/18820 Hyoscyamine Sulfate 0.125 Mg Tablet, 0.125 MG PO Q4H PRN for SPASMS, (Reported) Loratadine 10 Mg Tablet, 10 MG PO DAILY Prescribed by: DALY LYNN on 09/04/18820 Metformin HCl 500 Mg Tablet, 1,000 MG PO BID@ Prescribed by: DALY LYNN on 09/04/18820 Metoprolol Succinate 50 Mg Tab.er.24h, 50 MG PO BID, (Reported) LAST FILLED #60 07-11-18 Multivitamin 1 Each Tablet, 1 TAB PO DAILY, (Reported) Nabumetone 750 Mg Tablet, 750 MG PO BID, (Reported) Niacin 1,000 Mg Tab.er.24h, 1,000 MG PO DAILY, (Reported) [place] 3 Polyunsat Fatty Acids 1,000 Mg Cap, 1,000 MG PO DAILY, (Reported) Polyethylene Glycol 3350 17 Gm Powd.pack, 34 GM PO BID Prescribed by: DALY LYNN on 09/04/18820 Potassium Chloride 10 Meq Tablet.er, 10 MEQ PO BID WITH MEALS Prescribed by: DALY LYNN on 09/04/18 0821 Ranitidine HCl 150 Mg Tablet, 150 MG PO BID, (Reported) Simvastatin 80 Mg Tablet, 80 MG PO HS, (Reported) Tamsulosin HCl 0.4 Mg Cap, 0.4 MG PO 1730, (Reported) LAST FILLED #30 07-08-18 Topiramate 50 Mg Tablet, 50 MG PO HS, (Reported) Tramadol HCl 50 Mg Tablet, 50 MG PO BID PRN for PAIN-MODERATE Prescribed by: DALY LYNN on 09/04/18 0820 Patient Home Medication List Home Medication List Reviewed: Yes Review of Systems Review of Systems Constitutional: no symptoms reported, see HPI Gastrointestinal: No abdominal pain, No vomiting Skin: see HPI, other (bleeding from wound buttock) Past Vbqpgct-[place] Hx Past Med/Social Hx: Reviewed Nursing Past Med/Soc Hx Patient Social History Alcohol Beverage of Choice: Whiskey Drug of Choice: hx meth,coke, speed-inhale nad inject-clean since 2000 Former Smoker, Quit: Apr 29, 1982 2nd Hand Smoke Exposure: No Recent Foreign Travel: No Contact w/Someone Who Travel: No Recent Hopitalizations: No Immunizations Up To Date PED Vaccines UTD: Yes Seasonal Allergies Seasonal Allergies: Yes Past Medical History Surgeries: Yes (HERNIA, HEMORRHOIDECTOMY, ESWL) Respiratory: Yes Pneumonia, Sleep Apnea Currently Using CPAP: Yes Cardiac: Yes High Cholesterol, Hypertension Neurological: No Reproductive Disorders: No Sexually Transmitted Disease: No HIV/AIDS: No Genitourinary: Yes (UROSTOMY PLACED July,) Bladder Infection, Kidney Stones Gastrointestinal: Yes Colitis, Gastroesophageal Reflux Musculoskeletal: Yes Arthritis, Chronic Back Pain Endocrine: Yes Diabetes, Non-Insulin dep HEENT: Yes (READING GLASSES) Loss of Vision: Bilateral Hearing Impairment: Denies Cancer: No Psychosocial: Yes Depression Integumentary: No Blood Disorders: No Adverse Reaction/Blood Tranf: No (N/A) Family Medical History Patient reports no known family medical history. Physical Exam Vital Signs Capillary Refill : General Appearance: WD/WN, no apparent distress Skin: other (REmoved dressing from sacrum (not soaked through). + dried blood down his post thigh, removed overlying 4x4's and blood soaking packing. No active bleed. Reinserted steril gauze and covered w stack of 4x4/s and taped jsut like previous packing. ) Procedures/Interventions Date of ETT Placement: August 22, 2018 Time of ETT Placement: 736 Departure Impression Primary Impression: Sacral wound Qualified Codes: S31.000A - Unspecified open wound of lower back and pelvis without penetration into retroperitoneum, initial encounter Additional Impression: Encounter for surgical wound dressing change Disposition: HOME, SELF-CARE Condition: Improved Departure-Patient Inst. Decision time for Depature: 12:27 Referrals: MARS PETERS DO (PCP/Family) Primary Care Physician Patient Instructions: Surgical Wound (DC) Add. Discharge Instructions: see your wound care Doctor as scheduled. call them today to notify them of your ER visit for bleeding. All discharge instructions reviewed with patient and/or family. Voiced understanding. MELISSA LANIER DO Jun 16, 2019 12:28
== END 2019-06-16 12:32 | disposition home or self-care (01) ==
LOC: EDUNIT# 11:37 → ER FS 11:38
DX: S31.000A Unspecified open wound of lower back and pelvis without penetration into retroperitoneum, initial encounter (principal); I10 Essential (primary) hypertension; E11.9 Type 2 diabetes mellitus without complications; E78.00 Pure hypercholesterolemia, unspecified; G47.30 Sleep apnea, unspecified; K21.9 Gastro-esophageal reflux disease without esophagitis; F32.9 Major depressive disorder, single episode, unspecified; Z79.84 Long term (current) use of oral hypoglycemic drugs; X58.XXXA Exposure to other specified factors, initial encounter
CPT/HCPCS: 99282

== ENCOUNTER → 2019-06-16 | Outpatient (CLI) | payer MEDICARE, MEDICAID ==
[~2019-06-16] MED LIST changes: +ACHYD1T PO; -HYDR-3820 PO
== END ==
LOC: WOUNDCARE 08:51
PROVIDERS: ATTEND Surgery
DX: L89.313 Pressure ulcer of right buttock, stage 3 (principal); L02.219 Cutaneous abscess of trunk, unspecified; G31.84 Mild cognitive impairment of uncertain or unknown etiology; I96 Gangrene, not elsewhere classified
CPT/HCPCS: 11042; 87070; 87077; 87205

== ENCOUNTER → 2019-06-18 | Outpatient (CLI) | payer MEDICARE, MEDICAID | LOC: WOUNDCARE 08:59 | PROVIDERS: ATTEND Surgery | DX: L89.319 Pressure ulcer of right buttock, unspecified stage (principal) | CPT/HCPCS: 99212 ==

== ENCOUNTER → 2019-06-23 | Outpatient (CLI) | payer MEDICARE, MEDICAID | LOC: WOUNDCARE 08:09 | PROVIDERS: ATTEND Surgery | DX: I96 Gangrene, not elsewhere classified (principal); L89.313 Pressure ulcer of right buttock, stage 3; L02.219 Cutaneous abscess of trunk, unspecified; G31.84 Mild cognitive impairment of uncertain or unknown etiology | CPT/HCPCS: 11042 ==

== ENCOUNTER → 2019-06-23 | Outpatient (CLI) | payer MEDICARE, MEDICAID ==
[2019-06-23 09:26] LABS: BASOPHILS % (AUTO) 0 % (0-10); EOSINOPHILS # (AUTO) 0.1 10^3/uL (0.0-0.3); EOSINOPHILS % (AUTO) 2 % (0-10); HEMATOCRIT 39 % (40-54); HEMOGLOBIN 12.2 G/DL (13.3-17.7); LYMPHOCYTES # (AUTO) 2.9 X 10^3 (1.0-4.0); LYMPHOCYTES % (AUTO) 41 % (12-44); MEAN CORPUSCULAR HEMOGLOBIN 30 PG (25-34); MEAN CORPUSCULAR HGB CONC 32 G/DL (32-36); MEAN CORPUSCULAR VOLUME 94 FL (80-99); MEAN PLATELET VOLUME 8.6 FL (7.4-10.4); MONOCYTES # (AUTO) 0.7 X 10^3 (0.0-1.0); MONOCYTES % (AUTO) 9 % (0-12); NEUTROPHILS # (AUTO) 3.4 X 10^3 (1.8-7.8); NEUTROPHILS % (AUTO) 48 % (42-75); PLATELET COUNT 191 10^3/uL (130-400); RED CELL DISTRIBUTION WIDTH 14.9 % (10.0-14.5); WHITE BLOOD COUNT 7.2 10^3/uL (4.3-11.0)
[2019-06-23 09:44] LABS: ALANINE AMINOTRANSFERASE 24 U/L (0-55); ALBUMIN 4.1 GM/DL (3.2-4.5); ALKALINE PHOSPHATASE 53 U/L (40-136); BILIRUBIN,TOTAL 0.4 MG/DL (0.1-1.0); BUN/CREATININE RATIO 20; CALCIUM 9.4 MG/DL (8.5-10.1); CARBON DIOXIDE 25 MMOL/L (21-32); CHLORIDE 105 MMOL/L (98-107); CREATININE SERUM 0.75 MG/DL (0.60-1.30); GFR ESTIMATED > 60; GLUCOSE 123 MG/DL (70-105); POTASSIUM 3.7 MMOL/L (3.6-5.0); SODIUM 138 MMOL/L (135-145); TOTAL PROTEIN 6.9 GM/DL (6.4-8.2)
== END ==
LOC: LAB 09:09
PROVIDERS: ATTEND Surgery
DX: L89.312 Pressure ulcer of right buttock, stage 2 (principal); L02.219 Cutaneous abscess of trunk, unspecified; G31.84 Mild cognitive impairment of uncertain or unknown etiology
CPT/HCPCS: 36415; 80053; 84134; 85025

== ENCOUNTER → 2019-06-25 | Outpatient (CLI) | payer MEDICARE, MEDICAID | LOC: WOUNDCARE 08:47 | PROVIDERS: ATTEND Surgery | DX: L89.319 Pressure ulcer of right buttock, unspecified stage (principal); I10 Essential (primary) hypertension; I25.2 Old myocardial infarction; E11.9 Type 2 diabetes mellitus without complications | CPT/HCPCS: 99212 ==

== ENCOUNTER → 2019-06-30 | Outpatient (CLI) | payer MEDICARE, MEDICAID | LOC: WOUNDCARE 08:02 | PROVIDERS: ATTEND Surgery | DX: L89.313 Pressure ulcer of right buttock, stage 3 (principal); L02.219 Cutaneous abscess of trunk, unspecified; G31.84 Mild cognitive impairment of uncertain or unknown etiology | CPT/HCPCS: 11042 ==

== ENCOUNTER → 2019-07-02 | Outpatient (CLI) | payer MEDICARE, MEDICAID | LOC: WOUNDCARE 08:12 | PROVIDERS: ATTEND Surgery | DX: L89.314 Pressure ulcer of right buttock, stage 4 (principal); I10 Essential (primary) hypertension; E11.9 Type 2 diabetes mellitus without complications; M19.91 Primary osteoarthritis, unspecified site | CPT/HCPCS: 99212 ==

== ENCOUNTER → 2019-07-07 | Outpatient (CLI) | payer MEDICARE, MEDICAID | LOC: WOUNDCARE 08:20 | PROVIDERS: ATTEND Surgery | DX: I96 Gangrene, not elsewhere classified (principal); L89.313 Pressure ulcer of right buttock, stage 3; L02.219 Cutaneous abscess of trunk, unspecified; G31.84 Mild cognitive impairment of uncertain or unknown etiology | CPT/HCPCS: 11043 ==

== ENCOUNTER → 2019-07-14 | Outpatient (CLI) | payer MEDICARE, MEDICAID | LOC: WOUNDCARE 08:20 | PROVIDERS: ATTEND Surgery | DX: L89.313 Pressure ulcer of right buttock, stage 3 (principal); L02.219 Cutaneous abscess of trunk, unspecified; G31.84 Mild cognitive impairment of uncertain or unknown etiology | CPT/HCPCS: 11042; 87070; 87205 ==

== ENCOUNTER → 2019-07-21 | Outpatient (CLI) | payer MEDICARE, MEDICAID | LOC: WOUNDCARE 08:14 | PROVIDERS: ATTEND Surgery | DX: L89.313 Pressure ulcer of right buttock, stage 3 (principal); L02.219 Cutaneous abscess of trunk, unspecified; G31.84 Mild cognitive impairment of uncertain or unknown etiology | CPT/HCPCS: 11042 ==

== ENCOUNTER → 2019-07-28 | Outpatient (CLI) | payer MEDICARE, MEDICAID | LOC: WOUNDCARE 08:05 | PROVIDERS: ATTEND Surgery | DX: L89.313 Pressure ulcer of right buttock, stage 3 (principal); L02.219 Cutaneous abscess of trunk, unspecified; G31.84 Mild cognitive impairment of uncertain or unknown etiology | CPT/HCPCS: 11042 ==

== ENCOUNTER → 2019-08-04 | Outpatient (CLI) | payer MEDICARE, MEDICAID | LOC: WOUNDCARE 08:23 | PROVIDERS: ATTEND Surgery | DX: L89.313 Pressure ulcer of right buttock, stage 3 (principal); L02.219 Cutaneous abscess of trunk, unspecified; G31.84 Mild cognitive impairment of uncertain or unknown etiology | CPT/HCPCS: 11042 ==

== ENCOUNTER → 2019-08-11 | Outpatient (CLI) | payer MEDICARE, MEDICAID | LOC: WOUNDCARE 08:11 | PROVIDERS: ATTEND Surgery | DX: L89.313 Pressure ulcer of right buttock, stage 3 (principal); L02.219 Cutaneous abscess of trunk, unspecified; G31.84 Mild cognitive impairment of uncertain or unknown etiology | CPT/HCPCS: 11042 ==

== ENCOUNTER 2019-08-17 18:38 | Emergency (ER) | payer MEDICARE, MEDICAID ==
[~2019-08-17] VITALS: Ht 175 cm; Wt 104.0 kg
--- NOTE | 2019-08-17 18:49 | ED General ---
General Stated Complaint: ABD PAIN; PT THINKS ITS A KIDNEY STONE Source of Information: Patient History of Present Illness Date Seen by Provider: August 17, 2019 Time Seen by Provider: 18:49 Initial Comments Patient is a 59 y/o male who comes to the ER today c/o pain in the right LQ. He has had pain over the last two days. States pain is exactly similar to prior pain associated with known hx of kidney stones. This prior diagnosis is confirmed in the EMR. No nausea or vomiting. Denies aggravating or alleviating factors today. He does endorses having one episode of hematuria earlier today. No dysuria, urgency, frequency. Allergies and Home Medications Allergies Coded Allergies: No Known Drug Allergies (Unverified , 08/21/18) Home Medications Dicyclomine HCl 10 Mg Capsule, 20 MG PO BID, (Reported) TAKES 2 (10MG) CAPSULES Esomeprazole Magnesium 40 Mg Capsule.dr, 40 MG PO DAILY, (Reported) Ezetimibe 10 Mg Tablet, 10 MG PO DAILY, (Reported) Furosemide 20 Mg Tablet, 20 MG PO DAILY Prescribed by: DALY LYNN on 09/04/18820 Gabapentin 400 Mg Capsule, 400 MG PO TID, (Reported) Hydrocodone Bit/Acetaminophen 1 Each Tablet, 1 TAB PO BID Prescribed by: DALY LYNN on 09/04/18820 Hydrocodone/Acetaminophen 1 Each Tablet, 2 EACH PO Q6H Prescribed by: MARAL GLASS on 08/17/192002 Hyoscyamine Sulfate 0.125 Mg Tablet, 0.125 MG PO Q4H PRN for SPASMS, (Reported) Loratadine 10 Mg Tablet, 10 MG PO DAILY Prescribed by: DALY LYNN on 09/04/18820 Metformin HCl 500 Mg Tablet, 1,000 MG PO BID@, Prescribed by: DALY LYNN on 09/04/18820 Metoprolol Succinate 50 Mg Tab.er.24h, 50 MG PO BID, (Reported) LAST FILLED #60 07-11-18 Multivitamin 1 Each Tablet, 1 TAB PO DAILY, (Reported) Nabumetone 750 Mg Tablet, 750 MG PO BID, (Reported) Niacin 1,000 Mg Tab.er.24h, 1,000 MG PO DAILY, (Reported) [place] 3 Polyunsat Fatty Acids 1,000 Mg Cap, 1,000 MG PO DAILY, (Reported) Polyethylene Glycol 3350 17 Gm Powd.pack, 34 GM PO BID Prescribed by: DALY LYNN on 09/04/18820 Potassium Chloride 10 Meq Tablet.er, 10 MEQ PO BID WITH MEALS Prescribed by: DALY LYNN on 09/04/18820 Ranitidine HCl 150 Mg Tablet, 150 MG PO BID, (Reported) Simvastatin 80 Mg Tablet, 80 MG PO HS, (Reported) Tamsulosin HCl 0.4 Mg Cap, 0.4 MG PO 1730, (Reported) LAST FILLED #30 07-08-18 Topiramate 50 Mg Tablet, 50 MG PO HS, (Reported) Tramadol HCl 50 Mg Tablet, 50 MG PO BID PRN for PAIN-MODERATE Prescribed by: DALY LYNN on 09/04/18819 Patient Home Medication List Home Medication List Reviewed: Yes Review of Systems Review of Systems Constitutional: no symptoms reported EENTM: no symptoms reported Respiratory: no symptoms reported Cardiovascular: no symptoms reported Gastrointestinal: abdominal pain Genitourinary: see HPI Musculoskeletal: no symptoms reported Skin: no symptoms reported All Other Systems Reviewed Negative Unless Noted: Yes Past Ndsuiif-Bvjkkb-Crselr Hx Patient Social History Alcohol Beverage of Choice: Whiskey Drug of Choice: hx meth,coke, speed-inhale nad inject-clean since 2000 Former Smoker, Quit: Apr 29, 1982 2nd Hand Smoke Exposure: No Recent Hopitalizations: No Immunizations Up To Date PED Vaccines UTD: Yes Seasonal Allergies Seasonal Allergies: Yes Past Medical History Surgeries: Yes (HERNIA, HEMORRHOIDECTOMY, ESWL) Respiratory: Yes Pneumonia, Sleep Apnea Currently Using CPAP: Yes Cardiac: Yes High Cholesterol, Hypertension Neurological: No Reproductive Disorders: No Sexually Transmitted Disease: No HIV/AIDS: No Genitourinary: Yes (UROSTOMY PLACED July,) Bladder Infection, Kidney Stones Gastrointestinal: Yes Colitis, Gastroesophageal Reflux Musculoskeletal: Yes Arthritis, Chronic Back Pain Endocrine: Yes Diabetes, Non-Insulin dep HEENT: Yes (READING GLASSES) Loss of Vision: Bilateral Hearing Impairment: Denies Cancer: No Psychosocial: Yes Depression Integumentary: No Blood Disorders: No Adverse Reaction/Blood Tranf: No (N/A) Family Medical History Patient reports no known family medical history. Physical Exam Vital Signs Vital Signs - First Documented 08/17/19 18:53 Temp 36.8 Pulse 70 Resp 18 B/P (MAP) 135/76 (95) Pulse Ox 98 Capillary Refill : Height, Weight, BMI Height: 5'9.00" Weight: 245lbs. 0oz. [id number]; 35.00 BMI Method:Stated General Appearance: No Apparent Distress, WD/WN Respiratory: Lungs Clear, Normal Breath Sounds Cardiovascular: Regular Rate, Rhythm, No Edema Gastrointestinal: Non Tender, Soft Extremity: Normal Capillary Refill Neurologic/Psychiatric: Alert, Oriented x3 Skin: Normal Color Procedures/Interventions Date of ETT Placement: August 22, 2018 Time of ETT Placement: 736 Progress/Results/Core Measures Suspected Sepsis SIRS Temperature: Pulse: Respiratory Rate: Laboratory Tests 08/17/19 19:15: White Blood Count 8.6 Blood Pressure / Mean: Laboratory Tests 08/17/19 19:15: Creatinine 1.09, Platelet Count 194 Results/Orders Lab Results Laboratory Tests Test 08/17/19 19:15 08/17/19 19:30 Range/Units White Blood Count 8.6 4.3-11.0 10^3/uL Red Blood Count 4.06 L 4.35-5.85 10^6/uL Hemoglobin 12.2 L 13.3-17.7 G/DL Hematocrit 38 L 40-54 % Mean Corpuscular Volume 94 80-99 FL Mean Corpuscular Hemoglobin 30 25-34 PG Mean Corpuscular Hemoglobin Concent 32 32-36 G/DL Red Cell Distribution Width 14.3 10.0-14.5 % Platelet Count 194 130-400 10^3/uL Mean Platelet Volume 8.5 7.4-10.4 FL Neutrophils (%) (Auto) 58 42-75 % Lymphocytes (%) (Auto) 30 12-44 % Monocytes (%) (Auto) 9 0-12 % Eosinophils (%) (Auto) 2 0-10 % Basophils (%) (Auto) 0 0-10 % Neutrophils # (Auto) 5.0 1.8-7.8 X 10^3 Lymphocytes # (Auto) 2.6 1.0-4.0 X 10^3 Monocytes # (Auto) 0.8 0.0-1.0 X 10^3 Eosinophils # (Auto) 0.2 0.0-0.3 10^3/uL Basophils # (Auto) 0.0 0.0-0.1 10^3/uL Sodium Level 138 135-145 MMOL/L Potassium Level 4.4 3.6-5.0 MMOL/L Chloride Level 102 98-107 MMOL/L Carbon Dioxide Level 23 21-32 MMOL/L Anion Gap 13 5-14 MMOL/L Blood Urea Nitrogen 16 7-18 MG/DL Creatinine 1.09 0.60-1.30 MG/DL Estimat Glomerular Filtration Rate > 60 BUN/Creatinine Ratio 15 Glucose Level 124 H 70-105 MG/DL Calcium Level 9.5 8.5-10.1 MG/DL Urine Color YELLOW Urine Clarity CLOUDY Urine pH 7.5 5-9 Urine Specific [place] 1.020 1.016-1.022 Urine Protein NEGATIVE NEGATIVE Urine Glucose (UA) NEGATIVE NEGATIVE Urine Ketones NEGATIVE NEGATIVE Urine Nitrite NEGATIVE NEGATIVE Urine Bilirubin NEGATIVE NEGATIVE Urine Urobilinogen 0.2 < = 1.0 MG/DL Urine Leukocyte Esterase 1+ H NEGATIVE Urine RBC (Auto) 3+ H NEGATIVE Urine RBC TNTC H /HPF Urine WBC NONE /HPF Urine Squamous Epithelial Cells 2-5 /HPF Urine Crystals PRESENT H /LPF Urine Calcium Oxalate Crystals FEW H /LPF Urine Bacteria LARGE H /HPF Urine Casts NONE /LPF Urine Mucus NEGATIVE /LPF Urine Culture Indicated YES My Orders Orders - MARAL GLASS DO Urinalysis (08/17/19 18:45) Ct Abdomen/Pelvis Wo (08/17/19 18:46) Ketorolac Injection (Toradol Injection) (08/17/19 19:00) Ed Iv/Invasive Line Start (08/17/19 18:52) Cbc With Automated Diff (08/17/19 18:59) Basic Metabolic Panel (08/17/19 18:59) Urine Culture (08/17/19 19:30) Rx-Hydrocodone/Apap 5-325 Mg (Rx-Vicodin (08/17/19 20:00) Medications Given in ED Current Medications Medications Dose Ordered Sig/Cathie Route Start Time Stop Time Status Last Admin Dose Admin Ketorolac Tromethamine 30 mg ONCE ONCE IVP 08/17/19 19:00 08/17/19 19:01 DC 08/17/19 19:19 30 MG Vital Signs/I&O 08/17/19 18:53 Temp 36.8 Pulse 70 Resp 18 B/P (MAP) 135/76 (95) Pulse Ox 98 Capillary Refill : Progress Note : Time: 18:58 Progress Note Patient is seen and examined. No acute distress but has small episodes of pain lasting a few seconds. Abdominal exam is benign. Will check UA and CT abd/pelvis stone study. IV toradol for pain. 20:05: All results are reviewed. Patient does have hematuria and some bacteria but no white blood cells. He is already taking antibiotics for a known wound on his coccyx area that he is following with wound care for. He is found to have bilateral ureteral stones. Although he has an 8 mm stone in the left, he has no pain on that side. He complains of pain on the right. In the ER, he is given a dose of Toradol which relieves his symptoms. Patient already takes Flomax at baseline. He follows with urology in [place] and he will contact that physician tomorrow for close follow-up. Patient is agreeable to this plan of care. His pain is much improved after a single dose of Toradol. Departure Impression Primary Impression: Ureteral calculi Disposition: HOME, SELF-CARE Condition: Improved Departure-Patient Inst. Referrals: MARS PETERS DO (PCP/Family) Primary Care Physician Scripts Hydrocodone/Acetaminophen (Hydrocodone-Acetamin 5-325 mg) 1 Each Tablet 2 EACH PO Q6H for Severe Pain, #16 TAB Prov: MARAL GLASS DO 08/17/19 MARAL GLASS DO August 17, 2019 18:49
[2019-08-17] MEDS ORDERED: KETOROLAC 30 MG/ML VIAL IVP ONE (19:00)
[2019-08-17 19:20] LABS: HEMATOCRIT 38 % (40-54); HEMOGLOBIN 12.2 G/DL (13.3-17.7); LYMPHOCYTES % (AUTO) 30 % (12-44); MEAN CORPUSCULAR HEMOGLOBIN 30 PG (25-34); MEAN CORPUSCULAR HGB CONC 32 G/DL (32-36); MEAN CORPUSCULAR VOLUME 94 FL (80-99); MEAN PLATELET VOLUME 8.5 FL (7.4-10.4); NEUTROPHILS % (AUTO) 58 % (42-75); PLATELET COUNT 194 10^3/uL (130-400); RED CELL DISTRIBUTION WIDTH 14.3 % (10.0-14.5); WHITE BLOOD COUNT 8.6 10^3/uL (4.3-11.0)
[2019-08-17 19:21] LABS: BASOPHILS % (AUTO) 0 % (0-10); EOSINOPHILS # (AUTO) 0.2 10^3/uL (0.0-0.3); EOSINOPHILS % (AUTO) 2 % (0-10); LYMPHOCYTES # (AUTO) 2.6 X 10^3 (1.0-4.0); MONOCYTES # (AUTO) 0.8 X 10^3 (0.0-1.0); MONOCYTES % (AUTO) 9 % (0-12)
[2019-08-17 19:39] LABS: CLARITY,URINE CLOUDY; COLOR,URINE YELLOW; GLUCOSE, URINE (UA) NEGATIVE (NEGATIVE); PH,URINE 7.5 (5-9); PROTEIN,URINE NEGATIVE (NEGATIVE)
[2019-08-17 19:40] LABS: BACTERIA,URINE LARGE /HPF; BILIRUBIN,URINE NEGATIVE (NEGATIVE); CALCIUM OXALATE CRYSTALS,UR FEW /LPF; KETONES,URINE NEGATIVE (NEGATIVE); LEUKOCYTE ESTERASE ,URINE 1+ (NEGATIVE); NITRITE,URINE NEGATIVE (NEGATIVE); RBC,URINE TNTC /HPF
[2019-08-17 19:41] LABS: BUN/CREATININE RATIO 15; CALCIUM 9.5 MG/DL (8.5-10.1); CARBON DIOXIDE 23 MMOL/L (21-32); CHLORIDE 102 MMOL/L (98-107); CREATININE SERUM 1.09 MG/DL (0.60-1.30); GFR ESTIMATED > 60; GLUCOSE 124 MG/DL (70-105); POTASSIUM 4.4 MMOL/L (3.6-5.0); SODIUM 138 MMOL/L (135-145)
--- NOTE | 2019-08-17 19:50 | Diagnostic Imaging Report ---
PROCEDURE: CT abdomen and pelvis without contrast. TECHNIQUE: Multiple contiguous axial images were obtained through the abdomen and pelvis without the use of intravenous contrast. Auto Exposure Controls were utilized during the CT exam to meet ALARA standards for radiation dose reduction. INDICATION: Mid epigastric pain for one day. COMPARISON: 11/11/2018. FINDINGS: The lung bases are clear. The heart is normal in size. There is no pericardial effusion. The liver demonstrates no focal lesion. The spleen appears normal. The pancreas demonstrates mild fatty atrophy but is otherwise unremarkable. The adrenal glands appear normal. There is moderate right hydronephrosis and hydroureter. There is an obstructing calculus measuring 3 mm at the right ureterovesicular junction. There is moderate right perirenal stranding. Multiple nonobstructing calculi are seen in the left kidney, measuring up to 1 cm in size. There is mild left hydronephrosis and hydroureter, with an obstructing calculus at the left distal ureter, measuring up to 8 mm in size on axial imaging, approximately at the S3 level. Bowel loops are nondistended without obstruction. The appendix appears normal. There is diverticulosis of the sigmoid colon without diverticulitis. No free fluid or free air is seen. No acute osseous abnormality is seen. IMPRESSION: 1. Obstructing 3 mm calculus at the right ureterovesicular junction, causing moderate right hydroureteronephrosis. 2. An 8 mm calculus in the distal left ureter is causing mild hydroureteronephrosis. 3. Colonic diverticulosis without diverticulitis. Dictated by: Dictated on workstation # [id number]
[2019-08-17] MEDS ORDERED: RX-HYDROCODONE/APAP 5/325 MG #4 TAB PK PO PRN (20:00)
[2019-08-17] MEDS ORDERED: RX-HYDROCODONE/APAP 5/325 MG #4 TAB PK PO ONE (20:02)
[2019-08-17] MEDS ORDERED: HYDR-83 PO (20:03)
[2019-08-17 20:07] VITALS: BP 103/62
[2019-08-21] MEDS ORDERED: HYDR-4226 PO (12:58)
== END 2019-08-17 20:07 | disposition home or self-care (01) ==
LOC: EDUNIT# 18:38 → ER FS 18:40
DX: N13.2 Hydronephrosis with renal and ureteral calculous obstruction (principal); I10 Essential (primary) hypertension; E11.9 Type 2 diabetes mellitus without complications; E78.00 Pure hypercholesterolemia, unspecified; G47.30 Sleep apnea, unspecified; K21.9 Gastro-esophageal reflux disease without esophagitis; F32.9 Major depressive disorder, single episode, unspecified; Z99.89 Dependence on other enabling machines and devices; Z79.84 Long term (current) use of oral hypoglycemic drugs; Z87.891 Personal history of nicotine dependence
CPT/HCPCS: 36415; 74176; 80048; 81000; 85025; 87088; 96374

== ENCOUNTER → 2019-08-18 | Outpatient (CLI) | payer MEDICARE, MEDICAID ==
[~2019-08-18] MED LIST changes: +HYDR-83 PO
== END ==
LOC: WOUNDCARE 08:06
PROVIDERS: ATTEND Surgery
DX: L89.313 Pressure ulcer of right buttock, stage 3 (principal); L02.219 Cutaneous abscess of trunk, unspecified; G31.84 Mild cognitive impairment of uncertain or unknown etiology; Z87.891 Personal history of nicotine dependence; E11.9 Type 2 diabetes mellitus without complications; I10 Essential (primary) hypertension; I25.2 Old myocardial infarction
CPT/HCPCS: 11042

== ENCOUNTER → 2019-08-25 | Outpatient (CLI) | payer MEDICARE, MEDICAID ==
[~2019-08-25] MED LIST changes: +HYDR-4226 PO
== END ==
LOC: WOUNDCARE 08:10
PROVIDERS: ATTEND Surgery
DX: E11.622 Type 2 diabetes mellitus with other skin ulcer (principal); L89.313 Pressure ulcer of right buttock, stage 3; L02.219 Cutaneous abscess of trunk, unspecified; G31.84 Mild cognitive impairment of uncertain or unknown etiology; Z87.891 Personal history of nicotine dependence; I10 Essential (primary) hypertension; I25.2 Old myocardial infarction
CPT/HCPCS: 11042

== ENCOUNTER → 2019-09-01 | Outpatient (CLI) | payer MEDICARE, MEDICAID | LOC: WOUNDCARE 08:28 | PROVIDERS: ATTEND Surgery | DX: E11.622 Type 2 diabetes mellitus with other skin ulcer (principal); L89.313 Pressure ulcer of right buttock, stage 3; L02.219 Cutaneous abscess of trunk, unspecified; G31.84 Mild cognitive impairment of uncertain or unknown etiology; Z87.891 Personal history of nicotine dependence; I10 Essential (primary) hypertension; I25.2 Old myocardial infarction | CPT/HCPCS: 11042 ==

== ENCOUNTER → 2019-09-15 | Outpatient (CLI) | payer MEDICARE, MEDICAID | LOC: WOUNDCARE 08:30 | PROVIDERS: ATTEND Surgery | DX: L89.313 Pressure ulcer of right buttock, stage 3 (principal); L02.219 Cutaneous abscess of trunk, unspecified; G31.84 Mild cognitive impairment of uncertain or unknown etiology; I96 Gangrene, not elsewhere classified | CPT/HCPCS: 11042 ==

== ENCOUNTER → 2019-09-22 | Outpatient (CLI) | payer MEDICARE, MEDICAID | LOC: WOUNDCARE 08:27 | PROVIDERS: ATTEND Surgery | DX: I96 Gangrene, not elsewhere classified (principal); L89.313 Pressure ulcer of right buttock, stage 3; G31.84 Mild cognitive impairment of uncertain or unknown etiology; L02.219 Cutaneous abscess of trunk, unspecified | CPT/HCPCS: 11042 ==

== ENCOUNTER → 2019-09-29 | Outpatient (CLI) | payer MEDICARE, MEDICAID | LOC: WOUNDCARE 07:57 | PROVIDERS: ATTEND Surgery | DX: I96 Gangrene, not elsewhere classified (principal); L89.313 Pressure ulcer of right buttock, stage 3; L02.219 Cutaneous abscess of trunk, unspecified; G31.84 Mild cognitive impairment of uncertain or unknown etiology | CPT/HCPCS: 11042 ==

== ENCOUNTER → 2019-10-06 | Outpatient (CLI) | payer MEDICARE, MEDICAID ==
[~2019-10-06] MED LIST changes: +MULT-567 PO; -MULT1TAB69 PO
== END ==
LOC: WOUNDCARE 07:54
PROVIDERS: ATTEND Surgery
DX: L89.313 Pressure ulcer of right buttock, stage 3 (principal); I96 Gangrene, not elsewhere classified; L92.8 Other granulomatous disorders of the skin and subcutaneous tissue; L02.219 Cutaneous abscess of trunk, unspecified; G31.84 Mild cognitive impairment of uncertain or unknown etiology
CPT/HCPCS: 99213

== ENCOUNTER → 2019-10-13 | Outpatient (CLI) | payer MEDICARE, MEDICAID | LOC: WOUNDCARE 08:39 | PROVIDERS: ATTEND Surgery | DX: L89.313 Pressure ulcer of right buttock, stage 3 (principal); L02.219 Cutaneous abscess of trunk, unspecified; G31.84 Mild cognitive impairment of uncertain or unknown etiology; L92.8 Other granulomatous disorders of the skin and subcutaneous tissue | CPT/HCPCS: 99212 ==

== ENCOUNTER 2019-12-23 13:46 | Outpatient (CLI) | payer MEDICARE, MEDICAID ==
[~2019-12-23] VITALS: Ht 175.3 cm; Wt 106.8 kg
[~2019-12-23 13:46] MED LIST changes: -CETI10TA17 PO; -DULO60CA59 PO; -SULF1TAB35 PO
[2019-12-23] MEDS ORDERED: METF-399 PO (14:47)
[2019-12-23] MEDS ORDERED: CETI10TA17 PO (14:48)
[2019-12-23] MEDS ORDERED: DULO60CA59 PO (14:48)
[2019-12-24] MEDS ORDERED: TRM50T PO (10:19)
[2019-12-24] MEDS ORDERED: PHEN-640 PO (10:19)
[2019-12-24] MEDS ORDERED: TMSL.4C PO (10:19)
[2019-12-24] MEDS ORDERED: SULF1TAB35 PO (10:19)
== END 2019-12-23 14:51 ==
LOC: PREOP 13:46
PROVIDERS: ATTEND Urology
DX: Z01.818 Encounter for other preprocedural examination (principal)

== ENCOUNTER → 2019-12-23 | Outpatient (CLI) | payer MEDICARE, MEDICAID ==
[~2019-12-23] MED LIST changes: +ACHD5005 PO; +CETI10TA17 PO; +DULO60CA59 PO; -HYDR-83 PO; +SULF1TAB35 PO
--- NOTE | 2019-12-23 13:54 | Diagnostic Imaging Report ---
INDICATION: Ureteral stones. COMPARISON: 08/17/2019. TECHNIQUE: Three radiographs of the abdomen dated 12/23/2019. FINDINGS: Calcifications are again identified overlying the left renal shadow. No suspicious calcifications overlying the right renal shadow. Phleboliths are present overlying the pelvis bilaterally. No suspicious calcifications overlying the lower pelvis to correspond to the previously noted ureteroliths. Nonobstructing bowel gas pattern. No free air. Minimally visualized lung bases are clear. No acute osseous abnormality with scattered osseous degenerative changes. IMPRESSION: Previously noted bilateral ureteroliths are not definitively identified on this examination with phleboliths present within the lower pelvis. Multiple left-sided renal calculi are again identified. Nonobstructive bowel gas pattern. Dictated by: Dictated on workstation # [id number]
== END ==
LOC: RAD 11:13
PROVIDERS: ATTEND Urology
DX: I87.8 Other specified disorders of veins (principal); N20.2 Calculus of kidney with calculus of ureter
CPT/HCPCS: 74018

== ENCOUNTER 2019-12-24 06:33 | Day surgery (SDC) | payer MEDICARE, MEDICAID ==
[2019-12-24] VITALS (10 sets, daily range): BP systolic 95–128; BP diastolic 36–81
[~2019-12-24] VITALS: Ht 175.3 cm; Wt 106.8 kg
[~2019-12-24 06:33] MED LIST changes: +CETI10TA17 PO; +DULO60CA59 PO
[2019-12-24] MEDS ORDERED: cefTRIAXone FOR IV USE 1,000 MG in WATER (STERILE) FOR INJECTION 10 ML IV ONE (07:00)
--- NOTE | 2019-12-24 07:09 | Progress Note-Pre Operative ---
Pre-Operative Progress Note H&P Reviewed The H&P was reviewed, patient examined and no changes noted. Date Seen by Provider: Dec 24, 2019 Time Seen by Provider: 07:09 Date H&P Reviewed: Dec 24, 2019 Time H&P Reviewed: 07:09 Pre-Operative Diagnosis: BILATERAL URETERAL STONES JONATHAN CONLEY MD Dec 24, 2019 07:09
[2019-12-24] MEDS: LACTATED RINGERS 1,000 ML IV PRN ×2 (07:13→08:26)
[2019-12-24] MEDS ORDERED: ONDANSETRON 4 MG/2 ML (SDV) Z0FRAN ONE ×2 (07:39→07:45)
[2019-12-24] MEDS ORDERED: FAMOTIDINE 20MG/2ML IV (PEPCID) ONE (07:41)
[2019-12-24] MEDS ORDERED: MIDAZOLAM 2 MG/2 ML (VERSED) VIAL ONE (07:45)
[2019-12-24] MEDS ORDERED: FAMOTIDINE 20MG/2ML IV (PEPCID) IVP ONE (07:45)
[2019-12-24] MEDS ORDERED: ROCURONIUM 10 MG/ML 5 ML SYRINGE IV ONE (07:45)
[2019-12-24] MEDS ORDERED: proPOfol 200 MG/20 ML (DIPRIVAN) VIAL IV ONE ×2 (07:45→09:06)
[2019-12-24] MEDS ORDERED: fentaNYL INJECTION 100 MCG/2 ML AMP ONE (07:45)
[2019-12-24] MEDS ORDERED: ONDANSETRON 4 MG/2 ML (SDV) Z0FRAN IVP ONE (07:45)
[2019-12-24] MEDS ORDERED: SEVOFLURANE (ULTANE) 15 ML INHAL SOLN ONE ×2 (07:45→09:06)
[2019-12-24] MEDS ORDERED: IOPAMIDOL 61% 30 ML (ISOVUE 300) VIAL ONE (08:25)
--- NOTE | 2019-12-24 09:04 | Progress Note-Post Operative ---
Post-Operative Progess Note Surgeon (s)/Lean Manufacturing Coordinator (s) Surgeon JONATHAN CONLEY MD Lean Manufacturing Coordinator: NONE Pre-Operative Diagnosis BILATERAL URETERAL STONES Post-Operative Diagnosis SAME Procedure & Operative Findings Date of Procedure 12/24/19 Procedure Performed/Findings BILATERAL URETEROLITHOTRIPSY AND STENTS Anesthesia Type GENERAL Estimated Blood Loss Estimated blood loss (mL): NEGLIGIBLE Specimens/Packing Specimens Removed NONE Packing: NONE JONATHAN CONLEY MD Dec 24, 2019 09:04
--- NOTE | 2019-12-24 09:06 | Discharge Inst-Urology ---
Discharge Inst-Urology Reconcile Patient Problems Problems Reviewed?: Yes Final Diagnosis BILATERAL URETERAL STONES Patient Instructions/Follow Up Plan/Assessment/Instructions Please make appointment to been seen in office in 10 days. Increase oral fluids for 48 hours and then as needed. Diet and Activity as tolerated. If questions or concerns contact your physician Or seek help at emergency department. JONATHAN CONLEY MD Dec 24, 2019 09:06
--- NOTE | 2019-12-24 09:28 | OPERATIVE REPORT ---
DATE OF SERVICE: 12/24/2019 PREOPERATIVE DIAGNOSIS: Bilateral ureteral stones. POSTOPERATIVE DIAGNOSIS: Bilateral ureteral stones. OPERATION PERFORMED: Bilateral ureteral lithotripsy and insertion of stent. SURGEON: Favio Conley MD ANESTHESIA: General. COMPLICATIONS: None. DESCRIPTION OF PROCEDURE: Under satisfactory general anesthesia, the patient in lithotomy position and the genitalia were prepped and draped in the usual sterile fashion. Cystoscope was introduced under vision. The anterior urethra was normal. Prostate revealed some enlargement of the lateral lobes were mostly a high riding median bar. The bladder was inspected and was normal except for sluggish efflux on both sides. Using the foroblique lens, I dilated the right ureteral orifice and intramural portion and while doing that, I felt this engaging and disimpacted the stone and even probably break it up. I went ahead with the ureteroscope 6.9 [place] semi-rigid, indeed the stone was fragmented, I went above it to all the way to the proximal ureter. There was no further stone or fragments. Because of the presence of the stone for a while, I elected to leave a stent. I removed the ureteroscope, reinserted the cystoscope and passed a 6-[place] 26 cm double-J stent guided fluoroscopically all the way to the right renal pelvis. The wire was removed. The stent was seen jetting nicely proximally fluoroscopically and distally endoscopically. In a similar fashion, I performed a left ureteroscopy and a stone was found to be at the upper ureter around L2 or L3. I went ahead and broke it up completely with the lithoclast. I went above it to make sure there were no further stone or fragment or stones were flowing freely into the bladder. I removed the ureteroscope again, elected to leave a stent for some reason and performed a stent placement in the same way on the right side. The bladder was evacuated and the cystoscope was removed. The patient tolerated the procedure and anesthesia well and was sent to recovery room in stable condition. PLAN: See him back in 10 days. To remove both stents at the office cystoscopically. Job ID: [id number] DocumentID: [id number] Dictated Date: 12/24/2019 09:14:20 Industrial Accountant Date: 12/24/2019 09:27:48 Dictated By: FAVIO CONLEY MD
--- NOTE | 2019-12-24 09:50 | Anesthesia-General Post-Op ---
General Patient Condition Mental Status/LOC: Same as Preop Cardiovascular: Satisfactory Nausea/Vomiting: Absent Respiratory: Satisfactory Pain: Controlled Complications: Absent Post Op Complications Complications None Follow Up Care/Instructions Patient Instructions None needed. Anesthesia/Patient Condition Patient Condition Patient is doing well, no complaints, stable vital signs, no apparent adverse anesthesia problems. No complications reported per nursing. DAE HEARN CRNA Dec 24, 2019 09:50
[2019-12-24] MEDS ORDERED: TMSL.4C PO (10:19)
[2019-12-24] MEDS ORDERED: TRM50T PO (10:19)
[2019-12-24] MEDS ORDERED: PHEN-640 PO (10:19)
[2019-12-24] MEDS ORDERED: SULF1TAB35 PO (10:19)
== END 2019-12-24 10:45 | disposition home or self-care (01) ==
LOC: SDC 06:33
PROVIDERS: ATTEND Urology
DX: N20.1 Calculus of ureter (principal); I10 Essential (primary) hypertension; E78.5 Hyperlipidemia, unspecified; R60.9 Edema, unspecified; G47.33 Obstructive sleep apnea (adult) (pediatric); M54.9 Dorsalgia, unspecified; G89.29 Other chronic pain; F32.9 Major depressive disorder, single episode, unspecified; M06.9 Rheumatoid arthritis, unspecified; K21.9 Gastro-esophageal reflux disease without esophagitis; E11.9 Type 2 diabetes mellitus without complications; E66.9 Obesity, unspecified; L89.309 Pressure ulcer of unspecified buttock, unspecified stage; M19.91 Primary osteoarthritis, unspecified site; N40.0 Benign prostatic hyperplasia without lower urinary tract symptoms; E78.00 Pure hypercholesterolemia, unspecified; Z99.89 Dependence on other enabling machines and devices; Z79.899 Other long term (current) drug therapy; Z79.84 Long term (current) use of oral hypoglycemic drugs; Z11.2 Encounter for screening for other bacterial diseases; Z68.34 Body mass index [BMI] 34.0-34.9, adult
CPT/HCPCS: 52356; 74018; 76000; 82962; 87081; C2625

== ENCOUNTER → 2020-04-13 | Outpatient (CLI) | payer MEDICARE, MEDICAID ==
[~2020-04-13] MED LIST changes: +NABU-90 PO; -NABU750T PO; +SULF1TAB35 PO
--- NOTE | 2020-04-13 13:49 | Diagnostic Imaging Report ---
INDICATION: Right knee pain. COMPARISON: None. FINDINGS: Three views of the right knee joint demonstrate no acute fracture or dislocation. No focal osseous lesions are seen. Small significant joint effusion is seen. The surrounding soft tissue structures are unremarkable. There are no radiopaque foreign bodies. IMPRESSION: 1. Small suprapatellar joint effusion, but no radiographic evidence of acute fracture or dislocation of the right knee. Dictated by: Dictated on workstation # [id number]
== END ==
LOC: RAD FS 11:08
PROVIDERS: ATTEND Nurse Practitioner Family
DX: M25.461 Effusion, right knee (principal)
CPT/HCPCS: 73562

== ENCOUNTER 2020-09-19 15:46 | Emergency (ER) | payer MEDICARE, MEDICAID ==
[~2020-09-19] VITALS: Ht 175.2 cm; Wt 114.1 kg
[~2020-09-19 15:46] MED LIST changes: -CIPR500T4 PO; +CIPR500T5 PO; -METO10TA3 PO; +MTC10T PO; -NABU-90 PO; +NABU-95 PO; -POLY17PO31 PO; +POLY17PO54 PO
[2020-09-19] MEDS ORDERED: KETOROLAC 30 MG/ML VIAL IVP STA (16:15)
[2020-09-19] MEDS ORDERED: NS IV 1000 ML 1,000 ML IV STA (16:15)
[2020-09-19] MEDS ORDERED: ORPHENADRINE 60 MG/2 ML (NORFLEX) AMP (ED ONLY) IVP STA (16:15)
--- NOTE | 2020-09-19 16:22 | ED Back Pain ---
General Stated Complaint: BACK PAIN Source of Information: Patient History of Present Illness Date Seen by Provider: Sep 19, 2020 Time Seen by Provider: 15:48 Initial Comments 60 yo male presenting with complaint of spasms to his back for over 5 months. He thinks it might be a kidney stone since it feels similar to when he had a stone in 2017 or 2018. He has not been in to the clinic to get checked about it over the 5 months of symptoms. He brought his brother to the ED and decided he should check in as well. He has no worse symptoms today than usual. He has not taken anything for the symptoms recently. He denies fever, chills, nausea, vomiting. He has occasional pain with urination. Location: Other (right flank) Timing/Duration: Other (over 5 months of intermittent spasms in right flank and back) Severity: Moderate Pain/Injury Location: Back Method of Injury: Other (no known injury) Associated Symptoms: muscle spasms; No fever, No weakness, No numbness in legs/feet, No tingling in legs/feet, No sensory/motor loss; lower back pain (and right flank pain); No loss of bladder control, No loss of bowel control Allergies and Home Medications Allergies Coded Allergies: No Known Drug Allergies (Unverified , 12/24/19) Home Medications Cetirizine HCl 10 Mg Tablet, 10 MG PO DAILY, (Reported) Last Action: Last Taken Edited Duloxetine HCl 60 Mg Capsule.dr, 60 MG PO BID, (Reported) Last Action: Last Taken Edited Ezetimibe 10 Mg Tablet, 10 MG PO DAILY, (Reported) Last Action: Last Taken Edited Hydrocodone/Acetaminophen 1 Each Tablet, 1 TAB PO Q6H PRN for PAIN-SEVERE (8-10) Prescribed by: MITESH BATISTA on 09/19/20 6168 Metformin HCl 1,000 Mg Tablet, 1,000 MG PO BID, (Reported) Last Action: Last Taken Edited Metoprolol Succinate 50 Mg Tab.er.24h, 50 MG PO BID, (Reported) Last Action: Last Taken Edited Multivitamin 1 Each Tablet, 1 TAB PO DAILY, (Reported) Last Action: Last Taken Edited Nabumetone 750 Mg Tablet, 750 MG PO BID, (Reported) Last Action: Last Taken Edited Niacin 1,000 Mg Tab.er.24h, 1,000 MG PO DAILY, (Reported) Last Action: Last Taken Edited Simvastatin 80 Mg Tablet, 80 MG PO HS, (Reported) Last Action: Last Taken Edited Tamsulosin HCl 0.4 Mg Cap, 0.4 MG PO 1730, (Reported) Last Action: Last Taken Edited Topiramate 50 Mg Tablet, 50 MG PO HS, (Reported) Last Action: Last Taken Edited Patient Home Medication List Home Medication List Reviewed: Yes Review of Systems Constitutional: No chills, No fever EENTM: no symptoms reported Respiratory: no symptoms reported Cardiovascular: no symptoms reported Gastrointestinal: no symptoms reported Genitourinary: dysuria (occasionally) Musculoskeletal: back pain (right flank pain, low back pain with spasms) Skin: no symptoms reported Psychiatric/Neurological: Denies Headache, Denies Numbness, Denies Paresthesia Past Ztymdgl-Shjxvc-Riozcj Hx Past Med/Social Hx: Reviewed Nursing Past Med/Soc Hx Patient Social History Alcohol Beverage of Choice: Whiskey Drug of Choice: hx meth,coke, speed-inhale nad inject-clean since 2000 Former Smoker, Quit: Apr 29, 1982 2nd Hand Smoke Exposure: No Recent Hopitalizations: No Immunizations Up To Date PED Vaccines UTD: Yes Seasonal Allergies Seasonal Allergies: Yes Past Medical History Surgeries: Yes (HERNIA, HEMORRHOIDECTOMY, ESWL) Respiratory: Yes Sleep Apnea Currently Using CPAP: Yes Cardiac: Yes High Cholesterol, Hypertension Neurological: No Reproductive Disorders: No Sexually Transmitted Disease: No HIV/AIDS: No Genitourinary: Yes (UROSTOMY PLACED July,) Benign Prostatic Hyperpl, Kidney Stones Gastrointestinal: Yes Colitis, Gastroesophageal Reflux, Diverticulosis Musculoskeletal: Yes Arthritis, Chronic Back Pain Endocrine: Yes Diabetes, Non-Insulin dep HEENT: Yes (READING GLASSES) Loss of Vision: Bilateral Hearing Impairment: Denies Cancer: No Psychosocial: Yes Depression Integumentary: Yes (pressure sores on buttocks) Blood Disorders: No Adverse Reaction/Blood Tranf: No (N/A) Family Medical History Patient reports no known family medical history. Physical Exam Vital Signs Vital Signs - First Documented 09/19/20 15:57 Temp 35.5 Pulse 89 Resp 16 B/P (MAP) 124/64 (84) Pulse Ox 97 O2 Delivery Room Air Capillary Refill : Height, Weight, BMI Height: 5'9.00" Weight: 245lbs. 0oz. 111.162064kc; 34.75 BMI Method:Stated General Appearance: No Apparent Distress, Obese HEENT: PERRL/EOMI, Pharynx Normal Neck: Full Range of Motion, Normal Inspection, Non Tender, Supple Cardiovascular: Regular Rate, Rhythm, Normal Peripheral Pulses Respiratory: Chest Non Tender, Lungs Clear, Normal Breath Sounds Gastrointestinal: Normal Bowel Sounds, No Pulsatile Mass, Non Tender, Soft Back: No CVA Tenderness, No Vertebral Tenderness, Muscle Spasm (right flank) Extremity: Normal Capillary Refill, Normal Inspection, Normal Range of Motion, Non Tender, No Pedal Edema Neurologic/Psychiatric: Alert, Oriented x3 Skin: Normal Color, Warm/Dry Procedures/Interventions Date of ETT Placement: August 22, 2018 Time of ETT Placement: 736 Progress/Results/Core Measures Results/Orders Lab Results Laboratory Tests Test 09/19/20 16:15 09/19/20 16:30 Range/Units White Blood Count 8.0 4.3-11.0 10^3/uL Red Blood Count 4.07 L 4.35-5.85 10^6/uL Hemoglobin 12.5 L 13.3-17.7 G/DL Hematocrit 38 L 40-54 % Mean Corpuscular Volume 94 80-99 FL Mean Corpuscular Hemoglobin 31 25-34 PG Mean Corpuscular Hemoglobin Concent 33 32-36 G/DL Red Cell Distribution Width 14.1 10.0-14.5 % Platelet Count 228 130-400 10^3/uL Mean Platelet Volume 8.7 7.4-10.4 FL Immature Granulocyte % (Auto) 1 % Neutrophils (%) (Auto) 58 42-75 % Lymphocytes (%) (Auto) 30 12-44 % Monocytes (%) (Auto) 9 0-12 % Eosinophils (%) (Auto) 2 0-10 % Basophils (%) (Auto) 0 0-10 % Neutrophils # (Auto) 4.6 1.8-7.8 X 10^3 Lymphocytes # (Auto) 2.4 1.0-4.0 X 10^3 Monocytes # (Auto) 0.7 0.0-1.0 X 10^3 Eosinophils # (Auto) 0.2 0.0-0.3 10^3/uL Basophils # (Auto) 0.0 0.0-0.1 10^3/uL Immature Granulocyte # (Auto) 0.1 0.0-0.1 10^3/uL Sodium Level 139 135-145 MMOL/L Potassium Level 3.9 3.6-5.0 MMOL/L Chloride Level 102 98-107 MMOL/L Carbon Dioxide Level 26 21-32 MMOL/L Anion Gap 11 5-14 MMOL/L Blood Urea Nitrogen 19 H 7-18 MG/DL Creatinine 0.85 0.60-1.30 MG/DL Estimat Glomerular Filtration Rate > 60 BUN/Creatinine Ratio 22 Glucose Level 105 70-105 MG/DL Calcium Level 9.4 8.5-10.1 MG/DL Corrected Calcium 9.3 8.5-10.1 MG/DL Total Bilirubin 0.3 0.1-1.0 MG/DL Aspartate Amino Transf (AST/SGOT) 19 5-34 U/L Alanine Aminotransferase (ALT/SGPT) 20 0-55 U/L Alkaline Phosphatase 84 40-136 U/L Total Protein 6.8 6.4-8.2 GM/DL Albumin 4.1 3.2-4.5 GM/DL Urine Color YELLOW Urine Clarity SILGHTLY CLOUDY Urine pH 6.0 5-9 Urine Specific [place] >=1.030 1.016-1.022 Urine Protein TRACE H NEGATIVE Urine Glucose (UA) NEGATIVE NEGATIVE Urine Ketones TRACE H NEGATIVE Urine Nitrite NEGATIVE NEGATIVE Urine Bilirubin NEGATIVE NEGATIVE Urine Urobilinogen 0.2 < = 1.0 MG/DL Urine Leukocyte Esterase NEGATIVE NEGATIVE Urine RBC (Auto) 3+ H NEGATIVE Urine RBC >100 H /HPF Urine WBC NONE /HPF Urine Squamous Epithelial Cells 5-10 /HPF Urine Crystals PRESENT H /LPF Urine Calcium Oxalate Crystals LARGE H /LPF Urine Bacteria MODERATE H /HPF Urine Casts NONE /LPF Urine Mucus LARGE H /LPF Urine Culture Indicated NO My Orders Orders - MITESH BATISTA MD Ua Culture If Indicated (09/19/20 16:03) Comprehensive Metabolic Panel (09/19/20 16:15) Ed Iv/Invasive Line Start (09/19/20 16:15) Cbc With Automated Diff (09/19/20 16:15) Ct Abdomen/Pelvis Wo (09/19/20 16:15) Ketorolac Injection (Toradol Injection) (09/19/20 16:15) Orphenadrine Inj (Ed Only) (Norflex Inje (09/19/20 16:15) Ns Iv 1000 Ml (Sodium Chloride 0.9%) (09/19/20 16:15) Vital Signs/I&O 09/19/20 09/19/20 15:57 17:35 Temp 35.5 35.5 Pulse 89 85 Resp 16 16 B/P (MAP) 124/64 (84) 121/60 (84) Pulse Ox 97 97 O2 Delivery Room Air Room Air Progress Progress Note #1: Progress Note check labs, urine, CT scan to look for infection, kidney stone, mass, colitis, diverticulitis. Give IVF for hydration, Toradol and Norflex for pain and spasms. Progress Note #2: Progress Note pt has stable labs without signs of acute infection. His urine shows blood to go with kidney stone. CT scan appears stable from August 2019 imaging. He had stones in both kidneys and some stones in the proximal left ureter. These appear stable or slightly moved. As he does not have definite UTI findings will discharge with medicine for pain and encouraged to follow-up with urology as well as primary provider. Diagnostic Imaging Diagonstic Imaging: CT Plain Films/CT/US/NM/MRI: abdomen, pelvis Comments [facility], [place] NAME: DARSHAN ROY [facility] REC#: [id number] PT STATUS: DEP ER : 1960 PHYSICIAN: MITESH BATISTA MD ADMIT DATE: 09/19/20/ER FS Draft Date of Exam:09/19/20 CT ABDOMEN/PELVIS WO PROCEDURE: CT abdomen and pelvis without contrast. TECHNIQUE: Multiple contiguous axial images were obtained through the abdomen and pelvis without the use of intravenous contrast. Auto Exposure Controls were utilized during the CT exam to meet ALARA standards for radiation dose reduction. INDICATION: Right flank pain, low back pain, back spasms. CORRELATION STUDY: 08/17/2019. FINDINGS: LOWER THORAX: Minimal atelectasis at the lung bases. Borderline heart size. LIVER: Unremarkable on unenhanced imaging. GALLBLADDER: Present and unremarkable. No bile duct dilatation. SPLEEN: Unremarkable. PANCREAS: Atrophic. ADRENAL GLANDS: Unremarkable. KIDNEYS: Right kidney and ureter unremarkable. Intraparenchymal calcification of the anterior left kidney. 2.2 cm exophytic intermediate density mass in left kidney. There is abnormal elongated grouped area of calcifications in the proximal left ureter. The axial plane measures up to 13 x 5 mm. Overall length of the largest one measures approximately 2.8 cm craniocaudal. There are two additional smaller calcifications just distal to the larger one. The remainder of the mid and distal ureter is otherwise unremarkable. There is slight prominence of the left renal collecting system. ABDOMINAL AORTA: Unremarkable, nonaneurysmal. GASTROINTESTINAL TRACT: Stomach distended with moderate retained gastric contents. There is no small bowel obstruction. Mild stool within the colon. Normal appendix is present. No abdominal ascites and/or free air. URINARY BLADDER: Decompressed. REPRODUCTIVE: Calcification of the prostate gland. OSSEOUS STRUCTURES: No acute abnormality. OTHER: None. IMPRESSION: 1. Interval migration of a somewhat linearly oriented grouped calcification of the proximal left ureter. Despite the rather prominent calcification, there is currently mild left-sided obstruction. Additional perhaps early staghorn calcification at the inferior pole of the left kidney. 2. Indeterminate intermediate exophytic mass of left kidney. While it could be reflective of a complex cyst, solid mass not excluded and correlation with nonemergent follow-up renal ultrasound recommended. Dictated on workstation # [id number] Dict: 09/19/20 1650 Trans: 09/19/20 1746 [facility] [id number] Interpreted by: ALDA FONSECA DO Electronically signed by: Reviewed: Reviewed by Me Departure Impression Primary Impression: Kidney stones Additional Impression: Back muscle spasm Disposition: 01 HOME, SELF-CARE Condition: Stable Departure-Patient Inst. Decision time for Depature: 17:32 Referrals: MARS PETERS DO (PCP/Family) Primary Care Physician JONATHAN CONLEY MD Patient Instructions: Muscle Spasm ED, Kidney Stone, Adult ED, Kidney Stone Diet Add. Discharge Instructions: Drink plenty of water and electrolyte drinks to stay hydrated and help flush out kidney stones. Use pain medicine to help control severe pain. Follow up with clinic to see primary doctor and call Dr. Conley with Urology to see him as soon as possible about kidney stones and problems. Scripts Hydrocodone/Acetaminophen (Hydrocodone-Acetamin 5-325 mg) 1 Each Tablet 1 TAB PO Q6H PRN for PAIN-SEVERE (8-10) for 3 Days, #12 TAB 0 Refills Prov: MITESH BATISAT MD 09/19/20 MITESH BATISTA MD Sep 19, 2020 16:22
[2020-09-19 16:26] LABS: BASOPHILS % (AUTO) 0 % (0-10); EOSINOPHILS # (AUTO) 0.2 10^3/uL (0.0-0.3); EOSINOPHILS % (AUTO) 2 % (0-10); HEMATOCRIT 38 % (40-54); HEMOGLOBIN 12.5 G/DL (13.3-17.7); LYMPHOCYTES # (AUTO) 2.4 X 10^3 (1.0-4.0); LYMPHOCYTES % (AUTO) 30 % (12-44); MEAN CORPUSCULAR HEMOGLOBIN 31 PG (25-34); MEAN CORPUSCULAR HGB CONC 33 G/DL (32-36); MEAN CORPUSCULAR VOLUME 94 FL (80-99); MEAN PLATELET VOLUME 8.7 FL (7.4-10.4); MONOCYTES # (AUTO) 0.7 X 10^3 (0.0-1.0); MONOCYTES % (AUTO) 9 % (0-12); NEUTROPHILS # (AUTO) 4.6 X 10^3 (1.8-7.8); NEUTROPHILS % (AUTO) 58 % (42-75); PLATELET COUNT 228 10^3/uL (130-400)
[2020-09-19 16:39] LABS: BACTERIA,URINE MODERATE /HPF; BILIRUBIN,URINE NEGATIVE (NEGATIVE); CLARITY,URINE SILGHTLY CLOUDY; COLOR,URINE YELLOW; GLUCOSE, URINE (UA) NEGATIVE (NEGATIVE); KETONES,URINE TRACE (NEGATIVE); LEUKOCYTE ESTERASE ,URINE NEGATIVE (NEGATIVE); NITRITE,URINE NEGATIVE (NEGATIVE); PROTEIN,URINE TRACE (NEGATIVE); RBC,URINE >100 /HPF
[2020-09-19 16:40] LABS: CALCIUM OXALATE CRYSTALS,UR LARGE /LPF
[2020-09-19 16:48] LABS: ALANINE AMINOTRANSFERASE 20 U/L (0-55); ALBUMIN 4.1 GM/DL (3.2-4.5); ALKALINE PHOSPHATASE 84 U/L (40-136); BILIRUBIN,TOTAL 0.3 MG/DL (0.1-1.0); BUN/CREATININE RATIO 22; CALCIUM 9.4 MG/DL (8.5-10.1); CARBON DIOXIDE 26 MMOL/L (21-32); CHLORIDE 102 MMOL/L (98-107); CREATININE SERUM 0.85 MG/DL (0.60-1.30); GFR ESTIMATED > 60; GLUCOSE 105 MG/DL (70-105); POTASSIUM 3.9 MMOL/L (3.6-5.0); SODIUM 139 MMOL/L (135-145); TOTAL PROTEIN 6.8 GM/DL (6.4-8.2)
[2020-09-19] MEDS ORDERED: ACHD5005 PO (17:34)
[2020-09-19 17:35] VITALS: BP 121/60
--- NOTE | 2020-09-19 17:47 | Diagnostic Imaging Report ---
PROCEDURE: CT abdomen and pelvis without contrast. TECHNIQUE: Multiple contiguous axial images were obtained through the abdomen and pelvis without the use of intravenous contrast. Auto Exposure Controls were utilized during the CT exam to meet ALARA standards for radiation dose reduction. INDICATION: Right flank pain, low back pain, back spasms. CORRELATION STUDY: 08/17/2019. FINDINGS: LOWER THORAX: Minimal atelectasis at the lung bases. Borderline heart size. LIVER: Unremarkable on unenhanced imaging. GALLBLADDER: Present and unremarkable. No bile duct dilatation. SPLEEN: Unremarkable. PANCREAS: Atrophic. ADRENAL GLANDS: Unremarkable. KIDNEYS: Right kidney and ureter unremarkable. Intraparenchymal calcification of the anterior left kidney. 2.2 cm exophytic intermediate density mass in left kidney. There is abnormal elongated grouped area of calcifications in the proximal left ureter. The axial plane measures up to 13 x 5 mm. Overall length of the largest one measures approximately 2.8 cm craniocaudal. There are two additional smaller calcifications just distal to the larger one. The remainder of the mid and distal ureter is otherwise unremarkable. There is slight prominence of the left renal collecting system. ABDOMINAL AORTA: Unremarkable, nonaneurysmal. GASTROINTESTINAL TRACT: Stomach distended with moderate retained gastric contents. There is no small bowel obstruction. Mild stool within the colon. Normal appendix is present. No abdominal ascites and/or free air. URINARY BLADDER: Decompressed. REPRODUCTIVE: Calcification of the prostate gland. OSSEOUS STRUCTURES: No acute abnormality. OTHER: None. IMPRESSION: 1. Interval migration of a somewhat linearly oriented grouped calcification of the proximal left ureter. Despite the rather prominent calcification, there is currently mild left-sided obstruction. Additional perhaps early staghorn calcification at the inferior pole of the left kidney. 2. Indeterminate intermediate exophytic mass of left kidney. While it could be reflective of a complex cyst, solid mass not excluded and correlation with nonemergent follow-up renal ultrasound recommended. Dictated by: Dictated on workstation # [id number]
== END 2020-09-19 17:35 | disposition home or self-care (01) ==
LOC: EDUNIT# 15:46 → ER FS 15:48
DX: N20.0 Calculus of kidney (principal); M62.830 Muscle spasm of back; E66.9 Obesity, unspecified; I10 Essential (primary) hypertension; E78.00 Pure hypercholesterolemia, unspecified; F32.9 Major depressive disorder, single episode, unspecified; E11.9 Type 2 diabetes mellitus without complications; G89.29 Other chronic pain; M54.9 Dorsalgia, unspecified; N40.0 Benign prostatic hyperplasia without lower urinary tract symptoms; Z68.34 Body mass index [BMI] 34.0-34.9, adult; Z87.891 Personal history of nicotine dependence; Z79.899 Other long term (current) drug therapy; Z79.84 Long term (current) use of oral hypoglycemic drugs; Z79.891 Long term (current) use of opiate analgesic
CPT/HCPCS: 36415; 74176; 80053; 81000; 85025

== ENCOUNTER → 2020-09-23 | Outpatient (CLI) | payer MEDICARE, MEDICAID ==
--- NOTE | 2020-09-23 15:56 | Diagnostic Imaging Report ---
INDICATION: Right-sided abdominal pain. History of left ureteral calculus. COMPARISON: 09/19/2020 FINDINGS: 2 frontal radiographic views of the abdomen were obtained. Multiple bulky calcifications are seen projecting over the left renal shadow, as well as the proximal left ureter. This corresponds to appearance on recent CT abdomen and pelvis dated 09/19/2020. No other unexpected extraosseous calcifications or radiopaque foreign bodies are seen. Small bowel loops are nondistended. There is no large collection of free intraperitoneal air. Included portions lung bases are clear. Osseous structures show no gross acute abnormalities. IMPRESSION: 1. Multiple bulky left renal and proximal ureteral calculi. 2. Nonobstructed small bowel gas pattern. Dictated by: Dictated on workstation # [id number]
== END ==
LOC: RAD 13:07
PROVIDERS: ATTEND Urology
DX: N20.2 Calculus of kidney with calculus of ureter (principal)
CPT/HCPCS: 74018

== ENCOUNTER 2020-09-24 05:39 | Outpatient (CLI) | payer MEDICARE, MEDICAID ==
[~2020-09-24] VITALS: Ht 175.3 cm; Wt 68.1 kg
== END 2020-09-24 13:14 | disposition home or self-care (01) ==
LOC: PREOP 05:39
PROVIDERS: ATTEND Urology
DX: Z01.818 Encounter for other preprocedural examination (principal)

== ENCOUNTER 2020-09-28 07:13 | Day surgery (SDC) | payer MEDICARE, MEDICAID ==
[~2020-09-28] VITALS: Ht 175.3 cm; Wt 113.6 kg
[2020-09-28] VITALS (10 sets, daily range): BP systolic 101–137; BP diastolic 66–87
[2020-09-28] MEDS ORDERED: cefTRIAXone 1,000 MG in WATER (STERILE) FOR INJECTION 10 ML IV ONE (07:30)
--- NOTE | 2020-09-28 07:34 | Progress Note-Pre Operative ---
Pre-Operative Progress Note H&P Reviewed The H&P was reviewed, patient examined and no changes noted. Date Seen by Provider: Sep 28, 2020 Time Seen by Provider: 07:33 Date H&P Reviewed: Sep 28, 2020 Time H&P Reviewed: 07:33 Pre-Operative Diagnosis: LT PROXIMAL URETERAL AND RENAL STONES JONATHAN CONLEY MD Sep 28, 2020 07:34
--- NOTE | 2020-09-28 08:13 | Diagnostic Imaging Report ---
INDICATION: Pre-lithotripsy, renal stones COMPARISON: 09/23/2020 TECHNIQUE: Two radiographs of the abdomen dated 09/28/2020 FINDINGS: Multiple chunky calcifications are again identified overlying the left renal shadow. These appear similar to the prior examination. Additionally, a 1.4 cm calcification is seen overlying the expected location of the proximal left ureter. The calcifications which were immediately distal to this location on the prior x-ray are no longer visualized. Phleboliths are present within the lower pelvis. No suspicious calcifications overlying the right renal shadow. Nonobstructive bowel gas pattern. No free air. Scattered osseous degenerative changes without acute osseous abnormality. IMPRESSION: Multiple left renal calculi are again identified. Probable left-sided proximal ureterolith is again seen, though some of previously noted left-sided ureterolith have passed since the prior examination. Dictated by: Dictated on workstation # [id number]
--- NOTE | 2020-09-28 09:46 | Progress Note-Post Operative ---
Post-Operative Progess Note Surgeon (s)/Food Stylist (s) Surgeon JONATHAN CONLEY MD Food Stylist: NONE Pre-Operative Diagnosis LT PROXIMAL URETERAL AND RENAL STONES Post-Operative Diagnosis SAME Procedure & Operative Findings Date of Procedure 09/28/20 Procedure Performed/Findings LT ESWL Anesthesia Type GENERAL Estimated Blood Loss Estimated blood loss (mL): NONE Specimens/Packing Specimens Removed NONE Packing: NONE JONATHAN CONLEY MD Sep 28, 2020 09:46
--- NOTE | 2020-09-28 09:49 | Discharge Inst-Urology ---
Discharge Inst-Urology Reconcile Patient Problems Problems Reviewed?: Yes Final Diagnosis LT URETERAL AND RENAL STONES Patient Instructions/Follow Up Plan/Assessment/Instructions Please make appointment to been seen in office Wednesday 10/11, KUB prior to it KUB on way home Post ESWL instructions Increase oral fluids for 48 hours and then as needed. Diet and Activity as tolerated. If questions or concerns contact your physician Or seek help at emergency department. JONATHAN CONLEY MD Sep 28, 2020 09:49
[2020-09-28] MEDS ORDERED: ONDANSETRON 4 MG/2 ML (SDV) Z0FRAN ONE (11:16)
[2020-09-28] MEDS ORDERED: SEVOFLURANE (ULTANE) 15 ML INHAL SOLN ONE ×3 (11:16→11:57)
[2020-09-28] MEDS ORDERED: LIDOCAINE PF 2% 5 ML (XYLOCAINE) VIAL ONE (11:16)
[2020-09-28] MEDS ORDERED: KETOROLAC 30 MG/ML VIAL ONE (11:16)
[2020-09-28] MEDS ORDERED: proPOfol 200 MG/20 ML (DIPRIVAN) VIAL IV ONE (11:16)
[2020-09-28] MEDS ORDERED: FUROSEMIDE 40 MG/4 ML INJ (LASIX) ONE (11:16)
[2020-09-28] MEDS ORDERED: MIDAZOLAM 2 MG/2 ML (VERSED) VIAL ONE (11:17)
[2020-09-28] MEDS ORDERED: fentaNYL INJ 100 MCG/2 ML AMP ONE (11:17)
[2020-09-28] MEDS ORDERED: LACTATED RINGERS 1,000 ML IV PRN (11:30)
--- NOTE | 2020-09-28 12:01 | Anesthesia-General Post-Op ---
General Patient Condition Mental Status/LOC: Same as Preop Cardiovascular: Satisfactory Nausea/Vomiting: Absent Respiratory: Satisfactory Pain: Controlled Complications: Absent Post Op Complications Complications None Follow Up Care/Instructions Patient Instructions None needed. Anesthesia/Patient Condition Patient Condition Patient is doing well, no complaints, stable vital signs, no apparent adverse anesthesia problems. No complications reported per nursing. ROSA FOOTE CRNA Sep 28, 2020 12:01
[2020-09-28] MEDS ORDERED: TMSL.4C PO (13:12)
[2020-09-28] MEDS ORDERED: TRM50T PO (13:12)
[2020-09-28] MEDS ORDERED: NITR-65 PO (13:12)
--- NOTE | 2020-09-28 13:48 | Diagnostic Imaging Report ---
INDICATION: Status post ESWL. COMPARISON: Earlier same day. FINDINGS: Single frontal radiographic view of the abdomen was obtained. Previously described ellipsoid calculus projecting over the left psoas muscle at the L3 level is no longer identified. Findings may be on the basis of fragmentation from interval ESWL. Multiple left renal calculi are again identified. Small bowel loops are nondistended. There is no large collection of free intraperitoneal air. No unexpected radiopaque foreign bodies are seen. IMPRESSION: 1. Probable interval fragmentation of previously described left ureteral calculus. 2. Redemonstration of multiple left renal calculi. Dictated by: Dictated on workstation # [id number]
--- NOTE | 2020-09-28 15:43 | OPERATIVE REPORT ---
DATE OF SERVICE: 09/28/2020 PREOPERATIVE DIAGNOSIS: Left proximal ureteral and renal stones. POSTOPERATIVE DIAGNOSIS: Left proximal ureteral and renal stones. OPERATION PERFORMED: Left ESWL. SURGEON: Favio Conley MD ANESTHESIA: General. COMPLICATIONS: None. DESCRIPTION OF PROCEDURE: Under satisfactory general anesthesia, the patient in supine position on the ESWL table, the left proximal ureteral stone was localized. Shocks were delivered at kV of 6, a total of 3000 shocks fragmented the stone nicely. The patient received 30 mg of Toradol and 40 mg of Lasix at the end of the procedure. He tolerated the procedure and anesthesia well and was sent to recovery room in stable condition. Job ID: [id number] DocumentID: [id number] Dictated Date: 09/28/2020 11:48:40 Multineedle Shirrer Date: 09/28/2020 15:42:06 Dictated By: FAVIO CONLEY MD
== END 2020-09-28 14:20 | disposition home or self-care (01) ==
LOC: SDC 07:13
PROVIDERS: ATTEND Urology
DX: N20.2 Calculus of kidney with calculus of ureter (principal); I10 Essential (primary) hypertension; G47.33 Obstructive sleep apnea (adult) (pediatric); E11.9 Type 2 diabetes mellitus without complications; M19.90 Unspecified osteoarthritis, unspecified site; E66.01 Morbid (severe) obesity due to excess calories; K21.9 Gastro-esophageal reflux disease without esophagitis; Z79.899 Other long term (current) drug therapy; Z79.84 Long term (current) use of oral hypoglycemic drugs; Z68.37 Body mass index [BMI] 37.0-37.9, adult
CPT/HCPCS: 74018; 82947; 87081

== ENCOUNTER → 2020-10-11 | Outpatient (CLI) | payer MEDICARE, MEDICAID ==
--- NOTE | 2020-10-11 14:44 | Diagnostic Imaging Report ---
EXAMINATION: Abdomen 1 view HISTORY: LT UPPER URETERAL STONE POST ESWL COMPARISON: 09/28/2020 FINDINGS: There is a moderate amount of gas and stool throughout the colon. Nonobstructive bowel gas pattern. There are multiple radiopacities overlying the left kidney measuring up to 1.6 cm. There have changed in positioning from 09/28/2020. The lung bases are clear. The osseous structures are intact. IMPRESSION: Multiple likely fragmented renal calculi measuring up to 1.6 cm overlying the left kidney. These have migrated and are in a different configuration than from prior radiograph on 09/28/2020. Dictated by: Dictated on workstation # [id number]
== END ==
LOC: RAD 13:32
PROVIDERS: ATTEND Urology
DX: N20.2 Calculus of kidney with calculus of ureter (principal)
CPT/HCPCS: 74018

== ENCOUNTER → 2020-10-14 | Outpatient (CLI) | payer MEDICARE, MEDICAID ==
--- NOTE | 2020-10-14 10:52 | Diagnostic Imaging Report ---
PROCEDURE: US Renal Bilateral. TECHNIQUE: Multiple real-time grayscale images were obtained over the kidneys in various projections bilaterally. INDICATION: Abnormal CT demonstrating a left renal mass. Study is performed to evaluate for solid versus cystic lesion. Correlation is made with CT study from 09/19/2020. Right kidney measures 11.8 x 5.6 x 6.2 cm and left kidney measures 11.9 x 4.9 x 7.1 cm. Left kidney does contain a cyst in the upper pole corresponding to the CT abnormality approximately 2.1 x 1.7 cm. Echogenic foci in left kidney correspond to known calculi seen on CT. Right kidney is unremarkable. There is no hydronephrosis. IMPRESSION: Left renal cyst and left-sided nephrolithiasis. No hydronephrosis is detected. Dictated by: Dictated on workstation # [id number]
== END ==
LOC: RAD FS 09:15
PROVIDERS: ATTEND Urology
DX: N28.1 Cyst of kidney, acquired (principal); N20.0 Calculus of kidney
CPT/HCPCS: 76770

== ENCOUNTER → 2021-03-30 | Emergency (ER) | payer MEDICARE, MEDICAID ==
[~2021-03-30] VITALS: Ht 177 cm; Wt 115.5 kg
[~2021-03-30] MED LIST changes: +AZIT250T12 PO; +BUDE180A IH; +CATHETER FLUSH 10 ML SYR IV PRN; +HOLD METFORMIN - RECEIVED CONTRAST 20 ML VIAL IV SCH; +IOHEXOL 350 MG/ML 150 ML (OMNIPAQUE 350) VIAL IV ONE; +NS 100 ML (IVPB) BAG IV ONE; +NS IV 1000 ML 1,000 ML IV STA; +POTA-160 PO; -POTA10TA6 PO; -SULF1TAB35 PO; +SULF1TAB38 PO
--- NOTE | 2021-03-30 00:53 | ED GI ---
General Chief Complaint: Abdominal/GI Problems Stated Complaint: ALTERED MENTAL STATE History of Present Illness Date Seen by Provider: Mar 30, 2021 Time Seen by Provider: 00:50 Initial Comments 60-year-old male brought in by EMS. Patient has developmental delay. EMS reports that an individual from [place] called him and told him that he seemed more altered tonight. Patient is well-known by EMS reports that they feel he is near his baseline. Patient is brought in because he does not have any appetite, some abdominal pain. Is mildly tachycardic. He does not complain of any fever cough or other systemic complaints but once again has developmental delay and is difficult to determine a true HPI Allergies and Home Medications Allergies Coded Allergies: No Known Drug Allergies (Unverified , 12/24/19) Patient Home Medication List Home Medication List Reviewed: Yes Azithromycin (Azithromycin) 250 Mg Tablet, 250 MG PO UD Prescribed by: ANTHONY PALM on 03/30/21413 Budesonide (Pulmicort Flexhaler) 180 Mcg Aer.pow.ba, 180 MCG IH BID Prescribed by: ANTHONY PALM on 03/30/21413 Cetirizine HCl (Cetirizine HCl) 10 Mg Tablet, 10 MG PO DAILY, (Reported) Entered as Reported by: JOSE RUELAS on 12/23/19 1448 Duloxetine HCl (Duloxetine HCl) 60 Mg Capsule.dr, 60 MG PO BID, (Reported) Entered as Reported by: JOSE RUELAS on 12/23/19 1448 Ezetimibe (Ezetimibe) 10 Mg Tablet, 10 MG PO DAILY, (Reported) Entered as Reported by: MICHELLE AGUILAR on 04/29/18 1528 Metformin HCl (Metformin HCl) 1,000 Mg Tablet, 1,000 MG PO BID, (Reported) Entered as Reported by: JOSE RUELAS on 12/23/19 1447 Metoprolol Succinate (Metoprolol Succinate) 50 Mg Tab.er.24h, 50 MG PO BID, (Reported) Entered as Reported by: YVAN PALMER on 08/22/18 1103 Multivitamin (Multivitamins) 1 Each Tablet, 1 TAB PO DAILY, (Reported) Entered as Reported by: YVAN PALMER on 08/22/18 1115 Nabumetone (Nabumetone) 750 Mg Tablet, 750 MG PO BID, (Reported) Entered as Reported by: MICHELLE AGUILAR on 04/29/18 1528 Niacin (Niacin ER) 1,000 Mg Tab.er.24h, 1,000 MG PO DAILY, (Reported) Entered as Reported by: YVAN PALMER on 08/22/18 1103 Nitrofurantoin Monohyd/M-Cryst (Macrobid 100 mg Capsule) 100 Mg Capsule, 1 TAB PO BID WITH MEALS Prescribed by: ISAC DELONG on 09/28/20 1312 Simvastatin (Simvastatin) 80 Mg Tablet, 80 MG PO HS, (Reported) Entered as Reported by: MICHELLE AGUILAR on 04/29/18 1528 Tamsulosin HCl (Flomax) 0.4 Mg Cap, 0.4 MG PO DAILY Prescribed by: ISAC DELONG on 09/28/20 1312 Topiramate (Topiramate) 50 Mg Tablet, 50 MG PO HS, (Reported) Entered as Reported by: YVAN PALMER on 08/22/18 1103 Tramadol HCl (Tramadol HCl) 50 Mg Tablet, 50-100 MG PO Q4H Prescribed by: ISAC DELONG on 09/28/20 1312 Review of Systems Review of Systems Constitutional: see HPI; No chills, No fever EENTM: No Symptoms Reported Respiratory: Denies Cough, Denies Shortness of Air Cardiovascular: Denies Chest Pain Gastrointestinal: Abdominal Pain; Denies Nausea; Poor Appetite; Denies Vomiting Genitourinary: No Symptoms Reported Musculoskeletal: no symptoms reported Skin: no symptoms reported Psychiatric/Neurological: See HPI Endocrine: No Symptoms Reported Hematologic/Lymphatic: No Symptoms Reported Past Xmexpir-Fusxla-Mglcak Hx Immunizations Up To Date PED Vaccines UTD: Yes Seasonal Allergies Seasonal Allergies: Yes Past Medical History Surgeries: Yes (HERNIA, HEMORRHOIDECTOMY, ESWL) Abdominal Respiratory: Yes Sleep Apnea Currently Using CPAP: Yes Cardiac: Yes High Cholesterol, Hypertension Neurological: Yes Neuropathy Reproductive Disorders: No Sexually Transmitted Disease: No HIV/AIDS: No Genitourinary: Yes (UROSTOMY PLACED July,) Kidney Stones Gastrointestinal: Yes Colitis, Gastroesophageal Reflux, Diverticulosis Musculoskeletal: Yes Arthritis, Chronic Back Pain Endocrine: Yes Diabetes, Non-Insulin dep HEENT: Yes (READING GLASSES) Loss of Vision: Bilateral Hearing Impairment: Denies Cancer: No Psychosocial: Yes Depression Integumentary: No (hx pressure sores on buttocks) Blood Disorders: No Adverse Reaction/Blood Tranf: No (N/A) Family Medical History Patient reports no known family medical history. Physical Exam Vital Signs Vital Signs - First Documented 03/30/21 00:34 Temp 36.9 Pulse 130 Resp 22 B/P (MAP) 130/80 (97) Pulse Ox 92 O2 Delivery Room Air Capillary Refill : Height/Weight/BMI Height: 5'9.00" Weight: 245lbs. 0oz. [id number]; 36.96 BMI Method:Stated General Appearance: no apparent distress Respiratory: lungs clear, normal breath sounds Cardiovascular: normal peripheral pulses, tachycardia Gastrointestinal: distended, tenderness (Diffuse but left seems greater than right) Extremities: normal range of motion Neurologic/Psychiatric: other (Patient with known developmental delay, unknown baseline but close to normal baseline per EMS) Skin: normal color, warm/dry Focused Exam Lactate Level 03/30/21 00:48: Lactic Acid Level 1.56 Lactic Acid Level Laboratory Tests Test 03/30/21 00:48 Lactic Acid Level 1.56 MMOL/L (0.50-2.00) Procedures/Interventions Date of ETT Placement: August 22, 2018 Time of ETT Placement: 07 Progress/Results/Core Measures Results/Orders Lab Results Laboratory Tests Test 03/30/21 00:48 03/30/21 01:00 03/30/21 02:05 Range/Units White Blood Count 7.2 4.3-11.0 10^3/uL Red Blood Count 4.16 L 4.30-5.52 10^6/uL Hemoglobin 13.0 L 13.3-17.7 g/dL Hematocrit 40 40-54 % Mean Corpuscular Volume 95 80-99 fL Mean Corpuscular Hemoglobin 31 25-34 pg Mean Corpuscular Hemoglobin Concent 33 32-36 g/dL Red Cell Distribution Width 14.0 10.0-14.5 % Platelet Count 296 130-400 10^3/uL Mean Platelet Volume 8.9 L 9.0-12.2 fL Immature Granulocyte % (Auto) 0 % Neutrophils (%) (Auto) 71 42-75 % Lymphocytes (%) (Auto) 20 12-44 % Monocytes (%) (Auto) 8 0-12 % Eosinophils (%) (Auto) 0 0-10 % Basophils (%) (Auto) 0 0-10 % Neutrophils # (Auto) 5.1 1.8-7.8 X 10^3 Lymphocytes # (Auto) 1.5 1.0-4.0 X 10^3 Monocytes # (Auto) 0.6 0.0-1.0 X 10^3 Eosinophils # (Auto) 0.0 0.0-0.3 10^3/uL Basophils # (Auto) 0.0 0.0-0.1 10^3/uL Immature Granulocyte # (Auto) 0.0 0.0-0.1 10^3/uL D-Dimer 0.68 H 0.00-0.49 UG/ML Sodium Level 137 135-145 MMOL/L Potassium Level 3.6 3.6-5.0 MMOL/L Chloride Level 99 98-107 MMOL/L Carbon Dioxide Level 22 21-32 MMOL/L Anion Gap 16 H 5-14 MMOL/L Blood Urea Nitrogen 13 7-18 MG/DL Creatinine 0.82 0.60-1.30 MG/DL Estimat Glomerular Filtration Rate 96 BUN/Creatinine Ratio 16 Glucose Level 132 H 70-105 MG/DL Lactic Acid Level 1.56 0.50-2.00 MMOL/L Calcium Level 8.8 8.5-10.1 MG/DL Corrected Calcium 9.3 8.5-10.1 MG/DL Total Bilirubin 0.5 0.1-1.0 MG/DL Aspartate Amino Transf (AST/SGOT) 47 H 5-34 U/L Alanine Aminotransferase (ALT/SGPT) 36 0-55 U/L Alkaline Phosphatase 78 40-136 U/L Myoglobin 47.1 10.0-92.0 NG/ML C-Reactive Protein 7.68 H <0.50 MG/DL Total Protein 7.5 6.4-8.2 GM/DL Albumin 3.4 3.2-4.5 GM/DL Lipase 83 H 8-78 U/L Influenza Type A Antigen NEGATIVE NEGATIVE Influenza Type B Antigen NEGATIVE NEGATIVE SARS-CoV-2 RNA (RT-PCR) Detected H Not Detecte Urine Color ORANGE Urine Clarity SL CLOUDY Urine pH 6.0 5-9 Urine Specific Robinson 1.020 1.016-1.022 Urine Protein 1+ H NEGATIVE Urine Glucose (UA) NEGATIVE NEGATIVE Urine Ketones 1+ H NEGATIVE Urine Nitrite NEGATIVE NEGATIVE Urine Bilirubin NEGATIVE NEGATIVE Urine Urobilinogen 0.2 < = 1.0 MG/DL Urine Leukocyte Esterase NEGATIVE NEGATIVE Urine RBC (Auto) 2+ H NEGATIVE Urine RBC 5-10 H /HPF Urine WBC RARE /HPF Urine Squamous Epithelial Cells 0-2 /HPF Urine Crystals NONE /LPF Urine Bacteria TRACE /HPF Urine Casts PRESENT /LPF Urine Hyaline Casts 2-5 H /LPF Urine Mucus MODERATE H /LPF Urine Culture Indicated NO My Orders Orders - PALM,ANTHONY L DO Cbc With Automated Diff (03/30/21 00:53) Comprehensive Metabolic Panel (03/30/21 00:53) Lactic Acid Analyzer (03/30/21 00:53) Lipase (03/30/21 00:53) Procalcitonin (Pct) (03/30/21 00:53) Ua Culture If Indicated (03/30/21 00:53) Myoglobin Serum (03/30/21 00:53) Crp Fs (03/30/21 00:53) Acute Abd Series (03/30/21 00:53) Ns Iv 1000 Ml (Sodium Chloride 0.9%) (03/30/21 00:53) Covid 19 Inhouse Test (03/30/21 00:53) Influenza A & B Antigens (03/30/21 00:53) Fibrin Degradation Products (03/30/21 01:46) Ct [facility]ore Chest/Noang Abd-Pelv W (03/30/21 02:06) Iohexol Injection (Omnipaque 350 Mg/Ml 1 (03/30/21 02:15) Received Contrast (Hold Metformin- Contr (03/30/21 02:15) Sodium Chloride Flush (Catheter Flush Sy (03/30/21 02:15) Ns (Ivpb) (Sodium Chloride 0.9% Ivpb Bag (03/30/21 02:15) Medications Given in ED Current Medications Medications Dose Ordered Sig/Cathie Route Start Time Stop Time Status Last Admin Dose Admin Iohexol 150 ml ONCE ONCE IV 03/30/21 02:15 03/30/21 02:27 DC 03/30/21 02:59 125 ML Sodium Chloride 100 ml ONCE ONCE IV 03/30/21 02:15 03/30/21 02:27 DC 12/15/21 02:59 80 ML Vital Signs/I&O 03/30/21 03/30/21 03/30/21 03/30/21 00:34 02:00 03:15 05:00 Temp 36.9 Pulse 130 108 103 101 Resp 22 34 17 18 B/P (MAP) 130/80 (97) 127/69 117/68 111/76 Pulse Ox 92 94 94 94 O2 Delivery Room Air Room Air Room Air Room Air Progress Progress Note #1: Progress Note Patient is much more alert and talkative. Patient with bilateral pneumonia on x-ray and on CT. I suspect patient has Covid pneumonia however his Covid test is pending. I will prescribe him azithromycin and Pulmicort. Patient states that he is ready to go home. I encouraged him to follow-up with any concerns or worsening of his condition. Patient was stable upon discharge Progress Note #2: Time: 06:33 Progress Note Patient had a positive Covid test returned. I had the nurses attempt to call patient to give him a positive testing and also to reiterate need to follow-up with his primary care provider for further evaluation of a renal abnormality on CT. A message was left with patient return call to the ER. Diagnostic Imaging Diagonstic Imaging: CT Plain Films/CT/US/NM/MRI: chest, abdomen Comments Bilateral pneumonia, no acute findings in abdomen CT Reviewed: Reviewed [facility] Study Diagonstic Imaging: CT Comments CT LENORE CHEST/NOANG ABD-PELV W INDICATION: abd pain CTA chest, abdomen and pelvis Thin axial sections through the chest, abdomen and pelvis are obtained following intravenous contrast bolus. Multiplanar MIP images were reconstructed and reviewed. All CT scans use one or more of the following dose optimizing techniques: automated exposure control, MA and/or KvP adjustment based on patient size and exam type or iterative reconstruction. INDICATION: Abdominal pain and chest pain. Prior renal stones. EXAMINATION: CT of the chest with CT abdomen and pelvis with contrast 03/30/2021 COMPARISON: CT abdomen and pelvis from 09/19/2020 FINDINGS: CHEST: There are no central or proximal segmental pulmonary emboli. The thoracic aorta demonstrates no evidence for an acute abnormality. There are scattered slightly prominent lymph nodes within the mediastinum and bilateral perihilar regions. Within the lungs, diffuse scattered patchy airspace opacity seen within the periphery of both lungs suggesting Covid. Clinical correlation recommended. There are no significant effusions. The visualized upper abdomen demonstrates hepatomegaly with fatty infiltration noted. There is no acute osseous abnormality. IMPRESSION: 1. No evidence for pulmonary embolus. 2. Diffuse scattered bilateral infiltrates predominantly peripherally; see above discussion. 3. Likely reactive adenopathy. CT abdomen and pelvis: There is hepatomegaly with fatty infiltration noted. The spleen, gallbladder, pancreas, and adrenal glands appear unremarkable. There is fat stranding about the left kidney with multiple nonobstructive stones in the kidney. However, within the proximal renal pelvis there is a large stone which extends towards the inferior pole versus a conglomerate of stones. The largest dimension is 1.6 cm. This causes mild left-sided hydronephrosis. There are no distal ureteral stones. No ureteral stones on the right. No hydronephrosis on the right. Mild fat stranding is seen about both kidneys, age indeterminate. Pyelonephritis should be clinically excluded. There is a cystic lesion off of the posterior aspect of the left kidney which demonstrates Hounsfield units greater than expected for a cyst. Dedicated imaging of the kidney non-emergently is recommended. There are other hypodensities within both kidneys too small for characterization. The appendix is normal. There is diverticular disease without evidence for diverticulitis. There is no ascites or free air. There is no acute osseous abnormality. IMPRESSION: 1. Large stone within the proximal left renal pelvis and secondary mild hydronephrosis with multiple other nonobstructive stones throughout the left kidney. 2. Mild fat stranding about the kidneys which is age indeterminate; pyelonephritis should be clinically excluded. 3. Lesion off of the posterior aspect of the left kidney not consistent with a simple cyst. Dedicated imaging for further characterization recommended on non-emergent basis. 4. Hepatomegaly with hepatic steatosis. Other incidental findings as noted above. Reviewed: Reviewed by Me, Reviewed/Discussed Departure Impression Primary Impression: Community acquired bilateral lower lobe pneumonia Additional Impression: Suspected COVID-19 virus infection Disposition: 01 HOME, SELF-CARE Condition: Stable Departure-Patient Inst. Referrals: MARS PETERS DO (PCP/Family) Primary Care Physician Patient Instructions: COVID-19 ED, Pneumonia in Adults Add. Discharge Instructions: Please follow-up with your primary care provider if your Covid test comes back positive for further treatment options and close management Return to the ER with any worsening shortness of breath or any other concerns All discharge instructions reviewed with patient and/or family. Voiced understanding. Scripts Budesonide (Pulmicort Flexhaler) 180 Mcg Aer.pow.ba 180 MCG IH BID, #1 EACH Prov: ANTHONY PALM DO 03/30/21 Azithromycin (Azithromycin) 250 Mg Tablet 250 MG PO UD, #6 TAB TAKE 2 TABLETS ON DAY ONE THEN TAKE 1 TABLET DAILY FOR FOUR MORE DAYS Prov: ANTHONY PALM DO 03/30/21 ANTHONY PALM DO Mar 30, 2021 00:53
[2021-03-30 01:18] LABS: HEMATOCRIT 40 % (40-54); MEAN CORPUSCULAR HEMOGLOBIN 31 pg (25-34); MEAN CORPUSCULAR HGB CONC 33 g/dL (32-36); MEAN CORPUSCULAR VOLUME 95 fL (80-99); MEAN PLATELET VOLUME 8.9 fL (9.0-12.2); PLATELET COUNT 296 10^3/uL (130-400); WHITE BLOOD COUNT 7.2 10^3/uL (4.3-11.0)
[2021-03-30 01:19] LABS: BASOPHILS % (AUTO) 0 % (0-10); EOSINOPHILS % (AUTO) 0 % (0-10); LYMPHOCYTES # (AUTO) 1.5 X 10^3 (1.0-4.0); LYMPHOCYTES % (AUTO) 20 % (12-44); MONOCYTES # (AUTO) 0.6 X 10^3 (0.0-1.0); MONOCYTES % (AUTO) 8 % (0-12); NEUTROPHILS # (AUTO) 5.1 X 10^3 (1.8-7.8); NEUTROPHILS % (AUTO) 71 % (42-75)
[2021-03-30 01:30] LABS: BILIRUBIN,TOTAL 0.5 MG/DL (0.1-1.0); CALCIUM 8.8 MG/DL (8.5-10.1); CREATININE SERUM 0.82 MG/DL (0.60-1.30); POTASSIUM 3.6 MMOL/L (3.6-5.0)
[2021-03-30 01:31] LABS: ALBUMIN 3.4 GM/DL (3.2-4.5); TOTAL PROTEIN 7.5 GM/DL (6.4-8.2)
[2021-03-30 02:17] LABS: BILIRUBIN,URINE NEGATIVE (NEGATIVE); CLARITY,URINE SL CLOUDY; COLOR,URINE ORANGE; GLUCOSE, URINE (UA) NEGATIVE (NEGATIVE); KETONES,URINE 1+ (NEGATIVE); LEUKOCYTE ESTERASE ,URINE NEGATIVE (NEGATIVE); NITRITE,URINE NEGATIVE (NEGATIVE); PROTEIN,URINE 1+ (NEGATIVE)
[2021-03-30 02:18] LABS: BACTERIA,URINE TRACE /HPF; SQUAMOUS EPITHELIAL CELL,UR 0-2 /HPF; WBC,URINE RARE /HPF
--- NOTE | 2021-03-30 04:43 | Diagnostic Imaging Report ---
INDICATION: abd pain CTA chest, abdomen and pelvis Thin axial sections through the chest, abdomen and pelvis are obtained following intravenous contrast bolus. Multiplanar MIP images were reconstructed and reviewed. All CT scans use one or more of the following dose optimizing techniques: automated exposure control, MA and/or KvP adjustment based on patient size and exam type or iterative reconstruction. INDICATION: Abdominal pain and chest pain. Prior renal stones. EXAMINATION: CT of the chest with CT abdomen and pelvis with contrast 03/30/2021 COMPARISON: CT abdomen and pelvis from 09/19/2020 FINDINGS: CHEST: There are no central or proximal segmental pulmonary emboli. The thoracic aorta demonstrates no evidence for an acute abnormality. There are scattered slightly prominent lymph nodes within the mediastinum and bilateral perihilar regions. Within the lungs, diffuse scattered patchy airspace opacity seen within the periphery of both lungs suggesting Covid. Clinical correlation recommended. There are no significant effusions. The visualized upper abdomen demonstrates hepatomegaly with fatty infiltration noted. There is no acute osseous abnormality. IMPRESSION: 1. No evidence for pulmonary embolus. 2. Diffuse scattered bilateral infiltrates predominantly peripherally; see above discussion. 3. Likely reactive adenopathy. CT abdomen and pelvis: There is hepatomegaly with fatty infiltration noted. The spleen, gallbladder, pancreas, and adrenal glands appear unremarkable. There is fat stranding about the left kidney with multiple nonobstructive stones in the kidney. However, within the proximal renal pelvis there is a large stone which extends towards the inferior pole versus a conglomerate of stones. The largest dimension is 1.6 cm. This causes mild left-sided hydronephrosis. There are no distal ureteral stones. No ureteral stones on the right. No hydronephrosis on the right. Mild fat stranding is seen about both kidneys, age indeterminate. Pyelonephritis should be clinically excluded. There is a cystic lesion off of the posterior aspect of the left kidney which demonstrates Hounsfield units greater than expected for a cyst. Dedicated imaging of the kidney non-emergently is recommended. There are other hypodensities within both kidneys too small for characterization. The appendix is normal. There is diverticular disease without evidence for diverticulitis. There is no ascites or free air. There is no acute osseous abnormality. IMPRESSION: 1. Large stone within the proximal left renal pelvis and secondary mild hydronephrosis with multiple other nonobstructive stones throughout the left kidney. 2. Mild fat stranding about the kidneys which is age indeterminate; pyelonephritis should be clinically excluded. 3. Lesion off of the posterior aspect of the left kidney not consistent with a simple cyst. Dedicated imaging for further characterization recommended on non-emergent basis. 4. Hepatomegaly with hepatic steatosis. Other incidental findings as noted above. Dictated by: Dictated on workstation # [id number]
[2021-03-30 05:00] VITALS: BP 111/76
--- NOTE | 2021-03-30 06:25 | Diagnostic Imaging Report ---
INDICATION: Abdominal pain. FINDINGS: There is mild alveolar infiltrate in the lung bases. Bowel gas pattern appears normal with gas in the colon to the rectum. Very little stool is present. The stomach and small bowel are not distended. There is no organomegaly. There are calcifications overlying the left renal shadow. No bony abnormalities. IMPRESSION: 1. Nephrolithiasis of the left kidney. 2. Bilateral pulmonary infiltrates. Dictated by: Dictated on workstation # [id number]
== END ==
LOC: EDUNIT# 00:34 → ER FS 00:38
DX: U07.1 COVID-19 (principal); J18.9 Pneumonia, unspecified organism; R00.0 Tachycardia, unspecified; G47.30 Sleep apnea, unspecified; I10 Essential (primary) hypertension; E78.00 Pure hypercholesterolemia, unspecified; E11.9 Type 2 diabetes mellitus without complications; F32.9 Major depressive disorder, single episode, unspecified; G89.29 Other chronic pain; M54.9 Dorsalgia, unspecified; Z79.84 Long term (current) use of oral hypoglycemic drugs; Z79.899 Other long term (current) drug therapy; Z79.891 Long term (current) use of opiate analgesic
CPT/HCPCS: 36415; 71275; 74022; 74177; 80053; 81000; 83605; 83690; 83874; 84145; 85025; 85379; 86141; 87636; 87804

== ENCOUNTER → 2021-04-18 | Outpatient (CLI) | payer MEDICARE, MEDICAID ==
[~2021-04-18] MED LIST changes: +IOHEXOL 350 MG/ML 100 ML (OMNIPAQUE 350) VIAL IV ONE; -IOHEXOL 350 MG/ML 150 ML (OMNIPAQUE 350) VIAL IV ONE; +MELO7.5T46 PO; -NS IV 1000 ML 1,000 ML IV STA
--- NOTE | 2021-04-18 11:44 | Diagnostic Imaging Report ---
PROCEDURE: CT abdomen with and without contrast. TECHNIQUE: Multiple contiguous axial CT images of the abdomen were obtained prior to and after intravenous administration of iodinated contrast. Auto Exposure Controls were utilized during the CT exam to meet ALARA standards for radiation dose reduction. INDICATION: Left renal calcifications and left renal lesion. This study is performed for further evaluation. COMPARISON: Correlation is made with the prior CT from 03/30/2021. FINDINGS: There appear to be some minimal patchy groundglass infiltrates in both lung bases. The liver demonstrates diffuse low density, consistent with hepatic steatosis. No discrete liver mass is identified. The gallbladder is unremarkable. There is no biliary ductal dilatation. The pancreas and spleen are unremarkable. No adrenal mass is detected. The right kidney is unremarkable. The left kidney does contain numerous calculi. There is a large calculus in the lower pole measuring approximately 17 mm in size. There is a 9 mm x 5 mm calculus in the proximal left ureter as well. There is a low-density lesion extending exophytically from the posterior left kidney measuring approximately 2.1 cm in size. This does show Hounsfield measurements greater than simple water and may represent a complex cyst. This does not demonstrate contrast enhancement. The aorta is nonaneurysmal. The bowel loops are of normal caliber. There is no ascites. IMPRESSION: 1. Left-sided nephrolithiasis. There is a 9 mm x 5 mm calculus in the proximal left ureter producing mild hydronephrosis. 2. There is a 2 cm low-density left renal lesion without enhancement, suggestive of a complex cyst. 3. Hepatic steatosis. 4. Minimal patchy bibasilar groundglass pulmonary infiltrates. Dictated by: Dictated on workstation # [id number]
== END ==
LOC: RAD FS 09:18
PROVIDERS: ATTEND Urology
DX: N13.2 Hydronephrosis with renal and ureteral calculous obstruction (principal); N28.89 Other specified disorders of kidney and ureter; K76.0 Fatty (change of) liver, not elsewhere classified
CPT/HCPCS: 74170

== ENCOUNTER → 2021-04-19 | Outpatient (CLI) | payer MEDICARE, MEDICAID ==
[~2021-04-19] MED LIST changes: -CATHETER FLUSH 10 ML SYR IV PRN; -HOLD METFORMIN - RECEIVED CONTRAST 20 ML VIAL IV SCH; -IOHEXOL 350 MG/ML 100 ML (OMNIPAQUE 350) VIAL IV ONE; -NS 100 ML (IVPB) BAG IV ONE
--- NOTE | 2021-04-19 14:34 | Diagnostic Imaging Report ---
HISTORY: Left ureteral stone. COMPARISON: CT from 04/18/2021. FINDINGS: Frontal view of the abdomen demonstrates the proximal left ureteral stone in similar location to the prior CT. On radiographs, this measures about 1.5 cm in diameter. Multiple additional large calculi are seen within the left kidney. No significant calculi are seen in the right kidney. No distended loops of bowel are seen. There is no large collection of free air. IMPRESSION: 1. Proximal left ureteral stone appears unchanged in position since the prior CT. There are multiple additional large calculi in the left kidney. Dictated by: Dictated on workstation # [id number]
== END ==
LOC: RAD 12:41
PROVIDERS: ATTEND Urology
DX: N20.2 Calculus of kidney with calculus of ureter (principal)
CPT/HCPCS: 74018

== ENCOUNTER 2021-04-20 05:36 | Outpatient (CLI) | payer MEDICARE, MEDICAID ==
[~2021-04-20] VITALS: Ht 175.3 cm; Wt 113.6 kg
[~2021-04-20 05:36] MED LIST changes: -MELO7.5T46 PO
[2021-04-20] MEDS ORDERED: MELO7.5T46 PO (10:45)
== END 2021-04-20 14:19 | disposition home or self-care (01) ==
LOC: PREOP 05:36
PROVIDERS: ATTEND Urology
DX: Z01.818 Encounter for other preprocedural examination (principal)

== ENCOUNTER 2021-04-26 06:49 | Day surgery (SDC) | payer MEDICARE, MEDICAID ==
[~2021-04-26] VITALS: Ht 175 cm; Wt 113.6 kg
[2021-04-26] VITALS (10 sets, daily range): BP systolic 106–138; BP diastolic 62–95
[~2021-04-26 06:49] MED LIST changes: +MELO7.5T46 PO
[2021-04-26] MEDS ORDERED: cefTRIAXone 1 GM PRE-MIX 50 ML IV ONE (07:15)
--- NOTE | 2021-04-26 07:16 | Diagnostic Imaging Report ---
ABDOMEN/KUB 1VIEW INDICATION: Lithotripsy, renal stones COMPARISON: 04/19/2021 TECHNIQUE: AP view of the abdomen FINDINGS: A cluster of stones in the mid and lower pole the left kidney are again noted with the largest measuring 1.7 cm. Scattered pelvic phleboliths are unchanged. Nonobstructive bowel gas pattern. IMPRESSION: Multiple large left renal stones are present. Dictated by: Dictated on workstation # [id number]
--- NOTE | 2021-04-26 07:30 | Progress Note-Pre Operative ---
Pre-Operative Progress Note H&P Reviewed The H&P was reviewed, patient examined and no changes noted. Date Seen by Provider: Apr 26, 2021 Time Seen by Provider: 07:30 Date H&P Reviewed: Apr 26, 2021 Time H&P Reviewed: 07:30 Pre-Operative Diagnosis: LT RENAL STONES JONATHAN CONLEY MD Apr 26, 2021 07:30
[2021-04-26] MEDS: LACTATED RINGERS 1,000 ML IV PRN ×2 (08:10→10:49)
--- NOTE | 2021-04-26 09:10 | Progress Note-Post Operative ---
Post-Operative Progess Note Surgeon (s)/Product Support Sales Representative (s) Surgeon JONATHAN CONLEY MD Product Support Sales Representative: NONE Pre-Operative Diagnosis LT RENAL STONES Post-Operative Diagnosis SAME Procedure & Operative Findings Date of Procedure 04/26/21 Procedure Performed/Findings LT ESWL Anesthesia Type GENERAL Estimated Blood Loss Estimated blood loss (mL): NONE Specimens/Packing Specimens Removed NONE Packing: NONE JONATAHN CONLEY MD Apr 26, 2021 09:10
--- NOTE | 2021-04-26 09:12 | Discharge Inst-Urology ---
Discharge Inst-Urology Reconcile Patient Problems Problems Reviewed?: Yes Final Diagnosis LT RENAL STONES Patient Instructions/Follow Up Plan/Assessment/Instructions Please make appointment to been seen in officeMonday 05/09, [place] prior to it. KUB on way home Post ESWL instructions Increase oral fluids for 48 hours and then as needed. Diet and Activity as tolerated. If questions or concerns contact your physician Or seek help at emergency department. JONATHAN CONLEY MD Apr 26, 2021 09:12
[2021-04-26] MEDS ORDERED: LIDOCAINE PF 2% 5 ML (XYLOCAINE) VIAL ONE (09:48)
[2021-04-26] MEDS ORDERED: proPOfol 200 MG/20 ML (DIPRIVAN) VIAL IV ONE (09:48)
[2021-04-26] MEDS ORDERED: fentaNYL INJ 100 MCG/2 ML AMP ONE (09:48)
[2021-04-26] MEDS ORDERED: ONDANSETRON 4 MG/2 ML (SDV) Z0FRAN ONE ×2 (09:48→10:42)
[2021-04-26] MEDS ORDERED: SEVOFLURANE (ULTANE) 15 ML INHAL SOLN ONE (10:42)
[2021-04-26] MEDS ORDERED: KETOROLAC 30 MG/ML VIAL ONE (10:42)
[2021-04-26] MEDS ORDERED: FUROSEMIDE 40 MG/4 ML INJ (LASIX) ONE (10:42)
--- NOTE | 2021-04-26 11:06 | Anesthesia-General Post-Op ---
General Patient Condition Mental Status/LOC: Same as Preop Cardiovascular: Satisfactory Nausea/Vomiting: Absent Respiratory: Satisfactory Pain: Controlled Complications: Absent Post Op Complications Complications None Follow Up Care/Instructions Patient Instructions None needed. Anesthesia/Patient Condition Patient Condition Patient is doing well, no complaints, stable vital signs, no apparent adverse anesthesia problems. No complications reported per nursing. DAE HEARN CRNA Apr 26, 2021 11:06
[2021-04-26] MEDS ORDERED: TMSL.4C PO (12:06)
[2021-04-26] MEDS ORDERED: NITR-65 PO (12:06)
[2021-04-26] MEDS ORDERED: KETO10TA PO (12:06)
--- NOTE | 2021-04-26 12:42 | Diagnostic Imaging Report ---
EXAM: ABDOMEN/KUB 1VIEW INDICATION: Renal stones. Post ESWL. COMPARISON: 04/26/2021 at 7:08 AM. FINDINGS: There appears to have been interval comminution one of the multiple renal stones in the left kidney. Pelvic phleboliths. Nonspecific bowel gas pattern. IMPRESSION: Probable interval comminution of one of the multiple left renal stones. Dictated by: Dictated on workstation # [id number]
--- NOTE | 2021-04-26 15:31 | OPERATIVE REPORT ---
DATE OF SERVICE: 04/26/2021 PREOPERATIVE DIAGNOSIS: Left renal stones. POSTOPERATIVE DIAGNOSIS: Left renal stones. OPERATION PERFORMED: Left ESWL. SURGEON: Favio Conley MD. ANESTHESIA: General. COMPLICATIONS: None. DESCRIPTION OF PROCEDURE: Under satisfactory general anesthesia, the patient supine on the ESWL table, the larger stone middle one that was originally in the proximal ureter and decided to move back into the kidney was localized. Shocks were delivered at kV of 6, total of 2500 shocks. Because of anesthesia and the motion of the kidney up and down, the other stones were getting also the shocks. The targeted stones broke up very nicely as well as I think the other ones too. The patient received 40 mg of Lasix and 30 mg of Toradol IV at the end of the procedure. He tolerated the procedure and anesthesia well and was sent to recovery room in a stable condition. Job ID: [id number] DocumentID: [id number] Dictated Date: 04/26/2021 10:40:29 Solderer Dipper Date: 04/26/2021 15:31:25 Dictated By: FAVIO CONLEY MD
== END 2021-04-26 12:40 | disposition home or self-care (01) ==
LOC: SDC 06:49
PROVIDERS: ATTEND Urology
DX: N20.0 Calculus of kidney (principal); K21.9 Gastro-esophageal reflux disease without esophagitis; I10 Essential (primary) hypertension; E78.5 Hyperlipidemia, unspecified; E11.9 Type 2 diabetes mellitus without complications; E11.40 Type 2 diabetes mellitus with diabetic neuropathy, unspecified; E66.01 Morbid (severe) obesity due to excess calories; M19.90 Unspecified osteoarthritis, unspecified site; G47.33 Obstructive sleep apnea (adult) (pediatric); F32.A Depression, unspecified; Z79.84 Long term (current) use of oral hypoglycemic drugs; Z79.899 Other long term (current) drug therapy; Z99.89 Dependence on other enabling machines and devices
CPT/HCPCS: 74018; 82947; 87081

== ENCOUNTER → 2021-05-09 | Outpatient (CLI) | payer MEDICARE, MEDICAID ==
[~2021-05-09] MED LIST changes: +KETO10TA PO
--- NOTE | 2021-05-09 12:57 | Diagnostic Imaging Report ---
INDICATION: Left renal stones, status post ESWL. Correlation is made with prior exam from 04/26/2021. Multiple calcific densities overlie the left renal shadow. There appears to be some fragmentation involving the stone in the lower pole of the left kidney. Overall stone burden appears to be similar to prior exam. Pelvic calcifications are similar and likely phleboliths. No definite calculi along the course of the ureter is seen. No right-sided urinary tract calculi are seen. IMPRESSION: A left renal calculi. There may be some fragmentation status post ESWL. No definite ureteral calculi are seen. Dictated by: Dictated on workstation # [id number]
== END ==
LOC: RAD 10:27
PROVIDERS: ATTEND Urology
DX: N20.0 Calculus of kidney (principal)
CPT/HCPCS: 74018

== ENCOUNTER → 2021-06-14 | Outpatient (CLI) | payer MEDICARE, MEDICAID ==
--- NOTE | 2021-06-14 10:57 | Diagnostic Imaging Report ---
PROCEDURE: MRI right joint lower extremity without contrast. TECHNIQUE: Multiplanar, multisequence non contrast-enhanced MRI of the right lower extremity was accomplished. INDICATION: Right hip pain COMPARISON: CT from 09/19/2020 FINDINGS: No acute fracture is seen in the pelvis or right hip. Alignment appears normal. There is no significant joint effusion. There is mild degenerative change in the hip joints. Bilateral sacroiliac joints appear patent. There is no cortical erosion seen. There is a tear at the posterior right acetabular labrum with an associated paralabral cyst which measures 1.9 x 0.5 cm on axial imaging, and 1.7 cm craniocaudal in the greatest dimensions. The right iliopsoas tendon is intact. The gluteus medius and minimus tendons are intact. There is mild fluid in the greater trochanteric bursa on the right. The right hamstring tendons appears intact. Soft tissues about the pelvis are otherwise unremarkable with no masses or fluid collection seen. No focal muscular atrophy is seen. No free fluid is seen. There is no lymphadenopathy. IMPRESSION: 1. Mild degenerative change in the right hip joint with labral tear and small posterior paralabral cyst. 2. Mild right greater trochanteric bursitis. Dictated by: Dictated on workstation # [id number]
== END ==
LOC: RAD 09:30
PROVIDERS: ATTEND Nurse Practitioner Family
DX: M16.11 Unilateral primary osteoarthritis, right hip (principal); S73.101A Unspecified sprain of right hip, initial encounter; M24.851 Other specific joint derangements of right hip, not elsewhere classified; M70.61 Trochanteric bursitis, right hip; X58.XXXA Exposure to other specified factors, initial encounter
CPT/HCPCS: 73721

== ENCOUNTER → 2021-07-27 | Outpatient (CLI) | payer MEDICARE, MEDICAID ==
--- NOTE | 2021-07-27 15:25 | Diagnostic Imaging Report ---
INDICATION: Right leg pain. TIME OF EXAM: 2:01 PM. TECHNIQUE: Two views of the right hip were obtained. FINDINGS: The femoroacetabular alignment is normal. The joint space is well maintained. The femoral head and neck are intact. No fractures are seen. The right-sided rami are intact. IMPRESSION: No acute bony abnormality is detected. Dictated by: Dictated on workstation # [id number]
== END ==
LOC: RAD 13:28
PROVIDERS: ATTEND Emergency Medicine
DX: S73.191D Other sprain of right hip, subsequent encounter (principal); X58.XXXD Exposure to other specified factors, subsequent encounter
CPT/HCPCS: 73502

== ENCOUNTER 2021-08-09 19:55 | Emergency (ER) | payer MEDICARE, MEDICAID ==
--- NOTE | 2021-08-09 20:05 | ED Lower Extremity ---
General Stated Complaint: R KNEE PAIN Source: patient Exam Limitations: no limitations History of Present Illness Date Seen by Provider: Aug 09, 2021 Time Seen by Provider: 19:58 Initial Comments 61yoM coming in for right knee pain. He felt like it was going to give out yesterday and has been hurting since. Pain is moderate, constant, aching, better with rest, and worse with walking. Denies any trauma/fall/injury. Allergies and Home Medications Allergies Coded Allergies: Penicillins (Verified Allergy, Unknown, 04/20/21) Patient Home Medication List Home Medication List Reviewed: Yes Duloxetine HCl (Duloxetine HCl) 60 Mg Capsule.dr, 60 MG PO BID, (Reported) Entered as Reported by: JOSE RUELAS on 12/23/19 1448 Ezetimibe (Ezetimibe) 10 Mg Tablet, 10 MG PO DAILY, (Reported) Entered as Reported by: MICHELLE AGUILAR on 04/29/18 1528 Ketorolac Tromethamine (Ketorolac Tromethamine) 10 Mg Tablet, 10 MG PO Q6H Prescribed by: WILY MARR on 04/26/21 1206 Meloxicam (Meloxicam) 7.5 Mg Tablet, 7.5 MG PO DAILY, (Reported) Entered as Reported by: EBER WOODS on 04/20/21 1045 Metformin HCl (Metformin HCl) 1,000 Mg Tablet, 1,000 MG PO BID, (Reported) Entered as Reported by: JOSE RUELAS on 12/23/19 1447 Metoprolol Succinate (Metoprolol Succinate) 50 Mg Tab.er.24h, 50 MG PO BID, (Reported) Entered as Reported by: YVAN PALMER on 08/22/18 1103 Multivitamin (Multivitamins) 1 Each Tablet, 1 TAB PO DAILY, (Reported) Entered as Reported by: YVAN PALMER on 08/22/18 1115 Nabumetone (Nabumetone) 750 Mg Tablet, 750 MG PO BID, (Reported) Entered as Reported by: MICHELLE AGUILAR on 04/29/18 1528 Niacin (Niacin ER) 1,000 Mg Tab.er.24h, 1,000 MG PO DAILY, (Reported) Entered as Reported by: YVAN PALMER on 08/22/18 1103 Nitrofurantoin Monohyd/M-Cryst (Macrobid 100 mg Capsule) 100 Mg Capsule, 1 TAB PO BID Prescribed by: WILY MARR on 04/26/21 1206 Simvastatin (Simvastatin) 80 Mg Tablet, 80 MG PO HS, (Reported) Entered as Reported by: MICHELLE AGUILAR on 04/29/18 1528 Tamsulosin HCl (Flomax) 0.4 Mg Cap, 0.4 MG PO DAILY Prescribed by: WILY MARR on 04/26/21 1206 Topiramate (Topiramate) 50 Mg Tablet, 50 MG PO HS, (Reported) Entered as Reported by: YVAN PALMER on 08/22/18 1103 Review of Systems Constitutional: No chills, No fever EENTM: No blurred vision Respiratory: no symptoms reported Cardiovascular: no symptoms reported Gastrointestinal: no symptoms reported Genitourinary: no symptoms reported Musculoskeletal: joint pain Skin: no symptoms reported Psychiatric/Neurological: No Symptoms Reported All Other Systems Reviewed Negative Unless Noted: Yes Past Zjnowsu-Xwlytn-Orqold Hx Patient Social History Tobacco Use?: No Immunizations Up To Date PED Vaccines UTD: Yes Seasonal Allergies Seasonal Allergies: Yes Past Medical History Surgeries: Yes (HERNIA, HEMORRHOIDECTOMY, ESWL) Abdominal Respiratory: Yes Sleep Apnea Currently Using CPAP: Yes Currently Using BIPAP: No Cardiac: Yes High Cholesterol, Hypertension Neurological: Yes Neuropathy Reproductive Disorders: No Sexually Transmitted Disease: No HIV/AIDS: No Genitourinary: Yes (UROSTOMY PLACED July,) Kidney Stones Gastrointestinal: Yes Colitis, Gastroesophageal Reflux, Diverticulosis, Hemorrhoids Musculoskeletal: Yes Arthritis, Chronic Back Pain Endocrine: Yes Diabetes, Non-Insulin dep HEENT: Yes (READING GLASSES) Loss of Vision: Bilateral Hearing Impairment: Denies Cancer: No Psychosocial: Yes Depression Integumentary: No (hx pressure sores on buttocks) Blood Disorders: No Adverse Reaction/Blood Tranf: No (N/A) Family Medical History Patient reports no known family medical history. Physical Exam Vital Signs Vital Signs - First Documented 08/09/21 19:58 Temp 37.0 Pulse 100 Resp 20 B/P (MAP) 137/77 (97) Pulse Ox 95 O2 Delivery Room Air Capillary Refill : Height, Weight, BMI Height: 5'9.00" Weight: 245lbs. 0oz. 111.744819ry; 37.09 BMI Method:Stated General Appearance: WD/WN, no apparent distress HEENT: PERRL/EOMI, normal ENT inspection, pharynx normal Neck: non-tender, full range of motion, supple, normal inspection Cardiovascular: regular rate, rhythm, no edema, no murmur Respiratory: chest non-tender, lungs clear, normal breath sounds, no respiratory distress, no accessory muscle use Gastrointestinal: normal bowel sounds, non tender, soft; No distended, No guarding, No rebound Back: normal inspection, no CVA tenderness, no vertebral tenderness Hips: bilateral hip non-tender, bilateral hip normal inspection, bilateral hip normal range of motion, bilateral hip no evidence of injury Legs: bilateral leg non-tender, bilateral leg normal inspection, bilateral leg normal range of motion, bilateral leg no evidence of injury Knees: right knee normal range of motion, right knee no evidence of injury, right knee other (trace effusion, tender along patellar facets, no joint line tenderness, no pain with ROM, antalgic gait) Ankles: bilateral ankle non-tender, bilateral ankle normal inspection, bilateral ankle normal range of motion, bilateral ankle no evidence of injury Neurologic/Tendon: normal sensation, normal motor functions, normal tendon functions Neurologic/Psychiatric: no motor/sensory deficits, alert, normal mood/affect Skin: normal color, warm/dry Lymphatic: no adenopathy Procedures/Interventions Date of ETT Placement: August 22, 2018 Time of ETT Placement: 736 Progress/Results/Core Measures Results/Orders My Orders Orders - SHELTON BATRES MD Knee 3 View Right (08/09/21 19:59) Ibuprofen Tablet (Motrin Tablet) (08/09/21 20:15) Acetaminophen Tablet (Tylenol Tablet) (08/09/21 20:15) Medications Given in ED Current Medications Medications Dose Ordered Sig/Cathie Route Start Time Stop Time Status Last Admin Dose Admin Acetaminophen 1,000 mg ONCE ONCE PO 08/09/21 20:15 08/09/21 20:16 08/09/21 20:09 1,000 MG Ibuprofen 400 mg ONCE ONCE PO 08/09/21 20:15 08/09/21 20:16 08/09/21 20:09 400 MG Vital Signs/I&O 08/09/21 19:58 Temp 37.0 Pulse 100 Resp 20 B/P (MAP) 137/77 (97) Pulse Ox 95 O2 Delivery Room Air Progress Progress Note : Progress Note 61-year-old male with above history coming in due to nontraumatic right knee pain. ABCs were intact and vitals were stable on presentation. Physical exam with a trace effusion but normal range of motion of the joint without pain. Given the normal range of motion of the joint I do not think he has a septic joint. Additionally he has no fever or redness around it. X-ray ordered and interpreted by me showing some joint space narrowing in the medial aspect of his knee consistent with mild arthritis. Given ibuprofen and Tylenol for pain. I will have him follow-up with orthopedics here in [place]. Departure Impression Primary Impression: Right knee pain Qualified Codes: M25.561 - Pain in right knee Additional Impression: Osteoarthritis of knee Qualified Codes: M17.11 - Unilateral primary osteoarthritis, right knee Disposition: HOME, SELF-CARE Condition: Stable Departure-Patient Inst. Decision time for Depature: 20:17 Referrals: MARS PETERS DO (PCP/Family) Primary Care Physician FLACO MARIA Patient Instructions: Knee Pain ED Add. Discharge Instructions: You do have some mild arthritis in your right knee which could be hurting. The best thing to do for this is to take ibuprofen or Tylenol. Wrap your knee. You can ice it as well. The best thing to do is lose weight as it is less force on the knee. You can follow-up with Kedar Maria in [facility], he is the bone specialist and he may be able to do an injection to help with your pain. Work/School Note: Work Release Form Date Seen in the Emergency Department: Aug 09, 2021 Return to Work: Aug 10, 2021 Restrictions: No Restrictions SHELTON BATRES MD Aug 09, 2021 20:05
[2021-08-09] MEDS: IBUPROFEN TABLET 200 MG TAB PO ONE (20:09)
[2021-08-09] MEDS ORDERED: ACETAMINOPHEN 500 MG TAB (TYLENOL) PO ONE (20:15)
[2021-08-09] MEDS ORDERED: IBUPROFEN TABLET 200 MG TAB PO ONE (20:15)
[2021-08-09 20:19] VITALS: BP 137/77
--- NOTE | 2021-08-09 20:41 | Diagnostic Imaging Report ---
EXAMINATION: Right knee radiographs, 3 views. COMPARISON: April 13, 2020. HISTORY: 61-year-old male, right knee pain. FINDINGS: There is a small right knee joint effusion. There is mild patellofemoral compartment osteoarthritis. There is no identified acute fracture. IMPRESSION: 1. Small knee joint effusion without identified acute osseous abnormality. 2. Mild patellofemoral compartment osteoarthritis. Dictated by: Dictated on workstation # [id number]
== END 2021-08-09 20:21 | disposition home or self-care (01) ==
LOC: EDUNIT# 19:55 → ER FS 19:56
DX: M17.11 Unilateral primary osteoarthritis, right knee (principal); E11.9 Type 2 diabetes mellitus without complications; Z79.84 Long term (current) use of oral hypoglycemic drugs
CPT/HCPCS: 73562

== ENCOUNTER → 2021-12-06 | Outpatient (CLI) | payer MEDICARE, MEDICAID ==
--- NOTE | 2021-12-06 11:17 | Diagnostic Imaging Report ---
CLINICAL INDICATION: Patient with pain involving the right hip and leg and low back. EXAM: X-ray of the lumbar spine, 3 views. COMPARISON: X-ray of the lumbar spine dated 12/18/2019. FINDINGS: There is no acute lumbar spine fracture or dislocation. There is no pars defect. Intervertebral disk heights and vertebral body heights are grossly maintained is stable. There are mild hypertrophic spurs involving lumbar spine and lower lumbar spine facet arthropathy which is not majorly changed in the interim. Sacroiliac joints are unremarkable. IMPRESSION: There is lumbar spine degenerative disease with no acute fracture or dislocation. Dictated by: Dictated on workstation # [id number]
== END ==
LOC: RAD FS 09:08
PROVIDERS: ATTEND Nurse Practitioner Family
DX: M47.26 Other spondylosis with radiculopathy, lumbar region (principal)
CPT/HCPCS: 72100

== ENCOUNTER → 2021-12-23 | Outpatient (CLI) | payer OTHER, MEDICAID ==
--- NOTE | 2021-12-23 09:58 | Diagnostic Imaging Report ---
PROCEDURE: MRI lumbar spine with and without contrast. TECHNIQUE: Multiplanar, multisequence MRI of the lumbar spine was performed with and without contrast. INDICATION: Low back pain, right hip pain EXAMINATION: Lumbar spine MRI with and without contrast 12/23/2021. FINDINGS: There is normal height and alignment of the vertebral bodies. The tip of the conus is unremarkable in appearance and location. L1-L2: Unremarkable other than mild bilateral neural foraminal stenosis. L2-L3: There is minimal broad-based bulging disc material with bilateral facet and ligamentum flavum hypertrophy. There is no central stenosis. There is moderate bilateral neural foraminal narrowing. L3-L4: There is a broad-based bulging disc with bilateral facet and ligamentum flavum hypertrophy. There is secondary mild central stenosis. There is moderate bilateral neural foraminal narrowing. L4-L5: There is a right paracentral disc protrusion with bilateral facet and ligamentum flavum hypertrophy. The central canal is minimally narrowed with narrowing of the right lateral recess. There is moderate to severe bilateral neural foraminal stenosis. L5-S1: There is disc desiccation with bilateral facet and ligamentum flavum hypertrophy. There is no central stenosis. There is moderate bilateral neural foraminal narrowing. Visualized intra-abdominal structures unremarkable. IMPRESSION: 1. Multilevel degenerative findings as detailed above. Dictated by: Dictated on workstation # [id number]
== END ==
LOC: RAD 08:33
PROVIDERS: ATTEND Nurse Practitioner Family
DX: M47.26 Other spondylosis with radiculopathy, lumbar region (principal); M47.817 Spondylosis without myelopathy or radiculopathy, lumbosacral region; M51.16 Intervertebral disc disorders with radiculopathy, lumbar region; M51.37 Other intervertebral disc degeneration, lumbosacral region; M48.061 Spinal stenosis, lumbar region without neurogenic claudication; M48.07 Spinal stenosis, lumbosacral region
CPT/HCPCS: 72158

== ENCOUNTER → 2022-02-23 | Outpatient (CLI) | payer OTHER, MEDICAID ==
--- NOTE | 2022-02-23 17:32 | Diagnostic Imaging Report ---
EXAMINATION: Chest 2 view. HISTORY: Shortness of breath. COMPARISON: None available. FINDINGS: Heart size and pulmonary vasculature are normal. There are mild interstitial opacities in the lung bases. No pleural effusion or pneumothorax. The osseous structures are intact. IMPRESSION: Mild interstitial opacities in the lung bases which can be seen with atelectasis, pulmonary edema or atypical infection. Dictated by: Dictated on workstation # [id number]
== END ==
LOC: RAD FS 16:02
PROVIDERS: ATTEND Emergency Medicine
DX: R91.8 Other nonspecific abnormal finding of lung field (principal); R06.02 Shortness of breath
CPT/HCPCS: 71046

== ENCOUNTER 2022-03-23 21:16 | Emergency (ER) | payer OTHER, MEDICAID ==
[~2022-03-23] VITALS: Ht 175 cm; Wt 126.3 kg
[2022-03-23 21:39] VITALS: BP 173/93
--- NOTE | 2022-03-23 23:08 | ED Cough/URI ---
General Chief Complaint: Cough/Cold/Flu Symptoms Stated Complaint: COUGH,HEADACHE,SINUS DRAINAGE Nursing Triage Note: PT PRESENTS WITH C/O COUGH, RUNNY NOSE, HEADACHE, BODY ACHES X2 DAYS History of Present Illness Date Seen by Provider: Mar 23, 2022 Time Seen by Provider: 22:40 Initial Comments 61-year-old male with PMH of DM2/HTN/asthma, is here with complaints of cough, congestion, sinus drainage, generalized body aches for the past 2 days. Patient is coughing in the ER. Patient's brother has some type of viral illness, but he is not sure exactly what. Denies fever, diarrhea, nausea and vomiting. Allergies and Home Medications Allergies Coded Allergies: Penicillins (Verified Allergy, Unknown, 04/20/21) Patient Home Medication List Home Medication List Reviewed: Yes Duloxetine HCl (Duloxetine HCl) 60 Mg Capsule.dr, 60 MG PO BID, (Reported) Entered as Reported by: JOSE RUELAS on 12/23/19 1448 Ezetimibe (Ezetimibe) 10 Mg Tablet, 10 MG PO DAILY, (Reported) Entered as Reported by: MICHELLE AGUILAR on 04/29/18 1528 Ketorolac Tromethamine (Ketorolac Tromethamine) 10 Mg Tablet, 10 MG PO Q6H Prescribed by: WILY MARR on 04/26/21 1206 Meloxicam (Meloxicam) 7.5 Mg Tablet, 7.5 MG PO DAILY, (Reported) Entered as Reported by: EBER WOODS on 04/20/21 1045 Metformin HCl (Metformin HCl) 1,000 Mg Tablet, 1,000 MG PO BID, (Reported) Entered as Reported by: JOSE RUELAS on 12/23/19 1447 Metoprolol Succinate (Metoprolol Succinate) 50 Mg Tab.er.24h, 50 MG PO BID, (Reported) Entered as Reported by: YVAN PALMER on 08/22/18 1103 Multivitamin (Multivitamins) 1 Each Tablet, 1 TAB PO DAILY, (Reported) Entered as Reported by: YAVN PALMER on 08/22/18 1115 Nabumetone (Nabumetone) 750 Mg Tablet, 750 MG PO BID, (Reported) Entered as Reported by: MICHELLE AGUILAR on 04/29/18 1528 Niacin (Niacin ER) 1,000 Mg Tab.er.24h, 1,000 MG PO DAILY, (Reported) Entered as Reported by: YVAN PALMER on 08/22/18 1103 Nitrofurantoin Monohyd/M-Cryst (Macrobid 100 mg Capsule) 100 Mg Capsule, 1 TAB PO BID Prescribed by: WILY MARR on 04/26/21 1206 Simvastatin (Simvastatin) 80 Mg Tablet, 80 MG PO HS, (Reported) Entered as Reported by: MICHELLE AGUILAR on 04/29/18 1528 Tamsulosin HCl (Flomax) 0.4 Mg Cap, 0.4 MG PO DAILY Prescribed by: WILY MARR on 04/26/21 1206 Topiramate (Topiramate) 50 Mg Tablet, 50 MG PO HS, (Reported) Entered as Reported by: YVAN PALMER on 08/22/18 1103 Review of Systems Review of Systems Constitutional: malaise, weakness EENTM: nose congestion Respiratory: cough, short of breath, wheezing Cardiovascular: no symptoms reported Gastrointestinal: no symptoms reported Genitourinary: no symptoms reported Musculoskeletal: no symptoms reported Skin: no symptoms reported Psychiatric/Neurological: No Symptoms Reported Hematologic/Lymphatic: No Symptoms Reported Immunological/Allergic: no symptoms reported Past Szvbjjo-Muprnl-Bkbskh Hx Immunizations Up To Date PED Vaccines UTD: Yes Seasonal Allergies Seasonal Allergies: Yes Past Medical History Surgeries: Yes (HERNIA, HEMORRHOIDECTOMY, ESWL) Abdominal Respiratory: Yes Sleep Apnea Currently Using CPAP: Yes Currently Using BIPAP: No Cardiac: Yes High Cholesterol, Hypertension Neurological: Yes Neuropathy Reproductive Disorders: No Sexually Transmitted Disease: No HIV/AIDS: No Genitourinary: Yes (UROSTOMY PLACED July,) Kidney Stones Gastrointestinal: Yes Colitis, Gastroesophageal Reflux, Diverticulosis, Hemorrhoids Musculoskeletal: Yes Arthritis, Chronic Back Pain Endocrine: Yes Diabetes, Non-Insulin dep HEENT: Yes (READING GLASSES) Loss of Vision: Bilateral Hearing Impairment: Denies Cancer: No Psychosocial: Yes Depression Integumentary: No (hx pressure sores on buttocks) Blood Disorders: No Adverse Reaction/Blood Tranf: No (N/A) Family Medical History Patient reports no known family medical history. Physical Exam Vital Signs - First Documented 03/23/22 21:39 Temp 37.4 Pulse 118 Resp 20 B/P (MAP) 173/93 (119) Pulse Ox 96 O2 Delivery Room Air Capillary Refill : Less Than 3 Seconds Height: 5'9.00" Weight: 245lbs. 0oz. [id number]; 41.00 BMI Method:Stated General Appearance: WD/WN, mild distress HEENT: PERRL/EOMI, normal ENT inspection, TMs normal, pharynx normal Neck: non-tender, full range of motion, supple, normal inspection Respiratory: chest non-tender, no respiratory distress, no accessory muscle use, rhonchi, wheezing Cardiovascular: normal peripheral pulses, regular rate, rhythm Gastrointestinal: normal bowel sounds, soft, tenderness (In the right upper quadrant area and also the left flank) Extremities: normal range of motion Neurologic/Psychiatric: no motor/sensory deficits, alert, normal mood/affect, oriented x 3 Skin: normal color Focused Exam Lactate Level 03/23/22 23:30: Lactic Acid Level 2.44*H 03/24/22 02:15: Lactic Acid Level 3.05*H Lactic Acid Level Laboratory Tests Test 03/23/22 23:30 03/24/22 02:15 Lactic Acid Level 2.44 MMOL/L (0.50-2.00) *H 3.05 MMOL/L (0.50-2.00) *H Procedures/Interventions Date of ETT Placement: August 22, 2018 Time of ETT Placement: 736 Progress/Results/Core Measures Suspected Sepsis SIRS Temperature: Pulse: 118 Respiratory Rate: 20 Laboratory Tests 03/23/22 23:30: White Blood Count 4.6 Blood Pressure 173 /93 Mean: 119 03/23/22 23:30: Lactic Acid Level 2.44*H 03/24/22 02:15: Lactic Acid Level 3.05*H Laboratory Tests 03/23/22 23:30: Creatinine 0.77, INR Comment 0.9, Platelet Count 179, Total Bilirubin 0.2 Results/Orders Lab Results Laboratory Tests Test 03/23/22 21:35 03/23/22 23:30 03/24/22 02:15 Range/Units Influenza Type A (RT-PCR) Not Detected Not Detecte Influenza Type B (RT-PCR) Not Detected Not Detecte SARS-CoV-2 RNA (RT-PCR) Not Detected Not Detecte White Blood Count 4.6 4.3-11.0 10^3/uL Red Blood Count 4.36 4.30-5.52 10^6/uL Hemoglobin 13.5 13.3-17.7 g/dL Hematocrit 40 40-54 % Mean Corpuscular Volume 92 80-99 fL Mean Corpuscular Hemoglobin 31 25-34 pg Mean Corpuscular Hemoglobin Concent 34 32-36 g/dL Red Cell Distribution Width 13.5 10.0-14.5 % Platelet Count 179 130-400 10^3/uL Mean Platelet Volume 8.8 L 9.0-12.2 fL Immature Granulocyte % (Auto) 1 % Neutrophils (%) (Auto) 52 42-75 % Lymphocytes (%) (Auto) 30 12-44 % Monocytes (%) (Auto) 15 H 0-12 % Eosinophils (%) (Auto) 0 0-10 % Basophils (%) (Auto) 0 0-10 % Neutrophils # (Auto) 2.4 1.8-7.8 10^3/uL Lymphocytes # (Auto) 1.4 1.0-4.0 10^3/uL Monocytes # (Auto) 0.7 0.0-1.0 10^3/uL Eosinophils # (Auto) 0.0 0.0-0.3 10^3/uL Basophils # (Auto) 0.0 0.0-0.1 10^3/uL Immature Granulocyte # (Auto) 0.1 0.0-0.1 10^3/uL Prothrombin Time 12.2 12.2-14.7 SEC INR Comment 0.9 0.8-1.4 Activated Partial Thromboplast Time 28 24-35 SEC D-Dimer 0.55 H 0.00-0.49 UG/ML Sodium Level 137 135-145 MMOL/L Potassium Level 4.5 3.6-5.0 MMOL/L Chloride Level 100 98-107 MMOL/L Carbon Dioxide Level 26 21-32 MMOL/L Anion Gap 11 5-14 MMOL/L Blood Urea Nitrogen 9 7-18 MG/DL Creatinine 0.77 0.60-1.30 MG/DL Estimat Glomerular Filtration Rate 103 BUN/Creatinine Ratio 12 Glucose Level 99 70-105 MG/DL Lactic Acid Level 2.44 *H 3.05 *H 0.50-2.00 MMOL/L Calcium Level 8.9 8.5-10.1 MG/DL Corrected Calcium 9.0 8.5-10.1 MG/DL Magnesium Level 1.8 1.6-2.4 MG/DL Total Bilirubin 0.2 0.1-1.0 MG/DL Aspartate Amino Transf (AST/SGOT) 176 H 5-34 U/L Alanine Aminotransferase (ALT/SGPT) 123 H 0-55 U/L Alkaline Phosphatase 88 40-136 U/L Troponin I < 0.30 <0.30 NG/ML Pro-B-Type Natriuretic Peptide 30.5 <125.0 PG/ML Total Protein 7.0 6.4-8.2 GM/DL Albumin 3.9 3.2-4.5 GM/DL Lipase 70 8-78 U/L Serum Alcohol < 10 <10 MG/DL Smear Scan YES My Orders Orders - NAGA SMITH MD Covid 19 Inhouse Test (03/23/22 21:24) Influenza A And B By Pcr (03/23/22 21:24) Chest 1 View Ap/Pa Only (03/23/22 21:59) Cbc With Automated Diff (03/23/22 22:47) Comprehensive Metabolic Panel (03/23/22 22:47) Fibrin Degradation Products (03/23/22 22:47) Lactic Acid Analyzer (03/23/22 22:47) Magnesium (03/23/22 22:47) Procalcitonin (Pct) (03/23/22 22:47) Protime With Inr (03/23/22 22:47) Partial Thromboplastin Time (03/23/22 22:47) Probnp Fs (03/23/22 22:47) Troponin I Fs (03/23/22 22:47) Albuterol/Ipra Inhalation Soln (Duoneb I (03/23/22 23:30) Svn Small Volume Nebulizer (03/23/22 23:30) Methylprednisolone Sod Succ (Solu-Medrol (03/23/22 23:30) Alcohol (03/24/22 00:15) Lipase (03/24/22 00:15) Ed Iv/Invasive Line Start (03/24/22 00:16) Ns Iv 1000 Ml (Sodium Chloride 0.9%) (03/24/22 00:30) Ns Iv 1000 Ml (Sodium Chloride 0.9%) (03/24/22 00:45) Iohexol Injection (Omnipaque 350 Mg/Ml 1 (03/24/22 01:15) Received Contrast (Hold Metformin- Contr (03/24/22 01:15) Sodium Chloride Flush (Catheter Flush Sy (03/24/22 01:15) Ns (Ivpb) (Sodium Chloride 0.9% Ivpb Bag (03/24/22 01:15) Ct [facility]ore Chest/Noang Abd-Pelv W (03/24/22 01:16) Medications Given in ED Current Medications Medications Dose Ordered Sig/Cathie Route Start Time Stop Time Status Last Admin Dose Admin Albuterol/ Ipratropium 3 ml ONCE ONCE INH 03/23/22 23:30 03/23/22 23:31 DC 03/23/22 23:35 3 ML Iohexol 100 ml ONCE ONCE IV 03/24/22 01:15 03/24/22 01:16 DC 03/24/22 01:35 100 ML Methylprednisolone Sodium Succinate 125 mg ONCE ONCE IVP 03/23/22 23:30 03/23/22 23:31 DC 03/23/22 23:35 125 MG Sodium Chloride 10 ml NEEDED PRN IV 03/24/22 01:15 03/24/22 01:35 10 ML Sodium Chloride 100 ml ONCE ONCE IV 03/24/22 01:15 03/24/22 01:16 DC 03/24/22 01:35 100 ML Vital Signs/I&O 03/23/22 21:39 Temp 37.4 Pulse 118 Resp 20 B/P (MAP) 173/93 (119) Pulse Ox 96 O2 Delivery Room Air Capillary Refill : Less Than 3 Seconds Blood Pressure Mean: 119 Progress Note : Progress Note 1. NEPHROLITHIASIS/ VIRAL SYNDROME - CXR: - CT ABD: Left-sided kidney stones, patient has 3 stones, 3 to 6 mm in size - WBC: normal - Lactic acid is 2.44 -COVID Test/rapid flu Test: Negative - AST/ALT: 176/ 1232. - Duo neb x1 with improvement - Toradol injection STAT - NS IVF bolus STAT - Follow up with PCP in 3 to 7 days -Adequate hydration advised. Take Tylenol and ibuprofen as needed pain or f ever. 2. ELEVATED D-DIMER: - D-dimer is 0.55 - CTA CHEST: Negative for PE Diagnostic Imaging Diagonstic Imaging: Xray, CT Plain Films/CT/US/NM/MRI: chest, abdomen Departure Impression Primary Impression: Viral syndrome Additional Impressions: Nephrolithiasis Elevated d-dimer Disposition: HOME, SELF-CARE Condition: Stable Departure-Patient Inst. Referrals: MARS PETERS DO (PCP/Family) Primary Care Physician JONATHAN CONLEY MD Patient Instructions: Kidney Stone Diet, Kidney Stone, Adult ED, Viral Syndrome (DC) Add. Discharge Instructions: - Follow up with PCP in 3 to 7 days -Adequate hydration advised. Take Tylenol and ibuprofen as needed pain - Follow up with Urology clinic in 7 to 10 days All discharge instructions reviewed with patient and/or family. Voiced understanding. NAGA SMITH MD Mar 23, 2022 23:08
[2022-03-23] MEDS ORDERED: RT-ALBUTEROL/IPRATROPIUM 3 ML (DUONEB) VIAL INH ONE (23:30)
[2022-03-23] MEDS ORDERED: methylPREDNISolone 125 MG (Solu-MEDROL) VIAL IVP ONE (23:30)
[2022-03-23 23:42] LABS: BASOPHILS % (AUTO) 0 % (0-10); EOSINOPHILS % (AUTO) 0 % (0-10); HEMATOCRIT 40 % (40-54); HEMOGLOBIN 13.5 g/dL (13.3-17.7); LYMPHOCYTES # (AUTO) 1.4 10^3/uL (1.0-4.0); LYMPHOCYTES % (AUTO) 30 % (12-44); MEAN CORPUSCULAR HEMOGLOBIN 31 pg (25-34); MEAN CORPUSCULAR HGB CONC 34 g/dL (32-36); MEAN CORPUSCULAR VOLUME 92 fL (80-99); MEAN PLATELET VOLUME 8.8 fL (9.0-12.2); MONOCYTES # (AUTO) 0.7 10^3/uL (0.0-1.0); MONOCYTES % (AUTO) 15 % (0-12); NEUTROPHILS # (AUTO) 2.4 10^3/uL (1.8-7.8); NEUTROPHILS % (AUTO) 52 % (42-75); PLATELET COUNT 179 10^3/uL (130-400); WHITE BLOOD COUNT 4.6 10^3/uL (4.3-11.0)
[2022-03-23 23:47] LABS: SMEAR SCAN COMMENT YES
[2022-03-24 00:13] LABS: ALANINE AMINOTRANSFERASE 123 U/L (0-55); ALBUMIN 3.9 GM/DL (3.2-4.5); ALKALINE PHOSPHATASE 88 U/L (40-136); BILIRUBIN,TOTAL 0.2 MG/DL (0.1-1.0); BUN/CREATININE RATIO 12; CALCIUM 8.9 MG/DL (8.5-10.1); CARBON DIOXIDE 26 MMOL/L (21-32); CHLORIDE 100 MMOL/L (98-107); CREATININE SERUM 0.77 MG/DL (0.60-1.30); GFR ESTIMATED 103; GLUCOSE 99 MG/DL (70-105); MAGNESIUM 1.8 MG/DL (1.6-2.4); POTASSIUM 4.5 MMOL/L (3.6-5.0); SODIUM 137 MMOL/L (135-145)
[2022-03-24 00:15] LABS: FIBRIN DEGRADATION PRODUCTS 0.55 UG/ML (0.00-0.49); INR 0.9 (0.8-1.4); PROTHROMBIN TIME PATIENT 12.2 SEC (12.2-14.7)
[2022-03-24] MEDS ORDERED: NS IV 1000 ML 1,000 ML IV SCH (00:30)
[2022-03-24 00:34] LABS: LIPASE 70 U/L (8-78)
[2022-03-24] MEDS ORDERED: NS IV 1000 ML 1,000 ML ONE (00:45)
[2022-03-24] MEDS ORDERED: IOHEXOL 350 MG/ML 100 ML (OMNIPAQUE 350) VIAL IV ONE (01:15)
[2022-03-24] MEDS ORDERED: NS 100 ML (IVPB) BAG IV ONE (01:15)
[2022-03-24] MEDS ORDERED: HOLD METFORMIN - RECEIVED CONTRAST 20 ML VIAL IV SCH (01:15)
[2022-03-24] MEDS ORDERED: CATHETER FLUSH 10 ML SYR IV PRN (01:15)
[2022-03-24] MEDS ORDERED: KETOROLAC 15 MG/ML VIAL IVP ONE (03:15)
--- NOTE | 2022-03-24 07:21 | Diagnostic Imaging Report ---
INDICATION: Shortness of breath Frontal chest obtained at 1016 p.m. COMPARISON: 02/23/2022 Heart is mildly enlarged. Mediastinal silhouette is unremarkable. The lungs are clear. There is no pneumothorax or pleural fluid. IMPRESSION: No acute process in the chest. Dictated by: Dictated on workstation # [id number]
--- NOTE | 2022-03-24 08:18 | Diagnostic Imaging Report ---
EXAMINATION: CT angiography chest with and without, CT abdomen and pelvis with and without. TECHNIQUE: Noncontrast enhanced helical images were obtained through the chest, abdomen and pelvis. Contrast enhanced thin section helical images were obtained through the chest, abdomen and pelvis with intravenous contrast timed for the optimal opacification of the arterial structures per departmental CTA protocol. Post-processing, retro reconstructions and interpretation of angiographic images of the vessels was performed. 3D MIP reconstructions were performed and reviewed. All CT scans use one or more of the following dose optimizing techniques: automated exposure control, MA and/or KvP adjustment based on patient size and exam type or iterative reconstruction. HISTORY: Elevated D-dimer, right upper quadrant pain COMPARISON: 04/18/2021 FINDINGS: There is no pulmonary embolism. There is no edema or pneumonia. No pleural effusion. No pneumothorax. No suspicious nodules. There is no axillary or supraclavicular lymphadenopathy. There is no mediastinal lymphadenopathy. Heart size is normal. There are no coronary artery calcifications. No pericardial effusion. Aorta is normal in caliber. Liver surface is nodular suggestive of cirrhosis. There is an area of low attenuation near the gallbladder fossa favored to represent focal fat. Similar to prior exam. Flash filling hemangioma in segment four A is unchanged. There is no biliary ductal dilation. Gallbladder is normal. Pancreas is normal. Spleen is normal. Adrenal glands are normal. There are three stones in the proximal left ureter measuring between three and 6 mm. There is mild left hydronephrosis. There are additional nonobstructing stones in both kidneys. Bilateral renal cysts are unchanged including a hemorrhagic or proteinaceous cyst in the left kidney. Urinary bladder is normal. Bowel is normal in caliber without obstruction or inflammation. No free fluid or air. No abdominal or pelvic lymphadenopathy. Aorta is normal in caliber without aneurysm. There are no suspicious osseus lesions. IMPRESSION: 1. No pulmonary embolism. 2. There are three stones in the proximal left ureter measuring between three and 6 mm with mild left hydronephrosis. 3. Nodular liver surface suggestive of cirrhosis. Dictated by: Dictated on workstation # [id number]
== END 2022-03-24 03:28 | disposition home or self-care (01) ==
LOC: ER FS 21:16
DX: B34.9 Viral infection, unspecified (principal); N13.2 Hydronephrosis with renal and ureteral calculous obstruction; R79.1 Abnormal coagulation profile; Z28.310 Unvaccinated for COVID-19; Z20.822 Contact with and (suspected) exposure to COVID-19; Z93.6 Other artificial openings of urinary tract status
CPT/HCPCS: 36415; 71045; 71275; 74177; 80053; 83605 ×2; 83690; 83735; 83880; 84145; 84484; 85025; 85379; 85610; 85730; 87636; 99283; G0480; 80320

== ENCOUNTER → 2023-03-14 | Outpatient (CLI) | payer OTHER, MEDICAID ==
[~2023-03-14] MED LIST changes: +DICY-11 PO; -DICY10CA12 PO; -GABA-490 PO; +GABA-491 PO; +TOPI-241 PO; -TOPI50TA13 PO
--- NOTE | 2023-03-14 15:57 | Diagnostic Imaging Report ---
INDICATION: Pain of right hip joint. COMPARISON: 07/27/2021. FINDINGS: 2 views of the right hip were obtained and show no fracture, dislocation or other acute bony abnormality. Joint spaces are well maintained throughout. The soft tissues appear unremarkable. No unexpected radiopaque foreign body is identified. IMPRESSION: Unremarkable radiographic exam of the right hip. Dictated by: Dictated on workstation # [id number]
--- NOTE | 2023-03-14 15:58 | Diagnostic Imaging Report ---
INDICATION: PAIN OF RIGHT KNEE JOINT COMPARISON: None. FINDINGS: Multiple radiographic views of the right knee joint demonstrate no acute fracture or dislocation. No focal osseous lesions are seen. No significant joint effusion is seen. Mild osteoarthritic changes are noted. The surrounding soft tissue structures are unremarkable. There are no radiopaque foreign bodies. IMPRESSION: 1. No acute fractures or dislocations of the right knee joint. Dictated by: Dictated on workstation # [id number]
== END ==
LOC: ORTHO 10:52
PROVIDERS: ATTEND Orthopaedic Surgery
DX: M25.561 Pain in right knee (principal); M25.551 Pain in right hip
CPT/HCPCS: 73502; 73564; G0463

== ENCOUNTER → 2023-03-26 | Outpatient (CLI) | payer MEDICARE ==
[~2023-03-26] MED LIST changes: +GADOTERATE 0.5 MMOL/ML (CLARISCAN) 20 ML VIAL IV ONE; -TOPI-241 PO; +TOPI-83 PO
--- NOTE | 2023-03-26 13:00 | Diagnostic Imaging Report ---
EXAMINATION: Magnetic resonance imaging of the pelvis and right hip without and with intravenous contrast DATE: March 26, 2023. COMPARISON: CT abdomen and pelvis March 26, 2023. INDICATION: 62-year-old male, right hip pain. TECHNIQUE: Magnetic Resonance Imaging sequences were performed of the pelvis without and with intravenous contrast. TENDONS AND MUSCLES: The gluteus nahomi muscles and their origins and insertions are intact bilaterally. The tendons and muscles of the greater trochanter - gluteus minimus, piriformis and gluteus medius - are intact bilaterally. There is a 50% partial thickness tear of the left common hamstring tendon attachment. The right proximal common hamstring tendons are intact. The visualized portions of the flexors and adductor muscles of the thigh and their attachments on the pelvis and hips are intact. Both iliopsoas and iliacus muscles are intact. The bilateral iliopsoas tendons are intact. HIPS AND SACROILIAC JOINTS: The contours of the femoral heads and acetabuli are smooth and symmetric. No hip joint effusion. The sacroiliac joints are unremarkable. LUMBAR SPINE: The visible portions of the lumbar spine are unremarkable on limited assessment. BONE: There is no identified bone lesion. There is no acute fracture, bone contusion, or evidence of osteonecrosis. BURSAE AND SOFT TISSUES: The bursae and soft tissues surrounding the pelvis and hips are within normal limits. IMPRESSION: 1. No identified bone lesion or soft tissue mass. 2. 50% partial thickness tear at the left common hamstring tendon attachment site. Additional muscles and tendons are intact. 3. No acute fracture, bone contusion, or evidence of osteonecrosis. 4. Unremarkable evaluation of both hip joints. Dictated by: Dictated on workstation # [id number]
== END ==
LOC: RAD 09:04
PROVIDERS: ATTEND Orthopaedic Surgery
DX: S76.812A Strain of other specified muscles, fascia and tendons at thigh level, left thigh, initial encounter (principal); M89.8X5 Other specified disorders of bone, thigh
CPT/HCPCS: 73723

== ENCOUNTER → 2023-03-26 | Outpatient (CLI) | payer MEDICAID, MEDICARE, OTHER ==
[~2023-03-26] MED LIST changes: -GADOTERATE 0.5 MMOL/ML (CLARISCAN) 20 ML VIAL IV ONE
--- NOTE | 2023-03-26 09:33 | Diagnostic Imaging Report ---
PROCEDURE: CT abdomen and pelvis without contrast. TECHNIQUE: Multiple contiguous axial images were obtained through the abdomen and pelvis without the use of intravenous contrast. Auto Exposure Controls were utilized during the CT exam to meet ALARA standards for radiation dose reduction. INDICATION: Right-sided abdominal pain. COMPARISON: 03/24/2022. FINDINGS: The heart is unremarkable. The lung bases are clear. Nonobstructing calculi are seen in the left kidney measuring up to 12 mm. No evidence of hydronephrosis. Cortical cysts are seen in the left kidney. There is perinephric fat stranding bilaterally. The urinary bladder is nondistended. No bladder calculi. The liver, spleen, pancreas, and adrenal glands have a normal noncontrast CT appearance. There is no pathologically enlarged mesenteric or retroperitoneal adenopathy. The bowel loops are nondilated. The appendix is visualized in the right lower quadrant and has a normal appearance. There is no free fluid or free air. No acute osseous abnormalities. There is no free air, loculated collection, or adenopathy in the pelvis. IMPRESSION: 1. Nonobstructive calculi in the left kidney. No obstructing calculi or hydronephrosis. 2. No acute abnormalities in the abdomen and pelvis. 3. Cortical cysts in the left kidney which are incompletely evaluated on this noncontrast study. If indicated, contrast enhanced CT with renal protocol could be performed to further characterize. Renal ultrasound could also be considered to further evaluate. Dictated by: Dictated on workstation # [id number]
== END ==
LOC: RAD 07:54
PROVIDERS: ATTEND Nurse Practitioner Family
DX: N20.0 Calculus of kidney (principal); N28.1 Cyst of kidney, acquired; M89.8X5 Other specified disorders of bone, thigh
CPT/HCPCS: 74176